=== PATIENT | female | born 1970 | race Two or more races ===

== ENCOUNTER 2021-07-30 14:38 | Outpatient (REF) | payer OTHER, SELFPAY ==
[2021-07-30 16:05] LABS: COVID-19 Test Negative (Negative); IDNOW Serial# 55D5AD1C
== END 2021-07-30 14:39 | disposition home or self-care (01) ==
LOC: HO.LAB 14:38
PROVIDERS: Visit Provider Internal Medicine
DX: Z20.822 Contact with and (suspected) exposure to COVID-19 (principal)
CPT/HCPCS: 36415; 87635; C9803

== ENCOUNTER 2023-03-20 17:56 | Emergency (ER) | payer OTHER, SELFPAY ==
--- NOTE | ~2023-03-20 | CT_ITS ---
EXAMINATION: CT ABDOMEN AND PELVIS WITHOUT CONTRAST CLINICAL INFORMATION: Right lower quadrant pain. COMPARISON: None available. TECHNIQUE: Multidetector volumetric imaging was performed from the superior aspect of the liver through the pubic symphysis. Sagittal and coronal reformatted images were obtained on the technologist's workstation. This CT examination was performed using dose optimization techniques as appropriate, variously including the following: *Automated exposure control. *Adjustment of mA and/or kV according to patient size (this includes techniques or standardized protocols for targeted exams where dose is matched to indication/reason for exam; i.e. extremities or head). *Use of iterative reconstruction technique. DLP: 532 mGy-cm FINDINGS: LUNG BASES: There is a calcific granuloma at the right lung base. The lung bases are otherwise clear. LIVER, GALLBLADDER, AND BILIARY TREE: The liver is normal in size, shape, and attenuation. No focal hepatic lesion or biliary ductal dilatation is present. The gallbladder is unremarkable with no evidence of radiopaque gallstones, gallbladder wall thickening, or obvious pericholecystic inflammatory changes. PANCREAS: Unremarkable. SPLEEN: Unremarkable. ADRENAL GLANDS: Unremarkable. KIDNEYS AND URETERS: The kidneys are normal in size, shape, and attenuation. No hydronephrosis, hydroureter, or calculi seen. No perinephric stranding. BLADDER : Unremarkable. GASTROINTESTINAL TRACT: There are a few diverticula of the descending colon without diverticulitisThe. Appendix is unremarkable. ABDOMINAL WALL: No significant hernia is appreciated. LYMPH NODES: Normal. VASCULAR: Unremarkable. PELVIC VISCERA: Unremarkable. OSSEOUS STRUCTURES: Unremarkable. CT/CT abdomen pelvis wo IV con IMPRESSION: No acute intra-abdominal process. There are a few diverticula of the descending colon without diverticulitis. Fleischner guidelines were followed.
--- NOTE | 2023-03-20 18:34 | ED_ITS ---
HPI - Abdominal Pain General Chief Complaint: Urogenital-Female Stated Complaint: Abdominal pain Time Seen by Provider: 03/20/23 22:05 Source: patient Mode of arrival: ambulatory Limitations: no limitations History of Present Illness HPI narrative: Patient with history chronic abdominal pain since 2020 after partial hysterectomy diagnosed with IBS on [place] complaining of this time pain last 2 weeks localized more on the right side going to the bilateral flank area no gross hematuria no history of kidney stone no urinary complaints no fever no chills no diarrhea Related Data Previous Rx's Medication Instructions Recorded cyclobenzaprine 10 mg tablet 10 mg PO Q8H #20 tabs 03/20/23 lorazepam 0.5 mg tablet (Ativan) 0.5 mg PO BEDTIME PRN sleep #10 03/20/23 tabs tramadol 50 mg tablet 50 mg PO Q6H PRN pain #20 tabs 03/20/23 Allergies Allergy/AdvReac Type Severity Reaction Status Date / Time No Known Allergies Allergy Mild N/A Verified 03/20/23 18:35 Review of Systems Review of Systems Yes all other systems are reviewed and are negative [facility] Social History Social History Alcohol intake: never Smoked in Last 30 Days: No Use of substances other than those prescribed or required for medical reasons: No Advance Directives: No Advance Directives Information Provided: No Patient : No Physical Exam ED Vital Signs: Vital Signs - 24 hr 03/20/23 18:35 03/20/23 22:32 03/20/23 23:40 Temperature 96.5 F L 97.8 F 97.9 F Pulse Rate 84 75 79 Respiratory Rate 18 18 18 Blood Pressure 117/74 99/53 L 108/61 Pulse Oximetry 98 99 98 Oxygen Delivery Method Room Air Room Air Room Air BMI result Body Mass Index 31.0 Appearance: Alert. Oriented X3. No acute distress. Eyes: No pallor or icterus ENT: Pharynx normal. Oral Mucosa moist Neck: Normal inspection. Neck supple. CVS: Normal heart rate and rhythm. Pulses normal. Respiratory: No respiratory distress. Equal air entry bilateral, no wheezing/rales/rhonchi Abdomen: Soft diffuse abdominal tenderness right upper abdomen. Bowel sounds are present, no mass palpable, no CVA tenderness Skin: Skin warm and dry. Normal skin color. Normal skin turgor. Extremities: No lower extremity edema. No calf tenderness Neuro: Oriented X 3. Course Course Course Narrative: RME: 52-year-old female w/PMHx renal stones, presenting to the ED complaining of R sided abdominal pain radiating to back x 2 weeks w/assoc hematuria. Admits went to [facility] ED last week but LWT'd. denies fever, N/V Labs, UA, CT ordered ordered Full HPI, ROS and PE to be performed by primary ED provider. Medical Decision Making Medical Decision Making MDM Narrative: Patient under increased stress unable to sleep in the night with diffuse back pain and abdominal pain with history of IBS likely has fibromyalgia also CT scan is negative labs are stable urine negative discharge patient home on tramadol, Ativan, Flexeril Lab Data [facility] Lab Attestation statement: I reviewed the patient's lab results. 03/20/23 21:24 03/20/23 21:24 Labs: Lab Results 03/20/23 03/20/23 03/20/23 Range/Units 19:25 21:24 21:24 WBC 9.1 (4.8-10.8) X10*3/uL RBC 4.64 (4.20-5.50) X10*6/uL Hgb 13.4 (12.0-16.0) g/dl Hct 40.9 (37.0-47.0) % MCV 88.1 (80.0-98.0) fL MCH 28.9 (27.0-33.0) pg MCHC 32.8 (31.0-35.0) g/dl RDW 13.9 (11.0-16.0) % Plt Count 226 (160-400) X10*3/uL MPV 10.8 (9.4-12.3) fL Immature Gran % (Auto) 0.3 (0.0-0.4) % Neut % (Auto) 54.2 (45-73) % Lymph % (Auto) 37.9 (20-40) % [place] % (Auto) 6.4 (2-11) % Eos % (Auto) 0.9 (0-4) % Baso % (Auto) 0.3 (0-2) % Lymph # (Auto) 3.4 (1.2-4.9) X10*3/uL [place] # (Auto) 0.6 (0.1-1.2) X10*3/uL Eos # (Auto) 0.1 (0.0-0.4) X10*3/uL Baso # (Auto) 0.0 (0.0-0.2) X10*3/uL Abs Immat Gran (auto) 0.03 (0.00-0.03) X10*3/uL Absolute Neuts (auto) 4.9 (2.0-8.3) x10*3/uL Absolute Nucleated RBC 0.000 (0.0-0.012) X10*3/uL Nucleated RBC % (auto) 0.0 (0.0-0.2) /100WBC Sodium 140 (135-145) mmol/L Potassium 4.3 (3.3-5.1) mmol/L Chloride 104 (96-108) mmol/L Carbon Dioxide 28 (22-29) mmol/L Anion Gap 12 (12-20) BUN 14 (9-16) mg/dL Creatinine 0.80 (0.5-1.4) mg/dL Estim Creat Clear Calc 83.9 Estimated GFR > 60 Random Glucose 89 (60-115) mg/dL Calcium 9.8 (8.4-10.2) mg/dL Magnesium 2.5 (1.6-2.6) mg/dL Total Bilirubin 0.4 (0.0-1.0) mg/dL Direct Bilirubin 0.1 (0.0-0.5) mg/dL AST 24 (5-31) U/L ALT 32 H (0-31) U/L Alkaline Phosphatase 63 (39-117) U/L Total Protein 7.7 (6.5-8.0) g/dL Albumin 4.2 (3.5-5.0) g/dL Lipase 24 (8-78) U/L Urine Color Yellow Urine Appearance Clear Urine pH 5.5 (5.0-9.0) Ur Specific [place] 1.010 (1.005-1.025) Urine Protein Negative (Neg-Trace) mg/dL Urine Glucose (UA) Negative (Negative) mg/dL Urine Ketones Negative (Negative) mg/dL Urine Blood Negative (Negative) Urine Nitrite Negative (Negative) Ur Leukocyte Esterase Negative (Negative) Medications Administered Discontinued Medications Generic Name Dose Route Start Last Admin Trade Name Freq PRN Reason Stop Dose Admin Cyclobenzaprine HCl 10 mg 03/20/23 23:11 03/20/23 23:26 Cyclobenzaprine Hcl 10 Mg Tablet PO 03/20/23 23:12 10 mg ONCE ONE Administration Lorazepam 0.5 mg 03/20/23 23:11 03/20/23 23:27 Lorazepam 0.5 Mg Tablet PO 03/20/23 23:12 0.5 mg ONCE ONE Administration Tramadol HCl 50 mg 03/20/23 23:11 03/20/23 23:26 Tramadol Hcl 50 Mg Tablet PO 03/20/23 23:12 50 mg ONCE ONE Administration Discharge Plan Discharge Clinical Impression: Irritable bowel syndrome, Fibromyalgia Patient Disposition: Home, Self-Care Instructions: Irritable Bowel Syndrome (ED), Fibromyalgia (ED) Additional Instructions: Likely you have fibromyalgia as a cause of the pain in the back Abdominal pain is likely from IBS Continue medications as prescribed by your gastroenterology Take medication for pain as prescribed Prescriptions: New tramadol 50 mg tablet 50 mg PO Q6H PRN (Reason: pain) Qty: 20 0RF lorazepam [Ativan] 0.5 mg tablet 0.5 mg PO BEDTIME PRN (Reason: sleep) Qty: 10 0RF cyclobenzaprine 10 mg tablet 10 mg PO Q8H Qty: 20 0RF Interventions: ED Discharge Assessment Last Done: 03/20/23 23:54 Discharge Date/Time: 03/20/23 23:54
[2023-03-20 18:35] VITALS: BP 117/74; PULSE 84; RESP 18; TEMP 35.8; O2SAT 98; BMI 31.0
[2023-03-20 19:37] LABS: Appearance Urine Clear; Color Urine Yellow; Glucose Urine UA Negative (Negative); Leukocyte Esterase Urine Negative (Negative); Nitrite Urine Negative (Negative); PH 5.5 (5.0-9.0); Urine Blood Negative (Negative); Urine Ketones Negative (Negative); Urine Protein Negative (Neg-Trace)
[2023-03-20 21:27] LABS: MANUAL DIFF FLAG NO
[2023-03-20 21:28] LABS: Basophils Percent Auto 0.3 % (0-2); Eosinophils Absolute Auto 0.1 X10*3/uL (0.0-0.4); Eosinophils Percent Auto 0.9 % (0-4); Hematocrit 40.9 % (37.0-47.0); Hemoglobin 13.4 g/dl (12.0-16.0); Imm Gran Abs Auto 0.03 X10*3/uL (0.00-0.03); Imm Gran Pct Auto 0.3 % (0.0-0.4); Lymphocytes Absolute Auto 3.4 X10*3/uL (1.2-4.9); Lymphocytes Percent Auto 37.9 % (20-40); Mean Corpuscular HGB Conc 32.8 g/dl (31.0-35.0); Mean Corpuscular Hemoglobin 28.9 pg (27.0-33.0); Mean Corpuscular Volume 88.1 fL (80.0-98.0); Mean Platelet Volume 10.8 fL (9.4-12.3); Monocytes Absolute Auto 0.6 X10*3/uL (0.1-1.2); Monocytes Percent Auto 6.4 % (2-11); Neutrophils Absolute Auto 4.9 x10*3/uL (2.0-8.3); Neutrophils Percent Auto 54.2 % (45-73); Platelet Count 226 X10*3/uL (160-400); Red Blood Count 4.64 X10*6/uL (4.20-5.50); Red Cell Distribution Width 13.9 % (11.0-16.0); White Blood Count 9.1 X10*3/uL (4.8-10.8)
[2023-03-20 21:46] LABS: Alanine Aminotransferase 32 U/L (0-31); Albumin Level 4.2 g/dL (3.5-5.0); Alkaline Phosphatase 63 U/L (39-117); Anion Gap 12 (12-20); Aspartate Amino Transferase 24 U/L (5-31); Bilirubin Direct 0.1 mg/dL (0.0-0.5); Bilirubin Total 0.4 mg/dL (0.0-1.0); Blood Urea Nitrogen 14 mg/dL (9-16); Calcium 9.8 mg/dL (8.4-10.2); Carbon Dioxide 28 mmol/L (22-29); Chloride 104 mmol/L (96-108); Creatinine Clr Calc Pharmacy 83.9; Estimated Glomerular Filt Rate > 60; Glucose Random 89 mg/dL (60-115); Lipase 24 U/L (8-78); Magnesium 2.5 mg/dL (1.6-2.6); Potassium 4.3 mmol/L (3.3-5.1); Sodium 140 mmol/L (135-145); Total Protein 7.7 g/dL (6.5-8.0)
[2023-03-20 22:32] VITALS: BP 99/53; PULSE 75; RESP 18; TEMP 36.6; O2SAT 99
[2023-03-20] MEDS: Cyclobenzaprine HCl 10 MG TABLET PO (23:26)
[2023-03-20] MEDS: traMADoL HCL 50 MG TABLET PO (23:26)
[2023-03-20] MEDS: LORazepam 0.5 MG TABLET PO (23:27)
[2023-03-20 23:40] VITALS: BP 108/61; PULSE 79; RESP 18; TEMP 36.6; O2SAT 98
== END 2023-03-20 23:54 | disposition home or self-care (01) ==
PROVIDERS: Physician Assistant; Emergency Provider Internal Medicine; PCP Internal Medicine
DX: K58.9 Irritable bowel syndrome, unspecified (principal); M79.7 Fibromyalgia
CPT/HCPCS: 36415; 74176; 80048; 80076; 81003; 83690; 83735; 85025; 99284

== ENCOUNTER 2023-09-26 08:32 | Emergency (ER) | payer OTHER, SELFPAY ==
--- NOTE | ~2023-09-26 | XR_ITS ---
EXAMINATION: XR HIP, RIGHT CLINICAL INFORMATION: Right hip pain COMPARISON: None available. TECHNIQUE: Two views of the right hip. FINDINGS: No fracture. Alignment is anatomic. Hip joint space is maintained. Soft tissues are unremarkable. XR/XR hip RT min 2V IMPRESSION: Normal right hip.
[2023-09-26 08:43] VITALS: BP 105/63; PULSE 75; RESP 14; TEMP 36.9; O2SAT 97; BMI 31.9
--- NOTE | 2023-09-26 09:08 | ED_ITS ---
HPI - General Adult General Chief complaint: Extremity Problem Stated complaint: R Side Hip Pain ? Sciatica Time Seen by Provider: 09/26/23 09:04 Source: patient Mode of arrival: ambulatory Limitations: no limitations History of Present Illness HPI narrative: Patient is a 53 year old assigned female at with a history of sciatica presenting to the emergency department today with right sided hip pain. Patient states that over the last few days she has had right sided hip pain that radiates to the outside portion of her right knee. Patient states that she has had issues with sciatica but this feels different. Patient denies any dizziness, lightheadedness, abdominal pain, nausea, vomiting, fever, chills, blurry vision, double vision, loss of vision, chest pain, difficulty breathing, shortness of breath, back pain, night sweats, pain with urination, increased urinary frequency, increased urinary urgency, blood in her urine or stool, syncope or a near syncopal episode, recent trauma or falls, bowel incontinence, bladder incontinence, bowel retention, bladder retention, or any other complaints at this time. Onset (ago): day(s) Location: right (hip) and lower extremity Radiation: non-radiation Severity: mild Severity scale (1-10): 3 Quality: aching and dull Pain Consistency: constant Relieving factors: none Exacerbating factors: movement Associated symptoms: denies other symptoms Treatments prior to arrival: none Related Data Previous Rx's Medication Instructions Recorded cyclobenzaprine 10 mg tablet 10 mg PO Q8H #20 tabs 03/20/23 lorazepam 0.5 mg tablet (Ativan) 0.5 mg PO BEDTIME PRN sleep #10 03/20/23 tabs tramadol 50 mg tablet 50 mg PO Q6H PRN pain #20 tabs 03/20/23 cyclobenzaprine 5 mg tablet 5 mg PO TID PRN muscle spasm 7 09/26/23 days #21 tabs naproxen 500 mg tablet 500 mg PO BID 7 days #14 tabs 09/26/23 prednisone 20 mg tablet 20 mg PO DAILY 7 days #7 tabs 09/26/23 Allergies Allergy/AdvReac Type Severity Reaction Status Date / Time No Known Allergies Allergy Mild N/A Verified 09/26/23 08:42 Review of Systems Constitutional: Constitutional: Reports no additional constitutional complaints, Denies chills, Denies fever(s) and Denies night sweats Eyes: Eyes: Reports no additional eye complaints, Denies blurry vision, Denies change in vision, Denies diplopia, Denies eye discharge, Denies loss of vision and Denies eye pain ENT: Denies dizziness Cardiovascular: Cardiovascular: Reports no additional cardiovascular complaints, Denies chest pain, Denies lightheadedness, Denies Loss of Consciousness and Denies dyspnea Respiratory: Respiratory: Reports no additional respiratory complaints and Denies dyspnea Gastrointestinal: Gastrointestinal: Reports no additional gastrointestinal complaints, Denies abdominal pain, Denies melena, Denies hematochezia, Denies change in bowel habits and Denies change in stool character Genitourinary: Genitourinary: Denies hematuria, Denies urinary frequency, Denies dysuria, Denies urinary incontinence, Denies urinary hesitancy and Denies urinary urgency Musculoskeletal: Musculoskeletal: Reports no additional musculoskeletal complaints, Denies numbness and Denies tingling Comments: right hip pain Neurologic: Denies dizziness, Denies loss of vision, Denies numbness and Denies tingling Psychiatric: Psychiatric: Reports no additional psychiatric complaints Endocrine: Endocrine: Reports no additional endocrine complaints Hematologic/Lymphatic: Hematologic/Lymphatic: Reports no additional hematologic/lymphatic complaints Allergic/Immunologic: Allergic/Immunologic: Reports no additional allergic/immunologic complaints [facility] Past Medical History Attestation statement: The following information was validated with the patient. Source: old records reviewed and nursing notes reviewed Social History Social History Alcohol intake: never Advance Directives: No Advance Directives Information Provided: No Physical Exam ED Vital Signs: Vital Signs - 24 hr 09/26/23 08:43 Temperature 98.4 F Pulse Rate 75 Respiratory Rate 14 Blood Pressure 105/63 Pulse Oximetry 97 Oxygen Delivery Method Room Air BMI result Body Mass Index 31.9 Const General: cooperative, no acute distress, alert and awake Nutritional Appearance: well nourished Orientation/consciousness: patient oriented x3 Limitations: no limitations HENMT Head: Yes normal to inspection and Yes atraumatic Ears: hearing grossly normal bilaterally and external ears normal General nose exam: Normal external nose present, no nasal discharge noted and no epistaxis Face and sinus: Yes normal facial exam, No abrasion and No laceration Mouth: Normal oral and palatal mucosa present, no drooling and no muffled voice Eyes General: appearance normal, both eyes and all related structures Periorbital: periorbital findings normal Eyelids: Yes eyelids normal Conjunctivae: conjunctivae normal Pupils: Equal, round and reactive pupils present EOM: EOMs intact bilaterally Neck Neck: Yes normal visual inspection, Yes full ROM and Yes no lymphadenopathy Chest Chest palpation & inspection: normal inspection of the chest Resp Effort & Inspection: normal respiratory effort and able to speak in complete sentences GI Inspection: Yes normal to inspection General: Yes no CVA tenderness Back/Spine/Pelvis Back: no CVA tenderness Cervical Spine: normal cervical lordosis and cervical ROM normal Thoracic/Lumbar Spine: thoracic and lumbar spine normal to inspection Pelvis: no pain with anterior-posterior compression Neuro General: patient oriented x3 and moves all extremities Cranial nerves: Yes Equal, round and reactive pupils present Cognition (Neuro): normal cognition Motor exam (neuro): 5/5 motor strength present throughout Sensory Exam: Normal double simultaneous stimulation for sensation Coordination: [id number] test normal Extrem General: Yes normal to inspection, Yes full ROM and Yes capillary refill normal Psych Appearance: grossly normal Mental Status: mental status grossly normal Affect: normal affect Attitude: cooperative Thought process: Normal thought process present Thought content: Normal thought content present Insight: Good insight present (Psych) Procedures Orthopedic Splinting/Casting Injury #1: Side: right Other Orthopedic Equipment: crutches Medical Decision Making Medical Decision Making MDM Narrative: Patient is a 53 year old assigned female at with a history of sciatica presenting to the emergency department today with right hip and leg pain. Patient's physical exam was unremarkable. Patient's right hip x-ray showed no acute process. I explained my physical exam findings as well as all test results to the patient. I answered all questions asked by the patient. Patient was given crutches with crutch instructions as she expressed pain with movement on the right side. I stressed the importance of the patient taking her medication as prescribed. I stressed the importance of the patient following up with her primary care provider and her orthopedic provider. I stressed the importance of the patient returning to the emergency department immediately if her symptoms were to worsen or if she were to develop any dizziness, shortness of breath, difficulty breathing, chest pain, blurry vision, loss of vision, nausea, vomiting, abdominal pain, fever, chills, back pain, or any other complaints. Patient verbalized agreement and understanding with this treatment plan and discharge. Differential Diagnosis Differential Diagnoses: The differential diagnosis associated with the presentation includes Right hip pain IT band syndrome Arthritis Sciatica Admission/Observation Consideration of admission/observation: Escalation of care including admission/observation considered Patient would have been admitted to the hospital had her work up had any findings where hospital admission was appropriate and her clinical presentation warranted hospital admission. Independent Interpretation I performed an independent interpretation of an: Plain X-Ray Interpretation: My interpretation is in agreement with the radiologist's impression of this imaging study. EXAMINATION: XR HIP, RIGHT CLINICAL INFORMATION: Right hip pain COMPARISON: None available. TECHNIQUE: Two views of the right hip. FINDINGS: No fracture. Alignment is anatomic. Hip joint space is maintained. Soft tissues are unremarkable. XR/XR hip RT min 2V IMPRESSION: Normal right hip. Dictated By: Tono Mcknight MD Signed By: Electronically signed by Tono Mcknight MD 09/26/23 0927 Radiology Impression Discussion of test interpretation with radiology: I have reviewed the radiologist's reading. Discharge Plan Discharge Clinical Impression: Iliotibial band syndrome Patient Disposition: Home, Self-Care Instructions: Iliotibial Band Syndrome (ED) Additional Instructions: Follow up with your primary care provider and an orthopedic provider. Return to the emergency department immediately if your symptoms worsen or if you develop any dizziness, shortness of breath, difficulty breathing, chest pain, blurry vision, loss of vision, nausea, vomiting, abdominal pain, fever, chills, back pain, or any other complaints. Prescriptions: New cyclobenzaprine 5 mg tablet 5 mg PO TID PRN (Reason: muscle spasm) 7 Days Qty: 21 0RF prednisone 20 mg tablet 20 mg PO DAILY 7 Days Qty: 7 0RF naproxen 500 mg tablet 500 mg PO BID 7 Days Qty: 14 0RF No Action tramadol 50 mg tablet 50 mg PO Q6H PRN (Reason: pain) Qty: 20 0RF lorazepam [Ativan] 0.5 mg tablet 0.5 mg PO BEDTIME PRN (Reason: sleep) Qty: 10 0RF cyclobenzaprine 10 mg tablet 10 mg PO Q8H Qty: 20 0RF Referrals: [facility] [Provider Group] (Call to establish and follow up with an orthopedic provider.) Christina Cha MD [Primary Care Provider] - Stand Alone Forms: Work/School Release Interventions: ED Discharge Assessment Last Done: 09/26/23 09:43 Discharge Date/Time: 09/26/23 09:44 Print Language: Icelandic
== END 2023-09-26 09:44 | disposition home or self-care (01) ==
PROVIDERS: Emergency Provider Emergency Medicine; PCP Internal Medicine
DX: M76.31 Iliotibial band syndrome, right leg (principal)
CPT/HCPCS: 73502; 99282; 99283

== ENCOUNTER 2023-10-08 14:38 | Outpatient (AMB) | payer OTHER, SELFPAY ==
--- NOTE | 2023-10-08 14:42 | A.OFFVIS_ITS ---
Intake Vital Signs 10/08/23 14:43 Height 5 ft 3 in Weight 180 lb BMI 31.9 Intake Visit Reasons: ED Follow up- RT hip pain Intake Note: Adri 53 yr old female presents today for a new patient visit s/p ED visit on 09/26/23. Patient states that over the last few days she has had right sided hip pain that radiates to the outside portion of her right knee. Patient states that she has had issues with sciatica but this feels different. She states she has pain and swelling in her groin. She tried cortisone injections with no relief ? Worse with the use of stairs? Allergies No Known Allergies Allergy (Mild, Verified 10/08/23 14:54) N/A HPI ED Follow up- RT hip pain HPI Details 53-year-old female who [facility] for an ED follow-up of right hip pain. She states she has pain in her right hip which radiates to the lateral aspect of her knee. Her pain is aggravated with the use of sandals and she does experiences occasional limping. She also c/o pain and swelling in her groin region. She has had 2 cortisone injections and 3 physical therapy sessions in the past. She has a history of sciatica for 9 years however she does not attribute her rig ht hip pain to the condition. 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 Review of Systems Const All systems reviewed & are unremarkable except as noted in HPI and below Physical Exam Vital Signs: BMI result Body Mass Index 31.9 Const General: cooperative, healthy appearing, comfortable, no acute distress, well developed and alert Orientation/consciousness: patient oriented x3 HEENT Head: Yes normal to inspection, Yes normocephalic and Yes atraumatic Eyes General: appearance normal, both eyes and all related structures Resp Effort & Inspection: normal respiratory effort and able to speak in complete sentences Cardio Rate: regular rate Peripheral pulses: Peripheral pulses 2+ throughout GI Palpation (GI): Soft to palpation Skin Lesions: no lesions Rashes: no rashes Neuro General: patient oriented x3 Extrem Other: Right hip: Normal to inspection. No pain with ROM of the hip. Pain along the greater trochanter. No pain with hip flexion or abduction. Negative tenderness along the SI joint, Negative SLR. NVI. Assessment & Plan Assessment & Plan (1) Iliotibial band syndrome affecting right lower leg: Code(s): M76.31 - Iliotibial band syndrome, right leg Plan We discussed options which include PT, NSAIDs and injections. The patient will defer on the injection today and proceed with PT and NSAIDs. If symptoms persist, the patient will contact me for an injection, otherwise, PRN. Orders: Orders PT Evaluation and Treatment 10/08/23 M76.31 - Iliotibial band syndrome, right leg Patient Instructions: Scribed for Rubens uKrtz PA-C, by Patrick Knight emergency medical dispatcher, on 10/08/2023 at 2:45 PM EST. Rubens Munoz PA-C, have personally reviewed and agree with the information entered by the scribe. Coding Level of Care Code New Pt Level 3 (59683) Diagnoses Iliotibial band syndrome affecting right lower leg M76.31
[2023-10-08 14:43] VITALS: BMI 31.9
== END 2023-10-08 15:10 | disposition home or self-care (01) ==
PROVIDERS: PCP Internal Medicine; Visit Provider Physician Assistant
DX: M76.31 Iliotibial band syndrome, right leg (principal)
CPT/HCPCS: 99203

== ENCOUNTER → 2023-10-08 14:38 | Outpatient (BNVA) | payer OTHER, SELFPAY | PROVIDERS: PCP Internal Medicine; Visit Provider Physician Assistant | DX: M76.31 Iliotibial band syndrome, right leg (principal) | CPT/HCPCS: 99202 ==

== ENCOUNTER 2023-11-22 15:00 | Outpatient (RCR) | payer OTHER, SELFPAY ==
--- NOTE | 2023-10-25 18:28 | MHC.PT.EP ---
[facility] [place] Office [place] Office [place] Office [address] [phone] F: [phone] F: [phone] F: [phone] F: [phone] Physical Therapy Plan of Care Date of Evaluation: 10/25/23 Date of Surgery: Diagnosis: RIGHT leg iliotibial band syndrome (MD Dx) (RS) RIGHT lumbar radiculopathy and RIGHT sided sciatica (PT Dx) Assessment: Patient is a pleasant 53 y.o. female who is referred to PT by Rubens Kurtz PA-C with Dx of RIGHT leg iliotibial band syndrome. PT diagnosis is RIGHT lumbar radiculopathy and RIGHT sided sciatica as her symptoms have a lumbar component with potential disc involvement but would need imaging to confirm/refute this. However, there is significant chronic compensations as initial injury to low back was 9 years prior and she reports recent incident is an acute on chronic flare up. Patient impairments include poor posture, limited ROM in lumbar spine and R hip, weakness of glutes and core, antalgic gait. Patient current functional limitations are ascending stairs, difficulty carrying items, put on shoes/socks, walking long distances, standing on one foot, bending. Patient will benefit from skilled PT to address aforementioned impairments and functional limitations to meet established goals. Frequency and Duration: The patient will be seen Short Term Goals: 2 weeks Patient demonstrates consistency and independence with HEP to self manage symptoms and understanding of centralization versus peripheralization. Halfway Goals: 4 weeks Patient presents with increased lumbar spine AROM flexion 80 degrees to restore mobility to perform lower body dressing. Patient presents with increased R hip glute med strength 4/5 to be able to perform squat without difficulty. Treatment Plan: Modalities to reduce pain, spasms and effusion. Manual therapy to restore motion and function. Therapeutic exercise to improve strength and flexibility. Neuromuscular re-education for posture and balance. Therapeutic activities to return to functional activities of daily living. Electronically signed by: Jill Willard, PT, DPT Please sign and return to therapist. Thank you for your referral.
--- NOTE | 2024-01-07 10:27 | MHC.PT.DC ---
[facility] [place] Office [place] Office [place] Office [address] Lukas Pinto [address] [phone] F: [phone] F: [phone] F: [phone] F: [phone] Physical Therapy Discharge Report Diagnosis: RIGHT leg iliotibial band syndrome (MD Dx) (RS) RIGHT lumbar radiculopathy and RIGHT sided sciatica (PT Dx) Date of Surgery: Date of Evaluation: 10/25/23 Date of Discharge: 11/22/23 Treatments to Date: 5 Cancellations to Date: 10 No Shows to Date: 0 Discharge Status: Independent with HEP Patient Elected to Stop Recommend MD Follow-up Discharge Summary: Sarah was seen 1x/week for 5 visit with PT. Her last treatment was on 11/22/23 and the assessment reads, Performed MET with able to tolerate supine R post inominate rotation correction. She was tender with TP at TFL. She c/o pain at greater trochanteric area with trial of s/l clamshells, unclear if this is due to soem gluteal tendonitis or tight psoas as she can perform clams supine and also hip abduction in supine without the same sxs. I can also passively move her into hip rotation/clamshell in s/l without eliciting same pain. Ended with e-stim following manual therapy with pain relief. Encourgaed to continue HEP for stretching and glute strengthening with pain free movements. Adri called to cancel all future appointment after this visit due to increased pain, will be returning to ortho for FUP regarding pain and wishes to discontinue PT at this time. Patient may have benefited from mechanical lumbar traction, however, our traction machine was being repaired during the time she attended PT. This may be of benefit in the future. Electronically signed by: Jill Willard, PT, DPT Please sign and return to therapist. Thank you for your referral.
== END 2024-01-07 10:28 | disposition home or self-care (01) ==
LOC: HO.PT 15:00
PROVIDERS: Visit Provider Physician Assistant
DX: M76.31 Iliotibial band syndrome, right leg (principal)
CPT/HCPCS: 97014; 97110; 97140; 97161; 97530

== ENCOUNTER 2023-12-17 14:57 | Outpatient (AMB) | payer OTHER, SELFPAY ==
--- NOTE | 2023-12-17 15:03 | A.OFFVIS_ITS ---
Vital Signs 12/17/23 15:06 Height 5 ft 3 in Weight 180 lb BMI 31.9 Intake Visit Reasons: OV-Right hip pain/follow up Intake Note: Adri 53 year old female who presents today for a follow up of right hip pain. Patient reports that she attended PT for about 4-5 weeks with no improvement, stating making her pain worse. States she is now having left hip pain as well. She is requesting to have an MRI. Allergies No Known Allergies Allergy (Mild, Verified 12/17/23 15:08) N/A HPI HPI OV-Right hip pain/follow up: Details: 53-year-old female who returns to the office today for a follow-up of right hip pain. She continues to have pain in her right hip which now radiates to her left hip as well. Her pain is aggravated at night with sleeping on her sides. She has attended 4-5 weeks of physical therapy with no relief. She has had a history of SI joint injection with minimal relief. 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 No pain with ROM of the hip. Pain along the greater trochanter. No pain with hip flexion or abduction. Positive tenderness along the SI joint, Positive SLR. NVI. Office Procedures Joint Injection/Drain Joint Injection/Drain Details: right trochanteric bursa Prep: site was prepped using aseptic technique, ethochloride spray was applied and injection warnings given Injected: 80 mg of, DepoMedrol, with 8 mL of and 1% plain lidocaine Procedure: The patient tolerated the procedure well and there was some relief with the local anesthesia Coding 36717 - Glenohumeral/Tronchanteric Bursa/Intraarticular Procedure code (CPT) selection complete Assessment & Plan Assessment & Plan (1) Trochanteric bursitis, right hip: Code(s): M70.61 - Trochanteric bursitis, right hip Category: Medical Plan We discussed options today which include steroid injection. They did consent to move forward with the right hip injection, which was tolerated well. I recommended rest, ice and elevation and OTC anti-inflammatories PRN for discomfort. If symptoms persist or worsens over the next 6-8 weeks, patient will contact the office, otherwise follow-up as needed. ? I have referred her to Dr. Jimenez for evaluation of her SI joint pain. Medications: New ibuprofen 800 mg PO Q8H PRN 90 tabs 3RF pain 30 days Patient Instructions: Scribed for Rubens Kurtz PA-C, by Patrick Knight medical office manager, on 12/17/2023 at 3:15 PM EST.? I, Rubens Kurtz PA-C, have personally reviewed and agree with the information entered by the scribe. Coding Level of Care Code Est Pt Level 3 (65206) Diagnoses Trochanteric bursitis, right hip M70.61 CPT Codes Coding - Joint 7: 79883 - Glenohumeral/Tronchanteric Bursa/Intraarticular ([id number])
[2023-12-17 15:06] VITALS: BMI 31.9
== END 2023-12-17 15:53 | disposition home or self-care (01) ==
PROVIDERS: Visit Provider Physician Assistant
DX: M70.61 Trochanteric bursitis, right hip (principal)
CPT/HCPCS: 20610; 99213

== ENCOUNTER → 2023-12-17 14:57 | Outpatient (BNVA) | payer OTHER, SELFPAY | PROVIDERS: Visit Provider Physician Assistant | DX: M70.61 Trochanteric bursitis, right hip (principal) | CPT/HCPCS: 20610; 99212; J1010 ==

== ENCOUNTER 2024-01-23 12:51 | Emergency (ER) | payer OTHER, SELFPAY ==
--- NOTE | ~2024-01-23 | CT_ITS ---
EXAMINATION: CT ABDOMEN AND PELVIS WITH CONTRAST CLINICAL INFORMATION: Left lower quadrant pain COMPARISON: Prior CT dated 03/20/2023 TECHNIQUE: Multidetector volumetric images were obtained from the superior aspect of the liver through the pubic symphysis following administration 85 mL of Omnipaque 350 intravenous contrast. Sagittal and coronal reformatted images were obtained on the technologist's workstation. Oral contrast: No This CT examination was performed using dose optimization techniques as appropriate, variously including the following: *Automated exposure control *Adjustment of mA and/or kV according to patient size (this includes techniques or standardized protocols for targeted exams where dose is matched to indication/reason for exam; i.e. extremities or head) *Use of iterative reconstruction technique DLP: 66 mGy-cm FINDINGS: LUNG BASES: 6 mm calcified granuloma right base. LIVER, GALLBLADDER, AND BILIARY TREE: Mild hepatic steatosis. No focal hepatic mass. There is no intrahepatic hepatic biliary dilatation. The gallbladder is unremarkable with no evidence of radiopaque gallstones, gallbladder wall thickening, or obvious pericholecystic inflammatory changes. PANCREAS: Unremarkable. SPLEEN: Unremarkable. ADRENAL GLANDS: Unremarkable. KIDNEYS AND URETERS: The kidneys are normal in size, shape, and attenuation. No hydronephrosis, hydroureter, or calculi seen. No perinephric stranding. BLADDER: Unremarkable. GASTROINTESTINAL TRACT: Abnormal. There is a definite inflammatory process in the sigmoid colon with induration in the perisigmoid fat and a pattern consistent with colitis or diverticulitis. There is no evidence for pneumoperitoneum or drainable fluid collection. No proximal obstruction. No evidence for right lower quadrant inflammation. Appendix normal. ABDOMINAL WALL: No significant hernia is appreciated. LYMPH NODES: Normal. VASCULAR: Unremarkable. PELVIC VISCERA: Unremarkable. OSSEOUS STRUCTURES: Unremarkable. CT/CT abdomen pelvis w IV con IMPRESSION: Sigmoid colitis or diverticulitis. Fleischner guidelines were followed.
[2024-01-23 13:01] VITALS: BP 116/76; PULSE 98; RESP 18; TEMP 36.9; O2SAT 98; BMI 32.5
--- NOTE | 2024-01-23 13:03 | ED.ABDPAIN ---
HPI - Abdominal Pain General Chief Complaint: Abdominal Pain Stated Complaint: Abd pain Time Seen by Provider: 01/23/24 13:33 History of Present Illness ED Provider: Lambert LADD narrative: The patient is a 53-year-old female who says that she has a history of irritable bowel syndrome for which she takes linaclotide (Linzess). She says that this morning she took a dose of this medication time I am after that had a bowel movement but also developed lower abdominal pain that is unusual for her. The pain worsened throughout the day, especially in the left lower quadrant. Ultimately she came to the emergency room. The patient says the pain is worse with movements. She has had no diarrhea. She has had no vomiting. No definite fever. No urinary discomfort or other urinary symptoms. The patient says that she was diagnosed with bacterial vaginosis 2 days ago and was started on oral metronidazole. Today is her 2nd day of the oral metronidazole. She has been on no other recent antibiotics. The patient says that she has had a partial hysterectomy but no other abdominal surgeries. Related Data Previous Rx's ?Medication ?Instructions ?Recorded cyclobenzaprine 10 mg tablet 10 mg PO Q8H #20 tabs 03/20/23 lorazepam 0.5 mg tablet (Ativan) 0.5 mg PO BEDTIME PRN sleep #10 03/20/23 tabs tramadol 50 mg tablet 50 mg PO Q6H PRN pain #20 tabs 03/20/23 cyclobenzaprine 5 mg tablet 5 mg PO TID PRN muscle spasm 7 09/26/23 days #21 tabs naproxen 500 mg tablet 500 mg PO BID 7 days #14 tabs 09/26/23 prednisone 20 mg tablet 20 mg PO DAILY 7 days #7 tabs 09/26/23 ibuprofen 800 mg tablet 800 mg PO Q8H PRN pain 30 days #90 12/17/23 tabs amoxicillin 875 mg-potassium 1 tab PO BID #20 tabs 01/23/24 clavulanate 125 mg tablet ibuprofen 600 mg tablet 600 mg PO Q6H PRN pain #14 tabs 01/23/24 Allergies Allergy/AdvReac Type Severity Reaction Status Date / Time No Known Allergies Allergy Mild N/A Verified 01/23/24 13:07 Review of Systems Review of Systems Yes all other systems are reviewed and are negative [facility] Social History Social History Alcohol intake: never Patient Tobacco Use Status: Never used Tobacco Smoked in Last 30 Days: No Use of substances other than those prescribed or required for medical reasons: No Advance Directives: No Advance Directives Information Provided: Yes Do you have a plan to hurt others: No Plan Patient : No 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 She does not appear in acute distress. HENMT Other: Face is symmetrical. Mucous membranes moist. Eyes Other: Pupils are round equal, conjunctivae are clear, extraocular movements intact Neck Other: Moving her neck easily, no neck swelling Resp Effort & Inspection: normal respiratory effort Auscultation: clear to auscultation bilaterally Cardio Rate: regular rate Rhythm: regular rhythm Heart sounds: S1 normal heart sound present and S2 normal heart sound present GI Other: The patient is tender in the lower abdomen. She is moderately tender in the right lower quadrant, she is very tender in the left lower quadrant. The upper abdomen is less tender than the lower quadrants. Back/Spine/Pelvis Other: No CVA percussion tenderness Skin Other: Skin is dry and unremarkable Neuro Other: The patient is awake and alert with a nontoxic demeanor. Cranial nerves are grossly intact. She moves her extremities normally. Extrem Other: No peripheral edema. No calf swelling or tenderness Course Course Course Narrative: This is a Rapid Medical Examination (RME) performed by Comfort Quiles PA-C in triage. Full HPI, ROS, assessment and treatment plan per primary provider in the Main ED. 53 yo female here for eval of left lower abdominal pain on waking this morning. while leaning against the sink while washing dishes and noticed her abdomen was tender. reports 3 BM this morning, clear/green in color. she takes Linzess and reports loose stools at baseline. patient diagnose with BV yesterday and was started on metronidazole, has taken 3 doses of this. no recent travel outside [place]. denies fever, chills, +ttp of entire lower abdomen with voluntary guarding, no rebound, normoactive bs x4. Plan: labs, UA Medical Decision Making Medical Decision Making [facility] Narrative: The patient is a pleasant 53-year-old female who presents with lower abdominal pain that began this morning. She was quite tender in the left lower quadrant. CT scan shows what they are describing as either sigmoid colitis or diverticulitis. The patient says that she has a history of diverticulosis. I suspect this is a case of uncomplicated diverticulitis. 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 Lab Data 01/23/24 13:18 01/23/24 13:18 Labs: Lab Results 01/23/24 Range/Units 13:18 WBC 11.2 H (4.8-10.8) X10*3/uL RBC 5.07 (4.20-5.50) X10*6/uL Hgb 14.9 (12.0-16.0) g/dl Hct 44.5 (37.0-47.0) % MCV 87.8 (80.0-98.0) fL MCH 29.4 (27.0-33.0) pg MCHC 33.5 (31.0-35.0) g/dl RDW 14.0 (11.0-16.0) % Plt Count 218 (160-400) X10*3/uL MPV 10.3 (9.4-12.3) fL Immature Gran % (Auto) 0.4 (0.0-0.4) % Neut % (Auto) 71.0 (45-73) % Lymph % (Auto) 21.7 (20-40) % [place] % (Auto) 5.7 (2-11) % Eos % (Auto) 0.8 (0-4) % Baso % (Auto) 0.4 (0-2) % Lymph # (Auto) 2.4 (1.2-4.9) X10*3/uL [place] # (Auto) 0.6 (0.1-1.2) X10*3/uL Eos # (Auto) 0.1 (0.0-0.4) X10*3/uL Baso # (Auto) 0.0 (0.0-0.2) X10*3/uL Abs Immat Gran (auto) 0.04 H (0.00-0.03) X10*3/uL Absolute Neuts (auto) 8.0 (2.0-8.3) x10*3/uL Absolute Nucleated RBC 0.000 (0.0-0.012) X10*3/uL Nucleated RBC % (auto) 0.0 (0.0-0.2) /100WBC Sodium 138 (135-145) mmol/L Potassium 3.9 (3.3-5.1) mmol/L Chloride 104 (96-108) mmol/L Carbon Dioxide 26 (22-29) mmol/L Anion Gap 12 (12-20) BUN 14 (9-16) mg/dL Creatinine 0.83 (0.5-1.4) mg/dL Estim Creat Clear Calc 81.9 Estimated GFR > 60 Random Glucose 96 (60-115) mg/dL Calcium 9.9 (8.4-10.2) mg/dL Magnesium 2.3 (1.6-2.6) mg/dL Total Bilirubin 0.6 (0.0-1.0) mg/dL AST 22 (5-31) U/L ALT 25 (0-31) U/L Alkaline Phosphatase 69 (39-117) U/L C-Reactive Protein 0.83 H (< or = 0.50) mg/dL Total Protein 8.1 H (6.5-8.0) g/dL Albumin 4.5 (3.5-5.0) g/dL Lipase 29 (8-78) U/L Urine Color Yellow Urine Appearance Clear Urine pH 5.5 (5.0-9.0) Ur Specific [place] 1.020 (1.005-1.025) Urine Protein Negative (Neg-Trace) mg/dL Urine Glucose (UA) Negative (Negative) mg/dL Urine Ketones Negative (Negative) mg/dL Urine Blood Small (1+) H (Negative) Urine Nitrite Negative (Negative) Ur Leukocyte Esterase Small (1+) H (Negative) Urine RBC 6-10 H (0-2) /HPF Urine WBC 0-5 (0-5) /HPF Ur Squamous Epith Cells 0-2 (0-2) /HPF Urine Bacteria None Seen (None Seen) Hyaline Casts 0-2 (0-2) /LPF Medications Administered Discontinued Medications Generic Name Dose Route Start Last Admin Trade Name Freq PRN Reason Stop Dose Admin Amoxicillin/Clavulanate Potassium 875 mg 01/23/24 15:43 01/23/24 15:48 Amoxicillin/Potassium Clav 875 Mg Tablet PO 01/23/24 15:44 875 mg ONCE ONE Administration Sodium Chloride 1,000 mls @ 999 mls/hr 01/23/24 14:15 01/23/24 15:43 Ns IV 01/23/24 15:15 Infused .Q1H1M INGE Infusion Iohexol 100 ml 01/23/24 14:32 01/23/24 14:33 Iohexol 350 Mg/Ml 100 Ml Infus..Btl IV 01/23/24 14:33 85 ml ONCE ONE Administration Ketorolac Tromethamine 15 mg 01/23/24 15:33 01/23/24 15:48 Ketorolac Tromethamine 15 Mg/Ml Vial IVPUSH 01/23/24 15:34 15 mg ONCE ONE Administration Discharge Plan Discharge Clinical Impression: Diverticulitis Patient Disposition: Home, Self-Care Instructions: Diverticulitis (ED) Additional Instructions: Your CT scan suggest that you likely have an episode of diverticulitis today. Fortunately your blood testing does not suggest that you are severely ill. I think it would be reasonable for you to take the oral antibiotic Augmentin (this is a combination of amoxicillin and clavulanate). Please take this medication 2 times a day, approximately every 12 hours. You may take ibuprofen and acetaminophen as needed for pain. Drink lot of fluids. 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 Return to the emergency room if significantly worse. Prescriptions: New amoxicillin-pot clavulanate 875-125 mg tablet 1 tab PO BID Qty: 20 0RF ibuprofen 600 mg tablet 600 mg PO Q6H PRN (Reason: pain) Qty: 14 0RF No Action tramadol 50 mg tablet 50 mg PO Q6H PRN (Reason: pain) Qty: 20 0RF lorazepam [Ativan] 0.5 mg tablet 0.5 mg PO BEDTIME PRN (Reason: sleep) Qty: 10 0RF cyclobenzaprine 10 mg tablet 10 mg PO Q8H Qty: 20 0RF cyclobenzaprine 5 mg tablet 5 mg PO TID PRN (Reason: muscle spasm) 7 Days Qty: 21 0RF prednisone 20 mg tablet 20 mg PO DAILY 7 Days Qty: 7 0RF naproxen 500 mg tablet 500 mg PO BID 7 Days Qty: 14 0RF ibuprofen 800 mg tablet 800 mg PO Q8H PRN (Reason: pain) 30 Days Qty: 90 3RF Referrals: Isabel Griffiths PA [Physician Cad Specialist] - (diverticulitis) Christina Cha MD [Primary Care Provider] - (diverticulitis) Print Language: Nigerien
[2024-01-23 13:22] LABS: MANUAL DIFF FLAG NO
[2024-01-23 13:24] LABS: Basophils Percent Auto 0.4 % (0-2); Eosinophils Absolute Auto 0.1 X10*3/uL (0.0-0.4); Eosinophils Percent Auto 0.8 % (0-4); Hematocrit 44.5 % (37.0-47.0); Hemoglobin 14.9 g/dl (12.0-16.0); Imm Gran Abs Auto 0.04 X10*3/uL (0.00-0.03); Imm Gran Pct Auto 0.4 % (0.0-0.4); Lymphocytes Absolute Auto 2.4 X10*3/uL (1.2-4.9); Lymphocytes Percent Auto 21.7 % (20-40); Mean Corpuscular HGB Conc 33.5 g/dl (31.0-35.0); Mean Corpuscular Hemoglobin 29.4 pg (27.0-33.0); Mean Corpuscular Volume 87.8 fL (80.0-98.0); Mean Platelet Volume 10.3 fL (9.4-12.3); Monocytes Absolute Auto 0.6 X10*3/uL (0.1-1.2); Monocytes Percent Auto 5.7 % (2-11); Platelet Count 218 X10*3/uL (160-400); Red Blood Count 5.07 X10*6/uL (4.20-5.50); White Blood Count 11.2 X10*3/uL (4.8-10.8)
[2024-01-23 13:27] LABS: Appearance Urine Clear; Color Urine Yellow; Glucose Urine UA Negative (Negative); Leukocyte Esterase Urine Small (1+) (Negative); Nitrite Urine Negative (Negative); PH 5.5 (5.0-9.0); UMIC TRIGGER UACC YES; Urine Blood Small (1+) (Negative); Urine Ketones Negative (Negative); Urine Protein Negative (Neg-Trace)
[2024-01-23 13:37] LABS: Alanine Aminotransferase 25 U/L (0-31); Albumin Level 4.5 g/dL (3.5-5.0); Alkaline Phosphatase 69 U/L (39-117); Anion Gap 12 (12-20); Aspartate Amino Transferase 22 U/L (5-31); Bilirubin Total 0.6 mg/dL (0.0-1.0); Blood Urea Nitrogen 14 mg/dL (9-16); Calcium 9.9 mg/dL (8.4-10.2); Carbon Dioxide 26 mmol/L (22-29); Chloride 104 mmol/L (96-108); Creatinine Clr Calc Pharmacy 81.9; Estimated Glomerular Filt Rate > 60; Glucose Random 96 mg/dL (60-115); Lipase 29 U/L (8-78); Magnesium 2.3 mg/dL (1.6-2.6); Potassium 3.9 mmol/L (3.3-5.1); Sodium 138 mmol/L (135-145); Total Protein 8.1 g/dL (6.5-8.0)
[2024-01-23 13:42] LABS: Bacteria Urine None Seen (None Seen); Hyaline Casts Urine 0-2 /LPF (0-2); Squamous Epithelial Cell Urine 0-2 /HPF (0-2); UACC Culture Trigger YES; WBC Urine 0-5 /HPF (0-5)
--- NOTE | 2024-01-23 13:58 | PC.NURSE ---
patient arrives ambulatory with steady gait through external triage, patient states she woke up this morning with a cramping sensation in her lower abdomen, was recently started on flagyl for BV on saturday 01/20, states she had diarrhea this morning but that is normal for her. bowel sounds are present in all four quadrants, patient endorsing tenderness to LLQ upon palpation and some discomfort along bilateral upper quadrants. patient denies any nausea or vomiting, states she has had normal voiding patters, denies any difficulty urinating or recent fevers.
[2024-01-23 14:08] LABS: C Reactive Protein 0.83 mg/dL (< or = 0.50)
[2024-01-23] MEDS: iohexoL 350 MG/ML 100 ML INFUS..BTL IV (14:33)
[2024-01-23] MEDS: 0.9 % Sodium Chloride 1,000 ML 999 ML IV (14:41)
--- NOTE | 2024-01-23 15:42 | PC.NURSE ---
rebecca refusing IV abx at this time, plan to give PO iv abx and DC per
[2024-01-23] MEDS: Amoxicillin/Potassium Clav 875 MG TABLET PO (15:48)
[2024-01-23] MEDS: Ketorolac Tromethamine 15 MG/ML VIAL IVPUSH (15:48)
[2024-01-23 16:10] VITALS: BP 105/62; PULSE 74; RESP 16; TEMP 37; O2SAT 98
[2024-01-23 16:20] VITALS: BP 105/62; PULSE 74; RESP 18; TEMP 37; O2SAT 98
--- OUTSIDE RECORDS SUMMARY | 2024-01-24 08:26 | XMS_ITS | Continuity of Care Document ---
Author Organization [facility] Address [address] [place] [id number]- Care Team Providers Care Jewelry Sales Representative Name Role Phone Becky Lozada MD Primary Care Physician Encounter [facility] Date(s): 11/17/19 - 01/06/[address] [address]- [facility] Discharge Disposition: A-D/C Home Attending Physician: Becky Lozada MD Admitting Physician: Becky Lozada MD Referring Physician: Sergio English DC Allergies, Adverse Reactions, Alerts Substance Reaction Severity Status NKA Active Medications Motrin Tablet 600, mg, By Mouth, Every 6 hours, 24, 0, 0, 05/18/07 15:38:46, with food or milk, 1 tab by mouth every 6 hours for pain., Print SIS Number, ADS OPPTHS, 54, Constant Indicator Start Date: 05/18/07 Status: Ordered Percocet-5/325 325 mg-5 mg oral tablet 1, tablet, By Mouth, Every 6 hours, 12, tablet, 0, 0, 05/18/07 15:38:59, Print SIS Number, ADS OPPTHS, 54, Constant Indicator Start Date: 05/18/07 Status: Ordered
--- OUTSIDE RECORDS SUMMARY | 2024-01-24 08:26 | XMS_ITS | Continuity of Care Document ---
Author Organization [facility] Address [address] [place] [id number]- Care Team Providers Care Keyliner Name Role Phone Neville YOUNGER, Becky Varela Primary Care Physician Encounter [facility] Date(s): 09/03/19 - 09/13/[address] [address]- [facility] Attending Physician: AdmtrVanessa Admitting Physician: Admtr, Ar8 Referring Physician: Admtr, Ar8 Allergies, Adverse Reactions, Alerts Substance Reaction Severity [...]
--- OUTSIDE RECORDS SUMMARY | 2024-01-24 08:26 | XMS_ITS | Continuity of Care Document ---
Author Organization [facility] Address [address] [place] [id number]- Care Team Providers Care Automotive Power Electronics Engineer Name Role Phone Neville YOUNGER, Becky Varela Primary Care Physician Encounter [facility] Date(s): 12/26/19 - 01/25/[address] [address]- [facility] Attending Physician: Admtr, Ar8 Admitting Physician: Admtr, Ar8 Referring Physician: Admtr, [...]
--- OUTSIDE RECORDS SUMMARY | 2024-01-24 08:26 | XMS_ITS | Continuity of Care Document ---
Author Organization [facility] Address [address] [place] [id number]- Care Team Providers Care General Activities Therapist Name Role Phone Becky Lozada MD Primary Care Physician Encounter [facility] Date(s): 08/20/19 - 09/19/[address] [address]- [facility] Discharge Disposition: A-D/C Home Attending Physician: [...]
== END 2024-01-23 16:21 | disposition home or self-care (01) ==
PROVIDERS: Physician Assistant Medical; Emergency Provider Emergency Medicine; PCP Internal Medicine
DX: K57.92 Diverticulitis of intestine, part unspecified, without perforation or abscess without bleeding (principal); R10.32 Left lower quadrant pain; Z79.899 Other long term (current) drug therapy; K58.9 Irritable bowel syndrome, unspecified
CPT/HCPCS: 36415; 74177; 80053; 81001; 83690; 83735; 85025; 86140; 87086; 96361; 96374; 99284; 99285; J1885; Q9967

== ENCOUNTER 2024-01-24 08:16 | Emergency (ER) | payer OTHER, SELFPAY ==
[2024-01-24 08:18] VITALS: BP 111/63; PULSE 89; RESP 17; TEMP 36.8; O2SAT 98; BMI 32.4
[2024-01-24 08:36] LABS: Basophils Percent Auto 0.3 % (0-2); Eosinophils Absolute Auto 0.1 X10*3/uL (0.0-0.4); Eosinophils Percent Auto 0.6 % (0-4); Hemoglobin 14.1 g/dl (12.0-16.0); Imm Gran Abs Auto 0.02 X10*3/uL (0.00-0.03); Imm Gran Pct Auto 0.3 % (0.0-0.4); Lymphocytes Absolute Auto 1.5 X10*3/uL (1.2-4.9); Lymphocytes Percent Auto 18.7 % (20-40); MANUAL DIFF FLAG NO; Mean Corpuscular HGB Conc 33.6 g/dl (31.0-35.0); Mean Corpuscular Hemoglobin 29.7 pg (27.0-33.0); Mean Corpuscular Volume 88.4 fL (80.0-98.0); Mean Platelet Volume 10.4 fL (9.4-12.3); Monocytes Absolute Auto 0.5 X10*3/uL (0.1-1.2); Monocytes Percent Auto 6.1 % (2-11); Neutrophils Absolute Auto 5.9 x10*3/uL (2.0-8.3); Platelet Count 184 X10*3/uL (160-400); Red Blood Count 4.75 X10*6/uL (4.20-5.50); White Blood Count 7.9 X10*3/uL (4.8-10.8)
[2024-01-24 08:50] LABS: Alanine Aminotransferase 20 U/L (0-31); Albumin Level 4.1 g/dL (3.5-5.0); Alkaline Phosphatase 62 U/L (39-117); Anion Gap 15 (12-20); Aspartate Amino Transferase 17 U/L (5-31); Bilirubin Direct 0.3 mg/dL (0.0-0.5); Bilirubin Total 0.7 mg/dL (0.0-1.0); Blood Urea Nitrogen 11 mg/dL (9-16); Calcium 9.6 mg/dL (8.4-10.2); Carbon Dioxide 23 mmol/L (22-29); Chloride 106 mmol/L (96-108); Creatinine Clr Calc Pharmacy 81.8; Estimated Glomerular Filt Rate > 60; Glucose Random 109 mg/dL (60-115); Lipase 25 U/L (8-78); Potassium 4.3 mmol/L (3.3-5.1); Sodium 140 mmol/L (135-145); Total Protein 7.5 g/dL (6.5-8.0)
--- NOTE | 2024-01-24 09:08 | PC.NURSE ---
a&ox4. vss and up to date. pt presents to the ED w/ 04/08 nonradiating lower abd pain and rectal bleeding. abd tender w/ palpation. pt verbalizes being here yesterday w/ abd pain, had CT completed displaying diverticulitis. pt picked up/started abx regimen. pt states she had an orthopedic appt this morning, went to go to the bathroom before leaving, thought she had gas/large amount of bright red painless blood in toilet bowl. pt denies feeling dizzy/lightheaded. pt denies urinary sx. labs obtained in triage. urine obtained/sent to lab. pt waiting to be seen by ED provider. no sob/wob noted. respirations even/unlabored. plan of care ongoing. call boudreaux placed within reach.
[2024-01-24 09:24] LABS: Appearance Urine Cloudy; Color Urine Yellow; Glucose Urine UA Negative (Negative); Leukocyte Esterase Urine Negative (Negative); Nitrite Urine Negative (Negative); UMIC TRIGGER UACC YES; Urine Blood Small (1+) (Negative); Urine Ketones Negative (Negative); Urine Protein Negative (Neg-Trace)
--- NOTE | 2024-01-24 09:24 | ED_ITS ---
HPI - General Adult General Chief complaint: General Medical Stated complaint: rectal bleeding Time Seen by Provider: 01/24/24 08:55 Source: patient and old records reviewed Mode of arrival: ambulatory Limitations: no limitations History of Present Illness ED Provider: AREN LADD narrative: 53 yo female with PMH of diverticulitis, chronic constipaton on Linzess, anxiety was seen yesterday for lower abdominal pain and was dx with diverticulitis on CT scan started on augmentin she is also currently on flagyl for BV. She presents today with pain all night then reports one bout of brb in toilet no clots not on thinners. She denies fevers, no further bouts, took her antibiotics. Declines pain medications. Has not bled before. MD complaint: rectal bleeding Onset (ago): hour(s) (1) Location: abdomen Radiation: non-radiation Severity: mild Pain Consistency: intermittent Relieving factors: none Exacerbating factors: none Associated symptoms: loss of appetite Treatments prior to arrival: NSAID and other (abx) Related Data Previous Rx's ?Medication ?Instructions ?Recorded cyclobenzaprine 10 mg tablet 10 mg PO Q8H #20 tabs 03/20/23 lorazepam 0.5 mg tablet (Ativan) 0.5 mg PO BEDTIME PRN sleep #10 03/20/23 tabs tramadol 50 mg tablet 50 mg PO Q6H PRN pain #20 tabs 03/20/23 cyclobenzaprine 5 mg tablet 5 mg PO TID PRN muscle spasm 7 09/26/23 days #21 tabs naproxen 500 mg tablet 500 mg PO BID 7 days #14 tabs 09/26/23 prednisone 20 mg tablet 20 mg PO DAILY 7 days #7 tabs 09/26/23 ibuprofen 800 mg tablet 800 mg PO Q8H PRN pain 30 days #90 12/17/23 tabs amoxicillin 875 mg-potassium 1 tab PO BID #20 tabs 01/23/24 clavulanate 125 mg tablet ibuprofen 600 mg tablet 600 mg PO Q6H PRN pain #14 tabs 01/23/24 Allergies Allergy/AdvReac Type Severity Reaction Status Date / Time No Known Allergies Allergy Mild N/A Verified 01/24/24 08:19 Review of Systems 2 Review of Systems: Constitutional : No Weight loss, No Fever, No Chills ENT/Mouth : No sore throat, No Rhinorrhea Eyes: No Swelling, No Redness Cardiovascular : No Chest Pain, No SOB, NoEdema Respiratory : No Cough, No Sputum, No Wheezing Gastrointestinal : no Nausea, no Vomiting, no Diarrhea, positive abdominal Pain, pos Hematochezia, No Melena Genitourinary : No Dysuria, No Urinary Frequency, No Hematuria, No Urgency Musculoskeletal : No joint pain, No Myalgias, No Joint Swelling Skin : No Skin Lesions, No rash Neuro : No Weakness, No Numbness, No Dizziness, No Headache Psych : No Anxiety/Panic, No Depression Heme/Lymph: No Bruising, No Lymphadenopathy Endocrine : No Polyuria, No Polydipsia All other systems reviewed and are negative. [facility] Past Medical History Attestation statement: The following information was validated with the patient. 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 Oriented X3. No acute distress. Eyes: Pupils equal, round and reactive to light. ENT: Pharynx normal. Neck: Normal inspection. Neck supple. CVS: Normal heart rate and rhythm. Pulses normal. Respiratory: No respiratory distress. Breath sounds normal. Abdomen: Soft and mild tttp in LLQ no rebound Skin: Skin warm and dry. Normal skin color. Normal skin turgor. Extremities: No lower extremity edema. No calf ttp Neuro: Oriented X 3. No motor deficit. No sensory deficit. Medical Decision Making Medical Decision Making MDM Narrative: 53 yo female with PMH of diverticulitis, chronic constipaton here with c/o noticing rectal bleeding at this time will need monitoring in ED for repeat bouts and will repeat H/H she has non acute abdomen declines pain mediactions I have low suspicion for ischemia. If no repeat bouts and no drop in H/H will DC home with precautions. She is not on blood thinners Differential Diagnosis Differential Diagnoses: The differential diagnosis associated with the presentation includes diverticulitis, colitis, rectal bleeding Admission/Observation Consideration of admission/observation: Escalation of care including admission/observation considered no bouts of bleeding here in 3 hours - no sig drop in hemoglobin Lab Data MDM Lab Attestation statement: I reviewed the patient's lab results. 01/24/24 10:25 01/24/24 08:31 Labs: Lab Results 01/24/24 01/24/24 01/24/24 Range/Units 08:31 09:05 10:25 WBC 7.9 8.2 (4.8-10.8) X10*3/uL RBC 4.75 4.50 (4.20-5.50) X10*6/uL Hgb 14.1 13.3 (12.0-16.0) g/dl Hct 42.0 39.2 (37.0-47.0) % MCV 88.4 87.1 (80.0-98.0) fL MCH 29.7 29.6 (27.0-33.0) pg MCHC 33.6 33.9 (31.0-35.0) g/dl RDW 14.0 14.1 (11.0-16.0) % Plt Count 184 180 (160-400) X10*3/uL MPV 10.4 10.3 (9.4-12.3) fL Immature Gran % (Auto) 0.3 (0.0-0.4) % Neut % (Auto) 74.0 H (45-73) % Lymph % (Auto) 18.7 L (20-40) % [place] % (Auto) 6.1 (2-11) % Eos % (Auto) 0.6 (0-4) % Baso % (Auto) 0.3 (0-2) % Lymph # (Auto) 1.5 (1.2-4.9) X10*3/uL [place] # (Auto) 0.5 (0.1-1.2) X10*3/uL Eos # (Auto) 0.1 (0.0-0.4) X10*3/uL Baso # (Auto) 0.0 (0.0-0.2) X10*3/uL Abs Immat Gran (auto) 0.02 (0.00-0.03) X10*3/uL Absolute Neuts (auto) 5.9 (2.0-8.3) x10*3/uL Absolute Nucleated RBC 0.000 0.000 (0.0-0.012) X10*3/uL Nucleated RBC % (auto) 0.0 0.0 (0.0-0.2) /100WBC Sodium 140 (135-145) mmol/L Potassium 4.3 (3.3-5.1) mmol/L Chloride 106 (96-108) mmol/L Carbon Dioxide 23 (22-29) mmol/L Anion Gap 15 (12-20) BUN 11 (9-16) mg/dL Creatinine 0.83 (0.5-1.4) mg/dL Estim Creat Clear Calc 81.8 Estimated GFR > 60 Random Glucose 109 (60-115) mg/dL Calcium 9.6 (8.4-10.2) mg/dL Total Bilirubin 0.7 (0.0-1.0) mg/dL Direct Bilirubin 0.3 (0.0-0.5) mg/dL AST 17 (5-31) U/L ALT 20 (0-31) U/L Alkaline Phosphatase 62 (39-117) U/L Total Protein 7.5 (6.5-8.0) g/dL Albumin 4.1 (3.5-5.0) g/dL Lipase 25 (8-78) U/L Urine Color Yellow Urine Appearance Cloudy Urine pH 6.0 (5.0-9.0) Ur Specific [place] 1.010 (1.005-1.025) Urine Protein Negative (Neg-Trace) mg/dL Urine Glucose (UA) Negative (Negative) mg/dL Urine Ketones Negative (Negative) mg/dL Urine Blood Small (1+) H (Negative) Urine Nitrite Negative (Negative) Ur Leukocyte Esterase Negative (Negative) Urine RBC 0-2 (0-2) /HPF Urine WBC 0-5 (0-5) /HPF Ur Squamous Epith Cells 3-5 (0-2) /HPF Urine Bacteria 1+ (None Seen) Hyaline Casts 0-2 (0-2) /LPF External Record Review External record reviewed: Inpatient record Discharge Plan Discharge Clinical Impression: Diverticulitis, Bright red rectal bleeding Patient Disposition: Home, Self-Care Instructions: Diverticulitis (ED), Rectal Bleeding (ED) Additional Instructions: monitor bleeding return for clots or increased bleeding you might seem some streaks on your stool for the next 24 hours, dizziness, fainting, shortness of breath is not normal follow up with your GI doctor next week avoid aspirin finish all antibiotics Prescriptions: No Action tramadol 50 mg tablet 50 mg PO Q6H PRN (Reason: pain) Qty: 20 0RF lorazepam [Ativan] 0.5 mg tablet 0.5 mg PO BEDTIME PRN (Reason: sleep) Qty: 10 0RF cyclobenzaprine 10 mg tablet 10 mg PO Q8H Qty: 20 0RF cyclobenzaprine 5 mg tablet 5 mg PO TID PRN (Reason: muscle spasm) 7 Days Qty: 21 0RF prednisone 20 mg tablet 20 mg PO DAILY 7 Days Qty: 7 0RF naproxen 500 mg tablet 500 mg PO BID 7 Days Qty: 14 0RF amoxicillin-pot clavulanate 875-125 mg tablet 1 tab PO BID Qty: 20 0RF ibuprofen 600 mg tablet 600 mg PO Q6H PRN (Reason: pain) Qty: 14 0RF ibuprofen 800 mg tablet 800 mg PO Q8H PRN (Reason: pain) 30 Days Qty: 90 3RF Print Language: Cymraes
[2024-01-24 09:34] LABS: Bacteria Urine 1+ (None Seen); Hyaline Casts Urine 0-2 /LPF (0-2); RBC Urine 0-2 /HPF (0-2); WBC Urine 0-5 /HPF (0-5)
[2024-01-24 10:29] LABS: Hematocrit 39.2 % (37.0-47.0); Hemoglobin 13.3 g/dl (12.0-16.0); Mean Corpuscular HGB Conc 33.9 g/dl (31.0-35.0); Mean Corpuscular Hemoglobin 29.6 pg (27.0-33.0); Mean Corpuscular Volume 87.1 fL (80.0-98.0); Mean Platelet Volume 10.3 fL (9.4-12.3); Platelet Count 180 X10*3/uL (160-400); Red Cell Distribution Width 14.1 % (11.0-16.0); White Blood Count 8.2 X10*3/uL (4.8-10.8)
[2024-01-24 10:33] VITALS: BP 97/55; PULSE 73; RESP 16; TEMP 36.7; O2SAT 99
[2024-01-24 11:32] VITALS: BP 97/55; PULSE 73; RESP 16; TEMP 36.7; O2SAT 99
== END 2024-01-24 11:33 | disposition home or self-care (01) ==
PROVIDERS: Emergency Provider Emergency Medicine; PCP Internal Medicine
DX: K57.92 Diverticulitis of intestine, part unspecified, without perforation or abscess without bleeding (principal); K62.5 Hemorrhage of anus and rectum; Z79.899 Other long term (current) drug therapy
CPT/HCPCS: 36415; 80048; 80076; 81001; 83690; 85025; 85027; 99283; 99284

== ENCOUNTER 2024-01-24 10:05 | Outpatient (REF) | payer OTHER, SELFPAY | END 2024-01-24 10:06 | disposition home or self-care (01) | LOC: HO.HOSX 10:05 | PROVIDERS: Visit Provider Physical Medicine & Rehabilitation | DX: Z13.89 Encounter for screening for other disorder (principal) ==

== ENCOUNTER 2024-02-06 15:02 | Outpatient (REF) | payer OTHER, SELFPAY ==
--- NOTE | ~2024-02-06 | XR_ITS ---
EXAMINATION: XR LUMBOSACRAL SPINE CLINICAL INFORMATION: Dorsalgia evaluate for L5-S1 disc space narrowing. COMPARISON: CT abdomen and pelvis December 2023 TECHNIQUE: Three views of the lumbosacral spine. FINDINGS: The vertebral bodies and posterior elements are normal. The disc spaces are preserved and the vertebral alignment is normal. The paraspinal soft tissues are normal. XR/XR lumbar spine 2-3V IMPRESSION: Normal exam. No disc space narrowing at the L5-S1 level
== END 2024-02-06 15:03 | disposition home or self-care (01) ==
LOC: HO.HOSX 15:02
PROVIDERS: Visit Provider Physical Medicine & Rehabilitation
DX: M53.3 Sacrococcygeal disorders, not elsewhere classified (principal); M51.16 Intervertebral disc disorders with radiculopathy, lumbar region; M54.9 Dorsalgia, unspecified
CPT/HCPCS: 72100; 99202

== ENCOUNTER 2024-02-06 15:02 | Outpatient (AMB) | payer OTHER, SELFPAY ==
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
== END 2024-02-06 16:34 | disposition home or self-care (01) ==
PROVIDERS: Visit Provider Physical Medicine & Rehabilitation
DX: M53.3 Sacrococcygeal disorders, not elsewhere classified (principal); M51.16 Intervertebral disc disorders with radiculopathy, lumbar region
CPT/HCPCS: 99203

== ENCOUNTER 2024-02-29 18:45 | Outpatient (REF) | payer OTHER, SELFPAY ==
--- NOTE | ~2024-02-29 | MR_ITS ---
EXAMINATION: MR LUMBAR SPINE WITHOUT CONTRAST CLINICAL INFORMATION: Sacrococcygeal disorders, rule out L5-S1 right disc herniation or nerve impingement COMPARISON: None available. TECHNIQUE: MRI of the lumbar spine was obtained using routine sequences without contrast. FINDINGS: There are 5 nonrib-bearing lumbar-type vertebrae. Rudimentary disc at S1-2. Preservation of the normal lumbar lordosis. No listhesis. No acute bone marrow abnormality. The vertebral body heights are preserved. Multilevel disc desiccation without significant disc height loss. The visualized spinal cord is normal in caliber. No abnormal cord signal. The conus medullaris terminates at L1-2. T12-L1: No significant spinal canal or foraminal narrowing. L1-2: No significant spinal canal or neural foraminal narrowing. L2-3: No significant spinal canal or neural foraminal narrowing. L3-4: No significant spinal canal or neural foraminal narrowing. L4-5: Bilateral facet arthrosis. No significant spinal canal nor foraminal narrowing. L5-S1: Shallow right foraminal disc protrusion and bilateral facet arthrosis. No significant spinal canal nor foraminal narrowing however the disc abuts the right exiting L5 nerve roots. The paravertebral soft tissues are unremarkable. MR/MR lumbar spine wo con IMPRESSION: Shallow right foraminal disc protrusion at L5-S1 with the disc abutting the right exiting L5 nerve roots. Bilateral facet arthrosis at L4-L5 and L5-S1 . No significant spinal canal or neural foraminal narrowing. Electronically signed by: Nay Sands MD 03/24/2024 05:31 PM EDT
== END 2024-02-29 18:46 | disposition home or self-care (01) ==
LOC: HO.MRI 18:45
PROVIDERS: PCP Internal Medicine; Visit Provider Physical Medicine & Rehabilitation
DX: M53.3 Sacrococcygeal disorders, not elsewhere classified (principal); M51.16 Intervertebral disc disorders with radiculopathy, lumbar region
CPT/HCPCS: 72148

== ENCOUNTER 2024-04-01 11:30 | Outpatient (AMB) | payer OTHER, SELFPAY ==
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
== END 2024-04-01 12:23 | disposition home or self-care (01) ==
LOC: HO.HOS 11:30
PROVIDERS: PCP Internal Medicine; Visit Provider Physical Medicine & Rehabilitation
DX: M51.16 Intervertebral disc disorders with radiculopathy, lumbar region (principal)
CPT/HCPCS: 99214

== ENCOUNTER → 2024-04-01 11:30 | Outpatient (BNVA) | payer OTHER, SELFPAY | PROVIDERS: PCP Internal Medicine; Visit Provider Physical Medicine & Rehabilitation ==

== ENCOUNTER 2024-04-24 08:16 | Outpatient (AMB) | payer OTHER, SELFPAY ==
--- NOTE | 2024-04-24 08:20 | MHC.OFFVIS ---
Vital Signs 04/24/24 08:32 Height 5 ft 3 in Weight 187 lb 4 oz BMI 33.2 BP 94/54 L Blood Pressure Location Lt brachial Position Sitting Respiration 16 Pulse 67 Pulse Source Pulse Oximeter Pulse Oximetry (%) 98 Oxygen Delivery Method Room Air Intake Visit Reasons: Intervertebral disc disorders with radiculopathy Intake Note: Patient comes in for initial visit was referred by [facility] orthopedics. Reports pain 8/10. Allergies No Known Allergies Allergy (Mild, Verified 04/24/24 08:30) N/A HPI Comments Details: Adri is very pleasant 53 years old female who presents in my office with complains on pain in the right lower back with radiation to the right lower extremity to the level of lateral hip and lateral macdonald on the right. She reported that this pain started on about 6 months ago she reported that pain is related to an accident in the gym. She reports that her pain today is 10/10. She reports that sitting aggravates her pain the most. Flexing forward aggravates her pain as well. 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 She reports that weather changes aggravate her pain heat and topical medications as well as oral medications Tylenol and ibuprofen help her pain. The pain is worse at night. In terms of tissue damage he reports her pain as dull, sore, hurting, aching, heavy sensation. She had an MRI and x-ray of the lumbar spine performed on the order Dr. Jimenez, the results are dictated as below. In my opinion they are unimpressive and do not explain the pain of this patient. She was attending physical therapy she had for times physical therapy 8 sessions each time and she performed home exercise program as well. Her past medical history significant for headaches dizziness and fainting heart palpitations and some digestive problems she relates all this problems started to her after COVID-19 vaccine administration. Her past surgical history significant for 2 shoulder surgeries hysterectomy and bilateral tubal ligation, she is working individual she denies smoking cigarettes drinking alcohol she drinks caffeinated beverages including soda and she denies recreational drugs. 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 Review of Systems Const Reports no additional complaints ENT Reports Normal hearing present Card Reports as per HPI Resp Reports no additional complaints Reports no additional complaints Musc Reports as per HPI Neuro Reports no additional complaints, Reports Normal hearing present, Denies Abnormal speech present, Denies confusion and Denies Sensory deficit (Neuro) Psych Reports no additional complaints and Denies confusion Endo Reports no additional complaints Woody/Lymph Reports no additional complaints Physical Exam Vital Signs: Last Vital Signs Pulse 67 04/24/24 08:32 Resp 16 04/24/24 08:32 BP 94/54 L 04/24/24 08:32 Pulse Ox 98 04/24/24 08:32 Oxygen Delivery Method Room Air 04/24/24 08:32 BMI result Body Mass Index 33.2 Const General: no acute distress; No confusion Orientation/consciousness: patient oriented x3 and No confusion Eyes General: appearance normal, both eyes and all related structures Pupils: Equal, round and reactive pupils present EOM: EOMs intact bilaterally Neck Neck: Yes full ROM Chest Chest palpation & inspection: normal inspection of the chest Resp Effort & Inspection: normal respiratory effort, able to speak in complete sentences, normal respiratory pattern, no audible wheezes and no cough Cardio Jugular venous distension: no JVD GI Inspection: Yes normal to inspection Back/Spine/Pelvis Other: The patient is able to stand on bilateral tiptoes in bilateral heels without any difficulty. She is able to lift the great toe in separation of the rest of the toes bilaterally. This demonstrates normal function bilaterally of L4-5 and S1 nerve roots. SLR is negative bilaterally. Heath test is positive on the right, Gaenslen test is positive on the right, pelvic distraction test is positive on the right. Flexing forward and flexing backwards aggravate her pain however flexing forward aggravate her pain much more than flexing backwards. There is no tenderness on palpation in paraspinal spinal region of the lumbar spine however there is severe tenderness on palpation in projection of the sacroiliac joint. Neuro General: patient oriented x3, gait normal and No confusion Cranial nerves: Yes CN's II-XII intact bilaterally, Yes Equal, round and reactive pupils present, Yes Normal hearing present and Yes Ability to bilaterally elevate shoulders present Speech: No Abnormal speech present Gait exam (Neuro): Normal gait present Motor exam (neuro): 5/5 motor strength present throughout Sensory Exam: No Sensory deficit (Neuro) Extrem General: No pedal edema Psych Speech and movement: Normal speech and movement present Affect: normal affect Attitude: cooperative Thought process: Normal thought process present Thought content: Normal thought content present Insight: Good insight present (Psych) Judgement: Good judgement present (Psych) Results Reviewed Results Reviewed: MRI lumbar spine is mostly prominent for: L 4-5: Bilateral facet arthrosis. No significant spinal canal nor foraminal narrowing. L5-S1: Shallow right foraminal disc protrusion and bilateral facet arthrosis. No significant spinal canal nor foraminal narrowing however the disc abuts the right exiting L5 nerve roots. Assessment & Plan Assessment & Plan (1) Sacroiliac joint dysfunction of right side: Code(s): M53.3 - Sacrococcygeal disorders, not elsewhere classified Category: Medical (2) Sacroiliitis: Code(s): M46.1 - Sacroiliitis, not elsewhere classified Category: Medical (3) Lumbar disc herniation with radiculopathy: Code(s): M51.16 - Intervertebral disc disorders with radiculopathy, lumbar region Category: Medical (4) Vertebrogenic low back pain: Code(s): M54.51 - Vertebrogenic low back pain Category: Medical Plan On the physical exam there is a prominent picture of sacroiliitis on the right. However pain aggravated by prolonged sitting make me think about vertebra genic pain syndrome. I personally examined her MRI and although it is not in the report there are subtle Modic type 1 changes at L5 and S1 vertebra. The rest of the vertebras are unremarkable. We will start with affixed in this patient with sacroiliac joint belt and I will schedule her for sacroiliac joint injection diagnostic on the right. If this will not be working I will consider intrasept procedure to help her pain. Patient Instructions: I here by testify that I spent 45 minutes in conversation with this patient as well as evaluating her MRI reading her MRI reports planning her care and organizing this note. Coding Level of Care Code New Pt Level 4 (72080) Diagnoses Sacroiliac joint dysfunction of right side M53.3 Sacroiliitis M46.1 Lumbar disc herniation with radiculopathy M51.16 Vertebrogenic low back pain M54.51
[2024-04-24 08:32] VITALS: BP 94/54; PULSE 67; RESP 16; O2SAT 98; BMI 33.2
== END 2024-04-24 09:03 | disposition home or self-care (01) ==
PROVIDERS: PCP Internal Medicine; Visit Provider Anesthesiology
DX: M53.3 Sacrococcygeal disorders, not elsewhere classified (principal); M46.1 Sacroiliitis, not elsewhere classified; M51.16 Intervertebral disc disorders with radiculopathy, lumbar region; M54.51 Vertebrogenic low back pain
CPT/HCPCS: 99204

== ENCOUNTER → 2024-04-24 08:16 | Outpatient (BNVA) | payer OTHER, SELFPAY | PROVIDERS: PCP Internal Medicine; Visit Provider Anesthesiology | DX: M53.3 Sacrococcygeal disorders, not elsewhere classified (principal); M46.1 Sacroiliitis, not elsewhere classified; M51.16 Intervertebral disc disorders with radiculopathy, lumbar region; M54.51 Vertebrogenic low back pain | CPT/HCPCS: 99202 ==

== ENCOUNTER 2024-06-16 07:53 | Emergency (ER) | payer OTHER, SELFPAY ==
--- NOTE | ~2024-06-16 | CT_ITS ---
EXAMINATION: CT HEAD WITHOUT CONTRAST CLINICAL INFORMATION: BUCHANAN, R sided w/intermittent right visual changes COMPARISON: None available. TECHNIQUE: Contiguous axial imaging was performed from the skull base to vertex without intravenous administration of contrast. This CT examination was performed using dose optimization techniques as appropriate, variously including the following: *Automated exposure control *Adjustment of mA and/or kV according to patient size (this includes techniques or standardized protocols for targeted exams where dose is matched to indication/reason for exam; i.e. extremities or head) *Use of iterative reconstruction technique DLP: 657 mGy-cm FINDINGS: No acute intracranial hemorrhage, mass effect, midline shift, hydrocephalus or herniation. Posadas-white matter differentiation is normal. Posterior cranial fossa contents demonstrated no acute intracranial hemorrhage or mass effect. Sellar/suprasellar region demonstrated no gross masses or hemorrhage. Bony calvarium is intact. Skull base is intact. Tympanic cavities and mastoid cells are aerated. Mucosal thickening, left maxillary sinus. No air-fluid levels. CT/CT head/brain wo IV con IMPRESSION: No acute intracranial hemorrhage. No acute fracture, bony calvarium. If patient's symptoms persist consider MRI brain.. Electronically signed by: Charlie Christian MD 06/16/2024 11:44 AM EST
[2024-06-16 08:02] VITALS: BP 124/74; PULSE 74; RESP 16; TEMP 36.6; O2SAT 99; BMI 32.6
[2024-06-16 08:17] LABS: MANUAL DIFF FLAG NO
[2024-06-16 08:19] LABS: Basophils Percent Auto 0.5 % (0-2); Eosinophils Absolute Auto 0.1 X10*3/uL (0.0-0.4); Eosinophils Percent Auto 2.2 % (0-4); Hematocrit 41.1 % (37.0-47.0); Hemoglobin 13.3 g/dl (12.0-16.0); Imm Gran Abs Auto 0.02 X10*3/uL (0.00-0.03); Imm Gran Pct Auto 0.3 % (0.0-0.4); Lymphocytes Absolute Auto 2.4 X10*3/uL (1.2-4.9); Lymphocytes Percent Auto 41.3 % (20-40); Mean Corpuscular HGB Conc 32.4 g/dl (31.0-35.0); Mean Corpuscular Hemoglobin 28.9 pg (27.0-33.0); Mean Corpuscular Volume 89.3 fL (80.0-98.0); Mean Platelet Volume 10.7 fL (9.4-12.3); Monocytes Absolute Auto 0.3 X10*3/uL (0.1-1.2); Monocytes Percent Auto 5.9 % (2-11); Neutrophils Absolute Auto 2.9 x10*3/uL (2.0-8.3); Neutrophils Percent Auto 49.8 % (45-73); Platelet Count 236 X10*3/uL (160-400); Red Cell Distribution Width 13.8 % (11.0-16.0); White Blood Count 5.8 X10*3/uL (4.8-10.8)
[2024-06-16 08:31] LABS: Anion Gap 11 (12-20); Blood Urea Nitrogen 19 mg/dL (9-16); Calcium 9.4 mg/dL (8.4-10.2); Carbon Dioxide 26 mmol/L (22-29); Chloride 107 mmol/L (96-108); Creatinine Clr Calc Pharmacy 89.6; Estimated Glomerular Filt Rate > 60; Glucose Random 90 mg/dL (60-115); Potassium 3.7 mmol/L (3.3-5.1); Sodium 140 mmol/L (135-145)
--- NOTE | 2024-06-16 09:32 | ED_ITS ---
HPI - Headache General Chief Complaint: Headache Stated Complaint: pain behind r eye nausea Time Seen by Provider: 06/16/24 09:15 Source: patient, RN notes reviewed and old records reviewed Mode of arrival: ambulatory History of Present Illness ED Provider: Terri Downey PA-C HPI Narrative: 53-year-old female with a past medical history of chronic constipation, diverticulitis, presenting to the ED complaining of intermittent right-sided headache, behind right eye x months, worsening since with associated nausea and intermittent right-sided blurry vision. Denies blurry vision at present. Has been taking Tylenol at home with minimal relief. Also reports left-sided upper chest pain radiating down LUE x this morning. Denies vomiting, numbness, tingling, weakness, abdominal pain, travel, sick contacts Related Data Home Medications ?Medication ?Instructions ?Recorded ?Confirmed cholecalciferol (vitamin D3) 1,250 1,250 mcg PO QWEEK 04/24/24 mcg (50,000 unit) capsule linaclotide 290 mcg capsule 290 mcg PO DAILY 04/24/24 (Linzess) magnesium oxide 400 mg (241.3 mg 400 mg PO DAILY 04/24/24 magnesium) tablet metoprolol tartrate 25 mg tablet 25 mg PO DAILY 04/24/24 Previous Rx's ?Medication ?Instructions ?Recorded cyclobenzaprine 10 mg tablet 10 mg PO Q8H #20 tabs 03/20/23 lorazepam 0.5 mg tablet (Ativan) 0.5 mg PO BEDTIME PRN sleep #10 03/20/23 tabs cyclobenzaprine 5 mg tablet 5 mg PO TID PRN muscle spasm 7 09/26/23 days #21 tabs naproxen 500 mg tablet 500 mg PO BID 7 days #14 tabs 09/26/23 ibuprofen 800 mg tablet 800 mg PO Q8H PRN pain 30 days #90 12/17/23 tabs ibuprofen 600 mg tablet 600 mg PO Q6H PRN pain #14 tabs 01/23/24 Allergies Allergy/AdvReac Type Severity Reaction Status Date / Time No Known Allergies Allergy Mild N/A Verified 06/16/24 08:05 Review of Systems 2 Review of Systems: Yes all other systems are reviewed and are negative Constitutional: Constitutional: Reports as per HPI Neurologic: Denies Abnormal speech present [facility] Past Medical History Attestation statement: The following information was validated with the patient. 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 Physical Exam 2 Vital Signs: Vital Signs: Last Vital Signs Temp 97.6 F 06/16/24 12:02 Pulse 58 06/16/24 12:02 Resp 16 06/16/24 12:02 BP 104/57 L 06/16/24 12:02 Pulse Ox 98 06/16/24 12:02 O2 Del Method Room Air 06/16/24 12:02 BMI result Body Mass Index 32.6 Const: General: cooperative, healthy appearing and no acute distress O rientation/consciousness: patient oriented x3 Limitations: no limitations HEENT: Head: Yes normal to inspection and Yes atraumatic Ears: hearing grossly normal bilaterally, external ears normal, TM's normal bilaterally and mastoids normal General nose exam: Normal external nose present Face and sinus: Yes normal facial exam Mouth: Normal oral and palatal mucosa present and no drooling Throat: Yes posterior oropharynx normal, Yes tonsils normal, Yes uvula midline, No peritonsillar mass, No uvula laterally displaced and No uvular edema Eyes: General: appearance normal, both eyes and all related structures EOM: EOMs intact bilaterally Neck: Neck: Yes normal visual inspection and Yes no meningeal signs Resp: Effort & Inspection: normal respiratory effort and no respiratory distress Auscultation: clear to auscultation bilaterally, no crackles and no wheezes Cardio: Rate: regular rate Heart sounds: S1 normal heart sound present and S2 normal heart sound present GI: Inspection: Yes normal to inspection Palpation (GI): Soft to palpation, nontender, no guarding and not rigid : General: Yes no CVA tenderness Back/Spine/Pelvis: Back: no CVA tenderness Skin: Rashes: no rashes Wounds: no wounds Neuro: General: patient oriented x3, gait normal, tone normal, moves all extremities, no meningeal signs, no focal motor deficits and CN's II-XI intact bilaterally Cranial nerves: Yes CN's II-XII intact bilaterally and Yes Bilaterally intact EOM present Cognition (Neuro): normal cognition Speech: No Abnormal speech present Gait exam (Neuro): Normal gait present Motor exam (neuro): 5/5 motor strength present throughout Extrem: General: Yes normal to inspection Course Course Course Narrative: -1150--labs reassuring. Viral studies negative. US venous duplex LE BI IMPRESSION: No acute deep venous thrombosis involving the bilateral lower extremities.. Edema pattern, left calf region. > on re-evaluation patient reports symptomatic improvement. Artemio comfortable for discharge home at this time with close PCP/neurology follow-up - Results discussed with patient including worrisome signs and symptoms and strict return precautions, and when to return to the emergency department. They verbalized understanding and feel safe for discharge at this time. Medications Administered Discontinued Medications Generic Name Dose Route Start Last Admin Trade Name Antolinq PRN Reason Stop Dose Admin Ketorolac Tromethamine 15 mg 06/16/24 09:22 06/16/24 09:37 Ketorolac Tromethamine 15 Mg/Ml Vial IVPUSH 06/16/24 09:23 15 mg ONCE ONE Administration Metoclopramide HCl 10 mg 06/16/24 09:22 06/16/24 09:37 Metoclopramide Hcl 10 Mg/2 Ml Vial IVPUSH 06/16/24 09:23 10 mg ONCE ONE Administration Medical Decision Making Medical Decision Making [facility] Narrative: 53-year-old female with a past medical history of chronic constipation, diverticulitis, presenting to the ED complaining of intermittent right-sided headache, behind right eye x months, worsening since with associated nausea and intermittent right-sided blurry vision. On exam vital signs stable, NAD, nontoxic appearing, no focal neuro deficits. No facial tenderness or TMJ tenderness. Concern for migraine headache vs mass. Low suspicion for meningitis/encephalitis, ICH, temporal arteritis, TMJ Plan: Labs, viral studies, head CT, pain control, re-evaluate Please refer to course for remaining clinical decision making, interpretation of labs/imaging results, and discussions with consultants and/or family members. Differential Diagnosis Differential Diagnoses: The differential diagnosis associated with the presentation includes As above Admission/Observation Consideration of admission/observation: Escalation of care including admission/observation considered Lab Data [facility] Lab Attestation statement: I reviewed the patient's lab results. 06/16/24 08:14 06/16/24 08:14 Labs: Lab Results 06/16/24 06/16/24 Range/Units 08:14 09:50 WBC 5.8 (4.8-10.8) X10*3/uL RBC 4.60 (4.20-5.50) X10*6/uL Hgb 13.3 (12.0-16.0) g/dl Hct 41.1 (37.0-47.0) % MCV 89.3 (80.0-98.0) fL MCH 28.9 (27.0-33.0) pg MCHC 32.4 (31.0-35.0) g/dl RDW 13.8 (11.0-16.0) % Plt Count 236 D (160-400) X10*3/uL MPV 10.7 (9.4-12.3) fL Immature Gran % (Auto) 0.3 (0.0-0.4) % Neut % (Auto) 49.8 (45-73) % Lymph % (Auto) 41.3 H (20-40) % Schley % (Auto) 5.9 (2-11) % Eos % (Auto) 2.2 (0-4) % Baso % (Auto) 0.5 (0-2) % Lymph # (Auto) 2.4 (1.2-4.9) X10*3/uL Schley # (Auto) 0.3 (0.1-1.2) X10*3/uL Eos # (Auto) 0.1 (0.0-0.4) X10*3/uL Baso # (Auto) 0.0 (0.0-0.2) X10*3/uL Abs Immat Gran (auto) 0.02 (0.00-0.03) X10*3/uL Absolute Neuts (auto) 2.9 (2.0-8.3) x10*3/uL Absolute Nucleated RBC 0.000 (0.0-0.012) X10*3/uL Nucleated RBC % (auto) 0.0 (0.0-0.2) /100WBC ESR 8 (0-20) MM/HR Sodium 140 (135-145) mmol/L Potassium 3.7 (3.3-5.1) mmol/L Chloride 107 (96-108) mmol/L Carbon Dioxide 26 (22-29) mmol/L Anion Gap 11 L (12-20) BUN 19 H (9-16) mg/dL Creatinine 0.76 (0.5-1.4) mg/dL Estim Creat Clear Calc 89.6 Estimated GFR > 60 Random Glucose 90 (60-115) mg/dL Calcium 9.4 (8.4-10.2) mg/dL Troponin I High Sens < 2.7 (<3.5-17.0) ng/L C-Reactive Protein 0.47 (< or = 0.50) mg/dL Influenza Type A (PCR) NEGATIVE (Negative) Influenza Type B (PCR) NEGATIVE (Negative) RSV RNA Qual (PCR) NEGATIVE (Negative) SARS-CoV-2 RNA (RT-PCR) NEGATIVE (Negative) Independent Interpretation I performed an independent interpretation of an: CT Scan Radiology Impression Discussion of test interpretation with radiology: I have reviewed the radiologist's reading. External Record Review External record reviewed: Inpatient record, Office record, Outpatient record, Prior outpatient labs, Prior outpatient radiology, Primary care record and Outside ED record Tests considered The following testing was considered but not selected: As above Prescription Management I considered prescription management with: Pain Medication Social Determinants Patient?s care significantly limited by Social Determinants of Health including: Other Social Determinant of Health Discharge Plan Discharge Clinical Impression: Headache Patient Disposition: Home, Self-Care Instructions: Acute Headache (DC) Additional Instructions: Your blood work and CT scan were reassuring. Please have close follow-up with her primary care doctor as well as Neurology Take Tylenol and Motrin as needed for headache If her symptoms persist or worsen her headache becomes constant/unbearable, you persistent nausea/vomiting or weakness return to the emergency department Prescriptions: No Action lorazepam [Ativan] 0.5 mg tablet 0.5 mg PO BEDTIME PRN (Reason: sleep) Qty: 10 0RF cyclobenzaprine 10 mg tablet 10 mg PO Q8H Qty: 20 0RF cyclobenzaprine 5 mg tablet 5 mg PO TID PRN (Reason: muscle spasm) 7 Days Qty: 21 0RF naproxen 500 mg tablet 500 mg PO BID 7 Days Qty: 14 0RF ibuprofen 600 mg tablet 600 mg PO Q6H PRN (Reason: pain) Qty: 14 0RF ibuprofen 800 mg tablet 800 mg PO Q8H PRN (Reason: pain) 30 Days Qty: 90 3RF Linzess 290 mcg capsule 290 mcg PO DAILY magnesium oxide 400 mg (241.3 mg magnesium) tablet 400 mg PO DAILY metoprolol tartrate 25 mg tablet 25 mg PO DAILY cholecalciferol (vitamin D3) 1,250 mcg (50,000 unit) capsule 1,250 mcg PO QWEEK Referrals: [facility] [place]Provider Group] Christina Cha MD [Primary Care Provider] - 3 days Stand Alone Forms: Work/School Release Interventions: ED Discharge Assessment Last Done: 06/16/24 12:02 Discharge Date/Time: 06/16/24 12:03 Print Language: Kazakh
[2024-06-16] MEDS: Ketorolac Tromethamine 15 MG/ML VIAL IVPUSH (09:37)
[2024-06-16] MEDS: Metoclopramide HCl 10 MG/2 ML VIAL IVPUSH (09:37)
[2024-06-16 09:43] LABS: C Reactive Protein 0.47 mg/dL (< or = 0.50)
[2024-06-16 09:56] LABS: Troponin-I High Sensitivity < 2.7 ng/L (<3.5-17.0)
[2024-06-16 10:08] LABS: Erythrocyte Sedimentation Rate 8 MM/HR (0-20)
[2024-06-16 10:28] VITALS: BP 82/40; PULSE 62; RESP 15; TEMP 36.6; O2SAT 98
[2024-06-16 10:31] VITALS: BP 87/47
[2024-06-16 10:35] LABS: Influenza A PCR NEGATIVE (Negative); Influenza B PCR NEGATIVE (Negative); Resp Syncy Virus RNA Qual PCR NEGATIVE (Negative); SARS COV2 PCR INHOUSE NEGATIVE (Negative)
[2024-06-16 11:26] VITALS: BP 95/43; PULSE 61; RESP 16
[2024-06-16 12:02] VITALS: BP 104/57; PULSE 58; RESP 16; TEMP 36.4; O2SAT 98
== END 2024-06-16 12:03 | disposition home or self-care (01) ==
PROVIDERS: Physician Assistant; Emergency Provider Emergency Medicine Emergency Medical Services; PCP Internal Medicine
DX: R51.9 Headache, unspecified (principal); Z03.818 Encounter for observation for suspected exposure to other biological agents ruled out; H53.8 Other visual disturbances
CPT/HCPCS: 0241U; 36415; 70450; 80048; 84484; 85025; 85652; 86140; 96374; 96375; 99284; J1885; J2765

== ENCOUNTER → 2024-06-16 09:22 | Outpatient (BNV) | payer OTHER, SELFPAY | PROVIDERS: Emergency Provider Emergency Medicine Emergency Medical Services; PCP Internal Medicine; Visit Provider Radiology Diagnostic Radiology | DX: R51.9 Headache, unspecified (principal); H57.11 Ocular pain, right eye | CPT/HCPCS: 70450 ==

== ENCOUNTER 2024-06-17 06:27 | Outpatient (REF) | payer OTHER, SELFPAY | END 2024-06-17 06:28 | disposition home or self-care (01) | LOC: CF 06:27 | PROVIDERS: Visit Provider Anesthesiology | DX: M53.3 Sacrococcygeal disorders, not elsewhere classified (principal); M46.1 Sacroiliitis, not elsewhere classified; M51.16 Intervertebral disc disorders with radiculopathy, lumbar region; M54.51 Vertebrogenic low back pain | CPT/HCPCS: 27096; J2003; J2795; Q9967 ==

== ENCOUNTER 2024-06-17 14:19 | Outpatient (AMB) | payer OTHER, SELFPAY ==
--- NOTE | 2024-06-17 14:58 | MHC.OFFVIS ---
Vital Signs 06/17/24 14:59 06/17/24 14:59 Height 5 ft 3 in Weight 184 lb BMI 32.6 BP 105/58 L 103/70 Blood Pressure Location Lt brachial Lt brachial Position Sitting Sitting Respiration 16 16 Pulse 73 67 Pulse Source Pulse Oximeter Pulse Oximeter Pulse Oximetry (%) 99 100 Oxygen Delivery Method Room Air Room Air Comment pre-op post-op Intake Visit Reasons: RIGHT DIAGNOSTIC SIJ INJECTION Allergies No Known Allergies Allergy (Mild, Verified 06/17/24 15:00) N/A [facility] Medical History Chronic constipation Diverticulitis Social History Alcohol intake: never Patient Tobacco Use Status: Never used Tobacco 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 , 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 All questions about benefits and risks for the procedure were answered. Patient came to the operating room and was positioned prone on the operating table with the pillow under the pelvis.? The lower back and buttocks of the patient were prepped with ChloraPrep prepped and draped with sterile utility towels.? Sterilely draped C-arm was brought over the operating field and sq picture of patient's pelvis was demonstrated on the screen.? For the right joint tilting C-arm contralateral to the site of the joint the most posterior portion of the joints was superimposed with anterior silhouette of the joint.? Skin was injected in the projection of the joint slightly medial to the location of the joint with 25 gauge 1/2 inch needle using local lidocaine 2% . After that 22 gauge 3 and 1/2 inch needle was driven to the right joint in tunnel vision fashion.? When needle entered the joint capsule injection of the contrast was performed demonstrating intra-articular and minimally periarticular spread of the contrast.? After that 4 cc. of ropivacaine 0.5% was injected into each joint.? Upon completion of the injections the needles were removed and pressure were applied.? Sterile dressing was applied.? Upon completion of the injection patient was taken outside of the operating room to the recovery room where recovered uneventfully. (3) Lumbar disc herniation with radiculopathy: Code(s): M51.16 - Intervertebral disc disorders with radiculopathy, lumbar region Category: Medical (4) Vertebrogenic low back pain: Code(s): M54.51 - Vertebrogenic low back pain Category: Medical Plan On the physical exam there is a prominent picture of sacroiliitis on the right. However pain aggravated by prolonged sitting make me think about vertebra genic pain syndrome. I personally examined her MRI and although it is not in the report there are subtle Modic type 1 changes at L5 and S1 vertebra. The rest of the vertebras are unremarkable. We will start with affixed in this patient with sacroiliac joint belt and I will schedule her for sacroiliac joint injection diagnostic on the right. If this will not be working I will consider intrasept procedure to help her pain. Orders: Orders FL guidance in treatment room 06/17/24 M53.3 - Sacrococcygeal disorders, not elsewhere classified Coding Level of Care Code Procedure Only Diagnoses Sacroiliac joint dysfunction of right side M53.3 Sacroiliitis M46.1 Lumbar disc herniation with radiculopathy M51.16 Vertebrogenic low back pain M54.51
[2024-06-17 14:59] VITALS: BP 103/70; BP 105/58; PULSE 67; PULSE 73; RESP 16; O2SAT 100; O2SAT 99; BMI 32.6
== END 2024-06-17 14:54 | disposition home or self-care (01) ==
LOC: HO.PMCPRC 14:19
PROVIDERS: PCP Internal Medicine; Visit Provider Anesthesiology
DX: M53.3 Sacrococcygeal disorders, not elsewhere classified (principal); M46.1 Sacroiliitis, not elsewhere classified
CPT/HCPCS: 27096

== ENCOUNTER 2024-06-23 15:12 | Outpatient (AMB) | payer OTHER, SELFPAY ==
--- NOTE | 2024-06-23 15:14 | A.OFFVIS_ITS ---
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 She reported that before the procedure her pain was 8/10. Immediately after the procedure the pain decreased and became 1/10. 1 hour after the procedure she had pain 6/10 but probably secondary to irritation of the skin. After that 3 and 4 hours of the procedure she had pain 2/10 5 hours of the procedures she had pain 1/10 and 6 hours of the procedure she had pain 0/10. She reported excellent mobility during the time after the procedure. She reported good social interactions. She performed all the activities of daily living which usually aggravate her pain. I offered her to perform therapeutic sacroiliac joint injection. Patient agreed to go for the procedure. We will see how sacroiliac joint injection will affect her pain. Prior: complains on pain in the right lower back with radiation to the right lower extremity to the level of lateral hip and lateral macdonald on the right. Pain started on about 8 months ago she reported that pain is related to an accident in the gym. sitting aggravates her pain the most. Flexing forward aggravates her pain as well. 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 She had an MRI and x-ray of the lumbar spine performed on the order Dr. Jimenez, the results are dictated as below. In my opinion they are unimpressive and do not explain the pain of this patient. She was attending physical therapy she had for times physical therapy 8 sessions each time and she performed home exercise program as well. 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 Review of Systems Const All systems reviewed & are unremarkable except as noted in HPI and below ENT Reports Normal hearing present Neuro Reports Normal hearing present, Denies Abnormal speech present, Denies confusion and Denies Sensory deficit (Neuro) Psych Denies confusion Physical Exam Vital Signs: Last Vital Signs Pulse 64 06/23/24 15:21 BP 103/57 L 06/23/24 15:21 Pulse Ox 98 06/23/24 15:21 Oxygen Delivery Method Room Air 06/23/24 15:21 BMI result Body Mass Index 32.4 Const General: no acute distress; No confusion Orientation/consciousness: patient oriented x3 and No confusion Eyes General: appearance normal, both eyes and all related structures Pupils: Equal, round and reactive pupils present EOM: EOMs intact bilaterally Neck Neck: Yes full ROM Chest Chest palpation & inspection: normal inspection of the chest Resp Effort & Inspection: normal respiratory effort, able to speak in complete sentences, normal respiratory pattern, no audible wheezes and no cough Cardio Jugular venous distension: no JVD GI Inspection: Yes normal to inspection Back/Spine/Pelvis Other: The patient is able to stand on bilateral tiptoes in bilateral heels without any difficulty. She is able to lift the great toe in separation of the rest of the toes bilaterally. This demonstrates normal function bilaterally of L4-5 and S1 nerve roots. SLR is negative bilaterally. Heath test is positive on the right, Gaenslen test is positive on the right, pelvic distraction test is positive on the right. Flexing forward and flexing backwards aggravate her pain however flexing forward aggravate her pain much more than flexing backwards. There is no tenderness on palpation in paraspinal spinal region of the lumbar spine however there is severe tenderness on palpation in projection of the sacroiliac joint. Neuro General: patient oriented x3, gait normal and No confusion Cranial nerves: Yes CN's II-XII intact bilaterally, Yes Equal, round and reacti ve pupils present, Yes Normal hearing present and Yes Ability to bilaterally elevate shoulders present Speech: No Abnormal speech present Gait exam (Neuro): Normal gait present Motor exam (neuro): 5/5 motor strength present throughout Sensory Exam: No Sensory deficit (Neuro) Extrem General: No pedal edema Psych Speech and movement: Normal speech and movement present Affect: normal affect Attitude: cooperative Thought process: Normal thought process present Thought content: Normal thought content present Insight: Good insight present (Psych) Judgement: Good judgement present (Psych) Results Reviewed Results Reviewed: MRI lumbar spine is mostly prominent for: L 4-5: Bilateral facet arthrosis. No significant spinal canal nor foraminal narrowing. L5-S1: Shallow right foraminal disc protrusion and bilateral facet arthrosis. No significant spinal canal nor foraminal narrowing however the disc abuts the right exiting L5 nerve roots. Assessment & Plan Assessment & Plan (1) Sacroiliac joint dysfunction of right side: Code(s): M53.3 - Sacrococcygeal disorders, not elsewhere classified Category: Medical (2) Sacroiliitis: Code(s): M46.1 - Sacroiliitis, not elsewhere classified Category: Medical Plan: (3) Lumbar disc herniation with radiculopathy: Code(s): M51.16 - Intervertebral disc disorders with radiculopathy, lumbar region Category: Medical (4) Vertebrogenic low back pain: Code(s): M54.51 - Vertebrogenic low back pain Category: Medical Plan On the physical exam there is a prominent picture of sacroiliitis on the right. However pain aggravated by prolonged sitting make me think about vertebra genic pain syndrome. I personally examined her MRI and although it is not in the report there are subtle Modic type 1 changes at L5 and S1 vertebra. The rest of the vertebras are unremarkable. Diagnostic sacroiliac joint injection resulted in very profound pain improvement during the 1st 6 hours after the procedure. Therefore I believe that the patient's pain is coming from sacroiliitis. I offered her to perform therapeutic sacroiliac joint injection which will be scheduled for the patient as soon as possible. Her pain came back by now, she reports her pain today 03/08. Coding Level of Care Code Est Pt Level 3 (29273) Diagnoses Sacroiliac joint dysfunction of right side M53.3 Sacroiliitis M46.1 Lumbar disc herniation with radiculopathy M51.16 Vertebrogenic low back pain M54.51
[2024-06-23 15:21] VITALS: BP 103/57; PULSE 64; O2SAT 98; BMI 32.4
== END 2024-06-23 15:47 | disposition home or self-care (01) ==
PROVIDERS: PCP Internal Medicine; Visit Provider Anesthesiology
DX: M53.3 Sacrococcygeal disorders, not elsewhere classified (principal); M46.1 Sacroiliitis, not elsewhere classified; M51.16 Intervertebral disc disorders with radiculopathy, lumbar region; M54.51 Vertebrogenic low back pain
CPT/HCPCS: 99213

== ENCOUNTER → 2024-06-23 15:12 | Outpatient (BNVA) | payer OTHER, SELFPAY | PROVIDERS: PCP Internal Medicine; Visit Provider Anesthesiology | DX: M46.1 Sacroiliitis, not elsewhere classified (principal); M53.3 Sacrococcygeal disorders, not elsewhere classified; M51.16 Intervertebral disc disorders with radiculopathy, lumbar region; M54.51 Vertebrogenic low back pain | CPT/HCPCS: 99212 ==

== ENCOUNTER 2024-07-20 08:52 | Emergency (ER) | payer OTHER, SELFPAY ==
--- NOTE | ~2024-07-20 | XR_ITS ---
EXAMINATION: XR KNEE, BILATERAL CLINICAL INFORMATION: Pain COMPARISON: None available. TECHNIQUE: 4 views of each knee FINDINGS: No acute visible fracture or dislocation. Joint space and alignment are maintained. Small bilateral knee joint effusions, right greater than left. Soft tissues are unremarkable. XR/XR knee LT 4V IMPRESSION: 1. No acute visible fracture or dislocation. 2. Small bilateral knee joint effusions, right greater than left. Electronically signed by: Neida Nieto MD 07/20/2024 11:27 AM [facility]
--- NOTE | ~2024-07-20 | XR_ITS ---
EXAMINATION: XR KNEE, BILATERAL CLINICAL INFORMATION: Pain COMPARISON: None available. TECHNIQUE: 4 views of each knee FINDINGS: No acute visible fracture or dislocation. Joint space and alignment are maintained. Small bilateral knee joint effusions, right greater than left. Soft tissues are unremarkable. XR/XR knee RT 4V IMPRESSION: 1. No acute visible fracture or dislocation. 2. Small bilateral knee joint effusions, right greater than left. Electronically signed by: Neida Nieto MD 07/20/2024 11:27 AM [facility]
[2024-07-20 08:59] VITALS: BP 126/61; PULSE 88; RESP 18; TEMP 36.6; O2SAT 98; BMI 32.1
--- NOTE | 2024-07-20 09:09 | ED_ITS ---
HPI - General Adult General Chief complaint: Fall Stated complaint: fall yesterday Time Seen by Provider: 07/20/24 09:07 Source: patient Mode of arrival: ambulatory Limitations: no limitations History of Present Illness ED Provider: Jaye Smith PA-C HPI narrative: Patient is a 54 year old assigned female at with a history of sciatica and sacroiliitis presenting to the emergency department today with bilateral knee pain and right sided back pain after a fall. Patient states that yesterday she got out of the shower without drying her feet thoroughly and slipped with her knees knocking against the ground. Patient states that ever since she has had pain in both knees and her sciatica is flaring. Patient denies any head strike with the incident, loss of consciousness with the incident, dizziness, lightheadedness, abdominal pain, nausea, vomiting, fever, chills, blurry vision, double vision, loss of vision, chest pain, difficulty breathing, shortness of breath, back pain, night sweats, pain with urination, increased urinary frequency, increased urinary urgency, blood in her urine or stool, syncope or a near syncopal episode, bowel incontinence, bladder incontinence, or any other complaints at this time. Onset (ago): day(s) (1) Location: left, right and lower extremity Relieving factors: none Exacerbating factors: none Associated symptoms: denies other symptoms Treatments prior to arrival: none Related Data Home Medications ?Medication ?Instructions ?Recorded ?Confirmed cholecalciferol (vitamin D3) 1,250 1,250 mcg PO QWEEK 04/24/24 mcg (50,000 unit) capsule linaclotide 290 mcg capsule 290 mcg PO DAILY 04/24/24 (Linzess) magnesium oxide 400 mg (241.3 mg 400 mg PO DAILY 04/24/24 magnesium) tablet metoprolol tartrate 25 mg tablet 25 mg PO DAILY 04/24/24 omeprazole 20 mg capsule,delayed 20 mg PO DAILY 06/23/24 release ondansetron 4 mg disintegrating 4 mg PO Q8H PRN nausea 06/23/24 tablet simethicone 180 mg capsule 360 mg PO BID 06/23/24 Previous Rx's ?Medication ?Instructions ?Recorded cyclobenzaprine 10 mg tablet 10 mg PO Q8H #20 tabs 03/20/23 lorazepam 0.5 mg tablet (Ativan) 0.5 mg PO BEDTIME PRN sleep #10 03/20/23 tabs cyclobenzaprine 5 mg tablet 5 mg PO TID PRN muscle spasm 7 09/26/23 days #21 tabs naproxen 500 mg tablet 500 mg PO BID 7 days #14 tabs 09/26/23 ibuprofen 800 mg tablet 800 mg PO Q8H PRN pain 30 days #90 12/17/23 tabs ibuprofen 600 mg tablet 600 mg PO Q6H PRN pain #14 tabs 01/23/24 cyclobenzaprine 5 mg tablet 5 mg PO TID PRN pain 7 days #21 07/20/24 tabs prednisone 20 mg tablet 20 mg PO DAILY 7 days #7 tabs 07/20/24 Allergies Allergy/AdvReac Type Severity Reaction Status Date / Time No Known Allergies Allergy Mild N/A Verified 07/20/24 09:00 Review of Systems Constitutional: Constitutional: Reports no additional constitutional complaints, Denies chills, Denies fever(s) and Denies night sweats Eyes: Eyes: Reports no additional eye complaints, Denies blurry vision, Denies change in vision, Denies diplopia, Denies eye discharge, Denies loss of vision and Denies eye pain ENT: Denies dizziness Cardiovascular: Cardiovascular: Reports no additional cardiovascular complaints, Denies chest pain, Denies lightheadedness, Denies Loss of Consciousness and Denies dyspnea Respiratory: Respiratory: Reports no additional respiratory complaints and Denies dyspnea Gastrointestinal: Gastrointestinal: Reports no additional gastrointestinal complaints, Denies abdominal pain, Denies melena, Denies hematochezia, Denies change in bowel habits and Denies change in stool character Genitourinary: Genitourinary: Denies hematuria, Denies urinary frequency, Denies dysuria, Denies urinary incontinence, Denies urinary hesitancy and Denies urinary urgency Musculoskeletal: Musculoskeletal: Reports no additional musculoskeletal complaints, Denies numbness and Denies tingling Comments: bilateral knee pain right sided back pain Neurologic: Denies dizziness, Denies loss of vision, Denies numbness and Denies tingling Psychiatric: Psychiatric: Reports no additional psychiatric complaints Endocrine: Endocrine: Reports no additional endocrine complaints Hematologic/Lymphatic: Hematologic/Lymphatic: Reports no additional hematologic/lymphatic complaints Allergic/Immunologic: Allergic/Immunologic: Reports no additional allergic/immunologic complaints PMFSH Past Medical History Attestation statement: The following information was validated with the patient. 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 Physical Exam ED Vital Signs: Vital Signs - 24 hr 07/20/24 08:59 07/20/24 10:00 07/20/24 12:00 Temperature 98 F 98.7 F 97.6 F Pulse Rate 88 64 66 Respiratory Rate 18 16 18 Blood Pressure 126/61 98/53 L 119/74 Pulse Oximetry 98 99 98 Oxygen Delivery Method Room Air Room Air Room Air 07/20/24 12:10 Temperature 97.6 F Pulse Rate 66 Respiratory Rate 18 Blood Pressure 119/74 Pulse Oximetry 98 Oxygen Delivery Method Room Air BMI result Body Mass Index 32.1 Const General: cooperative, no acute distress, alert and awake Nutritional Appearance: well nourished Orientation/consciousness: patient oriented x3 Limitations: no limitations HENMT Head: Yes normal to inspection and Yes atraumatic Ears: hearing grossly normal bilaterally and external ears normal General nose exam: Normal external nose present, no nasal discharge noted and no epistaxis Face and sinus: Yes normal facial exam, No abrasion and No laceration Mouth: Normal oral and palatal mucosa present, no drooling and no muffled voice Eyes General: appearance normal, both eyes and all related structures Periorbital: periorbital findings normal Eyelids: Yes eyelids normal Conjunctivae: conjunctivae normal Pupils: Equal, round and reactive pupils present EOM: EOMs intact bilaterally Neck Neck: Yes normal visual inspection, Yes full ROM and Yes no lymphadenopathy Chest Chest palpation & inspection: normal inspection of the chest Resp Effort & Inspection: normal respiratory effort and able to speak in complete sentences GI Inspection: Yes normal to inspection Neuro General: patient oriented x3 and moves all extremities Cranial nerves: Yes Equal, round and reactive pupils present Cognition (Neuro): normal cognition Extrem General: Yes normal to inspection, Yes full ROM and Yes capillary refill normal Psych Appearance: grossly normal Mental Status: mental status grossly normal Affect: normal affect Attitude: cooperative Thought process: Normal thought process present Thought content: Normal thought content present Insight: Good insight present (Psych) Medications Administered Discontinued Medications Generic Name Dose Route Start Last Admin Trade Name Rita PRN Reason Stop Dose Admin Cyclobenzaprine HCl 5 mg 07/20/24 09:24 07/20/24 10:00 Cyclobenzaprine Hcl 5 Mg Tablet PO 07/20/24 09:25 5 mg ONCE ONE Administration Ketorolac Tromethamine 15 mg 07/20/24 09:24 07/20/24 09:59 Ketorolac Tromethamine 15 Mg/Ml Vial IM 07/20/24 09:25 15 mg ONCE ONE Administration Methylprednisolone Sodium Succinate 60 mg 07/20/24 09:24 07/20/24 09:59 Methylprednisolone Sod Succ 125 Mg/2 Ml Vial IM 07/20/24 09:25 60 mg ONCE ONE Administration Omeprazole 20 mg 07/20/24 09:25 07/20/24 10:00 Omeprazole 20 Mg Capsule. PO 07/20/24 09:26 20 mg ONCE ONE Administration Medical Decision Making Medical Decision Making MDM Narrative: Patient is a 54 year old assigned female at with a history of sciatica and sacroiliitis presenting to the emergency department today with bilateral knee pain and right sided back pain after a fall. Patient's physical exam was unremarkable. Patient's right and left knee x-rays showed joint effusions but ot herwise unremarkable. I explained my physical exam findings as well as all test results to the patient. I answered all questions asked by the patient. I stressed the importance of the patient taking her medication as directed (either prescribed or as the over the counter packaging recommends). I stressed the importance of the patient following up with her primary care provider. I stressed the importance of the patient returning to the emergency department immediately if her symptoms were to worsen or if she were to develop any dizziness, shortness of breath, difficulty breathing, chest pain, blurry vision, loss of vision, nausea, vomiting, abdominal pain, fever, chills, back pain, or any other complaints. Patient verbalized agreement and understanding with this treatment plan and discharge. Differential Diagnosis Differential Diagnoses: The differential diagnosis associated with the presentation includes Knee pain Joint effusion Patella fracutre Admission/Observation Consideration of admission/observation: Escalation of care including admission/observation considered Patient would have been admitted to the hospital had her work up had any findings where hospital admission was appropriate and her clinical presentation warranted hospital admission. Independent Interpretation I performed an independent interpretation of an: Plain X-Ray Interpretation: My interpretation is in agreement with the radiologist's impression of these imaging studies. EXAMINATION: XR KNEE, BILATERAL CLINICAL INFORMATION: Pain COMPARISON: None available. TECHNIQUE: 4 views of each knee FINDINGS: No acute visible fracture or dislocation. Joint space and alignment are maintained. Small bilateral knee joint effusions, right greater than left. Soft tissues are unremarkable. XR/XR knee RT 4V IMPRESSION: 1. No acute visible fracture or dislocation. 2. Small bilateral knee joint effusions, right greater than left. Electronically signed by: Neida Nieto MD 07/20/2024 11:27 AM [facility] [place] Dictated By: Neida Nieto MD Signed By: Electronically signed by Neida Nieto MD 07/20/24 1127 Radiology Impression Discussion of test interpretation with radiology: I have reviewed the radiologist's reading. Discharge Plan Discharge Clinical Impression: Acute knee pain, Back pain Patient Disposition: Home, Self-Care Instructions: Knee Pain (ED), Back Pain (ED) Additional Instructions: Follow up with your primary care provider. Return to the emergency department immediately if your symptoms worsen or if you develop any dizziness, shortness o f breath, difficulty breathing, chest pain, blurry vision, loss of vision, nausea, vomiting, abdominal pain, fever, chills, back pain, or any other complaints. Prescriptions: New prednisone 20 mg tablet 20 mg PO DAILY 7 Days Qty: 7 0RF cyclobenzaprine 5 mg tablet 5 mg PO TID PRN (Reason: pain) 7 Days Qty: 21 0RF No Action lorazepam [Ativan] 0.5 mg tablet 0.5 mg PO BEDTIME PRN (Reason: sleep) Qty: 10 0RF cyclobenzaprine 10 mg tablet 10 mg PO Q8H Qty: 20 0RF cyclobenzaprine 5 mg tablet 5 mg PO TID PRN (Reason: muscle spasm) 7 Days Qty: 21 0RF naproxen 500 mg tablet 500 mg PO BID 7 Days Qty: 14 0RF ibuprofen 600 mg tablet 600 mg PO Q6H PRN (Reason: pain) Qty: 14 0RF ibuprofen 800 mg tablet 800 mg PO Q8H PRN (Reason: pain) 30 Days Qty: 90 3RF Linzess 290 mcg capsule 290 mcg PO DAILY magnesium oxide 400 mg (241.3 mg magnesium) tablet 400 mg PO DAILY metoprolol tartrate 25 mg tablet 25 mg PO DAILY cholecalciferol (vitamin D3) 1,250 mcg (50,000 unit) capsule 1,250 mcg PO QWEEK simethicone 180 mg capsule 360 mg PO BID ondansetron 4 mg tablet,disintegrating 4 mg PO Q8H PRN (Reason: nausea) omeprazole 20 mg capsule,delayed release(DR/EC) 20 mg PO DAILY Referrals: Christina Cha MD [Primary Care Provider] - Stand Alone Forms: Work/School Release Interventions: ED Discharge Assessment Last Done: 07/20/24 12:10 Discharge Date/Time: 07/20/24 12:11 Print Language: Telugu
[2024-07-20] MEDS: Ketorolac Tromethamine 15 MG/ML VIAL IM (09:59)
[2024-07-20] MEDS: methylPREDNISolone Sod Succ 125 MG/2 ML VIAL 60 MG IM (09:59)
[2024-07-20 10:00] VITALS: BP 98/53; PULSE 64; RESP 16; TEMP 37.1; O2SAT 99
[2024-07-20] MEDS: Omeprazole 20 MG CAPSULE.DR PO (10:00)
[2024-07-20] MEDS: Cyclobenzaprine HCl 5 MG TABLET PO (10:00)
[2024-07-20 12:00] VITALS: BP 119/74; PULSE 66; RESP 18; TEMP 36.4; O2SAT 98
[2024-07-20 12:10] VITALS: BP 119/74; PULSE 66; RESP 18; TEMP 36.4; O2SAT 98
== END 2024-07-20 12:11 | disposition home or self-care (01) ==
PROVIDERS: Emergency Provider Emergency Medicine Emergency Medical Services; PCP Internal Medicine
DX: M25.561 Pain in right knee (principal); M25.562 Pain in left knee; M54.50 Low back pain, unspecified; Z79.899 Other long term (current) drug therapy
CPT/HCPCS: 73564; 96372; 99283; 99284; J1885; J2919

== ENCOUNTER 2024-07-28 19:57 | Emergency (ER) | payer OTHER, SELFPAY ==
[2024-07-28 20:28] VITALS: BP 147/77; PULSE 80; RESP 18; TEMP 36.8; O2SAT 97; BMI 33.5
--- NOTE | 2024-07-28 20:31 | ED.GENADULT ---
HPI - General Adult General Stated complaint: arm incision ? infection Related Data Home Medications ?Medication ?Instructions ?Recorded ?Confirmed cholecalciferol (vitamin D3) 1,250 1,250 mcg PO QWEEK 04/24/24 mcg (50,000 unit) capsule linaclotide 290 mcg capsule 290 mcg PO DAILY 04/24/24 (Linzess) magnesium oxide 400 mg (241.3 mg 400 mg PO DAILY 04/24/24 magnesium) tablet metoprolol tartrate 25 mg tablet 25 mg PO DAILY 04/24/24 omeprazole 20 mg capsule,delayed 20 mg PO DAILY 06/23/24 release ondansetron 4 mg disintegrating 4 mg PO Q8H PRN nausea 06/23/24 tablet simethicone 180 mg capsule 360 mg PO BID 06/23/24 Previous Rx's ?Medication ?Instructions ?Recorded cyclobenzaprine 10 mg tablet 10 mg PO Q8H #20 tabs 03/20/23 lorazepam 0.5 mg tablet (Ativan) 0.5 mg PO BEDTIME PRN sleep #10 03/20/23 tabs cyclobenzaprine 5 mg tablet 5 mg PO TID PRN muscle spasm 7 09/26/23 days #21 tabs naproxen 500 mg tablet 500 mg PO BID 7 days #14 tabs 09/26/23 ibuprofen 800 mg tablet 800 mg PO Q8H PRN pain 30 days #90 12/17/23 tabs ibuprofen 600 mg tablet 600 mg PO Q6H PRN pain #14 tabs 01/23/24 cyclobenzaprine 5 mg tablet 5 mg PO TID PRN pain 7 days #21 07/20/24 tabs prednisone 20 mg tablet 20 mg PO DAILY 7 days #7 tabs 07/20/24 Allergies Allergy/AdvReac Type Severity Reaction Status Date / Time No Known Allergies Allergy Mild N/A Verified 07/28/24 20:29 [facility] Past Medical History Medical History Chronic constipation Diverticulitis Social History Social History Alcohol intake: never Patient Tobacco Use Status: Never used Tobacco 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 She had a piece of glass removed 4 days ago. She states that there was a suture in place that popped open earlier today. Bleeding is controlled Discharge Plan Discharge Prescriptions: No Action lorazepam [Ativan] 0.5 mg tablet 0.5 mg PO BEDTIME PRN (Reason: sleep) Qty: 10 0RF cyclobenzaprine 10 mg tablet 10 mg PO Q8H Qty: 20 0RF cyclobenzaprine 5 mg tablet 5 mg PO TID PRN (Reason: muscle spasm) 7 Days Qty: 21 0RF naproxen 500 mg tablet 500 mg PO BID 7 Days Qty: 14 0RF ibuprofen 600 mg tablet 600 mg PO Q6H PRN (Reason: pain) Qty: 14 0RF prednisone 20 mg tablet 20 mg PO DAILY 7 Days Qty: 7 0RF cyclobenzaprine 5 mg tablet 5 mg PO TID PRN (Reason: pain) 7 Days Qty: 21 0RF ibuprofen 800 mg tablet 800 mg PO Q8H PRN (Reason: pain) 30 Days Qty: 90 3RF Linzess 290 mcg capsule 290 mcg PO DAILY magnesium oxide 400 mg (241.3 mg magnesium) tablet 400 mg PO DAILY metoprolol tartrate 25 mg tablet 25 mg PO DAILY cholecalciferol (vitamin D3) 1,250 mcg (50,000 unit) capsule 1,250 mcg PO QWEEK simethicone 180 mg capsule 360 mg PO BID ondansetron 4 mg tablet,disintegrating 4 mg PO Q8H PRN (Reason: nausea) omeprazole 20 mg capsule,delayed release(DR/EC) 20 mg PO DAILY Print Language: Pashto
== END 2024-07-29 01:30 | disposition left against medical advice (07) ==
LOC: HO.ED 07-29 01:08
PROVIDERS: Emergency Provider Emergency Medicine Emergency Medical Services; PCP Internal Medicine
DX: M79.602 Pain in left arm (principal)
CPT/HCPCS: 99281

== ENCOUNTER 2024-08-07 13:11 | Outpatient (REF) | payer OTHER, SELFPAY ==
[2024-08-07 14:29] LABS: Vitamin B12 639 pg/mL (200-900)
[2024-08-08 22:49] LABS: Lyme Blot 1.14 index
[2024-08-10 14:28] LABS: Lyme Abs Screen POSITIVE
[2024-08-11 17:39] LABS: 18 KD (IgG) Band NON-REACTIVE; 23 KD (IgG) Band NON-REACTIVE; 23 KD (IgM) Band NON-REACTIVE; 28 KD (IgG) Band NON-REACTIVE; 30 KD (IgG) Band NON-REACTIVE; 39 KD (IgM) Band NON-REACTIVE; 39KD (IgG) Band NON-REACTIVE; 41 KD (IgM) Band NON-REACTIVE; 41KD (IgG) Band REACTIVE; 45 KD (IgG) Band NON-REACTIVE; 58 KD (IgG) Band NON-REACTIVE; 66 KD (IgG) Band NON-REACTIVE; 93 KD (IgG) Band NON-REACTIVE; Lyme IgG Blot Interp NEGATIVE (NEGATIVE); Lyme IgM Blot Interp NEGATIVE (NEGATIVE)
== END 2024-08-07 13:12 | disposition home or self-care (01) ==
LOC: HO.LAB 13:11
PROVIDERS: PCP Internal Medicine; Visit Provider Psychiatry & Neurology Neurology
DX: G93.40 Encephalopathy, unspecified (principal)
CPT/HCPCS: 36415; 82607; 86617; 86618

== ENCOUNTER 2024-08-14 19:49 | Outpatient (REF) | payer OTHER, SELFPAY ==
--- NOTE | ~2024-08-14 | MR_ITS ---
CLINICAL HISTORY: ENCAPHALOPATY MR Brain without gadolinium Comparison: CT/MI/SR - CT HEAD/BRAIN WO IV CON - 06/16/24 10:51 EST Findings: No restricted diffusion. No intracranial mass or hemorrhage. No midline shift. No hydrocephalus. Vascular flow voids are intact. The orbits are normal. The sinuses and mastoid air cells are clear. No focal bone lesion. IMPRESSION: Unremarkable brain MRI. This document has been electronically signed by: Jayesh Davila MD on 08/14/2024 21:12:59
== END 2024-08-14 19:50 | disposition home or self-care (01) ==
LOC: HO.MRI 19:49
PROVIDERS: PCP Internal Medicine; Visit Provider Psychiatry & Neurology Neurology
DX: G93.40 Encephalopathy, unspecified (principal)
CPT/HCPCS: 70551

== ENCOUNTER → 2024-08-14 20:06 | Outpatient (BNV) | payer OTHER, SELFPAY | PROVIDERS: PCP Internal Medicine; Visit Provider Radiology Diagnostic Radiology | DX: G93.40 Encephalopathy, unspecified (principal) | CPT/HCPCS: 70551 ==

== ENCOUNTER 2024-09-02 06:20 | Outpatient (REF) | payer OTHER, SELFPAY ==
--- NOTE | ~2024-09-02 | FL_ITS ---
EXAMINATION: FL GUIDANCE ONLY HISTORY: M53.3 - Sacrococcygeal disorders, not elsewhere classified COMPARISON: None available. TECHNIQUE: Fluoroscopy time: 0.1 minutes. Cumulative Dose: 1.85 mGy. DAP: 0.0248 mGym2 Images: 1. FINDINGS: A single fluoroscopic spot film demonstrates a needle and contrast material in the region of the right sacroiliac joint. FL/FL guidance in treatment room IMPRESSION: Fluoroscopy during procedure. Please see procedure report for additional information. Electronically signed by: Nathaniel Torres MD 09/04/2024 08:50 AM TIFFANIE
--- OUTSIDE RECORDS SUMMARY | 2024-09-02 06:24 | XMS_ITS | Clinical Summary ---
Author Organization [facility] Address [address] [place] [address] Phone Care Team Providers Care Car Washer Name Role Phone Christina Mora MD Primary Care Prov ider Allergies No known active allergies Medications Medication Sig Dispensed Refills Start Date End Date Status cholecalciferol (VITAMIN D-3) 1,250 mcg (50,000 unit) capsule Take 1 capsule (50,000 Units total) by mouth. 04/01/2024 Active OMEGA-3 FATTY ACIDS ORAL Take by mouth 1 (one) time each day. Active magnesium oxide (MAG-OX) 400 mg (241.3 elemental magnesium) tablet Take 1 tablet (400 mg total) by mouth daily. 01/23/2024 Active linaCLOtide (Linzess) 290 mcg capsule Take 1 capsule (290 mcg total) by mouth 1 (one) time each day. 08/27/2023 Active ondansetron ODT (ZOFRAN-ODT) 4 mg disintegrating tablet Dissolve 1 tablet (4 mg total) on top of the tongue every 8 (eight) hours if needed for nausea. for up to 30 days Active fluticasone propionate (FLONASE) 50 mcg/actuation nasal spray Administer 1 spray into each nostril 1 (one) time each day. 01/09/2023 Active nystatin-triamcinol one (MYCOLOG II) ointment Apply a thin tint layer to daily as needed for itching 30 g 06/30/2024 Active metoprolol tartrate (LOPRESSOR) 25 mg tablet Take 1 tablet (25 mg total) by mouth 2 (two) times a day. 180 tablet 2 08/01/2024 Active ibuprofen (ADVIL,MOTRIN) 800 mg tablet TAKE 1 TABLET ORALLY EVERY 8 HOURS NEEDED FOR PAIN FOR 30 DAYS 12/17/2023 5 Discontinue d(Therapy completed) naproxen (NAPROSYN) 500 mg tablet Take 1 tablet (500 mg total) by mouth 2 (two) times a day. for 7 days 09/26/2023 5 Discontinue d(Therapy completed) cephalexin (KEFLEX) 500 mg capsule Take 1 capsule (500 mg total) by mouth 2 (two) times a day for 7 days. 14 each 08/04/2024 Active Problems Problem Noted Date Diagnosed Date Irritable bowel syndrome with constipation 06/03 Abdominal pain 03/25/2024 Palpitations 10/16/2023 Overview (04/29/2024): Last Assessment & Plan: Patient with complaints of palpitations. Ventricular bigeminy identified on Holter and event monitor. Still symptomatic. Stress test and echocardiography without pathology. Blood pressure is too low to start beta-solomon therapy. Patient will will be given magnesium and fish oil to see if that will quiet down the arrhythmia. Will also refer to EP to get their impression as to what we might failure due to stop these. Not sure whether she is really a candidate yet for an ablation but she is very symptomatic with the arrhythmia Vaginal pain 10/24/2022 Overview (04/29/2024): Last Assessment & Plan: Based on CT findings, I recommended Adri see Urology to evaluate for bladder pathology, either as a complication from her previous surgery or new onset. She agrees. Referral placed urgently. She was informed that she should hear back in 1 week with an appointment date. If not, she should call back to our office and inquire on getting this arranged. She voiced understanding and agreed. Vaginal yeast infection 06/19/2022 Overview (04/29/2024): Last Assessment & Plan: Rx for Diflucan 150mg PO x2 ePrescribed to pharmacy. Lower extremity pain 05/02/2022 Chest pain 05/02/2022 Overview (04/29/2024): Last Assessment & Plan: Patient's chest discomfort is relatively atypical but she is very low probability for coronary disease. We will send her for stress echo and check sed rate and C- reactive protein to see if there is any evidence of for persistent pericarditis. H. pylori infection 09/14/2021 Hypercholesteremia 06/23/2020 Internal hemorrhoids 07/02/2019 Diverticulitis 07/02/2019 Calcific tendinitis of right shoulder 06/18/2017 Overview (04/29/2024): Follows with orthopedic Obstructive sleep apnea 04/17/2017 Overview (04/29/2024): [facility] Home Polysomnogram: Date 04/10/2017; AHI 5, Unclassified apneas 0; Obstructive apneas 5; Central apneas 3; Mixed apneas 0; hypopneas 28; average oxygen saturation 94% (lowest 87% without saturations <88% for 5% or more of study) - Obstructive Sleep Apnea - mild; mostly hypopneas; no sleep related hypoventilation by 2017 home polysomnogram. Patient declined CPAP machine Iron deficiency anemia 03/22/2017 Overview (04/29/2024): Secondary to menorrhagia Migraine headache 03/22/2017 Obesity (BMI 30.0-34.9) 02/23/2017 Lumbar back pain 11/23/2016 Overview (04/29/2024): Normal MRI 11/23/2016. Referred to physical therapy Jama (degenerative) of retina 03/10/2015 Encounters Date Type Department Care Team Description 08/25/2024 2:45 PM EST Office Visit General Surgery [address] [phone] Frantz Starr, 08/14/2024 8:30 AM EST Office Visit Adult Medicine [facility] [address] [place] [address] Rosanne Vu PA Acute pain of both knees (Primary Dx); Bilateral knee effusions; Lumbar back pain; Lumbar radiculopathy 08/13/2024 7:57 AM EST - 08/13/2024 11:59 PM EST Hospital Encounter [facility] Xray [address] [place] [phone] Nausea Discharge Disposition: Home or Self Care 08/05/2024 Telephone [facility] [address] [facility] [address] [place] [phone] Wander Jung MD Chest Pain; irregular heart rate 08/01/2024 Telephone [facility] Cardiology [address] [place] [phone] Wander Jung MD Med Refill (Metoprolol) 07/29/2024 Telephone [facility] 175 [facility] [address] [place] [address] Frantz Starr, DO 07/29/2024 Telephone [facility] [address] [phone] Frantz Starr, DO Advice Only 07/24/2024 3:00 PM EST Procedure visit [address] [phone] Frantz Starr, DO Foreign body in left upper extremity, initial encounter (Primary Dx) 07/18/2024 Telephone [facility] [address] [phone] Frantz Starr, DO Prior Authorization (07/24/24 Dr. Frantz Starr) 07/15/2024 10:30 AM EST Office Visit Adult Medicine [facility] [address] [place] [address] Angela Alexander PA COVID-19 virus infection (Primary Dx); Acute cystitis without hematuria 07/15/2024 Nurse Triage Adult [address] [phone] Christina Moar MD URI 07/02/2024 2:45 PM EST Lab Draw Station [address] FH: malignant neoplasm of breast (Primary Dx); Sensation of pressure in bladder area 06/30/2024 10:15 AM EST Office Visit Obstetrics and Gynecology [address] [phone] Hailey Castañeda MD Encounter for gynecological examination with abnormal finding (Primary Dx); Family history of breast cancer in sister; Retained suture, initial encounter 06/03/2024 8:30 AM EST Office Visit [address] [phone] Rosanne Vu PA Sensation of pressure in bladder area (Primary Dx); Suprapubic discomfort; Irritable bowel syndrome with constipation; Palpitations from Last 3 Months Immunizations Name Administration Dates Next Due Hepatitis B ([id number]-Eynvp , Recombivax HB-Adult) 19yo and older 01/25/2007 Hepatitis B (Recombivax HB-Dialysis) 18yo and ol steven 08/30/2006,07/31/2006 Influenza trivalent, 0.5mL, preservative free (Fluarix; FluLaval; Fluzone) ages 6mo and older (Afluria) 3 years and older 06/11/2008 PPD Test 07/31/2006 [employer] SARS-CoV-2 COVID-19, mRNA, LNP-S, preservative free 07/06/2021 Td Tetanus diptheria (Tdvax) 7yo and older 07/31 Tdap Tetanus diptheria acell ular pertussis (Boostrix; Adacel) 7yo and older 2017 Surgical History Surgery Date Site/Laterality Comments TUBAL LIGATION PROCEDURE: HISTORICAL TUBAL LIGATION COLONOSCOPY PROCEDURE: HISTORICAL COLONOSCOPY HYSTERECTOMY 07/30/2020 - 07/29/2021 Robotic hyst, BS- Garry, menorrhagia Medical History Medical History Date Comments Drusen (degenerative) of retina 03/10/2015 DX:Drusen (degenerative) of retina Lumbar back pain 11/23/2016 DX:Lumbar back pain; COMMENT: Normal MRI 11/23/2016. Referred to physical therapy Migraine headache 03/22/2017 DX:Migraine he adache Obesity (BMI 30.0-34.9) 02/23/2017 DX:Obesi ty (BMI 30.0-34.9) Iron deficiency anemia 03/22/2017 DX:Iron d eficiency anemia; COMMENT: Secondary to menorrhagia History of menorrhagia 03/22/2017 DX:Histor y of menorrhagia Calcific tendinitis of right shoulder 06/18/2017 DX:Calcific tendinitis of ri ght shoulder; COMMENT: Follows with orthopedic Obstructive sleep apnea 04/17/2017 DX:Obstr uctive sleep apnea; COMMENT: SMS Home Polysomnogram: Date 04/10/2017; AHI 5, Unclassified apneas 0; Obstructive apneas 5; Central apneas 3; Mixed apneas 0; hypopneas 28; average oxygen saturation 94% (lowest 87% without saturations <88% for 5% or more of study) - Obstructive Sleep Apnea - mild; mostly hypopneas; no sleep related hypoventilation by 2017 home polysomnogram. Patient declined * DUB (dysfunctional uterine bleeding) 05/01/2019 DX:DUB (dysfunctional uterin e bleeding) Enlarged uterus 01/29/2019 DX:Enlarged uter us Pain in urethral meatus 05/27/2018 DX:Pain in urethral meatus Family History Medical History Relation Name Comments Strabismus Brother No Known Problems Daughter Diabetes Father hypertension No Known Problems Maternal Grandfather No Known Problems Maternal Grandmother Cataracts Mother diabetes No Known Problems Paternal Grandfather No Known Problems Paternal Grandmother Breast cancer Sister 1 Uterine cancer Sister 2 No Known Problems Son 1 No Known Problems Son 2 Blindness Neg Hx Colon cancer Neg Hx Glaucoma Neg Hx Macular degeneration Neg Hx Ovarian cancer Neg Hx Relation Name Status Comments Brother Alive Daughter Alive Father Maternal Grandfather Maternal Grandmother Mother Paternal Grandfather Paternal Grandmother Sister 1 Alive Sister 2 Alive Son 1 Alive Son 2 Alive Social History Tobacco Use Types Packs/Day Years Used Date Smoking Tobacco: Never Smokeless Tobacco: Never Tobacco Cessation:Counseling Given: Not Answered Alcohol Use Standard Drinks/Week Comments No 0 (1 standard drink = 0.6 oz pur e alcohol) Housing Instability Answer Date Recorde d Are you worried that in the next 2 months you may not have stable housing? Patient declined 06/02/2024 Food Access & Nutrition Answer Date Rec orded Do you have access to a vari ety of food including fruits and vegetables? Yes 06/02/2024 Health Literacy Answer Date Recorded How often do you need to hav e someone help you when you read instructions, pamphlets, or other written material from your doctor or pharmacy? Never 06/02/2024 Caregiver: How often do you need to have someone help you when you read instructions, pamphlets, or other written material from your doctor or pharmacy? Not on file 06/02/2024 Financial Risk Answer Date Recorded How hard is it for you to pa y for the very basics like food, housing, medical care, and air conditioning / heating? Somewhat hard 06/02/2024 Transportation Answer Date Recorded Has the lack of transportati on kept you from meetings, work, or from getting things needed for daily living? No Has the lack of transportati on kept you from medical appointments or from getting medications? No 06/02/2024 Social Isolation Answer Date Recorded How often do you feel lonely or isolated from th ose around you? Rarely 06/02/2024 Food Risk Answer Date Recorded Within the past 12 months we worried whether our food would run out before we got money to buy more. Never true 06/02/2024 Within the past 12 months th e food we bought just didn't last and we didn't have money to get more. Never true 06/02/2024 Dependent Care Answer Date Recorded Do you need help finding or paying for care for your loved ones. For example, child neurologist or elderly care for an older adult? No 06/02/2024 Education Answer Date Recorded Do you think completing more education or training, like finishing a GED, going to college, or learning a trade, would be helpful for you? No 06/02/2024 Employment and Income Answer Date Recor ded During the last four weeks, have you been actively looking for work? No 06/02/2024 Living Situation Answer Date Recorded What is your living situation? 1 08/02/2023 Sex and Gender Information Value Date Recorded Sex Assigned at Female 08/12/2024 10:48 AM EST Gender Identity Female 08/12/2024 10:48 AM EST Sexual Orientation Straight 08/12/2024 10 :48 AM EST Job Start Date Occupation Industry Not on file Not on file Not on file Obstetrics History Para Term AB IAB SAB Ectopic Multiple Livin g Live Births 3 3 3 3 3 Date Outcome GA Total Labor Labor/2nd/3rd Weight Sex Type Anes PTL Janna A1 A5 Name Clin Term Vag-S pont Living Term Vag-S pont Living Term Vag-S pont Living Last Filed Vital Signs Vital Sign Reading Time Taken Comments Blood Pressure 105/67 08/25/2024 2:51 PM EST Pulse 75 08/25/2024 2:51 PM EST Temperature 36.2 ??C (97.1 ??F) 08/25/2024 2:51 PM ES T Respiratory Rate 12 08/14/2024 8:19 AM EST Oxygen Saturation - - Inhaled Oxygen Concentration - - Weight 87.8 kg (193 lb 8 oz) 08/25/2024 2:51 PM EST Height 160 cm (5' 3 ) 08/25/2024 2:51 PM EST Body Mass Index 34.28 08/25/2024 2:51 PM EST Plan of Treatment Upcoming Encounters Date Type Department Care Team (Late st Contact Info) Description 09/15/2024 8:15 AM EST Appointment [facility] Nuclear Medicine [address] [place] [phone] 09/29/2024 1:40 PM EST Office Visit [facility] [address] [facility] [address] [place] [phone] Jennifer Vogel PA 300 [facility] [address] [place] [address] 10/16/2024 3:00 PM EDT Office Visit Gastroenterology - [place] 175 [facility] 175 [facility] [address] [place] [phone] Isabel Griffiths PA 175 [facility] [address] [place] [address] 04/22/2025 3:00 PM EDT Appointment Radiology Department - [place] [id number] [place] [address] Health Maintenance Due Date Last Done Comments Zoster Vaccines (1 of 2) 2022 COVID-19 Vaccine (3 - season) 2024 07/06/2021, 06/15/2021 Influenza Vaccine (#1) 2024 06/11/2008 Depression Screening 06/02/2025 06/02/2024, 03/25/2024, 03/25/2024 Social Influencers of Health Screening 06/02/2025 06/02/2024, 08/16/2023 Cervical Cancer Screening: HPV 09/07/2025 09/07/2020 Breast Cancer Screening 04/09/2026 04/09/20 24, 04/09/2024, 04/04/2023, Additional history exists DTaP,Tdap,and Td Vaccines (3 - Td or Tdap) 2027 2017, 07/31/2006 Cholesterol Screening (Lipid Panel) 04/01/2029 04/01/2024, 04/01/2024 Colorectal Cancer Screening: Colonoscopy 06/13/2033 06/13/2023, 06/13/2023 Hepatitis B Vaccines Completed 01/25/2007, 08/30/2006, 07/31/2006 HIV Screening Completed 07/25/2013 Hepatitis C Screening Completed 07/25/2013, 013 HIB Vaccines Aged Out No longer eligi ble based on patient's age to complete this topic HPV Vaccines Aged Out No longer eligi ble based on patient's age to complete this topic Hepatitis A Vaccines Aged Out No long er eligible based on patient's age to complete this topic IPV Vaccines Aged Out No longer eligi ble based on patient's age to complete this topic MMR Vaccines Aged Out No longer eligi ble based on patient's age to complete this topic Meningococcal ACWY Vaccine Aged Out N o longer eligible based on patient's age to complete this topic Pneumococcal Vaccine: Pediatrics (0 to 5 Years) and At-Risk Patients (6 to 64 Years) Aged Out No longer eligible based on patient's age to complete this topic RSV Immunization Patients Under 20 months Aged Out No longer eligible based on patient's age to complete this topic Varicella Vaccines Aged Out No longer eligible based on patient's age to complete this topic Procedures Procedure Name Priority Date/Time Associated Diagnosis Comments MR BRAIN WO CONTRAST Routine 08/14/2024 2:55 PM EST XR UGI W AIR CONTRAST Routine 08/13/2024 8:45 AM EST Nausea TISSUE EXAM Routine 07/24/2024 3:05 PM EST Foreign body in left upper extremity, initial encounter POC INFLUENZA A/B Routine 07/15/2024 11: 09 AM EST COVID-19 virus infection POC RAPID [id number], MOLECULAR Routine 07/15/2024 11:09 AM EST COVID-19 virus infection POC RAPID STREP A Routine 07/15/2024 10: 41 AM EST COVID-19 virus infection URINALYSIS MICROSCOPIC ONLY Routine 07/02/2024 2:55 PM EST Sensation of pressure in bladder area URINALYSIS MICROSCOPIC ONLY Routine 07/02/2024 2:55 PM EST Sensation of pressure in bladder area VENIPUNCTURE CHARGE Routine 07/02/2024 2 :55 PM EST FH: malignant neoplasm of breast CULTURE URINE Routine 07/02/2024 2:55 PM EST Sensation of pressure in bladder area EXTERNAL CLINICAL LAB 07/02/2024 CBC WITH AUTO DIFFERENTIAL Routine 06/03/2024 9:23 AM EST Sensation of pressure in bladder area COMPREHENSIVE METABOLIC PANEL Routine 06/03/2024 9:23 AM EST Sensation of pressure in bladder area CBC AND DIFFERENTIAL Routine 06/03/2024 9:23 AM EST Sensation of pressure in bladder area POC URINE AUTO W/O MICRO Routine 06/03/2024 8:46 AM EST Sensation of pressure in bladder area SCREENING MAMMOGRAPHY BI 2-VIEW BREAST INC CAD Routine 04/09/2024 9:37 AM EDT Encounter for screening mammogram for malignant neoplasm of breast LIPID PANEL Routine 04/01/2024 DEPRESSION SCREENING Routine 03/25/2024 COLONOSCOPY Routine 06/13/2023 HPV Routine 09/07/2020 HEPATITIS C SCREENING Routine 07/25/2013 HIV SCREENING Routine 07/25/2013 from Last 3 Months or Most Recently Relevant to Health Maintenance Results * MR Brain wo Contrast (08/14/2024 2:55 PM EST) Anatomical Region Laterality Modality Head and Neck Magnetic Resonan ce Historical Provider MD IMG MRI PROCEDURE S * XR UGI w Air Contrast (08/13/2024 8:45 AM EST) Anatomical Region Laterality Modality Body Radiographic Sushma ging 08/13/2024 11:0 4 AM EST Impressions 08/13/2024 4:23 PM EST Normal double contrast upper GI examination. Specifically, no evidence of delayed gastric emptying. -------- FINAL REPORT -------- Dictated By: Sherlyn Roberts Dictated Date: 08/13/2024 11:04 ET Assigned Physician: Marques Juarez Reviewed and Electronically Signed By: Marques Juarez Signed Date: 08/13/2024 16:23 ET Workstation ID: [id number] Transcribed By: Self Edit Transcribed Date: 08/13/2024 11:14 ET Resident/PA/CLAMPER: Sherlyn Roberts Narrative 08/13/2024 4:23 PM EST FINDINGS: Double contrast UGI performed. COMPARISON: No prior upper GI imaging. HISTORY: Patient is a 54-year-old female with history of nausea. Recent negative upper endoscopy. UNDER SHERIFF radiographs: Risk Lead AP radiograph of the abdomen obtained. Bowel gas pattern is nonobstructive. Right-sided lung base demonstrates a 7.5 mm round, radiopaque calcification, likely representing a calcified granuloma in the right lower lobe. This is stable since at least 07/31/2017 and does not require any specific imaging follow-up. ??Osseous structures are overall unremarkable FINDINGS: Effervescent crystals were administered orally. Thick and thin barium was then administered orally under fluoroscopic control. Esophagus: Normal distensibility, motility and mucosal pattern. There is no evidence of obstruction or hiatal hernia. Stomach: Normal distensibility and motility. Prompt passage of contrast from the stomach into the duodenal bulb and sweep. ??No gastric mass or ulceration is seen. Visualization of proximal small bowel is within normal limits. ?? Gastroesophageal reflux: Unable to elicit DAP: 887.2 uGym^2 Procedure Note Marques Juarez MD - 08/13/2024 FINDINGS: Double contrast UGI performed. COMPARISON: No prior upper GI imaging. HISTORY: Patient is a 54-year-old female with history of nausea. Recentnegative upper endoscopy. UNDER SHERIFF radiographs: Risk Lead AP radiograph of the abdomen obtained. Bowel gaspattern is nonobstructive. Right-sided lung base demonstrates a 7.5 mmround, radiopaque calcification, likely representing a calcified granulomain the right lower lobe. This is stable since at least 07/31/2017 and doesnot require any specific imaging follow-up. Osseous structures areoverall unremarkable FINDINGS: Effervescent crystals were administered orally. Thick and thinbarium was then administered orally under fluoroscopic control. Esophagus: Normal distensibility, motility and mucosal pattern. There isno evidence of obstruction or hiatal hernia. Stomach: Normal distensibility and motility. Prompt passage of contrastfrom the stomach into the duodenal bulb and sweep. No gastric mass orulceration is seen. Visualization of proximal small bowel is within normallimits. Gastroesophageal reflux: Unable to elicit DAP: 887.2 uGym^2 IMPRESSION: Normal double contrast upper GI examination. Specifically, no evidence of delayed gastric emptying. -------- FINAL REPORT -------- Dictated By: Sherlyn Roberts Dictated Date: 08/13/2024 11:04 ET Assigned Physician: Marques Juarez Reviewed and Electronically Signed By: Marques Juarez Signed Date: 08/13/2024 16:23 ET Workstation ID: [id number] Transcribed By: Self Edit Transcribed Date: 08/13/2024 11:14 ET Resident/PA/CLAMPER: Sherlyn Roberts Isabel POWELL IMG FLUOROSCOPY PROC EDURES * Tissue Exam (07/24/2024 3:05 PM EST) Final Diagnosis Skin, left arm, excision: Dermal scar No foreign body or foreign body giant cell reaction identified 07/28/2024 11:03 AM [facility] Gross Description A. Arm, Left, foreign body: Labeled arm L . Received in formalin is a 1.6 x 1 x 0.2 cm disrupted yellow lobular portion of adipose tissue and a 0.9 x 0.5 cm mackey-white irregular skin. The skin is longitudinally bisected. The deep aspect is focally red-brown. No foreign body is identified within the specimen or container. The specimen is entirely submitted in one cassette, three pieces. FABIO 07/28/2024 11:03 AM [facility] Disclaimer Unless otherwise specified, all tissue is 10% NB formalin fixed and paraffin embedded. 07/28/2024 11:03 AM [facility] Tissue Structure of left upper limb / Unknown Non-blood Collection / Unknown 07/24/2024 3:05 PM EST 07/24/2024 3:07 PM EST Frantz Starr DO LAB PATHOLOGY [facility]A [facility] [address] [place] [address], * (ABNORMAL) Poc Rapid [id number], MOLECULAR (07/15/2024 11:09 AM EST) COVID-19/SARS- COV-2 Rapid POC Positive(A ) Negative Internal Control Pass Yes Yes Mucous Nasopharyngeal structure / Unknown 07/15/2024 11:09 AM EST Angela Benjamin PA POINT OF CARE TEST E NTER/EDIT ORDERABLES * POC Influenza A/B manually resulted (07/15/2024 11:09 AM EST) [facility] Rapid Influenza A AGN POC Negative Negative Rapid Influenza B AGN POC Negative Negative Internal Control Pass Yes Yes Swab 07/15/2024 11:0 9 AM EST Angela Alexander PA POINT OF CARE TEST E NTER/EDIT ORDERABLES * POC rapid strep A manually resulted (07/15/2024 10:41 AM EST) [facility] Rapid Strep A Screen POC Negative Negative Internal Control Pass Yes Yes Swab Structure of anterior portion of neck / Unknown 07/15/2024 10:41 AM EST Angela Benjamin PA POINT OF CARE TEST E NTER/EDIT ORDERABLES * (ABNORMAL) Urinalysis microscopic only (07/02/2024 2:55 PM EST) [facility] RBC, Urine 5.0(H) 0 - 4 /HPF LAB URINALYSIS - AUTOMATED METHOD 07/02/2024 4:22 PM [facility] WBC, Urine 0.6 0 - 4 /HPF LAB URINALYSIS - AUTOMATED METHOD 07/02/2024 4:22 PM [facility] Squamous Epithelial, Urine 86(H) 0 - 60 /LPF LAB URINALYSIS - AUTOMATED METHOD 07/02/2024 4:22 PM [facility] Bacteria, Urine Negative Negative /HPF LAB URINALYSIS - AUTOMATED METHOD 07/02/2024 4:22 PM [facility] Hyaline Casts, Urine 1.2 0 - 3 /LPF LAB URINALYSIS - AUTOMATED METHOD 07/02/2024 4:22 PM EST [facility] Urine Urine specimen obtained by clean catch procedure / Unknown Non-blood Collection / Unknown 07/02/2024 2:55 PM EST 07/02/2024 2:55 PM EST Rosanne POWELL LAB URINE ORDERABLES [facility] [address] [place] [address], * Venipuncture charge (07/02/2024 2:55 PM EST) Extra Tube Hold for add-ons. 07/02/2024 4:01 PM EST [facility] Comment:Auto resulted. Blood Venous blood specimen / Unknown Venipuncture / Unknown 07/02/2024 2:55 PM EST 07/02/2024 2:55 PM EST Hailey Castañeda MD LAB BLOOD ORDERABLE S [facility] ([facility] * (ABNORMAL) Culture urine (07/02/2024 2:55 PM EST) Culture, Urine 10,000-49,000 CFU/mL Escherichia coli(A) AMANDA 07/04/2024 9:56 AM EST [facility] Urine Urine specimen obtained by clean catch procedure / Unknown Non-blood Collection / Unknown 07/02/2024 2:55 PM EST 07/02/2024 2:55 PM EST Narrative Organism Antibiotic Method Susceptibility Escherichia coli Amoxicillin/Clavulanate AMANDA 8 ug/ml: Susceptible Escherichia coli Ampicillin/Sulbactam AMANDA >=32 ug/ml: Resistant Escherichia coli Piperacillin/Tazobactam AMANDA <=4 ug/ml: Susceptible Escherichia coli Cefazolin (Urine) AMANDA 2 ug/ml: Susceptible Escherichia coli Cefoxitin AMANDA <=4 ug/ml: Susceptible Escherichia coli Ceftazidime AMANDA <=0.5 ug/ml: Susceptible Escherichia coli Ceftriaxone AMANDA <=0.25 ug/ml: Susceptible Escherichia coli Cefepime AMANDA <=0.12 ug/ml: Susceptible Escherichia coli Meropenem AMANDA <=0.25 ug/ml: Susceptible Escherichia coli Amikacin AMANDA 2 ug/ml: Susceptible Escherichia coli Gentamicin AMANDA <=1 ug/ml: Susceptible Escherichia coli Ciprofloxacin AMANDA <=0.06 ug/ml: Susceptible Escherichia coli Levofloxacin AMANDA <=0.12 ug/ml: Susceptible Escherichia coli Nitrofurantoin AMANDA <=16 ug/ml: Susceptible Escherichia coli Trimethoprim/Sulfamethoxazole AMANDA <=20 ug/ml: Susceptible Rosanne POWELL LAB MICROBIOLOGY - G ENERAL ORDERABLES [facility] [address] [place] [address], * External clinical lab (07/02/2024) Provider Onbase LAB BLOOD ORDERABLES * (ABNORMAL) CBC auto differential (06/03/2024 9:23 AM EST) WBC 6.7 4.8 - 10.8 K/mcL LAB HEMETOLOGY METHOD 06/03/2024 12:51 PM [facility] RBC 4.90(H) 3.80 - 4.80 M/mcL LAB HEMETOLOGY METHOD 06/03/2024 12:51 PM [facility] Hemoglobin 14.2 11.5 - 16.0 g/dL LAB HEMETOLOGY METHOD 06/03/2024 12:51 PM [facility] Hematocrit 44.5 35.0 - 47.0 % LAB HEMETOLOGY METHOD 06/03/2024 12:51 PM [facility] MCV 90.3 79.0 - 98.0 FL LAB HEMETOLOGY METHOD 06/03/2024 12:51 PM [facility] MCH 28.8 27.0 - 32.0 pcg LAB HEMETOLOGY METHOD 06/03/2024 12:51 PM [facility] MCHC 31.9(L) 32.0 - 37.0 g/dL LAB HEMETOLOGY METHOD 06/03/2024 12:51 PM [facility] RDW 13.6 11.0 - 15.0 % LAB HEMETOLOGY METHOD 06/03/2024 12:51 PM [facility] Platelets 224 130 - 400 K/mcL LAB HEMETOLOGY METHOD 06/03/2024 12:51 PM [facility] MPV 11.6(H) 7.0 - 11.0 FL LAB HEMETOLOGY METHOD 06/03/2024 12:51 PM [facility] NRBC 0.0 <1.0 % LAB HEMETOLOGY METHOD 06/03/2024 12:51 PM [facility] NRBC Absolute 0.00 <0.10 K/mcL LAB HEMETOLOGY METHOD 06/03/2024 12:51 PM [facility] Neutrophils Relative 50.4 % LAB HEMETOLOGY METHOD 06/03/2024 12:51 PM [facility] Lymphocytes Relative 40.8 % LAB HEMETOLOGY METHOD 06/03/2024 12:51 PM [facility] Monocytes Relative 7.1 % LAB HEMETOLOGY METHOD 06/03/2024 12:51 PM [facility] Eosinophils Relative 0.9 % LAB HEMETOLOGY METHOD 06/03/2024 12:51 PM [facility] Basophils Relative 0.5 % LAB HEMETOLOGY METHOD 06/03/2024 12:51 PM [facility] Immature Granulocytes Relative 0.3 % LAB HEMETOLOGY METHOD 06/03/2024 12:51 PM [facility] Neutrophils Absolute 3.36 1.50 - 7.00 K/mcL LAB HEMETOLOGY METHOD 06/03/2024 12:51 PM EST [facility] Lymphocytes Absolute 2.71 1.00 - 5.00 K/mcL LAB HEMETOLOGY METHOD 06/03/2024 12:51 PM EST [facility] Monocytes Absolute 0.47 0.20 - 1.00 K/mcL LAB HEMETOLOGY METHOD 06/03/2024 12:51 PM [facility] Eosinophils Absolute 0.06 0.00 - 0.50 K/[facility] LAB HEMETOLOGY METHOD 06/03/2024 12:51 PM [facility] Basophils Absolute 0.03 0.00 - 0.20 K/mcL LAB HEMETOLOGY METHOD 06/03/2024 12:51 PM [facility] Immature Granulocytes Absolute 0.02 0.00 - 0.03 K/mcL LAB HEMETOLOGY METHOD 06/03/2024 12:51 PM [facility] Blood Venous blood specimen / Unknown Venipuncture / Unknown 06/03/2024 9:23 AM EST 06/03/2024 9:23 AM EST Rosanne POWELL LAB BLOOD ORDERABLES [facility] [address] [place] [address], * Comprehensive metabolic panel (06/03/2024 9:23 AM EST) Sodium 137 133 - 145 mmol/L LAB CHEMISTRY METHOD 06/03/2024 2:35 PM EST [facility] Potassium 4.1 3.5 - 5.5 mmol/L LAB CHEMISTRY METHOD 06/03/2024 2:35 PM [facility] Chloride 105 96 - 110 mmol/L LAB CHEMISTRY METHOD 06/03/2024 2:35 PM [facility] CO2 28 21 - 32 mmol/L LAB CHEMISTRY METHOD 06/03/2024 2:35 PM [facility] Anion Gap 4 3 - 11 LAB CHEMISTRY METHOD 06/03/2024 2:35 PM [facility] Glucose 91 70 - 100 mg/dL LAB CHEMISTRY METHOD 06/03/2024 2:35 PM [facility] BUN 12 5 - 25 mg/dL LAB CHEMISTRY METHOD 06/03/2024 2:35 PM [facility] Creatinine 0.78 0.50 - 1.10 mg/dL LAB CHEMISTRY METHOD 06/03/2024 2:35 PM [facility] eGFR 92 >=60 mL/min/1. 73m2 LAB CHEMISTRY METHOD 06/03/2024 2:35 PM [facility] Comment:Calculation based on the??Chronic Kidney Disease Epidemiology Collaboration (CKD-EPI) equation refit??without adjustment for race. BUN/Creatinine Ratio 15.4 LAB CHEMISTRY METHOD 06/03/2024 2:35 PM [facility] Calcium 9.6 8.5 - 10.5 mg/dL LAB CHEMISTRY METHOD 06/03/2024 2:35 PM [facility] AST (SGOT) 19 10 - 42 unit/L LAB CHEMISTRY METHOD 06/03/2024 2:35 PM [facility] ALT (SGPT) 28 10 - 60 unit/L LAB CHEMISTRY METHOD 06/03/2024 2:35 PM [facility] Alkaline Phosphatase 61 42 - 121 unit/L LAB CHEMISTRY METHOD 06/03/2024 2:35 PM [facility] Total Protein 7.6 6.0 - 8.0 g/dL LAB CHEMISTRY METHOD 06/03/2024 2:35 PM [facility] Albumin 4.1 3.2 - 5.0 g/dL LAB CHEMISTRY METHOD 06/03/2024 2:35 PM [facility] Total Bilirubin 0.5 0.0 - 1.4 mg/dL LAB CHEMISTRY METHOD 06/03/2024 2:35 PM EST [facility] Blood Venous blood specimen / Unknown Venipuncture / Unknown 06/03/2024 9:23 AM EST 06/03/2024 9:23 AM EST Rosanne POWELL LAB BLOOD ORDERABLES [facility] [address] [place] [address], * (ABNORMAL) POC Urine Auto W/O Micro (06/03/2024 8:46 AM EST) Leukocytes UA POC Negative Negative Nitrite UA POC Negative Negative Urobilinogen UA POC Negative Negative Protein UA POC Negative Negative PH UA POC 7.5 5.0 - 9.0 Blood UA POC Negative Negative, Trace Specific [place] UA POC 1.005 1.001 - 1.035 Ketones UA POC 4+(A) Negative Bilirubin UA POC Negative Negative Glucose UA POC Normal Normal, Trace Urine Urine specimen obtained by clean catch procedure / Unknown 06/03/2024 8:46 AM EST Rosanne POWELL POINT OF CARE TEST E NTER/EDIT ORDERABLES * SCREENING MAMMOGRAPHY BI 2-VIEW BREAST INC CAD (04/09/2024 9:37 AM EDT) Anatomical Region Laterality Modality Radiographic Sushma ging 04/04/2023 4:17 PM EDT Narrative 04/09/2024 7:04 PM EDT This is a summary report. The complete report is available in the patient's medical record. If you cannot access the medical record, please contact the sending organization for a detailed fax or copy. Exam: Screening mammogram Findings: Digital bilateral full-field screening mammography is performed with tomosynthesis and interpreted with the aid of computer-aided detection. ??Comparison is made with 04/04/2023 and as far back as 03/26/2020. Breast parenchyma is heterogeneously dense, which may obscure small masses. ??No new suspicious mass, architectural distortion, or suspicious calcifications. Impression: No mammographic evidence of malignancy. BI-RADS 1 - negative [facility] [address] [place] [address] Procedure Note Brianna Null MD - 05/14/2024 This is a summary report. The complete report is available in thepatient's medical record. If you cannot access the medical record, pleasecontact the sending organization for a detailed fax or copy. Exam: Screening mammogram Findings: Digital bilateral full-field screening mammography is performedwith tomosynthesis and interpreted with the aid of computer-aideddetection. Comparison is made with 04/04/2023 and as far back as03/26/2020. Breast parenchyma is heterogeneously dense, which may obscure smallmasses. No new suspicious mass, architectural distortion, or suspiciouscalcifications. Impression: No mammographic evidence of malignancy. BI-RADS 1 - negative [address] [address] Christina Mora MD IMG XR PRO CEDURES * (ABNORMAL) Lipid panel (04/01/2024) [facility] LDL/HDL Ratio 3 0 - 4 Triglycerides 64 0 - 150 mg/dL Cholesterol 218(A) 0 - 200 mg/dL HDL 69 40 mg/dL LDL Cholesterol 137(A) 0 - 100 mg/dL Blood Venous blood specimen / Unknown Historical Provider LAB BLOOD ORDERAB LES * Depression Screening (03/25/2024) [facility] Depression Screening Abstracted Historical Provider MD [facility] * Colonoscopy (06/13/2023) [facility] Colonoscopy No interpretation , abstracted Anatomical Region Laterality Modality Other Historical [facility] * Cervical Cancer Screening: HPV (09/07/2020) [facility] Cervical Cancer Screening: HPV Negative, abstracted Historical Provider MD DORIAN VALENZUELA E * HIV Screening (07/25/2013) HIV Screening Abstracted Historical Provider MD DORIAN VALENZUELA E * Hepatitis C Screening (07/25/2013) Hepatitis C Screening Abstracted Historical Provider MD DORIAN Nunn from Last 3 Months or Most Recently Relevant to Health Maintenance Care Teams Car Washer Relationship Specialty Start Date End Date Christina Mora MD [address] [place] [id number] PCP - General Internal Medicine 06/03/24
--- OUTSIDE RECORDS SUMMARY | 2024-09-02 06:24 | XMS_ITS | Encounter Summary ---
Author Organization [employer] [facility] Address [address] [place] [address] Care Team Providers Care Vmware Engineer Name Role Phone Unavailable Primary Care Provider Unavailabl e Encounter Details Date Type Department Care Team (Latest Contact Info) Description 06/27/2021 Abstract [facility] CONVERSIONS Dental, Provider, DDS Social History Tobacco Use Types Packs/Day Years Used Date Smoking Tobacco: Never Assessed Comments Unknown Sex and Gender Information Value Date Recorded Sex Assigned at Female 05/29/2022 10:24 AM EDT Legal Sex Female 10:24 AM EDT Gender Identity Female 05/29/2022 10:24 AM EDT Sexual Orientation Straight 05/29/2022 10 :24 AM EDT documented as of this encounter Plan of Treatment Not on file documented as of this encounter Visit Diagnoses Not on filedocumented in this encounter
--- OUTSIDE RECORDS SUMMARY | 2024-09-02 06:24 | XMS_ITS | Encounter Summary ---
Author Organization [employer] Address [address] [place] [address] Care Team Providers Care Rubber Goods Cutter Finisher Name Role Phone Christina Mora MD Primary Care Prov ider Reason for Visit * Reason Onset Date Comments Advice Only 07/29/2024 Encounter Details Date Type Department Care Team (Late st Contact Info) Description 07/29/2024 Telephone General Surgery - [place] [address] [facility] [address] [place] [address] Frantz Starr, DO [address] [facility] [address] [place] [address] Advice Only Social History Tobacco Use Types Packs/Day Years Used Date Smoking Tobacco: Never Smokeless Tobacco: Never Alcohol Use Standard Drinks/Week Comments No 0 [...] for your loved ones. For example, child & adolescent psychiatrist or elderly care for an older adult? [...] file Not on file Not on file documented as of this encounter Progress Notes * Cassie Chung - 07/29/2024 9:52 AM EST I spoke to the patient and she will try and upload a picture through my chart. If she can't she will email me a picture of the area. * Frantz Starr DO - 07/29/2024 8:45 AM EST Is she able to upload a picture? Likely it will be ok and heal from the inside out but if she couldupload a picture will help. * Dalia Trejo - 07/29/2024 8:35 AM EST Patient called and stated that, the procedure that she had done, the sutures came off already, and it seems that she has a hole now. She would like know if that's okay, cause she doesn't want it, to get infected. documented in this encounter Plan of Treatment Upcoming Encounters Date Type Department Care Team (Late st Contact Info) Description 09/15/2024 8:[address] [facility] Nuclear Medicine [address] [place] [address] 09/29/2024 1:40 PM EST Office Visit [facility] - [facility] [address] [facility] [address] [place] [phone] Jennifer Vogel PA [address] [facility] [address] [place] [address] 10/16/2024 3:00 PM EDT Office Visit Gastroenterology - [place] [address] [facility] [address] [facility] [address] [place] [phone] Isabel Griffiths PA 175 [facility] [address] [place] [address] 04/22/2025 3:00 PM EDT Appointment Radiology Department - [address] [phone] documented as of this encounter Visit Diagnoses Not on filedocumented in this encounter Additional Health Concerns Infection Onset Date Last Indicated Resolved Time COVID-19 07/15/2024 07/15/2024 08/14/2024 7:07 PM EST Assessment Noted Time PHQ-9 Depression Total Score: 0 06/02/20 9:32 PM EST documented as of this encounter Care Teams Rubber Goods Cutter Finisher Relationship Specialty Start Date End Date Christina Mora MD [address] [place] [id number] PCP - General Internal Medicine 06/03/24 documented as of this encounter
--- OUTSIDE RECORDS SUMMARY | 2024-09-02 06:24 | XMS_ITS | Encounter Summary ---
Author Organization [employer] Address [address] [place] [address] Care Team Providers Care Harness Tier Name Role Phone Christina Mora MD Primary Care Prov ider Reason for Visit * Reason Comments Follow-up 1 month follow up NABILA Nunn foreign body excision Encounter Details Date Type Department Care Team (Late st Contact Info) Description 08/25/2024 2:45 PM EST Office Visit General Surgery - [place] [address] [facility] [address] [place] [phone] Frantz Starr, DO [address] [facility] [address] [place] [address] Social History Tobacco Use Types Packs/Day Years [...] care for your loved ones. For example, children's librarian or elderly care for an older adult? [...] on file documented as of this encounter Last Filed Vital Signs Vital Sign Reading Time Taken Comments Blood Pressure 105/67 08/25/2024 2:51 PM EST Pulse 75 08/25/2024 2:51 PM EST Temperature 36.2 ??C (97.1 ??F) 08/25/2024 2:51 PM ES T Respiratory Rate - - Oxygen Saturation - - Inhaled Oxygen Concentration - - Weight 87.8 kg (193 lb 8 oz) 08/25/2024 2:51 PM EST Height 160 cm (5' 3 ) 08/25/2024 2:51 PM EST Body Mass Index 34.28 08/25/2024 2:51 PM EST documented in this encounter Plan of Treatment Upcoming Encounters Date Type Department Care Team (Late st Contact Info) Description 09/15/2024 8:[address] [facility] Nuclear Medicine [address] [place] [address] 09/29/2024 1:40 PM EST Office Visit [facility] - [facility] [address] [facility] [address] [place] [address] Jennifer Vogel PA [address] [facility] [address] [place] [address] 10/16/2024 3:00 PM EDT Office Visit Gastroenterology - [place] [address] [facility] [address] [place] [address] Isabel Griffiths PA [address] [facility] [address] [place] [address] 04/22/2025 3:00 PM EDT Appointment Radiology Department - [address] [phone] documented as of this encounter Visit Diagnoses Not on filedocumented in this encounter Additional Health Concerns Assessment Noted Time PHQ-9 Depression Total Score: 0 06/02/20 9:32 PM EST documented as of this encounter Care Teams Harness Tier Relationship Specialty Start Date End Date Christina Mora MD [address] [place] [id number] PCP - General Internal Medicine 06/03/24 documented as of this encounter
--- OUTSIDE RECORDS SUMMARY | 2024-09-02 06:24 | XMS_ITS | Encounter Summary ---
Author Organization [facility] Address [address] [facility] 7[address] [place] [address] Care Team Providers Care Chief Internal Auditor Name Role Phone Unavailable Primary Care Provider Unavailabl e Encounter Details Date Type Department Care Team (Latest Contact Info) Description 10/09/2018 Abstract C CONVERSIONS Dental, Provider, DDS Social History Tobacco [...]
--- OUTSIDE RECORDS SUMMARY | 2024-09-02 06:24 | XMS_ITS | Data Portability ---
Author Organization SHERRY Sinclair s, [address] Address [address] [place] [address] Care Team Providers Care Industry Operations Investigator Name Role Phone [facility] Prim ciara Care Provider Assessment No assessment recorded. Plan of Treatment Reminders Order Date Submit Date Provider Last Modified By Organization Details Last Modified Time Details Appointments None recorded. Lab rapid strep group A, throat 2022 023 [place] [address] [facility], [address] [place] [address], [phone], 3 13:59:40 rapid SARS CoV 2 Ag, QL [place], respiratory specimen 2022 023 [place] [address] [facility], [address] [place] [address], [address], 3 13:59:40 Referral None recorded. Procedures None recorded. Surgeries None recorded. Imaging None recorded. Medication Orders amoxicillin 875 mg tablet 2022 023 [facility]armacy #[id number], [address] [place], [address], 3 13:59:43 Allergy Relief (fluticason e) 50 mcg/actuati on nasal spray,suspe nsion 2022 023 [facility] #[id number], [address] [place], [address], 3 13:59:43 fexofenadin e-pseudoeph edrine ER 180 mg-240 mg tablet,ext. release 24 hr 2022 023 [facility] #[id number], [address] [facility] [place], [place], [address], 13:59:42 Patient TargetsNo targets recorded. Patient Instructions Encounter Date Encounter Id Patient Instructions Last Modified By Organization Details Last Modified Time 01/09/2023 [id number] Acute Sinusitis: Care Instructions [email or web address] Not available 01/09/2023 13:59:40 Reason for Referral None Reported. Results Created Date Observation Date Name Description Value Unit Range Abnormal Flag Note LastModifiedBy Organization Detail LastModifiedTime 01/10/2001/09/2023 rapid SARS CoV 2 Ag, QL [place], respi rator y speci men Unknown Analyte Normal =Negat cari Not Available [address], [address], 01/09/2023 13:58:30 01/10/2001/09/2023 rapid SARS CoV 2 Ag, QL [place], respi rator y speci men Unknown Analyte negati ve Not Available [address], [address], 01/09/2023 13:58:30 01/10/20 23 01/09/2023 rapid strep group A, throa t Unknown Analyte Normal = Negati ve Not Available [address] [place] [address], [address], 01/09/2023 13:58:29 01/10/20 23 01/09/2023 rapid strep group A, throa t Unknown Analyte negati ve Not Available [address] [place] [address], [phone], 01/09/2023 13:58:29 Result Notes None recorded. Problems Name Problem SNOMED Code Status Onset Date Resolution Date Notes Provider Name and Address Organization Details Recorded Time Irritable bowel syndrome 71889112 Active 023 Kitty Sintia mendes PA - [facility] 13:11:17 Problem Notes None recorded. Medical Equipment None Reported. Allergies No known drug allergies Medications Name Sig Start Date Stop Date Status Note LastModified by Organization Details LastModified Time amoxicillin 875 mg tablet Take 1 tablet every 12 hours by oral route for 10 days. 2022 active Not Available Not Available Not Avai lable fexofenadine -pseudoephed rine ER 180 mg-240 mg tablet,ext.r elease 24 hr Take 1 tablet every day by oral route for 5 days. 2022 active Not Available Not Available Not Avai lable Linzess active Not Available Not Avail able Not Available Allergy Relief (fluticasone ) 50 mcg/actuatio n nasal spray,suspen sera [place] 1 spray every day by intranasal route for 2 days. 2022 active Not Available Not Available Not Avai lable Vitals Date Recorded Body height Body mass index (BMI) Body weight Pain severity - 0-10 verbal numeric rating [Score] - Reported Respiratory rate Oxygen saturation Oxygen saturation in Arterial blood by Pulse oximetry Heart rate Body temperature Systolic blood pressure Diastolic blood pressure Provider Name and Address Organization Details Last Updated DateTime 3 160.02 cm 31.5 kg/m2 30278.4 4 g 8 18 /min 98 % 98 % 76 /min 97.6 [degF] 90 mm[Hg] 51 mm[Hg] Kitty Packsofie PA [facility] 3 13:13:17 Social History Question Answer Notes LastModified by Organizat ion Details LastModified Time Tobacco Smoking Status Never Smoker Kitty SHERRY Andrade [facility] 01/09/2023 13:11:47 What Is Your Level Of Alcohol Consumption? None Information not available 01/09/2023 Do You Use Any Illicit Or Recreational Drugs? No Information not available 01/09/2023 Have You Recently Traveled Abroad? No Information not available 01/09/2023 Do You Or Have You Ever Used Any Other Forms Of Tobacco Or Nicotine? No Information not available 01/09/2023 Sex: Unknown Functional Status None recorded. Mental Status None recorded. Family History Relationship Description Onset Age of this Age Resolved Age Notes LastModified by Organization Details LastModified Time Father Diabetes mellitus [email or web address] Not available 2022 13:11:41 Mother Diabetes mellitus emonfette Not available 2022 13:11:41 Brother Diabetes mellitus emonfette Not available 2022 13:11:41 Sister Diabetes mellitus emonfette Not available 2022 13:11:41 Medical History No medical history recorded. Gynecological HistoryNo gynecological history recorded. Obstetrics History GPAL:G 0 P 0 0 0 0 Past Encounters Encounter ID Performer Location Encounter Start Date Encounter Closed Date Diagnosis/Indication Diagnosis SNOMED-CT Code Diagnosis ICD10 Code Diagnosis Note [id number] Jose Antonio_[facility] [address] [place] [address] 11/11/2020 13:15:47 11/11/2020 14:32:05 [id number] [facility] [address] [place] [address] 05/12/2022 08:04:24 05/12/2022 08:54:03 [id number] [facility] [address] [place] [address] 11/01/2020 11:00:14 11/01/2020 12:54:15 [id number] [facility] Jeisonme riar [address] [place] [address] 12/20/2020 16:18:42 12/20/2020 17:40:32 [id number] Catherine Bailey MD [facility] [address] [place] [address] 01/09/2023 13:03:56 01/09/2023 14:01:19 Acute sinusitis 06726553 J01.90 - Use the medication s prescribed .- Decongesta nts if tolerated. - Recommend recheck if fever develops or no improvemen t in 5-7 days.- Use saline nasal spray or neti-pot flushes once to twice a day to loosen mucus in sinuses.-. Use a cool mist humidifier in the room that you sleep to add moisture to the air, which should soothe the airways and help loosen any mucus that may be present.-C all 911 or proceed to nearest Emergency Department if you develop shortness of breath, chest pain, severe headache or other symptoms that concern you. Health Concerns Section Related Observation LastModified by Organization Detai ls LastModified Time None Recorded Concern Status LastModified by Organization Details LastModified Time None Recorded Advance Directives Directive None Recorded Payers Encounter Date Sequence Insurance Name Policy Number Policy Sanchez Covered Member ID Sanchez Member ID Guarantor Name 11/01/2020 1 [facility] (MEDICAID REPLACEMENT - HMO) [place] Adri Rhoades [id number] Adri Rhoades 11/11/2020 1 [facility] (MEDICAID REPLACEMENT - HMO) [place] Adri Rhoades [id number] Adri Rhoades 12/20/2020 1 [facility] (MEDICAID REPLACEMENT - HMO) [place] Adri Rhoades [id number] Adri Rhoades 05/12/2022 1 [facility] (MEDICAID REPLACEMENT - HMO) [place] Adri Rhoades [id number] Adri Rhoades 01/09/2023 1 [facility] (MEDICAID REPLACEMENT - HMO) [place] Adri Rhoades [id number] Adri Rhoades Notes Date Note Type Note Provider Name and Address Organization Details Recorded Time 01/09/2023 text/html Sore throatRepor gail bypatient.Location:t hroat Severity:moderate Quality:hurts to swallow Associated Symptoms:sore throat;coughing;sinu s pain/ congestion Context:no sick contacts; no foreign travel; non-smoker Catherine Bailey MD [address] [place], [address], [place] - [facility] 01/09/2023 14:22:09 OBGyn Episode No OBEpisode recorded.
--- OUTSIDE RECORDS SUMMARY | 2024-09-02 06:24 | XMS_ITS | Encounter Summary ---
Author Organization [employer] Address [address] [place] [address] Care Team Providers Care Solar Energy System Installer Helper Name Role Phone Christina Mora MD Primary Care [facility] ider Reason for Referral * Imaging (Routine) - Closed Specialty Diagnoses / Procedures Referred By Contac t Referred To Contact Radiology Diagnoses Nausea Procedures XR UGI w Air Contrast Isabel Griffiths PA [address] [address] [facility] Referral ID Status Reason Start Date Expiration Date Visits Re quested Visits Authorized [id number] Closed 05/18/2024 05/18/2025 1 1 Reason for Visit * Imaging (Routine) - Closed Specialty Diagnoses / Procedures Referred By Contac t Referred To Contact Radiology Diagnoses Nausea Procedures XR UGI w Air Contrast Isabel Griffiths PA [address] [address] [facility] Referral ID Status Reason Start Date Expiration Date Visits Re quested Visits Authorized [id number] Closed 05/18/2024 05/18/2025 1 1 Encounter Details Date Type Department Care Team (Latest Contact Info) Description 08/13/2024 7:57 AM EST - 08/13/2024 11:59 PM EST Hospital Encounter [facility] [place] [address] Nausea Discharge Disposition: Home or Self Care Social History Tobacco Use Types Packs/Day Years [...] for your loved ones. For example, child care team lead or elderly care for an older adult? [...] on file documented as of this encounter Medications at Time of Discharge Medication Sig Dispensed Refills Start Date End Date cholecalciferol (VITAMIN D-3) 1,250 mcg (50,000 unit) capsule Take 1 capsule (50,000 Units total) by mouth. 04/01/2024 fluticasone propionate (FLONASE) 50 mcg/actuation nasal spray Administer 1 spray into each nostril 1 (one) time each day. 01/09/2023 linaCLOtide (Linzess) 290 mcg capsule Take 1 capsule (290 mcg total) by mouth 1 (one) time each day. 08/27/2023 magnesium oxide (MAG-OX) 400 mg (241.3 elemental magnesium) tablet Take 1 tablet (400 mg total) by mouth daily. 01/23/2024 metoprolol tartrate (LOPRESSOR) 25 mg tablet Take 1 tablet (25 mg total) by mouth 2 (two) times a day. 180 tablet 2 08/01/2024 nystatin-triamcinolone (MYCOLOG II) ointment Apply a thin pool player to daily as needed for itching 30 g 06/30/2024 OMEGA-3 FATTY ACIDS ORAL Take by mouth 1 (one) time each day. ondansetron ODT (ZOFRAN-ODT) 4 mg disintegrating tablet Dissolve 1 tablet (4 mg total) on top of the tongue every 8 (eight) hours if needed for nausea. for up to 30 days ibuprofen (ADVIL,MOTRIN) 800 mg tablet TAKE 1 TABLET ORALLY EVERY 8 HOURS NEEDED FOR PAIN FOR 30 DAYS 12/17/2023 08/14/2024 naproxen (NAPROSYN) 500 mg tablet Take 1 tablet (500 mg total) by mouth 2 (two) times a day. for 7 days 09/26/2023 08/14/2024 documented as of this encounter Discharge Disposition Disposition Code Departure Means Destination Home or Self Care documented in this encounter Progress Notes * SHERRY Waddell - 08/13/2024 8:15 AM EST I will send msg. documented in this encounter Plan of Treatment Upcoming Encounters Date Type Department Care Team (Late st Contact Info) Description 09/15/2024 8:15 AM EST Appointment [facility] Nuclear Medicine [address] [place] [address] 09/29/2024 1:40 PM EST Office Visit [facility] - [facility] [address] [facility] [address] [place] [address] Jennifer Vogel PA [address] [place] [address] 10/16/2024 3:00 PM EDT Office Visit Gastroenterology - [place] 175 [facility] 175 [facility] [address] [place] [phone] Isabel Griffiths PA 175 [facility] [address] [place] [address] 04/22/2025 3:00 PM EDT Appointment Radiology Department - [address] [address] documented as of this encounter Procedures Procedure Name Priority Date/Time Associated Diagnosis Comments XR UGI W AIR CONTRAST Routine 08/13/2024 8:45 AM EST Nausea documented in this encounter Results * XR UGI w Air Contrast (08/13/2024 [...] Signed Date: 08/13/2024 16:23 ET Workstation ID: [id number] Transcribed By: Self Edit Transcribed Date: 08/13/2024 11:14 ET Resident/PA/LIFE INSURANCE SPECIALIST: Sherlyn Roberts Narrative 08/13/2024 4:23 PM EST FINDINGS: Double contrast UGI performed. COMPARISON: No prior upper GI imaging. HISTORY: Patient is a 54-year-old female with history of nausea. Recent negative upper endoscopy. HAZARDOUS MATERIALS TANKER DRIVER radiographs: Veterinarian Assistant AP radiograph of the abdomen obtained. Bowel [...] with history of nausea. Recentnegative upper endoscopy. HAZARDOUS MATERIALS TANKER DRIVER radiographs: Veterinarian Assistant AP radiograph of the abdomen obtained. Bowel [...] Signed Date: 08/13/2024 16:23 ET Workstation ID: [id number] Transcribed By: Self Edit Transcribed Date: 08/13/2024 11:14 ET Resident/PA/LIFE INSURANCE SPECIALIST: Sherlyn Roberts Isabel POWELL IMG FLUOROSCOPY PROC EDURES documented in this encounter Visit Diagnoses Diagnosis Nausea Nausea alone Encounter for screening mammogram for breast cancer documented in this encounter Administered Medications Inactive Administered Medications - up to 3 most recent administrations Medication Order MAR Action Action Date Dose Rate Site barium sulfate (E-Z-HD) 98 % suspension 100 mL 100 mL, oral, Once in imaging, Starting on Sun08/13/24 at 0845, For 1 dose Given 08/13/2024 8:46 AM EST 100 mL barium sulfate (E-Z-PAQUE) 96 % (w/w) suspension 100 mL 100 mL, oral, Once in imaging, Starting on Sun08/13/24 at 0845, For 1 dose Given 08/13/2024 8:46 AM EST 100 mL documented in this encounter Additional Health Concerns Infection Onset Date Last Indicated Resolved Time COVID-19 07/15/2024 07/15/2024 08/14/2024 7:07 PM EST Assessment Noted Time PHQ-9 Depression Total Score: 0 06/02/20 24 9:32 PM EST documented as of this encounter Care Teams Solar Energy System Installer Helper Relationship Specialty Start Date End Date Christina Mora MD [address] [place] [address] PCP - General Internal Medicine 06/03/24 documented as of this encounter
--- OUTSIDE RECORDS SUMMARY | 2024-09-02 06:24 | XMS_ITS | Encounter Summary ---
Author Organization [employer] Address [address] [place] [address] Care Team Providers Care Therapy Manager Name Role Phone Christina Mora MD Primary Care Prov ider Reason for Visit * Reason Onset Date Comments Med Refill 08/01/2024 Metoprolol Encounter Details Date Type Department Care Team (Late st Contact Info) Description 08/01/2024 Telephone [facility] Cardiology [facility] [address] [place] [address] Wander Jung MD [address] [place] [address] Med Refill (Metoprolol) Social History Tobacco Use Types Packs/Day Years [...] for your loved ones. For example, child health associate or elderly care for an older adult? [...] on file documented as of this encounter Ordered Prescriptions Prescription Sig Dispensed Refills Start Date End Da te metoprolol tartrate (LOPRESSOR) 25 mg tablet Take 1 tablet (25 mg total) by mouth 2 (two) times a day. 180 tablet 2 08/01/2024 documented in this encounter Progress Notes * Cristina Hilton RN - 08/01/2024 8:16 AM EST TONY 04/01/24- Dr. Jung recommended pt start taking Metoprolol 12.5 mg BID Metoprolol increased to 25 mg BID on 04/14/24 Metoprolol refills sent * Cristal Sexton - 08/01/2024 8:06 AM EST The patient called requesting a refill for metoprolol 25 mg, 1 tablet twice a day, 90 day supply, pharmacy confirmed. documented in this encounter Plan of Treatment Upcoming Encounters Date Type Department Care Team (Late st Contact Info) Description 09/15/2024 8:15 AM EST Appointment [facility] Nuclear Medicine [address] [place] [phone] 09/29/2024 1:40 PM EST Office Visit [facility] - [facility] [address] [facility] 154 [place] [address] Jennifer Vogel PA [address] [facility] 154 [place] [address] 10/16/2024 3:00 PM EDT Office Visit Gastroenterology - [place] 175 [facility] 175 [facility] 200 [place] [phone] Isabel Griffiths PA 175 [facility] 200 [place] [address] 04/22/2025 3:00 PM EDT Appointment Radiology Department - [address] [address] documented as of this encounter Visit Diagnoses Not on filedocumented in this encounter Discontinued Medications Medication Sig Discontinue Reason Start Date End Da te metoprolol tartrate (LOPRESSOR) 25 mg tablet Take 1 tablet (25 mg total) by mouth 2 (two) times a day. Reorder 04/14/2024 08/01/2024 documented as of this encounter Additional Health Concerns Infection Onset Date Last Indicated Resolved Time COVID-19 07/15/2024 07/15/2024 08/14/2024 7:07 PM EST Assessment Noted Time PHQ-9 Depression Total Score: 0 06/02/20 9:32 PM EST documented as of this encounter Care Teams Therapy Manager Relationship Specialty Start Date End Date Christina Mora MD [address] [place] [address] PCP - General Internal Medicine 06/03/24 documented as of this encounter
--- OUTSIDE RECORDS SUMMARY | 2024-09-02 06:24 | XMS_ITS | Encounter Summary ---
Author Organization [facility] Address [address] [facility] [address] [place] [address] Care Team Providers Care Director Of Graduate Admissions Name Role Phone Unavailable Primary Care Provider Unavailabl e Encounter Details Date Type Department Care Team (Latest Contact Info) Description 11/03/2020 Abstract C CONVERSIONS Dental, Provider, DDS Social [...]
--- OUTSIDE RECORDS SUMMARY | 2024-09-02 06:24 | XMS_ITS | Encounter Summary ---
Author Organization [employer] Address [address] [place] [address] Care Team Providers Care Booking Police Officer Name Role Phone Christina Mora MD Primary Care Prov ider Reason for Visit * Reason Onset Date Comments Chest Pain 08/05/2024 irregular heart rate 08/05/2024 Encounter Details Date Type Department Care Team (Late st Contact Info) Description 08/05/2024 Telephone [facility] - [facility] [address] [facility] 154 [place] [address] Wander Jung MD 300 [facility] [address] [place], [place] [phone] Chest Pain; irregular heart rate Social History Tobacco Use Types Packs/Day Years [...] for your loved ones. For example, child welfare social worker or elderly care for an older adult? [...] as of this encounter Progress Notes * Robyn Grande, DOMIINQUE - 08/05/2024 4:56 PM EST Spoke with pt, informed her of LM recommendation Pt does not have [employer] or [employer] ROSA but she will monitor the HR and keep a log and update PVCA when it occurs. * SHERRY Wisdom - 08/05/2024 4:36 PM EST Please have her monitor her heart rate she does have a smart watch are these episodes of palpitations seconds or minutes. Not surprising in the setting of recent COVID that she is having the symptomscan take 6 to 8 weeks for this to resolve. I would not change any of her medications at this time. I would use the watch and wait approach make sure she is well-hydrated. * Robyn Grande RN - 08/05/2024 4:16 PM EST Spoke with pt, this am she felt palps while getting ready for work stated they lasted about 10 minutes. Last time this occurred was weeks ago when she was + COVID (07/16/24) Usually occur in am. No new meds no missed meds Pt had an episode of stabbing chest pain on Sunday am when she was sleeping late. Radiated to shoulder and jaw and lasted 10 minutes. No nausea, no sweating. Prior to Sunday this happened weeks to a month ago. SOB with exertion occurs with irregular HR. Does not have CP during episode. Denies edema Drinks 1/2 cup of water daily Encouraged pt to increase water intake. Drinks 1 cup of coffee and 1 glass of lemonade daily. Pt is aware to call 911 for chest pain/discomfort that lasts longer than 15 minutes. 04/01/24 TONY SR 01/17/24 TONY NICKY * Cristal Sexton - 08/05/2024 3:07 PM EST The patient called, she does not get irregular heart beats as much as she did before though they still happen. The last instance was yesterday morning before that it was 2 weeks ago. Three weeks ago she had Covid and while she was sleeping she had a sharp stabbing pain in her chest. Even now that she is better she is still getting these pains. She thinks they happen when she sleeps for too long. Please call her back at [phone]. documented in this encounter Plan of Treatment Upcoming Encounters Date Type Department Care Team (Late st Contact Info) Description 09/15/2024 8:15 AM EST Appointment [facility] Nuclear Medicine [address] [place] [address] 09/29/2024 1:40 PM EST Office Visit [facility] - [facility] 154 300 [facility] 154 [place] [phone] Jennifer Vogel PA 300 [facility] 154 [place] [address] 10/16/2024 3:00 PM EDT Office Visit Gastroenterology - [place] 175 [facility] 175 [facility] 200 [place] [address] Isabel Griffiths PA 175 [facility] 200 [place] [address] 04/22/2025 3:00 PM EDT Appointment Radiology Department - [address] [address] documented as of this encounter Visit Diagnoses Not on filedocumented in this encounter Additional Health Concerns Infection Onset Date Last Indicated Resolved Time COVID-19 07/15/2024 07/15/2024 08/14/2024 7:07 PM EST Assessment Noted Time PHQ-9 Depression Total Score: 0 06/02/20 9:32 PM EST documented as of this encounter Care Teams Booking Police Officer Relationship Specialty Start Date End Date Christina Mora MD [address] [place] [address] PCP - General Internal Medicine 06/03/24 documented as of this encounter
--- OUTSIDE RECORDS SUMMARY | 2024-09-02 06:25 | XMS_ITS | Clinical Summary ---
Author Organization [facility] Address [address] [facility] 7t [place] [address] Care Team Providers Care Coat Fitter Name Role Phone Unavailable Primary Care Provider Unavailabl e Allergies No known active allergies Medications Linzess 290 MCG capsule Take 290 mcg by mouth in the morning. 11/05/2022 Active magnesium oxide (Mag-Ox) 400 MG tablet Take 1 tablet by mouth Once per day. 01/23/2024 Active metoprolol tartrate (Lopressor) 25 MG tablet Take 25 mg by mouth 2 times daily. 04/14/2024 Active Encounters Date Type Department Care Team Description 06/25/2024 10:00 AM EST Office Visit [facility] ADULT DENTAL [address] [place] [address] Mary Forte, DDS 06/19/2024 3:00 PM EST Office Visit [facility] ADULT DENTAL [address] [place] [address] Mary Forte, DDS 06/18/2024 3:30 PM EST Office Visit [facility] ADULT DENTAL [address] [place] [address] Magi Avila 06/09/2024 10:30 AM EST Office Visit [facility] ADULT DENTAL [address] [place] [address] Kandru, Rylan, DMD Dental caries (Primary Dx) from Last 3 Months Social History Tobacco Use Types Packs/Day Years Used Date Smoking Tobacco: Never Passive Smoke Exposure: Never Smokeless Tobacco: Never Tobacco Cessation:Counseling Given: Not Answered Alcohol Use Standard Drinks/Week Comments Never 0 (1 standard drink = 0.6 oz pur e alcohol) Comments Unknown Sex and Gender Information Value Date Recorded Sex Assigned at Female 05/29/2022 10:24 AM EDT Legal Sex Female 10:24 AM EDT Gender Identity Female 05/29/2022 10:24 AM EDT Sexual Orientation Straight 05/29/2022 10 :24 AM EDT Last Filed Vital Signs Vital Sign Reading Time Taken Comments Blood Pressure 130/80 06/25/2024 9:56 AM EST Pulse 65 02/18/2024 1:56 PM EDT Temperature - - Respiratory Rate - - Oxygen Saturation - - Inhaled Oxygen Concentration - - Weight - - Height - - Body Mass Index - - Plan of Treatment Health Maintenance Due Date Last Done Comments CT Colonography 1972 Colonoscopy 1972 Colorectal Cancer Screening 1972 Dental X-Ray: Full Mouth 1972 Depression Screening 1972 FIT DNA/Cologuard 1972 FIT 1972 FOBT 1972 HIV Screening 1972 SDOH Screening 1972 Sigmoidoscopy 1972 Alcohol/Substance Use Screening 1984 Family Planning (PISQ) 1987 Hepatitis C Screening 1990 Pap Smear 1993 Cervical Cancer Screening 2002 HPV/Cotest 2002 Mammogram 2012 Pneumococcal Vaccine: 50+ Years (1 of 1 - PCV) 2022 Zoster Vaccines (1 of 2) 2022 Dental Oral Exam 01/27/2024 07/27/2023, 10/23/2022 COVID-19 Vaccine ( season) 2024 07/06/2021, 06/15/2021 Influenza Vaccine (#1) 2024 06/11/2008, 2007 Dental Prophylaxis 08/21/2024 02/18/2024, 1 09/13/2022, 10/23/2022 Dental X-Ray: Bitewings 06/19/2025 06/18/20 24, 03/21/2024, 03/21/2024, Additional history exists Tobacco Screening 06/25/2025 06/25/2024 DTaP/Tdap/Td Vaccines (2 - Td or Tdap) 2027 2017, 07/31/2006 RSV Patients and Patients Aged 60 years or older (1 - 1-dose 75+ series) 2047 Hepatitis B Vaccines Completed 01/25/2007, 08/30/2006, 08/30/2006, Additional history exists HIB Vaccines Aged Out No longer eligi [...] patient's age to complete this topic Meningococcal Vaccine Aged Out No jocelyn krysta eligible based on patient's age to complete this topic RSV under 20 months Aged Out No longe r eligible based on patient's age to complete this topic Rotavirus Vaccines Aged Out No longer eligible based on patient's age to complete this topic Procedures Procedure Name Priority Date/Time Associated Diagnosis Comments 18 EXTRACTION, ERUPTED TOOTH OR EXPOSED ROOT (ELEVATION AND/OR FORCEPS REMOVAL) Routine 06/25/2024 10:00 AM EST NO CHARGE PROCEDURE Routine 06/19/2024 3 :00 PM EST INTRAORAL - PERIAPICAL FIRST RADIOGRAPHIC IMAGE Routine 06/18/2024 3:30 PM EST BITEWING - SINGLE RADIOGRAPHIC IMAGE Routine 06/18/2024 3:30 PM EST LIMITED ORAL EVALUATION - PROBLEM FOCUSED Routine 06/18/2024 3:30 PM EST ADJUNCTIVE GENERAL SERVICES - PROFESSIONAL VISITS - CASE PRESENTATION, SUBSEQUENT TO DETAILED AND EXTENSIVE TREATMENT PLANNING Routine 06/09/2024 10:30 AM EST 18 ENDODONTICS - ENDODONTIC THERAPY (INCLUDING TREATMENT PLAN, CLINICAL PROCEDURES AND FOLLOW-UP CARE) - ENDODONTIC THERAPY, MOLAR TOOTH (EXCLUDING FINAL MU-ISM) Routine 06/09/2024 10:30 AM EST Full PROPHYLAXIS - ADULT Routine 024 2:00 PM EDT PERIODIC ORAL EVALUATION - ESTABLISHED PATIENT Routine 07/27/2023 1:00 PM EST from Last 3 Months or Most Recently Relevant to Health Maintenance Insurance [facility] DENTAL - HSN PARTIAL (MEDICAID)
--- OUTSIDE RECORDS SUMMARY | 2024-09-02 06:25 | XMS_ITS | Encounter Summary ---
Author Organization [facility] Address [address] [place] [address] Care Team Providers Care Wire Bound Box Machine Helper Name Role Phone Christina Mora MD Primary Care Prov ider Reason for Visit * Reason Comments Follow-up Er follow up Encounter Details Date Type Department Care Team (Late st Contact Info) Description 08/14/2024 8:30 AM EST Office Visit Adult Medicine [facility] [address] [place] [address] Rosanne Vu PA [address] [place] [address] Acute pain of both knees (Primary Dx); Bilateral knee effusions; Lumbar back pain; Lumbar radiculopathy Social History Tobacco Use Types Packs/Day Years [...] care for your loved ones. For example, exceptional children's teacher or elderly care for an older adult? [...] Sign Reading Time Taken Comments Blood Pressure 92/60 08/14/2024 8:19 AM EST Pulse 75 08/14/2024 8:19 AM EST Temperature 36 ??C (96.8 ??F) 08/14/2024 8:19 AM EST Respiratory Rate 12 08/14/2024 8:19 AM EST Oxygen Saturation - - Inhaled Oxygen Concentration - - Weight 86.4 kg (190 lb 6.4 oz) 08/14/2024 8:19 A M EST Height 160 cm (5' 3 ) 08/14/2024 8:19 AM EST Body Mass Index 33.73 08/14/2024 8:19 AM EST documented in this encounter Patient Instructions * Attachments The following attachments cannot be sent through Care Everywhere. * Effusion: Joint: General Info (Macedonian) * Knee: Exercises (Macedonian) * Sciatica (Macedonian) documented in this encounter Progress Notes * SHERRY Luz - 08/14/2024 8:30 AM EST CHIEF COMPLAINT: Follow-up (Er follow up) IDENTIFIER: Adri Rhoades is a 54 y.o. old female. HPI: Patient presents to the office today for evaluation of bilateral low back pain radiating down her right leg in addition to bilateral knee pain. She was seen at [facility] on 07/20/2024 following slip and fall. Today prior to ER evaluation was getting out of the shower and slipped with her knees hitting the ground. Was reporting worsening sciatica pain and bilateral knee pain. No head s trike. No LOC. No dizziness, lightheadedness, abdominal pain, N/V, fever, chills, blurry vision, double vision, loss of vision, chest pain, difficulty breathing, shortness of breath, night sweats, incontinence, syncope, near syncope. Physical exam was unremarkable. Bilateral knee films revealed small joint effusions. No fracture or dislocation. Patient was prescribed prednisone course and cyclobenzaprine. Patient has completed course of prednisone and cyclobenzaprine. She has been avoiding NSAIDs due toside effect of stomach upset. She does have Tylenol at home although has not been using. Sciatica continues to be more bothersome than her baseline. She is having difficulty finding comfortable position to sleep. Patient follows with [facility] for sciatica, sacroiliitis on most recent office visitnote dated reviewed. It is documented that she had right SI joint injection on 07/03/2024. She noteshaving follow-up in September to reevaluate. ROS: GENERAL: No fever or chills. No unintentional weight loss or night sweats RESPIRATORY: No cough, wheezing or shortness of breath CARDIOVASCULAR: No chest pain, leg swelling or palpitations GI: No incontinence or retention : No incontinence or retention MUSCULOSKELETAL: See HPI SKIN: No lesions, rash or itching NEURO: See HPI and No persistent headache, syncope, seizures PAST MEDICAL HISTORY: Patient Active Problem List Diagnosis Date Noted Irritable bowel syndrome with constipation 06/03/2024 Abdominal pain 03/25/2024 Palpitations 10/16/2023 Vaginal pain 10/24/2022 Vaginal yeast infection 06/19/2022 Lower extremity pain 05/02/2022 Chest pain 05/02/2022 H. pylori infection 09/14/2021 Hypercholesteremia 06/23/2020 Internal hemorrhoids 07/02/2019 Diverticulitis 07/02/2019 Calcific tendinitis of right shoulder 06/18/2017 Obstructive sleep apnea 04/17/2017 Iron deficiency anemia 03/22/2017 Migraine headache 03/22/2017 Obesity (BMI 30.0-34.9) 02/23/2017 Lumbar back pain 11/23/2016 Drusen (degenerative) of retina 03/10/2015 SOCIAL HISTORY: Social History Tobacco Use Smoking status: Never Smokeless tobacco: Never Substance Use Topics Alcohol use: No FAMILY HISTORY: Family Status Relation Name Status Mother Father Sister Alive Sister Alive Brother Alive MGM MGF PGM PGF Daughter Alive Son Alive Son Alive Neg Hx (Not Specified) No partnership data on file Family History Problem Relation Name Age of Onset Cataracts Mother diabetes Diabetes Father hypertension Breast cancer Sister 34.00 Uterine cancer Sister 38.00 Strabismus Brother No Known Problems Maternal Grandmother No Known Problems Maternal Grandfather No Known Problems Paternal Grandmother No Known Problems Paternal Grandfather No Known Problems Daughter No Known Problems Son No Known Problems Son Blindness Neg Hx Glaucoma Neg Hx Macular degeneration Neg Hx Colon cancer Neg Hx Ovarian cancer Neg Hx ACTIVE MEDICATIONS: Outpatient Medications Marked as Taking for the 08/14/24 encounter (Office Visit) with SHERRY Luz Medication Sig Dispense Refill cholecalciferol (VITAMIN D-3) 1,250 mcg (50,000 unit) capsule Take 1 capsule (50,000 Units total) by mouth. fluticasone propionate (FLONASE) 50 mcg/actuation nasal spray Administer 1 spray into each nostril 1 (one) time each day. linaCLOtide (Linzess) 290 mcg capsule Take 1 capsule (290 mcg total) by mouth 1 (one) time each day. magnesium oxide (MAG-OX) 400 mg (241.3 elemental magnesium) tablet Take 1 tablet (400 mg total) by mouth daily. metoprolol tartrate (LOPRESSOR) 25 mg tablet Take 1 tablet (25 mg total) by mouth 2 (two) times a day. 180 tablet 2 nystatin-triamcinolone (MYCOLOG II) ointment Apply a thin fresh work wrapper layer to daily as needed for itching 30 g 0 OMEGA-3 FATTY ACIDS ORAL Take by mouth 1 (one) time each day. ondansetron ODT (ZOFRAN-ODT) 4 mg disintegrating tablet Dissolve 1 tablet (4 mg total) on top of the tongue every 8 (eight) hours if needed for nausea. for up to 30 days [DISCONTINUED] ibuprofen (ADVIL,MOTRIN) 800 mg tablet TAKE 1 TABLET ORALLY EVERY 8 HOURS NEEDED FOR PAIN FOR 30 DAYS [DISCONTINUED] naproxen (NAPROSYN) 500 mg tablet Take 1 tablet (500 mg total) by mouth 2 (two) times a day. for 7 days ALLERGIES: Patient has no known allergies. PHYSICAL EXAM: Blood pressure 92/60, pulse 75, temperature 36 ??C (96.8 ??F), temperature source Temporal, resp. rate 12, height 1.6 m (63 ), weight 86.4 kg (190 lb 6.4 oz). Body mass index is 33.73 kg/m??. Plan isdeferred until next visit APPEARANCE: Alert and in no acute distress EYES: Conjunctiva and sclera normal NECK: Neck supple HEART: RRR with normal S1 and S2, no murmurs LUNG: clear to auscultation BACK: No visible deformity. No step-offs appreciated. No midline spinal tenderness. No paraspinal muscle tenderness. Positive straight leg raise on right. Negative straight leg raise on left. EXTREMITIES: Extremities warm and well perfused without clubbing, cyanosis, or edema. Hips nontender to palpation with good range of motion. Patella nontender to palpation with good range of motion. No pain with valgus or varus stress. No evidence of joint laxity appreciated. NEURO: Awake, alert and oriented x 3. Strength symmetrical, 5/5. Ambulating independently with mildly antalgic gait. No foot drop. No focal deficit. SKIN: Skin color, texture, turgor normal. No erythema, warmth, rashes, ecchymosis or abrasions. Labs/imaging: See HPI IMPRESSION: 1. Acute pain of both knees 2. Bilateral knee effusions 3. Lumbar back pain 4. Lumbar radiculopathy PLAN: Patient with acute on chronic flare of right sided sciatica following fall last month. No visible deformity. No bony tenderness. No step-offs appreciated. Patient counseled on rest, ice, moist heat and gentle stretching exercises as tolerated. Apply ice to affected area with a thin cloth on skin first for 15 minutes at a hour 3-5 times daily. After 3 days of icing will switch to moist heat for 30minutes 3 times daily. Pt is given educational material detailing gentle stretching exercises. Pt will continue to avoid all NSAIDs given stomach upset. She will initiate Tylenol Extra Strength 1-2 tabs every 6 hours as needed for pain. Will take scheduled rather than as needed for the first few days then decrease as tolerated. She is provided a work note for the next 2 days so that she can rest and tend to her symptoms. She will contact [facility] to see if she can be reevaluated sooner. For bilateral knee effusions patient is counseled on rest, ice, elevation, compression, moist heat and gentle stretching exercises as tolerated. Pt will continue to avoid all NSAIDs given stomach upset. She will initiate Tylenol Extra Strength 1-2 tabs every 6 hours as needed for pain. Will take scheduled rather than as needed for the first few days then decrease as tolerated. She is provided a work note for the next 2 days so that she can rest and tend to her symptoms. If symptoms fail to improve will consider consultation with orthopedics. Patient understands and agrees to plan. Patient will return to the office for routine care with PCP. Will contact the office sooner with any further problems or concerns. No orders of the defined types were placed in this encounter. ADDITIONAL ORDERS: None SHERRY Luz on 08/14/2024 at 9:29 AM EST documented in this encounter Plan of Treatment Upcoming Encounters Date Type Department Care Team (Late st Contact Info) Description 09/15/2024 8:15 AM EST Appointment [facility] Nuclear Medicine [address] [place] [address] 09/29/2024 1:40 PM EST Office Visit [facility] - [address] [facility] [address] [place] [address] Jennifer Vogel PA [address] [place] [address] 10/16/2024 3:00 PM EDT Office Visit Gastroenterology - [place] [address] [facility] [address] [facility] [address] [place] [address] Isabel Griffiths PA 175 [facility] [address] [place] [address] 04/22/2025 3:00 PM EDT Appointment Radiology Department - [address] [phone] documented as of this encounter Visit Diagnoses Diagnosis Acute pain of both knees- Primary Bilateral knee effusions Lumbar back pain Lumbago Lumbar radiculopathy Thoracic or lumbosacral neuritis or radiculitis, unspecified Encounter for screening mammogram for breast cancer documented in this encounter Discontinued Medications Medication Sig Discontinue Reason Start Date End Da te naproxen (NAPROSYN) 500 mg tablet Take 1 tablet (500 mg total) by mouth 2 (two) times a day. for 7 days Therapy completed 09/26/2023 08/14/2024 ibuprofen (ADVIL,MOTRIN) 800 mg tablet TAKE 1 TABLET ORALLY EVERY 8 HOURS NEEDED FOR PAIN FOR 30 DAYS Therapy completed 12/17/2023 08/14/2024 documented as of this encounter Additional Health Concerns Infection Onset Date Last Indicated Resolved Time COVID-19 07/15/2024 07/15/2024 08/14/2024 7:07 PM EST Assessment Noted Time PHQ-9 Depression Total Score: 0 06/02/20 9:32 PM EST documented as of this encounter Care Teams Wire Bound Box Machine Helper Relationship Specialty Start Date End Date Christina Mora MD [address] [place] [id number] PCP - General Internal Medicine 06/03/24 documented as of this encounter
== END 2024-09-02 06:21 | disposition home or self-care (01) ==
LOC: CF 06:20
PROVIDERS: Visit Provider Anesthesiology
DX: M53.3 Sacrococcygeal disorders, not elsewhere classified (principal)
CPT/HCPCS: 27096; J2003; J2795; J3301; Q9967

== ENCOUNTER 2024-09-02 13:54 | Outpatient (AMB) | payer OTHER, SELFPAY ==
--- NOTE | 2024-09-02 13:58 | A.OFFVIS_ITS ---
Vital Signs 09/02/24 13:59 09/02/24 14:29 BP 108/68 102/60 Blood Pressure Location Lt brachial Lt brachial Position Sitting Sitting Respiration 16 16 Pulse 91 91 Pulse Source Pulse Oximeter Pulse Oximeter Pulse Oximetry (%) 99 99 Oxygen Delivery Method Room Air Room Air Intake Visit Reasons: RIGHT THERAPEUTIC SIJ INJECTION Invasive Cardiovascular Technologist Required: No Allergies No Known Allergies Allergy (Mild, Verified 09/02/24 13:59) N/A Medication List - Last Reconciled 09/02/24 by Jaye Garcia LPN cholecalciferol (vitamin D3) 1,250 mcg PO QWEEK cyclobenzaprine 5 mg PO TID PRN 7 days ibuprofen 600 mg PO Q6H PRN linaclotide (Linzess) 290 mcg PO DAILY lorazepam (Ativan) 0.5 mg PO BEDTIME PRN magnesium oxide 400 mg PO DAILY metoprolol tartrate 25 mg PO DAILY naproxen 500 mg PO BID 7 days omeprazole 20 mg PO DAILY ondansetron 4 mg PO Q8H PRN simethicone 360 mg PO BID PFSH Medical History Chronic constipation Diverticulitis Social History Alcohol intake: never Patient Tobacco Use Status: Never used Tobacco 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 Informed consent was thoroughly explained to the patient before the procedure.? The patient came to the operating room.? He was positioned prone on operating table with a pillow under her abdomen.? Time-out was performed delineating correct site and side of the procedure, nature of the injection, name and date of of the patient. The lower back and upper buttocks of the patient was prepped with ChloraPrep and draped with sterile utility towels.? C-arm was brought over the operating field and picture of right sacroiliac joint was demonstrated on the screen. Tilting machine contralateral left 15 degrees from the midline the anterior portion of the silhouette of the joint was superimposed on posterior portion of the silhouette of the joint. The skin was anesthetized with mixture of ropivacaine 0.5% and lidocaine 2% one-to-one slightly medial to the silhouette of the sacroiliac joint. 22 gauge 3-1/2 inch spinal needle was inserted through the skin wheal and advanced to the sacroiliac joint. When tip of the needle entered the sacroiliac joint injection of the contrast performed delineating arthrogram. After that 4 cc of ropivacaine mixed with Kenalog 40 mg was injected into the joint. Upon completion of the injection needle was removed . sterile bandades were applied Patient tolerated the procedure well. Orders: Orders FL guidance in treatment room Today M53.3 - Sacrococcygeal disorders, not elsewhere classified Coding Level of Care Code Procedure Only Diagnoses Sacroiliitis M46.1 Sacroiliac joint dysfunction of right side M53.3
[2024-09-02 13:59] VITALS: BP 108/68; PULSE 91; RESP 16; O2SAT 99
--- OUTSIDE RECORDS SUMMARY | 2024-09-02 14:03 | XMS_ITS | Encounter Summary ---
Author Organization [facility] Address [address] [facility] 7[address] [place] [address] Care Team Providers Care Liner Machine Operator Helper Name Role Phone Unavailable Primary Care Provider Unavailabl e Encounter Details Date Type Department Care Team (Latest Contact Info) Description 06/27/2021 Abstract [facility] CONVERSIONS Dental, Provider, DDS Social History Tobacco [...]
--- OUTSIDE RECORDS SUMMARY | 2024-09-02 14:03 | XMS_ITS | Encounter Summary ---
Author Organization [facility] Address [address] [place] [address] Care Team Providers Care Senior Test Analyst Name Role Phone Christina Mora MD Primary Care Prov ider Reason for Visit * Reason Onset Date Comments Med Refill 08/01/2024 Metoprolol Encounter Details Date Type Department Care Team (Late st Contact Info) Description 08/01/2024 Telephone [facility] Cardiology [facility] [address] [place] [address] Wander Jung MD [address] [place] [address] Med Refill (Metoprolol) Social History Tobacco Use [...] for your loved ones. For example, children's lunchroom supervisor or elderly care for an older adult? [...] Appointment [facility] Nuclear Medicine [address] [place] [phone] 09/29/2024 1:40 PM EST Office Visit [facility] - [facility] [address] [facility] [address] [place] [address] Jennifer Vogel PA 300 [facility] [address] [place] [address] 10/16/2024 3:00 PM EDT Office Visit Gastroenterology - [place] 175 [facility] 175 [facility] 200 [place] [phone] Isabel Griffiths PA 175 [facility] 200 [place] [address] 04/22/2025 3:00 PM EDT Appointment Radiology Department - [address] [address] documented as of this encounter Visit Diagnoses [...] documented as of this encounter Care Teams Senior Test Analyst Relationship Specialty Start Date End Date Christina Mora MD [address] [place] [id number] PCP - General Internal Medicine 06/03/24 documented as of this encounter
--- OUTSIDE RECORDS SUMMARY | 2024-09-02 14:03 | XMS_ITS | Encounter Summary ---
Author Organization [facility] [employer] [facility] Address [address] [facility] [address] [place] [address] Care Team Providers Care Hazardous Substances Engineer Name Role Phone Unavailable Primary Care [...]
--- OUTSIDE RECORDS SUMMARY | 2024-09-02 14:03 | XMS_ITS | Clinical Summary ---
Author Organization [facility] Address [address] [facility] [address] [place] [address] Care Team Providers Care Vehicle Leasing And Rental Manager Name Role Phone Unavailable Primary Care Provider [...] Description 06/25/2024 10:00 AM EST Office Visit [facility] ADULT DENTAL [address] [place] [address] Mary Forte, DDS 06/19/2024 3:00 PM EST Office Visit [facility] ADULT DENTAL [address] [place] [address] Mary Forte, DDS 06/18/2024 3:30 PM EST Office Visit [facility] ADULT DENTAL [address] [place] [address] Magi Avila 06/09/2024 10:30 AM EST Office Visit [facility] ADULT DENTAL [address] [place] [address] Kandru, Rylan, DMD Dental caries (Primary Dx) [...] - ENDODONTIC THERAPY, MOLAR TOOTH (EXCLUDING FINAL BUDDHIST) Routine 06/09/2024 10:30 AM EST Full PROPHYLAXIS - ADULT Routine 024 2:00 PM EDT PERIODIC ORAL EVALUATION - ESTABLISHED PATIENT Routine 07/27/2023 1:00 PM EST from Last 3 Months or Most Recently Relevant to Health Maintenance Insurance [facility] DENTAL - HSN PARTIAL (MEDICAID)
--- OUTSIDE RECORDS SUMMARY | 2024-09-02 14:03 | XMS_ITS | Encounter Summary ---
Author Organization [employer] Address [address] [place] [address] Care Team Providers Care Bid Clerk Name Role Phone Christina Mora MD Primary Care Prov ider Reason for Visit * Reason Onset Date Comments Chest Pain 08/05/2024 irregular heart rate 08/05/2024 Encounter Details Date Type Department Care Team (Late st Contact Info) Description 08/05/2024 Telephone [facility] - [facility] [address] 300 [facility] 154 [place] [address] Wander Jung MD 300 [facility] [address] [place], [place] [id number] Chest Pain; irregular heart rate Social History [...] your loved ones. For example, child welfare consultant or elderly care for an older adult? [...] this encounter Progress Notes * Robyn Grande, DOMINIQUE - 08/05/2024 4:56 PM EST Spoke with pt, informed her of LM recommendation Pt does not have [employer] or [employer] ROSA but she will monitor the HR [...] too long. Please call her back at [phone]. documented in this encounter Plan of Treatment Upcoming Encounters Date Type Department Care Team (Late st Contact Info) Description 09/15/2024 8:15 AM EST Appointment [facility] Nuclear Medicine [address] [place] [address] 09/29/2024 1:40 PM EST Office Visit [facility] - [facility] 154 300 [facility] 154 [place] [phone] Jennifer Vogel PA 300 [facility] 154 [place] [address] 10/16/2024 3:00 PM EDT Office Visit Gastroenterology - [place] 175 [facility] 175 [facility] 200 [place] [address] Isabel Griffiths PA 175 [facility] 200 [place] [address] 04/22/2025 3:00 PM EDT Appointment Radiology Department - [address] [address] documented as of this encounter Visit Diagnoses Not on filedocumented in this encounter Additional Health Concerns Infection Onset Date Last Indicated Resolved Time COVID-19 07/15/2024 07/15/2024 08/14/2024 7:07 PM EST Assessment Noted Time PHQ-9 Depression Total Score: 0 06/02/20 9:32 PM EST documented as of this encounter Care Teams Bid Clerk Relationship Specialty Start Date End Date Christina Mora MD [address] [place] [address] PCP - General Internal Medicine 06/03/24 documented as of this encounter
--- OUTSIDE RECORDS SUMMARY | 2024-09-02 14:03 | XMS_ITS | Encounter Summary ---
Author Organization [employer] Address [address] [place] [address] Care Team Providers Care Billposting Supervisor Name Role Phone Christina Mora MD Primary Care [facility] ider Reason for Referral * Imaging (Routine) - Closed Specialty Diagnoses / Procedures Referred By Contac t Referred To Contact Radiology Diagnoses Nausea Procedures XR UGI w Air Contrast Isabel Griffiths PA [address] [address] [facility] Referral ID Status Reason Start Date Expiration Date Visits Re quested Visits Authorized [id number] Closed 05/18/2024 05/18/2025 1 1 Reason for Visit * Imaging (Routine) - Closed Specialty Diagnoses / Procedures Referred By Contac t Referred To Contact Radiology Diagnoses Nausea Procedures XR UGI w Air Contrast Isabel Griffiths PA [address] [address] [facility] Referral ID Status Reason Start Date Expiration Date Visits Re quested Visits Authorized [id number] Closed 05/18/2024 05/18/2025 1 1 Encounter Details Date Type Department Care Team (Latest Contact Info) Description 08/13/2024 7:57 AM EST - 08/13/2024 11:59 PM EST Hospital Encounter [facility] [place] [address] Nausea Discharge Disposition: Home or [...] your loved ones. For example, child care development specialist or elderly care for an older adult? [...] nystatin-triamcinolone (MYCOLOG II) ointment Apply a thin players assistant to daily as needed for itching 30 [...] Info) Description 09/15/2024 8:15 AM EST Appointment [facility] Nuclear Medicine [address] [place] [address] 09/29/2024 1:40 PM EST Office Visit [facility] - [facility] [address] 300 [facility] [address] [place] [address] Jennifer Vogel PA [address] [place] [address] [place] [address] 10/16/2024 3:00 PM EDT Office Visit Gastroenterology - [place] 175 [facility] 175 [facility] [address] [place] [phone] Isabel Griffiths PA 175 [facility] [place] 200 [place] [address] 04/22/2025 3:00 PM EDT Appointment Radiology Department - [address] [address] documented as of this encounter Procedures Procedure [...] Signed Date: 08/13/2024 16:23 ET Workstation ID: [id number] Transcribed By: Self Edit Transcribed Date: 08/13/2024 11:14 ET Resident/PA/ELECTRIC GOLF CART REPAIRERS: Sherlyn Roberts Narrative 08/13/2024 4:23 PM EST FINDINGS: Double contrast UGI performed. COMPARISON: No prior upper GI imaging. HISTORY: Patient is a 54-year-old female with history of nausea. Recent negative upper endoscopy. STERILIZER OPERATOR radiographs: Information Delivery Analyst AP radiograph of the abdomen obtained. Bowel [...] with history of nausea. Recentnegative upper endoscopy. STERILIZER OPERATOR radiographs: Information Delivery Analyst AP radiograph of the abdomen obtained. Bowel [...] Signed Date: 08/13/2024 16:23 ET Workstation ID: [id number] Transcribed By: Self Edit Transcribed Date: 08/13/2024 11:14 ET Resident/PA/ELECTRIC GOLF CART REPAIRERS: Sherlyn Roberts Isabel POWELL IMG FLUOROSCOPY PROC [...] documented as of this encounter Care Teams Billposting Supervisor Relationship Specialty Start Date End Date Christina Mora MD [address] [place] [address] PCP - General Internal Medicine 06/03/24 documented as of this encounter
--- OUTSIDE RECORDS SUMMARY | 2024-09-02 14:03 | XMS_ITS | Clinical Summary ---
Author Organization [facility] Address 271 [place] [address] Phone Care Team Providers Care Die Maker Stamping Name Role Phone Christina Mora MD Primary [...] one (MYCOLOG II) ointment Apply a thin proposition player to daily as needed for itching [...] orthopedic Obstructive sleep apnea 04/17/2017 Overview (04/29/2024): [facility] Home Polysomnogram: Date 04/10/2017; AHI 5, Unclassified [...] 2:45 PM EST Office Visit General Surgery [address] [phone] Frantz Starr, 08/14/2024 8:30 AM EST Office Visit Adult Medicine [facility] 444 [place] [address] Rosanne Vu PA Acute pain of both knees (Primary Dx); Bilateral knee effusions; Lumbar back pain; Lumbar radiculopathy 08/13/2024 7:57 AM EST - 08/13/2024 11:59 PM EST Hospital Encounter [facility] Xray [address] [place] [phone] Nausea Discharge Disposition: Home or Self Care 08/05/2024 Telephone [facility] - [facility] [address] 300 [facility] 154 [place] [phone] Wander Jung MD Chest Pain; irregular heart rate 08/01/2024 Telephone [facility] Cardiology [address] [place] [phone] Wander Jung MD Med Refill (Metoprolol) 07/29/2024 Telephone [facility] 175 [facility] 110 [place] [address] Frantz Starr, DO 07/29/2024 Telephone [facility] [address] [address] Frantz Starr, DO Advice Only 07/24/2024 3:00 PM EST Procedure visit [address] [address] Frantz Starr, DO Foreign body in left upper extremity, initial encounter (Primary Dx) 07/18/2024 Telephone [facility] [address] [address] Frantz Starr, DO Prior Authorization (07/24/24 Dr. Frantz Starr) 07/15/2024 10:30 AM EST Office Visit Adult Medicine [facility] 444 [place] [address] Angela Alexander PA COVID-19 virus infection (Primary Dx); Acute cystitis without hematuria 07/15/2024 Nurse Triage Adult [address] [phone] Christina Mora MD URI 07/02/2024 2:45 PM EST Lab Draw Station [address] FH: malignant neoplasm of breast (Primary Dx); Sensation of pressure in bladder area 06/30/2024 10:15 AM EST Office Visit Obstetrics and Gynecology [address] [phone] Hailey Castañeda MD Encounter for gynecological examination with abnormal finding (Primary Dx); Family history of breast cancer in sister; Retained suture, initial encounter 06/03/2024 8:30 AM EST Office Visit [address] [phone] Rosanne Vu PA Sensation of pressure in bladder area (Primary Dx); Suprapubic discomfort; Irritable bowel syndrome with constipation; Palpitations from Last 3 Months Immunizations Name Administration Dates Next Due Hepatitis B (Trfvepr-H-Cmosn , Recombivax HB-Adult) 19yo and older 01/25/2007 Hepatitis B (Recombivax HB-Dialysis) 18yo and ol steven 08/30/2006,07/31/2006 Influenza trivalent, 0.5mL, preservative free (Fluarix; FluLaval; Fluzone) ages 6mo and older (Afluria) 3 years and older 06/11/2008 PPD Test 07/31/2006 Liquipel SARS-CoV-2 COVID-19, mRNA, LNP-S, preservative free 07/06/2021 [...] care for your loved ones. For example, assistant child care teacher or elderly care for an older [...] Info) Description 09/15/2024 8:15 AM EST Appointment [facility] Nuclear Medicine [address] [place] [phone] 09/29/2024 1:40 PM EST Office Visit [facility] - [facility] 154 300 [facility] 154 [place] [phone] Jennifer Vogel PA 300 [facility] 154 [place] [address] 10/16/2024 3:00 PM EDT Office Visit Gastroenterology - [place] 175 [facility] 175 [facility] 200 [place] [phone] Isabel Griffiths PA 175 [facility] 200 [place] [address] 04/22/2025 3:00 PM EDT Appointment Radiology Department - [place] [address] [place] [address] Health Maintenance Due Date Last Done Comments [...] AM EST COVID-19 virus infection POC RAPID [id number], MOLECULAR Routine 07/15/2024 11:09 AM EST COVID-19 [...] Signed Date: 08/13/2024 16:23 ET Workstation ID: [id number] Transcribed By: Self Edit Transcribed Date: 08/13/2024 11:14 ET Resident/PA/SPONGE MAKER: Sherlyn Roberts Narrative 08/13/2024 4:23 PM EST FINDINGS: Double contrast UGI performed. COMPARISON: No prior upper GI imaging. HISTORY: Patient is a 54-year-old female with history of nausea. Recent negative upper endoscopy. TIRE MAN radiographs: Shake Backboard Notcher AP radiograph of the abdomen obtained. Bowel [...] with history of nausea. Recentnegative upper endoscopy. TIRE MAN radiographs: Shake Backboard Notcher AP radiograph of the abdomen obtained. Bowel [...] Signed Date: 08/13/2024 16:23 ET Workstation ID: [id number] Transcribed By: Self Edit Transcribed Date: 08/13/2024 11:14 ET Resident/PA/SPONGE MAKER: Sherlyn Roberts Isabel POWELL IMG FLUOROSCOPY PROC EDURES * Tissue Exam (07/24/2024 3:05 PM EST) Final Diagnosis Skin, left arm, excision: Dermal scar No foreign body or foreign body giant cell reaction identified 07/28/2024 11:[address] [facility] Gross Description A. Arm, Left, foreign [...] cassette, three pieces. FABIO 07/28/2024 11:[address] [facility] Disclaimer Unless otherwise specified, all tissue is 10% NB formalin fixed and paraffin embedded. 07/28/2024 11:[address] [facility] Tissue Structure of left upper limb / Unknown Non-blood Collection / Unknown 07/24/2024 3:05 PM EST 07/24/2024 3:07 PM EST Frantz Starr DO LAB PATHOLOGY ORDERA BLES [facility]) [facility] [address] [place] [address], * (ABNORMAL) Poc Rapid [id number], MOLECULAR (07/15/2024 11:09 AM EST) COVID-19/SARS- COV-2 Rapid POC Positive(A ) Negative Internal Control Pass Yes Yes Mucous Nasopharyngeal structure / Unknown 07/15/2024 11:09 AM EST Angela Benjamin PA POINT OF CARE TEST E NTER/EDIT ORDERABLES * POC Influenza A/B manually resulted (07/15/2024 11:09 AM EST) [facility] Rapid Influenza A AGN POC Negative Negative Rapid Influenza B AGN POC Negative Negative Internal Control Pass Yes Yes Swab 07/15/2024 11:0 9 AM EST Angela Alexander PA POINT OF CARE TEST E NTER/EDIT ORDERABLES * POC rapid strep A manually resulted (07/15/2024 10:41 AM EST) [facility] Rapid Strep A Screen POC Negative Negative Internal Control Pass Yes Yes Swab Structure of anterior portion of neck / Unknown 07/15/2024 10:41 AM EST Angela Benjamin PA POINT OF CARE TEST E NTER/EDIT ORDERABLES * (ABNORMAL) Urinalysis microscopic only (07/02/2024 2:55 PM EST) [facility] RBC, Urine 5.0(H) 0 - 4 /HPF LAB URINALYSIS - AUTOMATED METHOD 07/02/2024 4:[address] [facility] WBC, Urine 0.6 0 - 4 /HPF LAB URINALYSIS - AUTOMATED METHOD 07/02/2024 4:[address] [facility] Squamous Epithelial, Urine 86(H) 0 - 60 /LPF LAB URINALYSIS - AUTOMATED METHOD 07/02/2024 4:[address] [facility] Bacteria, Urine Negative Negative /HPF LAB URINALYSIS - AUTOMATED METHOD 07/02/2024 4:[address] [facility] Hyaline Casts, Urine 1.2 0 - 3 /LPF LAB URINALYSIS - AUTOMATED METHOD 07/02/2024 4:22 PM EST [facility] Urine Urine specimen obtained by clean catch procedure / Unknown Non-blood Collection / Unknown 07/02/2024 2:55 PM EST 07/02/2024 2:55 PM EST Rosanne POWELL LAB URINE ORDERABLES [facility] [address] [place] [address], * Venipuncture charge (07/02/2024 2:55 PM EST) Extra Tube Hold for add-ons. 07/02/2024 4:01 PM EST [facility] Comment:Auto resulted. Blood Venous blood specimen / Unknown Venipuncture / Unknown 07/02/2024 2:55 PM EST 07/02/2024 2:55 PM EST Hailey Castañeda MD LAB BLOOD ORDERABLE S [facility] * (ABNORMAL) Culture urine (07/02/2024 2:55 PM EST) Culture, Urine 10,000-49,000 CFU/mL Escherichia coli(A) AMANDA 07/04/2024 9:56 AM EST [facility] Urine Urine specimen obtained [...] POWELL LAB MICROBIOLOGY - G ENERAL ORDERABLES [facility] [address] [place] [address], * External clinical lab (07/02/2024) Provider Onbase LAB BLOOD ORDERABLES * (ABNORMAL) CBC auto differential (06/03/2024 9:23 AM EST) WBC 6.7 4.8 - 10.8 K/mcL LAB HEMETOLOGY METHOD 06/03/2024 12:[address] [facility] RBC 4.90(H) 3.80 - 4.80 M/mcL LAB HEMETOLOGY METHOD 06/03/2024 12:[address] [facility] Hemoglobin 14.2 11.5 - 16.0 g/dL LAB HEMETOLOGY METHOD 06/03/2024 12:[address] [facility] Hematocrit 44.5 35.0 - 47.0 % LAB HEMETOLOGY METHOD 06/03/2024 12:[address] [facility] MCV 90.3 79.0 - 98.0 FL LAB HEMETOLOGY METHOD 06/03/2024 12:[address] [facility] MCH 28.8 27.0 - 32.0 pcg LAB HEMETOLOGY METHOD 06/03/2024 12:[address] [facility] MCHC 31.9(L) 32.0 - 37.0 g/dL LAB HEMETOLOGY METHOD 06/03/2024 12:[address] [facility] RDW 13.6 11.0 - 15.0 % LAB HEMETOLOGY METHOD 06/03/2024 12:[address] [facility] Platelets 224 130 - 400 K/mcL LAB HEMETOLOGY METHOD 06/03/2024 12:[address] [facility] MPV 11.6(H) 7.0 - 11.0 FL LAB HEMETOLOGY METHOD 06/03/2024 12:[address] [facility] NRBC 0.0 <1.0 % LAB HEMETOLOGY METHOD 06/03/2024 12:[address] [facility] NRBC Absolute 0.00 <0.10 K/mcL LAB HEMETOLOGY METHOD 06/03/2024 12:[address] [facility] Neutrophils Relative 50.4 % LAB HEMETOLOGY METHOD 06/03/2024 12:[address] [facility] Lymphocytes Relative 40.8 % LAB HEMETOLOGY METHOD 06/03/2024 12:[address] [facility] Monocytes Relative 7.1 % LAB HEMETOLOGY METHOD 06/03/2024 12:[address] [facility] Eosinophils Relative 0.9 % LAB HEMETOLOGY METHOD 06/03/2024 12:[address] [facility] Basophils Relative 0.5 % LAB HEMETOLOGY METHOD 06/03/2024 12:[address] [facility] Immature Granulocytes Relative 0.3 % LAB HEMETOLOGY METHOD 06/03/2024 12:[address] [facility] Neutrophils Absolute 3.36 1.50 - 7.00 K/mcL LAB HEMETOLOGY METHOD 06/03/2024 12:51 PM EST [facility] Lymphocytes Absolute 2.71 1.00 - 5.00 K/mcL LAB HEMETOLOGY METHOD 06/03/2024 12:51 PM EST [facility] Monocytes Absolute 0.47 0.20 - 1.00 K/mcL LAB HEMETOLOGY METHOD 06/03/2024 12:[address] [facility] Eosinophils Absolute 0.06 0.00 - 0.50 K/[facility] LAB HEMETOLOGY METHOD 06/03/2024 12:[address] [facility] Basophils Absolute 0.03 0.00 - 0.20 K/mcL LAB HEMETOLOGY METHOD 06/03/2024 12:[address] [facility] Immature Granulocytes Absolute 0.02 0.00 - 0.03 K/mcL LAB HEMETOLOGY METHOD 06/03/2024 12:[address] [facility] Blood Venous blood specimen / Unknown Venipuncture / Unknown 06/03/2024 9:23 AM EST 06/03/2024 9:23 AM EST Rosanne POWELL LAB BLOOD ORDERABLES [facility] [address] [place] [address], * Comprehensive metabolic panel (06/03/2024 9:23 AM EST) Sodium 137 133 - 145 mmol/L LAB CHEMISTRY METHOD 06/03/2024 2:35 PM EST [facility] Potassium 4.1 3.5 - 5.5 mmol/L LAB CHEMISTRY METHOD 06/03/2024 2:[address] [facility] Chloride 105 96 - 110 mmol/L LAB CHEMISTRY METHOD 06/03/2024 2:[address] [facility] CO2 28 21 - 32 mmol/L LAB CHEMISTRY METHOD 06/03/2024 2:[address] [facility] Anion Gap 4 3 - 11 LAB CHEMISTRY METHOD 06/03/2024 2:[address] [facility] Glucose 91 70 - 100 mg/dL LAB CHEMISTRY METHOD 06/03/2024 2:[address] [facility] BUN 12 5 - 25 mg/dL LAB CHEMISTRY METHOD 06/03/2024 2:[address] [facility] Creatinine 0.78 0.50 - 1.10 mg/dL LAB CHEMISTRY METHOD 06/03/2024 2:[address] [facility] eGFR 92 >=60 mL/min/1. 73m2 LAB CHEMISTRY METHOD 06/03/2024 2:[address] [facility] Comment:Calculation based on the??Chronic Kidney Disease Epidemiology Collaboration (CKD-EPI) equation refit??without adjustment for race. BUN/Creatinine Ratio 15.4 LAB CHEMISTRY METHOD 06/03/2024 2:[address] [facility] Calcium 9.6 8.5 - 10.5 mg/dL LAB CHEMISTRY METHOD 06/03/2024 2:[address] [facility] AST (SGOT) 19 10 - 42 unit/L LAB CHEMISTRY METHOD 06/03/2024 2:[address] [facility] ALT (SGPT) 28 10 - 60 unit/L LAB CHEMISTRY METHOD 06/03/2024 2:[address] [facility] Alkaline Phosphatase 61 42 - 121 unit/L LAB CHEMISTRY METHOD 06/03/2024 2:[address] [facility] Total Protein 7.6 6.0 - 8.0 g/dL LAB CHEMISTRY METHOD 06/03/2024 2:[address] [facility] Albumin 4.1 3.2 - 5.0 g/dL LAB CHEMISTRY METHOD 06/03/2024 2:[address] [facility] Total Bilirubin 0.5 0.0 - 1.4 mg/dL LAB CHEMISTRY METHOD 06/03/2024 2:35 PM EST [facility] Blood Venous blood specimen / Unknown Venipuncture / Unknown 06/03/2024 9:23 AM EST 06/03/2024 9:23 AM EST Rosanne POWELL LAB BLOOD ORDERABLES [facility] [address] [place] [address], * (ABNORMAL) POC Urine Auto W/O Micro (06/03/2024 8:46 AM EST) Leukocytes UA POC Negative Negative Nitrite UA POC Negative Negative Urobilinogen UA POC Negative Negative Protein UA POC Negative Negative PH UA POC 7.5 5.0 - 9.0 Blood UA POC Negative Negative, Trace Specific [place] UA POC 1.005 1.001 - 1.035 Ketones [...] BI-RADS 1 - negative [facility] [address] [place] [address] Procedure Note Brianna Null MD - 05/14/2024 [...] evidence of malignancy. BI-RADS 1 - negative [address] [address] Christina Mora MD IMG XR PRO CEDURES * (ABNORMAL) Lipid panel (04/01/2024) [facility] LDL/HDL Ratio 3 0 - 4 Triglycerides 64 0 - 150 mg/dL Cholesterol 218(A) 0 - 200 mg/dL HDL 69 40 mg/dL LDL Cholesterol 137(A) 0 - 100 mg/dL Blood Venous blood specimen / Unknown Historical Provider LAB BLOOD ORDERAB LES * Depression Screening (03/25/2024) [facility] Depression Screening Abstracted Historical Provider MD ALARCON [facility] BRANSON * Colonoscopy (06/13/2023) [facility] Colonoscopy No interpretation , abstracted Anatomical Region Laterality Modality Other Historical Provider [facility] * Cervical Cancer Screening: HPV (09/07/2020) [facility] Cervical Cancer Screening: HPV Negative, abstracted Historical Provider MD DORIAN VALENZUELA E * HIV Screening (07/25/2013) HIV Screening Abstracted Historical Provider MD DORIAN VALENZUELA E * Hepatitis C Screening (07/25/2013) Hepatitis C Screening Abstracted Historical Provider MD DORIAN Nunn from Last 3 Months or Most Recently Relevant to Health Maintenance Care Teams Die Maker Stamping Relationship Specialty Start Date End Date Christina Mora MD [address] [place] [id number] PCP - General Internal Medicine 06/03/24
--- OUTSIDE RECORDS SUMMARY | 2024-09-02 14:03 | XMS_ITS | Encounter Summary ---
Author Organization [facility] Address [address] [facility] 7t [place] [address] Care Team Providers Care Fall Internship Name Role Phone Unavailable Primary Care Provider [...]
--- OUTSIDE RECORDS SUMMARY | 2024-09-02 14:03 | XMS_ITS | Encounter Summary ---
Author Organization [employer] Address [address] [place] [address] Care Team Providers Care Greenhouse Laborer Name Role Phone Christina Mora MD Primary Care Prov ider Reason for Visit * Reason Comments Follow-up 1 month follow up NABILA Nunn foreign body excision Encounter Details Date Type Department Care Team (Late st Contact Info) Description 08/25/2024 2:45 PM EST Office Visit General Surgery - [place] 175 [facility] [address] [place] [phone] Frantz Starr, DO 175 [facility] 110 [place] [address] Social History Tobacco Use Types Packs/Day Years [...] care for your loved ones. For example, housekeeper child care or elderly care for an older adult? [...] Info) Description 09/15/2024 8:15 AM EST Appointment [facility] Nuclear Medicine [address] [place] [address] 09/29/2024 1:40 PM EST Office Visit [facility] - [facility] [address] [facility] [address] [place] [address] Jennifer Vogel PA 300 [facility] [address] [place] [address] 10/16/2024 3:00 PM EDT Office Visit Gastroenterology - [place] 175 [facility] [address] [facility] [address] [place] [address] Isabel Griffiths PA 175 [facility] 200 [place] [address] 04/22/2025 3:00 PM EDT Appointment Radiology Department - [address] [phone] documented as of this encounter Visit Diagnoses Not on filedocumented in this encounter Additional Health Concerns Assessment Noted Time PHQ-9 Depression Total Score: 0 06/02/20 9:32 PM EST documented as of this encounter Care Teams Greenhouse Laborer Relationship Specialty Start Date End Date Christina Mora MD [address] [place] [phone] PCP - General Internal Medicine 06/03/24 documented as of this encounter
--- OUTSIDE RECORDS SUMMARY | 2024-09-02 14:03 | XMS_ITS | Encounter Summary ---
Author Organization [employer] Address [address] [place] [address] Care Team Providers Care Plasterer Foreman Name Role Phone Christina Mora MD Primary Care Prov ider Reason for Visit * Reason Onset Date Comments Advice Only 07/29/2024 Encounter Details Date Type Department Care Team (Late st Contact Info) Description 07/29/2024 Telephone General Surgery - [place] [address] [facility] [address] [place] [address] Frantz Starr, DO [address] [facility] [address] [place] [address] Advice Only Social History Tobacco Use Types [...] for your loved ones. For example, child protective services specialist or elderly care for an older [...] Info) Description 09/15/2024 8:15 AM EST Appointment [facility] Nuclear Medicine [address] [place] [address] 09/29/2024 1:40 PM EST Office Visit [facility] - [facility] 154 [address] [facility] 154 [place] [phone] Jennifer oVgel PA 300 [facility] 154 [place] [address] 10/16/2024 3:00 PM EDT Office Visit Gastroenterology - [place] 175 [facility] 175 [facility] 200 [place] [phone] Isabel Griffiths PA 175 [facility] 200 [place] [address] 04/22/2025 3:00 PM EDT Appointment Radiology Department - [address] [address] documented as of this encounter Visit Diagnoses Not on filedocumented in this encounter Additional Health Concerns Infection Onset Date Last Indicated Resolved Time COVID-19 07/15/2024 07/15/2024 08/14/2024 7:07 PM EST Assessment Noted Time PHQ-9 Depression Total Score: 0 06/02/20 9:32 PM EST documented as of this encounter Care Teams Plasterer Foreman Relationship Specialty Start Date End Date Christina Mora MD [address] [place] [address] PCP - General Internal Medicine 06/03/24 documented as of this encounter
--- OUTSIDE RECORDS SUMMARY | 2024-09-02 14:03 | XMS_ITS | Encounter Summary ---
Author Organization [employer] Address [address] [place] [address] Care Team Providers Care Manager Of Program Name Role Phone Christina Mora MD Primary Care Prov ider Reason for Visit * Reason Comments Follow-up Er follow up Encounter Details Date Type Department Care Team (Late st Contact Info) Description 08/14/2024 8:30 AM EST Office Visit Adult Medicine [facility] [address] [place] [address] Rosanne Vu PA [address] [place] [address] Acute pain of both knees (Primary Dx); [...] for your loved ones. For example, child center assistant or elderly care for an older adult? [...] Care Everywhere. * Effusion: Joint: General Info (Bengali) * Knee: Exercises (Bengali) * Sciatica (Bengali) documented in this encounter Progress Notes * SHERRY Luz - 08/14/2024 8:30 AM EST CHIEF COMPLAINT: Follow-up (Er follow up) IDENTIFIER: Adri Rhoades is a 54 y.o. old female. HPI: Patient presents to the office today for evaluation of bilateral low back pain radiating down her right leg in addition to bilateral knee pain. She was seen at [facility] on 07/20/2024 following slip and fall. [...] comfortable position to sleep. Patient follows with [facility] pain management for sciatica, sacroiliitis on most [...] nystatin-triamcinolone (MYCOLOG II) ointment Apply a thin paver layer to daily as needed for itching [...] tend to her symptoms. She will contact [facility] pain management to see if she can [...] EST Appointment [facility] Nuclear Medicine [address] [place] [address] 09/29/2024 1:40 PM EST Office Visit [facility] - [address] [facility] [address] [place] [address] Jennifer Vogel PA [address] [place] [address] 10/16/2024 3:00 PM EDT Office Visit Gastroenterology - [place] 175 [facility] 175 [facility] 200 [place] [address] Isabel Griffiths PA 175 [facility] 200 [place] [address] 04/22/2025 3:00 PM EDT Appointment Radiology Department - [address] [address] documented as of this encounter Visit Diagnoses [...] documented as of this encounter Care Teams Manager Of Program Relationship Specialty Start Date End Date Christina Mora MD [address] [place] [address] PCP - General Internal Medicine 06/03/24 documented as of this encounter
[2024-09-02 14:29] VITALS: BP 102/60; PULSE 91; RESP 16; O2SAT 99
== END 2024-09-02 14:29 | disposition home or self-care (01) ==
LOC: HO.PMCPRC 13:54
PROVIDERS: PCP Internal Medicine; Visit Provider Anesthesiology
DX: M46.1 Sacroiliitis, not elsewhere classified (principal); M53.3 Sacrococcygeal disorders, not elsewhere classified
CPT/HCPCS: 27096

== ENCOUNTER 2024-09-22 13:55 | Outpatient (AMB) | payer OTHER, SELFPAY ==
--- NOTE | 2024-09-22 13:57 | A.OFFVIS_ITS ---
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 She reports that her pain relief was not significant. She blames the pain increase on the trauma she received in June. During this traumatic event she also injured her knees. She complains on severe pain in the knees. She was referred to Dr. Jimenez for evaluation. I recommended her meanwhile to try diclofenac topical and lidocaine topical on the painful areas of her knees. I also will send her for bony pelvis CT to evaluate her hip joints and sacroiliac joints and rule out red flags in her pelvis with her condition. diagnostic sacroiliac joint injection on 06/17/24. She reported that before the procedure her pain was 8/10. Immediately after the procedure the pain decreased and became 1/10. 1 hour after the procedure she had pain 6/10 but probably secondary to irritation of the skin. After that 3 and 4 hours of the procedure she had pain 2/10 5 hours of the procedures she had pain 1/10 and 6 hours of the procedure she had pain 0/10. She reported excellent mobility during the time after the procedure. She reported good social interactions. She performed all the activities of daily living which usually aggravate her pain. Prior: complains on pain in the right lower back with radiation to the right lower extremity to the level of lateral hip and lateral macdonald on the right. Pain started on about 8 months ago she reported that pain is related to an accident in the gym. sitting aggravates her pain the most. Flexing forward aggravates her pain as well. 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 She had an MRI and x-ray of the lumbar spine performed on the order Dr. Jimenez, the results are dictated as below. In my opinion they are unimpressive and do not explain the pain of this patient. She was attending physical therapy she had for times physical therapy 8 sessions each time and she performed home exercise program as well. 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 Review of Systems Const All systems reviewed & are unremarkable except as noted in HPI and below ENT Reports Normal hearing present Neuro Reports Normal hearing present, Denies Abnormal speech present, Denies confusion and Denies Sensory deficit (Neuro) Psych Denies confusion Physical Exam Vital Signs: Last Vital Signs Pulse 74 09/22/24 14:01 BP 128/58 L 09/22/24 14:01 BMI result Body Mass Index 33.1 Const General: no acute distress; No confusion Orientation/consciousness: patient oriented x3 and No confusion Eyes General: appearance normal, both eyes and all related structures Pupils: Equal, round and reactive pupils present EOM: EOMs intact bilaterally Neck Neck: Yes full ROM Chest Chest palpation & inspection: normal inspection of the chest Resp Effort & Inspection: normal respiratory effort, able to speak in complete sentences, normal respiratory pattern, no audible wheezes and no cough Cardio Jugular venous distension: no JVD GI Inspection: Yes normal to inspection Back/Spine/Pelvis Other: The patient is able to stand on bilateral tiptoes in bilateral heels without any difficulty. She is able to lift the great toe in separation of the rest of the toes bilaterally. This demonstrates normal function bilaterally of L4-5 and S1 nerve roots. SLR is negative bilaterally. Heath test is positive on the right, Gaenslen test is positive on the right, pelvic distraction test is positive on the right. Flexing forward and flexing backwards aggravate her pain however flexing forward aggravate her pain much more than flexing backwards. There is no tenderness on palpation in paraspinal spinal region of the lumbar spine however there is severe tenderness on palpation in projection of the sacroiliac joint. Neuro General: patient oriented x3, gait normal and No confusion Cranial nerves: Yes CN's II-XII intact bilaterally, Yes Equal, round and reactive pupils present, Yes Normal hearing present and Yes Ability to bilaterally elevate shoulders present Speech: No Abnormal speech present Gait exam (Neuro): Normal gait present Motor exam (neuro): 5/5 motor strength present throughout Sensory Exam: No Sensory deficit (Neuro) Extrem General: No pedal edema Psych Speech and movement: Normal speech and movement present Affect: normal affect Attitude: cooperative Thought process: Normal thought process present Thought content: Normal thought content present Insight: Good insight present (Psych) Judgement: Good judgement present (Psych) Results Reviewed Results Reviewed: MRI lumbar spine is mostly prominent for: L 4-5: Bilateral facet arthrosis. No significant spinal canal nor foraminal narrowing. L5-S1: Shallow right foraminal disc protrusion and bilateral facet arthrosis. No significant spinal canal nor foraminal narrowing however the disc abuts the right exiting L5 nerve roots. Assessment & Plan Assessment & Plan (1) Sacroiliac joint dysfunction of right side: Code(s): M53.3 - Sacrococcygeal disorders, not elsewhere classified Category: Medical (2) Sacroiliitis: Code(s): M46.1 - Sacroiliitis, not elsewhere classified Category: Medical Plan: (3) Lumbar disc herniation with radiculopathy: Code(s): M51.16 - Intervertebral disc disorders with radiculopathy, lumbar region Category: Medical (4) Vertebrogenic low back pain: Code(s): M54.51 - Vertebrogenic low back pain Category: Medical Plan On physical exam right sacroiliitis is suspected. On the MRI there were subtle Modic type 1 changes at L5 and S1 vertebra. The rest of the vertebras are unremarkable. Diagnostic sacroiliac joint injection resulted in very profound pain improvement during the 1st 6 hours after the procedure. Unfortunately before her sacroiliac joint therapeutic injection patient has suffered a fall in her bathroom and injured her knees and as well as felt severe pain in the projection of sacroiliac joint. She is currently recovering from the trauma. I recommended her to continue home exercise programs. I also recommended her to apply to her painful knees diclofenac topical intermittently with local anesthesia lidocaine patches. I will send this patient for CT of bony pelvis to rule out red flags and assess her sacroiliac joints and her hips. I will see this patient in 2-3 weeks. Orders: Orders CT bony pelvis Today M46.1 - Sacroiliitis, not elsewhere classified, M53.3 - Sacrococcygeal disorders, not elsewhere classified Patient Instructions: I here by testify that I spent 32 minutes in conversation with this patient as well as planning her care and organizing this note. Coding Level of Care Code Est Pt Level 4 (60078) Diagnoses Sacroiliac joint dysfunction of right side M53.3 Sacroiliitis M46.1 Lumbar disc herniation with radiculopathy M51.16 Vertebrogenic low back pain M54.51
[2024-09-22 14:01] VITALS: BP 128/58; PULSE 74; BMI 33.1
--- OUTSIDE RECORDS SUMMARY | 2024-09-22 16:00 | XMS_ITS | Encounter Summary ---
Author Organization [employer] Address [address] [place] [address] Care Team Providers Care Spa Technician Name Role Phone Christina Mora MD Primary Care Prov ider Reason for Visit * Reason Onset Date Comments Med Refill 08/01/2024 Metoprolol Encounter Details Date Type Department Care Team (Late st Contact Info) Description 08/01/2024 Telephone [facility] [address] [place] [address] Wander Jung MD [address] [place] [address] Med Refill (Metoprolol) Social History Tobacco Use [...] for your loved ones. For example, children's service worker or elderly care for an older [...] What is your living situation? 1 08/02/2023 Comments No Sex and Gender Information Value Date Recorded Sex Assigned at Female 08/12/2024 10:48 AM EST Legal Sex Female 9:24 AM EST Gender Identity Female 08/12/2024 10:48 AM EST Sexual Orientation Straight 08/12/2024 10 :48 AM EST documented as of this encounter Ordered Prescriptions Prescription Sig Dispense Quantity Refills Last Filled Start Date End Date metoprolol tartrate (LOPRESSOR) 25 mg tablet Take [...] Care Team (Late st Contact Info) Description 09/29/2024 1:40 PM EST Office Visit [facility] - [facility] [address] [facility] 154 [place] [address] Jennifer Vogel PA 300 [facility] 154 [place] [address] 10/16/2024 3:00 PM EDT Office Visit Gastroenterology - [place] 175 [facility] 175 [facility] 200 [place] [phone] Isabel Griffiths PA 175 [facility] 200 [place] [address] 11/14/2024 8:00 AM EDT Appointment [facility] Nuclear Medicine [address] [place] [phone] 04/22/2025 3:00 PM EDT Appointment Radiology Department - [address] [address] documented as of this encounter Visit Diagnoses [...] documented as of this encounter Care Teams Spa Technician Relationship Specialty Start Date End Date Christina Mora MD [address] [place] [address] PCP - General Internal Medicine 06/03/24 documented as of this encounter
--- OUTSIDE RECORDS SUMMARY | 2024-09-22 16:00 | XMS_ITS | Encounter Summary ---
Author Organization [employer] Address [address] [place] [address] Care Team Providers Care Chief Telephone Operator Name Role Phone Christina Mora MD Primary Care Prov ider Reason for Visit * Reason Comments Follow-up 1 month follow up NABILA Nunn foreign body excision Encounter Details Date Type Department Care Team (Late st Contact Info) Description 08/25/2024 2:45 PM EST Office Visit General Surgery - [place] 175 [facility] [address] [place] [address] Frantz Starr, DO 175 [facility] [address] [place] [address] Foreign body in left upper extremity, initial encounter (Primary Dx); Visit for wound check Social History Tobacco Use Types Packs/Day Years [...] for your loved ones. For example, children's ministries director or elderly care for an older adult? [...] AM EST documented as of this encounter Last Filed [...] 2:51 PM EST documented in this encounter Progress Notes * Frantz Starr DO - 08/25/2024 2:45 PM EST Reason for visit: Follow-up -status post left upper extremity excision HPI: This is a pleasant 54 y.o. patient who was previously evaluated in my office for question of foreign body in left upper extremity, class and underwent excision of foreign body on 07/24/2024. There was no foreign body found in the specimen on pathology reviewed. Patient subsequently had dehiscence of her incision. She has been healing better by secondary intention. There have been no interval changes in past medical/surgical history, medications, social history, or family medical history. Please refer to EMR or my prior note for additional details. ROS GENERAL: No significant weight loss or fever RESPIRATORY: No cough or shortness of breath CARDIOVASCULAR: No chest pain GI: No abdominal discomfort, see HPI SKIN: No rash, jaundice ACTIVE MEDICATIONS: Medication list was reviewed/updated with the patient. Outpatient Medications Marked as Taking for the 08/25/24 encounter (Office Visit) with Frantz Starr DO Medication Sig Dispense Refill cholecalciferol (VITAMIN D-3) [...] nystatin-triamcinolone (MYCOLOG II) ointment Apply a thin mastic floor layer to daily as needed for itching 30 g 0 OMEGA-3 FATTY ACIDS ORAL Take by mouth 1 (one) time each day. ondansetron ODT (ZOFRAN-ODT) 4 mg disintegrating tablet Dissolve 1 tablet (4 mg total) on top of the tongue every 8 (eight) hours if needed for nausea. for up to 30 days ALLERGIES: @ALL@ PHYSICAL EXAM: Visit Vitals BP 105/67 (BP Location: Right arm, Patient Position: Sitting, BP Cuff Size: Large adult) Pulse 75 Temp 36.2 ??C (97.1 ??F) (Temporal) Ht 1.6 m (63 ) Wt 87.8 kg (193 lb 8 oz) BMI 34.28 kg/m?? OB Status Hysterectomy Smoking Status Never BSA 1.91 m?? APPEARANCE: Alert and in no acute distress EYES: conjunctiva and sclera normal. HEART: RRR LUNG: non-labored respirations, patient is comfortable on room air without adventitious sounds ABDOMEN: benign EXTREMITIES: Roughly 2 cm cicatrix from excision and left upper extremity healing well. NEURO: Awake, alert and oriented, moves all extremities SKIN: Skin color, texture normal. LABS: Lab Results Component Value Date WBC 6.7 06/03/2024 HGB 14.2 06/03/2024 HCT 44.5 06/03/2024 MCV 90.3 06/03/2024 Lab Results Component Value Date NA 137 06/03/2024 K 4.1 06/03/2024 CO2 28 06/03/2024 CL 105 06/03/2024 BUN 12 06/03/2024 ALKPHOS 61 06/03/2024 IMAGING: None ................................................................................ ............................................................. ASSESSMENT 1. Foreign body in left upper extremity, initial encounter 2. Visit for wound check PLAN: 1. Patient's wound healing well from secondary tension. She will follow-up on as-needed basis. It was a pleasure seeing @TITLE@ Adri Rhoades at the [facility] today. The patient has been instructed to call with any additional questions or concerns. @ESIG@ cc: documented in this encounter Plan of Treatment Upcoming Encounters Date Type Department Care Team (Late st Contact Info) Description 09/29/2024 1:40 PM EST Office Visit [facility] - [facility] 154 300 [facility] 154 [place] [phone] Jennifer Vogel PA [address] [facility] 154 [place] [address] 10/16/2024 3:00 PM EDT Office Visit Gastroenterology - [place] 175 [facility] 175 [facility] 200 [place] [phone] Isabel Griffiths PA 175 [facility] 200 [place] [address] 11/14/2024 8:00 AM EDT Appointment Nuclear Medicine [address] [place] [phone] 04/22/2025 3:00 PM EDT Appointment Radiology Department - [address] [address] documented as of this encounter Visit Diagnoses Diagnosis Foreign body in left upper extremity, initial encounter- Primary Visit for wound check Encounter for screening mammogram for breast cancer documented in this encounter Additional Health Concerns Assessment Noted Time PHQ-9 Depression Total Score: 0 06/02/20 24 9:32 PM EST documented as of this encounter Care Teams Chief Telephone Operator Relationship Specialty Start Date End Date Christina Mora MD [address] [place] [address] PCP - General Internal Medicine 06/03/24 documented as of this encounter
--- OUTSIDE RECORDS SUMMARY | 2024-09-22 16:00 | XMS_ITS | Data Portability ---
Author Organization SHERRY Sinclair s, [address] Address [address] [place] [address] Care Team Providers Care Senior Fire Protection Engineer Name Role Phone [facility] Prim ciara Care Provider Assessment No assessment recorded. Plan of Treatment Reminders Order Date Submit Date Provider Last Modified By Organization Details Last Modified Time Details Appointments None recorded. Lab rapid strep group A, throat 2022 023 [place] [address] [facility], [address] [place] [address], [address], 3 13:59:40 rapid SARS CoV 2 Ag, QL IA, respiratory specimen 2022 023 [place] [address] [facility], [address] [place] [address], [phone], 3 13:59:40 Referral None recorded. Procedures None recorded. Surgeries None recorded. Imaging None recorded. Medication Orders amoxicillin 875 mg tablet 2022 023 [facility][id number], [address] [place], [address], 3 13:59:43 Allergy Relief (fluticason e) 50 mcg/actuati on nasal spray,suspe nsion 2022 023 [facility] #[id number], [address] [place], [address], 3 13:59:43 fexofenadin e-pseudoeph edrine ER 180 mg-240 mg tablet,ext. release 24 hr 2022 023 [facility] #2339, [address] [facility], [place], [address], 13:59:42 Patient TargetsNo targets recorded. Patient Instructions Encounter Date Encounter Id Patient Instructions Last Modified By Organization Details Last Modified Time 01/09/2023 [id number] Acute Sinusitis: Care Instructions [email or web address] Not available 01/09/2023 13:59:40 Reason for Referral None Reported. Results Created Date Observation Date Name Description Value Unit Range Abnormal Flag Note LastModifiedBy Organization Detail LastModifiedTime 01/10/2001/09/2023 rapid SARS CoV 2 Ag, QL IA, respi rator y speci men Unknown Analyte Normal =Negat cari Not Available [address], [address], 01/09/2023 13:58:30 01/10/2001/09/2023 rapid SARS CoV 2 Ag, QL IA, respi rator y speci men Unknown Analyte negati ve Not Available [address], [address], 01/09/2023 13:58:30 01/10/20 23 01/09/2023 rapid strep group A, throa t Unknown Analyte Normal = Negati ve Not Available [address] [place] [address], [phone], 01/09/2023 13:58:29 01/10/20 23 01/09/2023 rapid strep group A, throa t Unknown Analyte negati ve Not Available [address] [place] [address], [phone], 01/09/2023 13:58:29 Result Notes None recorded. Problems Name Problem SNOMED Code Status Onset Date Resolution Date Notes Provider Name and Address Organization Details Recorded Time Irritable bowel syndrome 88866738 Active 023 Kitty Sintia mendes PA - [facility] 13:11:17 Problem Notes None recorded. Medical [...] ) 50 mcg/actuatio n nasal spray,suspen sera Sloan 1 spray every day by intranasal route [...] Updated DateTime 3 160.02 cm 31.5 kg/m2 71335.4 4 g 8 18 /min 98 % 98 % 76 /min 97.6 [degF] 90 mm[Hg] 51 mm[Hg] Kitty Packsofie PA [facility] 3 13:13:17 Social History Question Answer [...] SNOMED-CT Code Diagnosis ICD10 Code Diagnosis Note [id number] Jose Antonio_Prem eucedar [address] [place] [address] 11/11/2020 13:15:47 11/11/2020 14:32:05 [id number] [facility] [address] [place] [address] 05/12/2022 08:04:24 05/12/2022 08:54:03 [id number] [facility] [address] [place] [address] 11/01/2020 11:00:14 11/01/2020 12:54:15 [id number] [facility] Jeisonor riar [address] [place] [address] 12/20/2020 16:18:42 12/20/2020 17:40:32 [id number] Catherine Bailey MD [facility] [address] [place] [phone] 01/09/2023 13:03:56 01/09/2023 14:01:19 Acute sinusitis [id number] J01.90 - Use the medication s prescribed [...] Sanchez Member ID Guarantor Name 11/01/2020 1 [facility] (MEDICAID REPLACEMENT - HMO) [facility] Adri Rhodaes [id number] Adri Rhoades 11/11/2020 1 [facility] (MEDICAID REPLACEMENT - HMO) [facility] Adri Rhoades [id number] Adir Rhoades 12/20/2020 1 [facility] (MEDICAID REPLACEMENT - HMO) [facility] Adri Rhoades [id number] Adri Rhoades 05/12/2022 1 [facility] (MEDICAID REPLACEMENT - HMO) [facility] Adri Rhoades [id number] Adri Rhoades 01/09/2023 1 [facility] (MEDICAID REPLACEMENT - HMO) [facility] Adri Rhoades [id number] Adri Rhoades Notes Date Note Type Note Provider Name and Address Organization Details Recorded Time 01/09/2023 text/html Sore throatRepor gail bypatient.Location:t hroat Severity:moderate Quality:hurts to swallow Associated Symptoms:sore throat;coughing;sinu s pain/ congestion Context:no sick contacts; no foreign travel; non-smoker Catherine Bailey MD [address] [place], [address], [place] - [facility] 01/09/2023 14:22:09 OBGyn Episode No OBEpisode recorded.
--- OUTSIDE RECORDS SUMMARY | 2024-09-22 16:00 | XMS_ITS | Clinical Summary ---
Author Organization [facility] Address [address] [place] [address] Phone Care Team Providers Care Commodity Manager Name Role Phone Christina Mora MD Primary Care Prov ider Allergies No known active allergies Medications cholecalciferol (VITAMIN D-3) 1,250 mcg (50,000 unit) capsule Take 1 capsule (50,000 Units total) by mouth. 4 Active OMEGA-3 FATTY ACIDS ORAL Take by mouth 1 (one) time each day. Active magnesium oxide (MAG-OX) 400 mg (241.3 elemental magnesium) tablet Take 1 tablet (400 mg total) by mouth daily. 4 Active linaCLOtide (Linzess) 290 mcg capsule Take 1 capsule (290 mcg total) by mouth 1 (one) time each day. 4 Active ondansetron ODT (ZOFRAN-ODT) 4 mg disintegrating tablet Dissolve 1 tablet (4 mg total) on top of the tongue every 8 (eight) hours if needed for nausea. for up to 30 days Active fluticasone propionate (FLONASE) 50 mcg/actuation nasal spray Administer 1 spray into each nostril 1 (one) time each day. 3 Active nystatin-triamcino lone (MYCOLOG II) ointment Apply a thin linoleum layer apprentice to daily as needed for itching 30 g 4 Active metoprolol tartrate (LOPRESSOR) 25 mg tablet Take 1 tablet (25 mg total) by mouth 2 (two) times a day. 180 tablet 2 5 Active Active Problems Problem Noted Date Diagnosed Date Foreign body in left upper extremity 09/08/2024 Irritable bowel syndrome with constipation 06/03 Abdominal [...] orthopedic Obstructive sleep apnea 04/17/2017 Overview (04/29/2024): [facility] Home Polysomnogram: Date 04/10/2017; AHI 5, Unclassified apneas 0; Obstructive apneas 5; Central apneas 3; Mixed apneas 0; hypopneas 28; average oxygen saturation 94% (lowest 87% without saturations <88% for 5% or more of study) - Obstructive Sleep Apnea - mild; mostly hypopneas; no sleep related hypoventilation by 2016 home polysomnogram. Patient declined CPAP machine Iron deficiency anemia 03/22/2017 Overview (04/29/2024): Secondary to menorrhagia Migraine headache 03/22/2017 Obesity (BMI 30.0-34.9) 02/23/2017 Lumbar back pain 11/23/2016 Overview (04/29/2024): Normal MRI 11/23/2016. Referred to physical therapy Jama (degenerative) of retina 03/10/2015 Encounters Date Type Department Care Team Description 08/25/2024 2:45 PM EST Office Visit General Surgery [facility] [address] [facility] [address] [place] [address] Frantz Starr, DO Foreign body in left upper extremity, initial encounter (Primary Dx); Visit for wound check 08/14/2024 8:30 AM EST Office Visit Adult Medicine [facility] [address] [place] [address] Rosanne Vu PA Acute pain of both knees (Primary Dx); Bilateral knee effusions; Lumbar back pain; Lumbar radiculopathy 08/13/2024 7:57 AM EST - 08/13/2024 11:59 PM EST Hospital Encounter [facility] Xray [address] [place] [address] Nausea Discharge Disposition: Home or Self Care 08/05/2024 Telephone [facility] Cardiology [facility] [address] [place] [phone] Wander Jung MD Chest Pain; irregular heart rate 08/01/2024 Telephone [facility] Cardiology [facility] - [address] [place] [phone] Wander Jung MD Med Refill (Metoprolol) 07/29/2024 Telephone [facility] [address] [phone] Frantz Starr, DO 07/29/2024 Telephone [facility] [address] [address] Frantz Starr, DO Advice Only 07/24/2024 3:00 PM EST Procedure visit [address] [address] Frnatz Starr, DO Foreign body in left upper extremity, initial encounter (Primary Dx) 07/18/[address] [address] Frantz Starr, DO Prior Authorization (07/24/24 Dr. Frantz Starr) 07/15/2024 10:30 AM EST Office Visit Adult Medicine [address] [phone] Angela Alexander PA COVID-19 virus infection (Primary Dx); Acute cystitis without hematuria 07/15/2024 Nurse Triage Adult Medicine [address] [phone] Christina Mora MD URI 07/02/2024 2:45 PM EST Lab Draw Station [address] FH: malignant neoplasm of breast (Primary Dx); Sensation of pressure in bladder area 06/30/2024 10:15 AM EST Office Visit Obstetrics and Gynecology [address] [phone] Hailey Castañeda MD Encounter for gynecological examination with abnormal finding (Primary Dx); Family history of breast cancer in sister; Retained suture, initial encounter from Last 3 Months Immunizations Name Administration Dates Next Due Hepatitis B (Sudqbrl-X-Lfoma , Recombivax HB-Adult) 19yo and older 01/25/2007 Hepatitis B (Recombivax HB-Dialysis) 18yo and ol steven 08/30/2006,07/31/2006 Influenza trivalent, 0.5mL, preservative free (Fluarix; FluLaval; Fluzone) ages 6mo and older (Afluria) 3 years and older 06/11/2008 PPD Test 07/31/2006 Euroffice SARS-CoV-2 COVID-19, mRNA, LNP-S, preservative free 07/06/2021 Td Tetanus diptheria (Tdvax) 7yo and older 07/31 Tdap Tetanus diptheria acell ular pertussis (Boostrix; Adacel) 7yo and older 2017 Surgical History Surgery Date Site/Laterality Comments TUBAL LIGATION PROCEDURE: HISTORICAL TUBAL LIGATION COLONOSCOPY PROCEDURE: HISTORICAL COLONOSCOPY HYSTERECTOMY 07/30/2020 - 07/29/2021 NEGIN [place], menorrhagia Medical History Medical History Date Comments [...] apnea 04/17/2017 DX:Obstr uctive sleep apnea; COMMENT: [facility] Home Polysomnogram: Date 04/10/2017; AHI 5, [...] your loved ones. For example, child care coordinator or elderly care for an older adult? [...] Orientation Straight 08/12/2024 10 :48 AM EST Obstetrics History Para Term AB IAB SAB [...] Description 09/29/2024 1:40 PM EST Office Visit [facility] - [facility] [address] [facility] [address] [place] [address] Jennifer Vogel PA [address] [facility] [address] [place] [address] 10/16/2024 3:00 PM EDT Office Visit Gastroenterology - [place] 175 [facility] 175 [facility] [address] [place] [phone] Isabel Griffiths PA 175 [facility] 200 [place] [address] 11/14/2024 8:[address] [facility] Nuclear Medicine [address] [place] [phone] 04/22/2025 3:00 PM EDT Appointment Radiology Department - [address] [phone] Health Maintenance Due Date Last Done Comments Pneumococcal Vaccine: 50+ Years (1 of 1 - PCV) 2022 Zoster Vaccines (1 of 2) 2022 COVID-19 Vaccine ( - season) 2024 07/06/2021, 06/15/2021 Influenza Vaccine [...] patient's age to complete this topic Meningococcal B Vacine Aged Out No lo nger eligible based on patient's age to complete [...] AM EST COVID-19 virus infection POC RAPID [id number], MOLECULAR Routine 07/15/2024 11:09 AM EST COVID-19 [...] in bladder area EXTERNAL CLINICAL LAB 07/02/2024 SCREENING MAMMOGRAPHY BI 2-VIEW BREAST INC CAD [...] Modality Head and Neck Magnetic Resonan ce us Historical Provider MD GONZALEZ MRI PROCEDURES Final Result * XR UGI w Air Contrast (08/13/2024 [...] Signed Date: 08/13/2024 16:23 ET Workstation ID: [id number] Transcribed By: Self Edit Transcribed Date: 08/13/2024 11:14 ET Resident/PA/RAT CULTURIST: Sherlyn Roberts Narrative 08/13/2024 4:23 PM EST FINDINGS: Double contrast UGI performed. COMPARISON: No prior upper GI imaging. HISTORY: Patient is a 54-year-old female with history of nausea. Recent negative upper endoscopy. SIGNAL OPERATOR LINGUIST radiographs: Sound Engineering Technician AP radiograph of the abdomen obtained. Bowel [...] with history of nausea. Recentnegative upper endoscopy. SIGNAL OPERATOR LINGUIST radiographs: Sound Engineering Technician AP radiograph of the abdomen obtained. Bowel [...] Signed Date: 08/13/2024 16:23 ET Workstation ID: [id number] Transcribed By: Self Edit Transcribed Date: 08/13/2024 11:14 ET Resident/PA/RAT CULTURIST: Sherlyn Roberts Isabel POWELL IMG FLUOROSCOPY PROCEDURES Fi nal Result * Tissue Exam (07/24/2024 3:05 PM EST) Final Diagnosis Skin, left arm, excision: Dermal scar No foreign body or foreign body giant cell reaction identified 07/28/2024 11:03 AM EST [facility] Gross Description A. Arm, Left, foreign [...] cassette, three pieces. FABIO 07/28/2024 11:03 AM EST [facility] Disclaimer Unless otherwise specified, all tissue is 10% NB formalin fixed and paraffin embedded. 07/28/2024 11:03 AM EST [facility] Tissue Structure of left upper limb / Unknown Non-blood Collection / Unknown 07/24/2024 3:05 PM EST 07/24/2024 3:07 PM EST Frantz Starr DO LAB PATHOLOGY ORDERABLES Final Result [facility] [address] [place] [address], [place] [phone] * (ABNORMAL) Poc Rapid [id number], MOLECULAR (07/15/2024 11:09 AM EST) Pathologist [facility] COVID-19/SARS- COV-2 Rapid POC Positive(A ) Negative Internal Control Pass Yes Yes Mucous Nasopharyngeal structure / Unknown 07/15/2024 11:09 AM EST us Angela Alexander PA POINT OF CARE TEST ENTER/EDIT OR DERABLES Final Result * POC Influenza A/B manually resulted (07/15/2024 11:09 AM EST) Pathologist [facility] Rapid Influenza A AGN POC Negative Negative Rapid Influenza B AGN POC Negative Negative Internal Control Pass Yes Yes Swab 07/15/2024 11:0 9 AM EST us Angela Alexander PA POINT OF CARE TEST ENTER/EDIT OR DERABLES Final Result * POC rapid strep A manually resulted (07/15/2024 10:41 AM EST) Pathologist [facility] Rapid Strep A Screen POC Negative Negative Internal Control Pass Yes Yes Swab Structure of anterior portion of neck / Unknown 07/15/2024 10:41 AM EST Angela POWELL POINT OF CARE TEST ENTER/EDIT OR DERABLES Final Result * (ABNORMAL) Urinalysis microscopic only (07/02/2024 2:55 PM EST) RBC, Urine 5.0(H) 0 - 4 /HPF LAB URINALYSIS - AUTOMATED METHOD 07/02/2024 4:22 PM [facility] WBC, Urine 0.6 0 - 4 /HPF LAB URINALYSIS - AUTOMATED METHOD 07/02/2024 4:22 PM [facility] Squamous Epithelial, Urine 86(H) 0 - 60 /LPF LAB URINALYSIS - AUTOMATED METHOD 07/02/2024 4:22 PM [facility] Bacteria, Urine Negative Negative /HPF LAB URINALYSIS - AUTOMATED METHOD 07/02/2024 4:22 PM [facility] Hyaline Casts, Urine 1.2 0 - 3 /LPF LAB URINALYSIS - AUTOMATED METHOD 07/02/2024 4:22 PM [facility] Urine Urine specimen obtained by clean catch procedure / Unknown Non-blood Collection / Unknown 07/02/2024 2:55 PM EST 07/02/2024 2:55 PM EST Rosanne POWELL LAB URINE ORDERABLES Final Resul t [facility] [address] [place] [address], [place] [phone] * Venipuncture charge (07/02/2024 2:55 PM EST) Pathologist [facility] Extra Tube Hold for add-ons. 07/02/2024 4:01 PM [facility] ([facility]) Comment:Auto resulted. Blood Venous blood specimen / Unknown Venipuncture / Unknown 07/02/2024 2:55 PM EST 07/02/2024 2:55 PM EST us Hailey Castañeda MD LAB BLOOD ORDERABLES Final Result [facility] * (ABNORMAL) Culture urine (07/02/2024 2:55 PM EST) [facility] Culture, Urine 10,000-49,000 CFU/mL Escherichia coli(A) AMANDA 07/04/2024 9:56 AM EST [facility] Urine Urine specimen obtained by clean [...] ug/ml: Susceptible Rosanne POWELL LAB MICROBIOLOGY - GENERAL ORDER KENYA Final Result [facility] [address] [place] [address], * External clinical lab (07/02/2024) us Provider Onbase LAB BLOOD ORDERABLES Final Re sult * SCREENING MAMMOGRAPHY BI 2-VIEW BREAST INC [...] evidence of malignancy. BI-RADS 1 - negative [address] [address] Procedure Note Brianna Null MD - 05/14/2024 [...] evidence of malignancy. BI-RADS 1 - negative [address] [address] Christina Mora MD IMG XR PROCEDURES Final Result * (ABNORMAL) Lipid panel (04/01/2024) LDL/HDL Ratio 3 0 - 4 Triglycerides 64 0 - 150 mg/dL Cholesterol 218(A) 0 - 200 mg/dL HDL 69 >=40 mg/dL LDL Cholesterol 137(A) 0 - 100 mg/dL Blood Venous blood specimen / Unknown [facility] Provider LAB BLOOD ORDERABLES Cande l Result * Depression Screening (03/25/2024) [facility] Depression Screening Abstracted [facility] Provider HEALTH MAINTENANCE Final Result * Colonoscopy (06/13/2023) [facility] Colonoscopy No interpretation , abstracted Anatomical Region Laterality Modality Other Result [facility] Provider HEALTH MAINTENANCE Final Result * Cervical Cancer Screening: HPV (09/07/2020) [facility] Cervical Cancer Screening: HPV Negative, abstracted Result [facility] Provider HEALTH MAINTENANCE Final Result * HIV Screening (07/25/2013) [facility] HIV Screening Abstracted [facility] Provider HEALTH MAINTENANCE Final Result * Hepatitis C Screening (07/25/2013) [facility] Hepatitis C Screening Abstracted [facility] Provider HEALTH MAINTENANCE Final Result from Last 3 Months or Most Recently Relevant to Health Maintenance Insurance [facility] Care Teams Commodity Manager Relationship Specialty Start Date End Date Christina Mora MD [address] [place] [id number] PCP - General Internal Medicine 06/03/24
--- OUTSIDE RECORDS SUMMARY | 2024-09-22 16:00 | XMS_ITS | Clinical Summary ---
Author Organization [employer] Address [address] [facility] [address]t [place] [address] Care Team Providers Care Mangle Catcher Name Role Phone Unavailable Primary Care Provider [...] Description 06/25/2024 10:00 AM EST Office Visit [facility] [address] [place] [address] Mary Forte DDS from Last 3 Months Social History Tobacco [...] Exam 01/27/2024 07/27/2023, 10/23/2022 COVID-19 Vaccine ( - season) 2024 07/06/2021, [...] 18 EXTRACTION, ERUPTED TOOTH OR EXPOSED ROOT (ELEVATION/FORCEPS REMOVAL) Routine 06/25/2024 10:00 AM EST BITEWING - SINGLE RADIOGRAPHIC IMAGE Routine 06/18/2024 3:30 PM EST Full PROPHYLAXIS - ADULT Routine 024 2:00 PM EDT PERIODIC ORAL EVALUATION - ESTABLISHED PATIENT Routine 07/27/2023 1:00 PM EST from Last 3 Months or Most Recently Relevant to Health Maintenance Insurance [facility] (MEDICAID)
--- OUTSIDE RECORDS SUMMARY | 2024-09-22 16:00 | XMS_ITS | Encounter Summary ---
Author Organization [employer] [facility] Address [address] [facility] [address]t [place] [address] Care Team Providers Care Medical Resident Name Role Phone Unavailable Primary Care Provider Unavailabl e Encounter Details Date Type Department Care Team (Latest Contact Info) Description 06/27/2021 Abstract [facility] Dental, Provider, DDS Social History [...]
--- OUTSIDE RECORDS SUMMARY | 2024-09-22 16:00 | XMS_ITS | Encounter Summary ---
Author Organization [employer] [facility] Address [address] [facility] [address] [place] [address] Care Team Providers Care Shaper Operator Name Role Phone Unavailable Primary Care Provider [...]
--- OUTSIDE RECORDS SUMMARY | 2024-09-22 16:00 | XMS_ITS | Encounter Summary ---
Author Organization [facility] [employer] [facility] Address [address] [facility] 7t [place] [address] Care Team Providers Care Souvenir Assembler Name Role Phone Unavailable Primary Care Provider [...]
--- OUTSIDE RECORDS SUMMARY | 2024-09-22 16:00 | XMS_ITS | Encounter Summary ---
Author Organization [employer] Address [address] [place] [address] Care Team Providers Care Web Site Administrator Name Role Phone Christina Mora MD Primary Care Prov ider Reason for Visit * Reason Onset Date Comments Advice Only 07/29/2024 Encounter Details Date Type Department Care Team (Late st Contact Info) Description 07/29/2024 Telephone General Surgery - [place] 175 [facility] [address] [place] [address] Frantz Starr, DO 175 [facility] [address] [place] [address] Advice Only Social History Tobacco Use Types [...] for your loved ones. For example, children's zoo caretaker or elderly care for an older adult? [...] AM EST documented as of this encounter Progress Notes * Cassie Sheldon - 07/29/2024 9:52 AM EST I spoke [...] Description 09/29/2024 1:40 PM EST Office Visit [facility] - [facility] 154 [address] [facility] [address] [place] [address] Jennifer Vogel PA 300 [facility] [address] [place] [address] 10/16/2024 3:00 PM EDT Office Visit Gastroenterology - [place] 175 [facility] 175 [facility] [address] [place] [phone] Isabel Griffiths PA 175 [facility] [address] [place] [address] 11/14/2024 8:00 AM EDT Appointment [facility] Nuclear Medicine [address] [place] [phone] 04/22/2025 3:00 PM EDT Appointment Radiology Department - [address] [phone] documented as of this encounter Visit Diagnoses Not on filedocumented in this encounter Additional Health Concerns Infection Onset Date Last Indicated Resolved Time COVID-19 07/15/2024 07/15/2024 08/14/2024 7:07 PM EST Assessment Noted Time PHQ-9 Depression Total Score: 0 06/02/20 9:32 PM EST documented as of this encounter Care Teams Web Site Administrator Relationship Specialty Start Date End Date Christina Mora MD [address] [place] [address] PCP - General Internal Medicine 06/03/24 documented as of this encounter
== END 2024-09-22 14:24 | disposition home or self-care (01) ==
PROVIDERS: PCP Internal Medicine; Visit Provider Anesthesiology
DX: M53.3 Sacrococcygeal disorders, not elsewhere classified (principal); M46.1 Sacroiliitis, not elsewhere classified; M51.16 Intervertebral disc disorders with radiculopathy, lumbar region; M54.51 Vertebrogenic low back pain
CPT/HCPCS: 99214

== ENCOUNTER → 2024-09-22 13:55 | Outpatient (BNVA) | payer OTHER, SELFPAY | PROVIDERS: PCP Internal Medicine; Visit Provider Anesthesiology | DX: M53.3 Sacrococcygeal disorders, not elsewhere classified (principal); M46.1 Sacroiliitis, not elsewhere classified; M51.16 Intervertebral disc disorders with radiculopathy, lumbar region; M54.51 Vertebrogenic low back pain | CPT/HCPCS: 99212 ==

== ENCOUNTER 2024-10-10 08:45 | Outpatient (AMB) | payer OTHER, SELFPAY ==
--- NOTE | 2024-10-10 08:48 | A.OFFVIS_ITS ---
Intake Visit Reasons: New prob-B/L hip s/p fall/07/18/24s/p SIJ inj2/4 Intake Note: Adri 54 yr old female presents today for a new problem visit for bilateral hip pain s/p fall/07/18/24. States she fell while getting out of the shower, states she did the splits. Currently she is complaining outer aspects of her hip, her lower back and her thighs and knees hurt. She denies numbness and tingling. Patient has tried physical therapy four times without relief. Hx of SIJ inj 09/02. MRI ordered by pain management. Press Puller Required: No Allergies No Known Allergies Allergy (Mild, Verified 10/10/24 08:50) N/A Medication List - Last Reconciled 10/10/24 by Maureen Sheppard RN cholecalciferol (vitamin D3) 1,250 mcg PO QWEEK ibuprofen 600 mg PO Q6H PRN magnesium oxide 400 mg PO DAILY metoprolol tartrate 25 mg PO DAILY omega 4-okg-gln-fish oil 1,000 (120-180) mg (Fish Oil) 1 cap PO BID HPI Comments Details: 07/18/24 - fall at home, xray for knee no fracture, good joint line. Today still having right knee pain, medial area. Right knee hurts more than left. Points to right SI joint, to buttocks, posterior thigh and knee. No pain below the knee. No numbness/tingling. I previously saw her 04/01/24. Since then she's been going to Pain Management, Dr. Recinos, for mostly SI joint pain. Had right SI joint therapeutic injection 09/02/24, no relief yet per patient. Waiting for CT scan pelvis to be done, ordered by Dr. Recinos. 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 MSK: No specific abnormalities found on inspection of the spine and all extremities. Lumbar ROM was full. Bilateral hip, knee and ankle ROM WNL. Most tender on right GT. Slightly tender on right SI joint. No tenderness over knee. No ligamentous laxity or crepitant. No increased effusion. No joint line tenderness. No tenderness over patella. Patellar grind test is negative. Anterior drawer test is negative. Zohreh test is negative. Posterior drawer test is negative. Valgus and varus stress tests are negative. Bear test is negative. Strength is 5/5 in all muscle groups tested. No increased tone noted. Neurological: Neurologic examination of the upper and lower extremities was nonfocal with intact sensation, muscle stretch reflexes and without focal motor deficits. Babinski was down going bilaterally. Clonus was negative. Gait is non-antalgic without loss of balance. Office Procedures AMB Joint Injection/Aspiration Joint Injection/Aspiration Details: Consent obtained. Patient lies on left unaffected side with lower leg flexed and upper leg extended. Tender area over the right greater trochanter is identified and marked. Area is cleansed with betadine solution. Using a 27 gauge needle, [3 ml] of 2% lidocaine is injected, with the needle perpendicular to center of tender area. Then, using a spinal needle, [40 mg] Kenalog is injected perpendicularly at center of tender area and slightly touching bone of greater trochanter. Patient tolerated procedure well without complications. Post-injection instructions given. Injected: 40 mg of, Kenalog and with 3 mL of (2% lidocaine) Procedure: The patient tolerated the procedure well Coding 07998 - Large joint Procedure code (CPT) selection complete Results Reviewed Results Reviewed: Ordering Physician: Jaye Smith Date of Service: 07/20/24 Procedure(s): XR knee RT 4V Accession Number(s): [id number] cc: Jaye Smith; Christina Cha MD~ EXAMINATION: XR KNEE, BILATERAL CLINICAL INFORMATION: Pain COMPARISON: None available. TECHNIQUE: 4 views of each knee FINDINGS: No acute visible fracture or dislocation. Joint space and alignment are maintained. Small bilateral knee joint effusions, right greater than left. Soft tissues are unremarkable. XR/XR knee RT 4V IMPRESSION: 1. No acute visible fracture or dislocation. 2. Small bilateral knee joint effusions, right greater than left. Electronically signed by: Neida Nieto MD 07/20/2024 11:27 AM EST Assessment & Plan Assessment & Plan (1) Trochanteric bursitis, right hip: Code(s): M70.61 - Trochanteric bursitis, right hip Category: Medical (2) Sacroiliac joint dysfunction of right side: Code(s): M53.3 - Sacrococcygeal disorders, not elsewhere classified Category: Medical Plan Patient has signs of right greater trochanteric bursitis after the fall last June. Some tenderness over SI joint, recent injection by pain management. No pathology seen on right knee. Suggested injection to right greater trochanter patient was eager to proceed. Patient tolerated procedure well. Assessment and plan discussed with patient, and patient was agreeable. All questions were answered thoroughly. Follow up 2 months. Shaye Garcia MD, PEDRO PABLO Board Certified, [place] [employer] and Rehabilitation (ABPMR) Board Certified, [place] Board [employer] Electrodiagnostic Medicine (ABEM) Orders: Orders AMB Joint Injection/Aspiration Today M70.61 - Trochanteric bursitis, right hip Coding Level of Care Code Est Pt Level 4 (75909) Diagnoses Trochanteric bursitis, right hip M70.61 Sacroiliac joint dysfunction of right side M53.3 CPT Codes Coding - 65194 Large joint: 70106 - Large joint ([id number])
--- OUTSIDE RECORDS SUMMARY | 2024-10-10 09:02 | XMS_ITS | Encounter Summary ---
Author Organization [employer] Address [address] [place] [address] Care Team Providers Care Instructor Industrial Design Name Role Phone Christina Mora MD Primary Care Prov ider Reason for Visit * Reason Comments 48 Hour Holter Monitor * Cardiac Stress Testing (Routine) - Authorized Specialty Diagnoses / Procedures Referred By Contac t Referred To Contact Cardiology Diagnoses Palpitations PVC (premature ventricular contraction) Procedures Cardiac holter monitor (<= 48 hours) SC ECG EXTERNAL UP TO 48 HOURS RECORDING SC ECG EXTERNAL < 48 HOURS CONTINUOUS RECORDING/STORAGE R&I BY A PHYS/QHP SC EXTERNAL ECG UP TO 48 HRS INCL RECORDING SCANNING ANLYS W REPORT Jennifer Vogel PA [address] [place] [address] Phone: tel: fax: [facility] Referral ID Status Reason Start Date Expiration Date V isits Requested Visits Authorized [id number] Authorized 09/29/2024 09/29/2025 1 1 Encounter Details Date Type Department Care Team (Latest Contact Info) Description 10/07/2024 10:00 AM EDT Ancillary Procedure [facility] - [address] [place] [address] Palpitations; PVC (premature ventricular contraction) Social History Tobacco Use Types Packs/Day Years [...] care for your loved ones. For example, early childhood lead teacher or elderly care for an older [...] AM EST documented as of this encounter Plan of Treatment Upcoming Encounters Date Type Department Care Team (Late st Contact Info) Description 10/16/2024 3:00 PM EDT Office Visit Gastroenterology - [place] [facility] [address] [place] [address] Isabel Griffiths PA [address] [place] [address] 11/14/2024 8:00 AM EDT Appointment [facility] Nuclear Medicine [address] [place] [phone] 04/22/2025 3:00 PM EDT Appointment Radiology Department - [address] [phone] 04/28/2025 2:55 PM EDT Office Visit [facility] - [facility] [address] [facility] [address] [place] [phone] Wander Jung MD [address] [facility] [address] [place] [address] Pending Results Name Type Priority Associated Diagnoses Date /Time Cardiac holter monitor (<= 48 hours) Cardiac Services Routine Palpitations PVC (premature ventricular contraction) 10/07/2024 10:07 AM EDT documented as of this encounter Visit Diagnoses Diagnosis Palpitations PVC (premature ventricular contraction) Other premature beats Encounter for screening mammogram for breast cancer documented in this encounter Additional Health Concerns Assessment Noted Time PHQ-9 Depression Total Score: 0 06/02/20 9:32 PM EST documented as of this encounter Care Teams Instructor Industrial Design Relationship Specialty Start Date End Date Christina Mora MD [address] [place] [phone] PCP - General Internal Medicine 06/03/24 documented as of this encounter
--- OUTSIDE RECORDS SUMMARY | 2024-10-10 09:02 | XMS_ITS | Data Portability ---
Author Organization [facility], [address] Address [address] [place] [address] Care Team Providers Care Slab Depiler Operator Name Role Phone [facility] Prim ciara Care Provider Assessment No assessment recorded. Plan of Treatment Reminders Order Date Submit Date Provider Last Modified By Organization Details Last Modified Time Details Appointments None recorded. Lab rapid strep group A, throat 2022 023 [place] [address] [facility], [address] [place] [address], [phone], 3 13:59:40 rapid SARS CoV 2 Ag, QL IA, respiratory specimen 2022 023 [place] [address] [facility], [address] [place] [address], [phone], 3 13:59:40 Referral None recorded. Procedures None recorded. Surgeries None recorded. Imaging None recorded. Medication Orders amoxicillin 875 mg tablet 2022 023 [id number], [address] [place], [address], 3 13:59:43 Allergy Relief (fluticason e) 50 mcg/actuati on nasal spray,suspe nsion 2022 023 [facility]23[facility], [address] [place], [address], 3 13:59:43 fexofenadin e-pseudoeph edrine ER 180 mg-240 mg tablet,ext. release 24 hr 2022 023 [facility]23[facility], [address] [facility], [place], [address], 13:59:42 Patient TargetsNo targets recorded. Patient Instructions Encounter Date Encounter Id Patient Instructions Last Modified By Organization Details Last Modified Time 01/09/2023 [id number] Acute Sinusitis: Care Instructions [email or web address] Not available 01/09/2023 13:59:40 Reason for Referral None Reported. Results Created Date Observation Date Name Description Value Unit Range Abnormal Flag Note LastModifiedBy Organization Detail LastModifiedTime 01/10/2001/09/2023 rapid SARS CoV 2 Ag, QL IA, respi rator y speci men Unknown Analyte Normal =Negat cari Not Available [address], [address], 01/09/2023 13:58:30 01/10/2001/09/2023 rapid SARS CoV 2 Ag, QL IA, respi rator y speci men Unknown Analyte negati ve Not Available [address], [address], 01/09/2023 13:58:30 01/10/20 23 01/09/2023 rapid strep group A, throa t Unknown Analyte Normal = Negati ve Not Available [address] [place] [address], [phone], 01/09/2023 13:58:29 01/10/20 23 01/09/2023 rapid strep group A, throa t Unknown Analyte negati ve Not Available [address] [place] [address], [phone], 01/09/2023 13:58:29 Result Notes None recorded. Problems Name Problem SNOMED Code Status Onset Date Resolution Date Notes Provider Name and Address Organization Details Recorded Time Irritable bowel syndrome 93771318 Active 023 Kitty Sintia mendes PA - [facility] 13:11:17 Problem Notes None recorded. Medical [...] ) 50 mcg/actuatio n nasal spray,suspen sera [place] 1 spray every day by intranasal route [...] Updated DateTime 3 160.02 cm 31.5 kg/m2 84312.4 4 g 8 18 /min 98 % 98 % 76 /min 97.6 [degF] 90 mm[Hg] 51 mm[Hg] Kitty Packsofie PA [facility] 3 13:13:17 Social History Question Answer [...] SNOMED-CT Code Diagnosis ICD10 Code Diagnosis Note [id number] Jose Antonio_Prem euceadr [address] [place] [phone] 11/11/2020 13:15:47 11/11/2020 14:32:05 [id number] [facility] [address] [place] [phone] 05/12/2022 08:04:24 05/12/2022 08:54:03 [id number] [facility] [address] [place] [phone] 11/01/2020 11:00:14 11/01/2020 12:54:15 [id number] [facility] Jeisonin riar [address] [place] [phone] 12/20/2020 16:18:42 12/20/2020 17:40:32 [id number] Catherine Bailey MD [facility] [address] [place] [phone] 01/09/2023 13:03:56 01/09/2023 14:01:19 Acute sinusitis [id number] J01.90 - Use the medication s prescribed [...] Sanchez Member ID Guarantor Name 11/01/2020 1 [facility] (MEDICAID REPLACEMENT - HMO) [place] Adri Rhoades [id number] Adri Rhoades 11/11/2020 1 [facility] (MEDICAID REPLACEMENT - HMO) [place] Adri Rhoades [id number] Adri Rhoades 12/20/2020 1 [facility] (MEDICAID REPLACEMENT - HMO) [place] Adri Rhoades [id number] Adri Rhoades 05/12/2022 1 [facility] (MEDICAID REPLACEMENT - HMO) [place] Adri Rhoades [id number] Adri Rhoades 01/09/2023 1 [facility] (MEDICAID REPLACEMENT - HMO) [place] Adri Rhoades [id number] Adri Rhoades Notes Date Note Type Note Provider Name and Address Organization Details Recorded Time 01/09/2023 text/html Sore throatRepor gail bypatient.Location:t hroat Severity:moderate Quality:hurts to swallow Associated Symptoms:sore throat;coughing;sinu s pain/ congestion Context:no sick contacts; no foreign travel; non-smoker Catherine Bailey MD [address] [place], [address], [place] - [facility] 01/09/2023 14:22:09 OBGyn Episode No OBEpisode recorded.
--- OUTSIDE RECORDS SUMMARY | 2024-10-10 09:02 | XMS_ITS | Encounter Summary ---
Author Organization [facility] Address [address] [place] [address] Care Team Providers Care Horizontal Boring Mill Set Up Operator Name Role Phone Christina Mora MD Primary Care Prov ider Reason for Referral * Cardiac Stress Testing (Routine) - Authorized Specialty Diagnoses / Procedures Referred By Contac t Referred To Contact Cardiology Diagnoses Palpitations PVC (premature ventricular contraction) Procedures Cardiac holter monitor (<= 48 hours) MI ECG EXTERNAL UP TO 48 HOURS RECORDING MI ECG EXTERNAL < 48 HOURS CONTINUOUS RECORDING/STORAGE R&I BY A PHYS/QHP MI EXTERNAL ECG UP TO 48 HRS INCL RECORDING SCANNING ANLYS W REPORT Jennifer Vogel PA [address] [place] [address] Phone: tel: fax: [facility] Referral ID Status Reason Start Date Expiration Date V isits Requested Visits Authorized [id number] Authorized 09/29/2024 09/29/2025 1 1 Reason for Visit * Reason Comments Follow-up Encounter Details Date Type Department Care Team (Late st Contact Info) Description 09/29/2024 1:40 PM EST Office Visit [facility] - [address] [place] [id number] Jennifer Vogel PA [address] [place] [address] Palpitations (Primary Dx); PVC (premature ventricular contraction); Chest pain, unspecified type; AJ (obstructive sleep apnea) Social History Tobacco Use Types Packs/Day Years [...] care for your loved ones. For example, children teacher or elderly care for an older [...] Sign Reading Time Taken Comments Blood Pressure 120/60 09/29/2024 1:44 PM EST Pulse 69 09/29/2024 1:44 PM EST Temperature - - Respiratory Rate - - Oxygen Saturation - - Inhaled Oxygen Concentration - - Weight 88 kg (194 lb) 09/29/2024 1:44 PM EST Height 160 cm (5' 3 ) 09/29/2024 1:44 PM EST Body Mass Index 34.37 09/29/2024 1:44 PM EST documented in this encounter Ordered Prescriptions Prescription Sig Dispense Quantity Refills Last Filled Start Date End Date metoprolol tartrate (LOPRESSOR) 25 mg tabletIndications:P alpitations,PVC (premature ventricular contraction) Take 1 tablet (25 mg total) by mouth 2 (two) times a day. 180 tablet 2 09/29/2024 documented in this encounter Progress Notes * SHERRY Wisdom - 09/29/2024 1:40 PM EST Please call with any questions or concerns Jennifer Vogel PA-C [phone] [facility] [address] [place] [phone] Have holter Stay hydrated Try some some of exercises * SHERRY Wisdom - 09/29/2024 1:40 PM EST Images from the original note were not included. PRIMARY INTERNAL AFFAIRS INVESTIGATOR: Miguel Angel Ni MD PCP: Christina Cho MD Adri Rhoades is a 54 y.o. old female Past medical history includes- Highly symptomatic low burden PVCs with inappropriate sinus tachycardia evaluated by EP March 2024 started on metoprolol tartrate 25 mg twice daily AJ non complaint with CPAP Cardiac testing- -30 Day Loop, October 2023 PVCs bigeminal pattern 47 triggered events with ventricular ectopy -48-hour Holter sinus rhythm with brief periods of sinus tachycardia occasional PVCs trigeminy-PVC burden less than 1% -Normal stress echo May 2022-exercised to a 10.10 MET T workload and 96% of the max predicted heart rate -Several CTAs of the chest none of them revealing coronary calcification She presents today for evaluation of her palpitations. She explained she can go days with nothing and then have several episodes mostly when she is sitting quietly. She has this stabbing electrical feeling lasting seconds that wakes her up from sleep but she is able to fall back without any difficulties this only occurs at night has never occurred with physical activity. She had a mechanical fallcomplains of knee injury will be following with Ortho-has no formal exercise. She is quite concerned that something is wrong with her heart notes that when she goes to climb the stairs her Fitbit tells her heart rates 110 beats per minutes if she slows down or stops for fear of having heart attack.She denies syncope, chest pain with exertion, dyspnea at rest, orthopnea, PND, lower leg edema positive for unintentional weight gain. She does not note any clear triggers for elevated heart rates other than activity. Review of Fitbit-no EGM capabilities-overall heart rate 60 to 120 bpm. ACTIVE MEDICATIONS: Outpatient Medications Marked as Taking for the 09/29/24 encounter (Office Visit) with SHERRY Wisdom Medication Sig Dispense Refill linaCLOtide (Linzess) 290 mcg capsule Take 1 capsule (290 mcg total) by mouth 1 (one) time each dayif needed (taken as needed per pt). magnesium oxide (MAG-OX) 400 mg (241.3 elemental magnesium) tablet Take 1 tablet (400 mg total) by mouth daily. metoprolol tartrate (LOPRESSOR) 25 mg tablet Take 1 tablet (25 mg total) by mouth 2 (two) times a day. 180 tablet 2 OMEGA-3 FATTY ACIDS ORAL Take by mouth 1 (one) time each day. [DISCONTINUED] metoprolol tartrate (LOPRESSOR) 25 mg tablet Take 1 tablet (25 mg total) by mouth 2 (two) times a day. 180 tablet 2 ALLERGIES: No Known Allergies FAMILY HISTORY: Family History Problem Relation Name Age of [...] cancer Neg Hx Ovarian cancer Neg Hx SOCIAL HISTORY: Social History Tobacco Use Smoking status: Never Smokeless tobacco: Never Substance Use Topics Alcohol use: No PHYSICAL EXAM: Blood pressure 120/60, pulse 69, height 1.6 m (63 ), weight 88 kg (194 lb). Body mass index is 34.37 kg/m??. Physical Exam Constitutional: General: She is not in acute distress. Appearance: She is obese. She is not diaphoretic. Comments: anxious Eyes: Pupils: Pupils are equal, round, and reactive to light. Neck: Vascular: No carotid bruit. Cardiovascular: Rate and Rhythm: Normal rate and regular rhythm. Heart sounds: Normal heart sounds. Pulmonary: Breath sounds: Normal breath sounds. Abdominal: Palpations: Abdomen is soft. Musculoskeletal: General: No swelling. Cervical back: No rigidity. Skin: General: Skin is warm and dry. Coloration: Skin is not jaundiced. Neurological: General: No focal deficit present. Mental Status: She is alert and oriented to person, place, and time. Psychiatric: Mood and Affect: Mood normal. EKG: NSR rate 69 bpm TESTING: PAST MEDICAL HISTORY: Patient Active Problem List Diagnosis Date Noted Foreign body in left upper extremity 09/08/2024 Irritable bowel syndrome with constipation 06/03/2024 Abdominal pain 03/25/2024 Palpitations 10/16/2023 Vaginal pain 10/24/2022 Vaginal yeast infection 06/19/2022 Lower extremity pain 05/02/2022 Chest pain 05/02/2022 H. pylori infection 09/14/2021 Hypercholesteremia 06/23/2020 Internal hemorrhoids 07/02/2019 Diverticulitis 07/02/2019 Calcific tendinitis of right shoulder 06/18/2017 AJ (obstructive sleep apnea) 04/17/2017 Iron deficiency anemia 03/22/2017 Migraine headache 03/22/2017 Obesity (BMI 30.0-34.9) 02/23/2017 Lumbar back pain 11/23/2016 Drusen (degenerative) of retina 03/10/2015 As per AHA guidelines and previously established plan of care by Dr. Drew Nunn MD we discussed the following today: ASSESSMENT/PLAN: Problem List Items Addressed This Visit Chest pain AJ (obstructive sleep apnea) Palpitations - Primary Relevant Medications metoprolol tartrate (LOPRESSOR) 25 mg tablet Other Relevant Orders ECG 12 lead (Completed) Cardiac holter monitor (<= 48 hours) Other Visit Diagnoses PVC (premature ventricular contraction) Relevant Medications metoprolol tartrate (LOPRESSOR) 25 mg tablet Other Relevant Orders Cardiac holter monitor (<= 48 hours) Palpitations correlating to PVCs low burden and sinus tachycardia tolerating metoprolol 25 mg twicedaily. Her elevated heart rates occur with any exertional activity suspect a large component of deconditioning along with possible inappropriate sinus tachycardia. She is very concerned that her PVC burden has worsened and is making her anxious. Surveillance 48-hour Holter to assess burden and needfor any further testing. Atypical sharp electric-like chest pain that wakes her from sleep lasting seconds sounds more neuropathic reassurance stress echo as well as chest CTs with no coronary calcifications. Extensive reassurance given. AJ strongly encouraged to follow-up with sleep medicine to resume CPAP which she returned due to insurance not paying for it. Obesity reviewed the importance of lifestyle modifications including some form of daily exercise increasing in intensity and duration, weight reduction and portion control-she is adamant she cannot exercise because of knee discomfort until treatment plan has been established by orthopedics Thank you for allowing us to participate in the care of this patient. Today's documentation was made using voice recognition software.This note may contain grammatical errors secondary to this software. Cosigned by Drew Nunn MD at 09/30/2024 7:57 AM EST documented in this encounter Plan of Treatment Upcoming Encounters Date Type Department Care Team (Late st Contact Info) Description 10/16/2024 3:00 PM EDT Office Visit G[facility]ology - [place] [address] [place] [phone] Isabel Griffiths PA [address] [place] [address] 11/14/2024 8:00 AM EDT Appointment [facility] Nuclear Medicine [address] [place] [phone] 04/22/2025 3:00 PM EDT Appointment Radiology Department - [address] [phone] 04/28/2025 2:55 PM EDT Office Visit [facility] - [address] [place] [phone] Wander Jung MD [address] [place] [address] Pending Results Name Type Priority Associated Diagnoses Date /Time Cardiac holter monitor (<= 48 hours) Cardiac Services Routine Palpitations PVC (premature ventricular contraction) 10/07/2024 10:07 AM EDT Scheduled Orders Name Type Priority Associated Diagnoses Orde r Schedule Cardiac holter monitor (<= 48 hours) Cardiac Services Routine Palpitations PVC (premature ventricular contraction) 1 Occurrences starting 09/29/2024 until 09/29/2025 documented as of this encounter Procedures Procedure Name Priority Date/Time Associated Diagnosis Comments ECG 12-LEAD Routine 09/29/2024 2:07 PM EST Palpitations documented in this encounter Results * ECG 12 lead (09/29/2024 2:07 PM EST) Ventricular Rate ECG 69 BPM GEMUSE Atrial Rate 69 BPM GEMUSE P-R Interval 134 ms GEMUSE QRS Duration 86 ms GEMUSE Q-T Interval 390 ms GEMUSE QTc 417 ms GEMUSE P Wave [place] 55 degrees GEMUSE R [place] 74 degrees GEMUSE T [place] 46 degrees GEMUSE ECG Interpretation Normal sinus rhythm Normal ECG When compared with ECG of 09-AUG-2023 10:58, No significant change was found Confirmed by Yuni LIRIANO JOHN ([id number]) on 09/29/2024 7:37:51 PM GEMUSE 09/29/2024 1:54 PM EST 09/29/2024 7:37 PM EST us Jennifer POWELL ECG ORDERABLES Edited Result - Final CARMELLA documented in this encounter Visit Diagnoses Diagnosis Palpitations- Primary PVC (premature ventricular contraction) Other premature beats Chest pain, unspecified type AJ (obstructive sleep apnea) Obstructive sleep apnea (adult) (pediatric) Encounter for screening mammogram for breast cancer documented in this encounter Discontinued Medications Medication Sig Discontinue Reason Start Date End Da te cholecalciferol (VITAMIN D-3) 1,250 mcg (50,000 unit) capsule Take 1 capsule (50,000 Units total) by mouth. Therapy completed 04/01/2024 09/29/2024 fluticasone propionate (FLONASE) 50 mcg/actuation nasal spray Administer 1 spray into each nostril 1 (one) time each day. Therapy completed 01/09/2023 09/29/2024 nystatin-triamcinolone (MYCOLOG II) ointment Apply a thin sheet rock layer to daily as needed for itching Therapy completed 06/30/2024 09/29/2024 metoprolol tartrate (LOPRESSOR) 25 mg tablet Take 1 tablet (25 mg total) by mouth 2 (two) times a day. Reorder 08/01/2024 09/29/2024 documented as of this encounter Additional Health Concerns Assessment Noted Time PHQ-9 Depression Total Score: 0 06/02/20 9:32 PM EST documented as of this encounter Care Teams Horizontal Boring Mill Set Up Operator Relationship Specialty Start Date End Date Christina Mora MD [address] [place] [id number] PCP - General Internal Medicine 06/03/24 documented as of this encounter
--- OUTSIDE RECORDS SUMMARY | 2024-10-10 09:02 | XMS_ITS | Encounter Summary ---
Author Organization [facility] Address [address] [facility] [address] [place] [address] Care Team Providers Care Probation Manager Name Role Phone Unavailable Primary Care Provider Unavailabl e Encounter Details Date Type Department Care Team (Latest Contact Info) Description 10/09/2018 Abstract [facility] Dental, Provider, DDS Social History Tobacco [...] Care Team (Late st Contact Info) Description 10/22/2024 3:00 PM EDT Office Visit [facility] [address] [place] [address] Aliya Dorantes documented as of this encounter Visit Diagnoses Not on filedocumented in this encounter
--- OUTSIDE RECORDS SUMMARY | 2024-10-10 09:02 | XMS_ITS | Clinical Summary ---
Author Organization [facility] Address [address] [place] [address] Phone Care Team Providers Care Cash Analyst Name Role Phone Christina Mora MD Primary Care Prov ider Allergies No known active allergies Medications OMEGA-3 FATTY ACIDS ORAL Take by mouth 1 (one) time each day. Active magnesium oxide (MAG-OX) 400 mg (241.3 elemental magnesium) tablet Take 1 tablet (400 mg total) by mouth daily. 01/23/20 24 Active linaCLOtide (Linzess) 290 mcg capsule Take 1 capsule (290 mcg total) by mouth 1 (one) time each day if needed (taken as needed per pt). 08/27/19 24 Active ondansetron ODT (ZOFRAN-ODT) 4 mg disintegrating tablet Dissolve 1 tablet (4 mg total) on top of the tongue every 8 (eight) hours if needed for nausea. for up to 30 days Active metoprolol tartrate (LOPRESSOR) 25 mg tabletIndications: Palpitations,PVC (premature ventricular contraction) Take 1 tablet (25 mg total) by mouth 2 (two) times a day. 180 tablet 2 09/30/19 25 Active cholecalciferol (VITAMIN D-3) 1,250 mcg (50,000 unit) capsule Take 1 capsule (50,000 Units total) by mouth. 04/01/20 24 025 Discontin ued(Thera py completed ) fluticasone propionate (FLONASE) 50 mcg/actuation nasal spray Administer 1 spray into each nostril 1 (one) time each day. 01/10/20 23 025 Discontin ued(Thera py completed ) nystatin-triamcino lone (MYCOLOG II) ointment Apply a thin freelance displayer to daily as needed for itching 30 g 06/30/20 24 025 Discontin ued(Thera py completed ) metoprolol tartrate (LOPRESSOR) 25 mg tablet Take 1 tablet (25 mg total) by mouth 2 (two) times a day. 180 tablet 2 08/01/19 025 Discontin ued(Reord er) Active Problems Problem Noted Date Diagnosed Date [...] shoulder 06/18/2017 Overview (04/29/2024): Follows with orthopedic AJ (obstructive sleep apnea) 04/17/2017 Overview (04/29/2024): [facility] Home Polysomnogram: Date 04/10/2017; AHI 5, [...] Encounters Date Type Department Care Team Description 10/07/2024 10:00 AM EDT Ancillary Procedure [facility] - [address] [place] [address] Palpitations; PVC (premature ventricular contraction) 09/29/2024 1:40 PM EST Office Visit [facility] Cardiology [facility] [address] [facility] 154 [place] [phone] Jennifer Vogel PA Palpitations (Primary Dx); PVC (premature ventricular contraction); Chest pain, unspecified type; AJ (obstructive sleep apnea) 08/25/2024 2:45 PM EST Office Visit [facility] 175 [facility] [address] [place] [phone] Frantz Starr, DO Foreign body in left upper extremity, initial encounter (Primary Dx); Visit for wound check 08/14/2024 8:30 AM EST Office Visit [address] [phone] Rosanne Vu PA Acute pain of both knees (Primary Dx); Bilateral knee effusions; Lumbar back pain; Lumbar radiculopathy 08/13/2024 7:57 AM EST - 08/13/2024 11:59 PM EST Hospital Encounter [facility] Xray [address] [place] [phone] Nausea Discharge Disposition: Home or Self Care 08/05/2024 Telephone [facility] Cardiology [facility] [address] [facility] 154 [place] [phone] Wander Jung MD Chest Pain; irregular heart rate 08/01/2024 Telephone [facility] Cardiology [address] [place] [address] Wander Jung MD Med Refill (Metoprolol) 07/29/2024 Telephone [facility] [address] [phone] Frantz Starr, DO 07/29/2024 Telephone [facility] [address] [phone] Frantz Starr, DO Advice Only 07/24/2024 3:00 PM EST Procedure visit [facility] [address] [phone] Frantz Starr DO Foreign body in left upper extremity, initial encounter (Primary Dx) 07/18/2024 Telephone General Surgery - [address] [place] [address] Frantz Starr DO Prior Authorization (07/24/24 Dr. Frantz Starr) 07/15/2024 10:30 AM EST Office Visit Adult Medicine [address] [phone] Angela Alexander PA COVID-19 virus infection (Primary Dx); Acute cystitis without hematuria 07/15/2024 Nurse Triage Adult Medicine [address] [phone] Christina Mora MD URI from Last 3 Months Immunizations Name Administration Dates Next Due Hepatitis B (Ynkymjy-P-Fphhq , Recombivax HB-Adult) 19yo and older 01/25/2007 Hepatitis B (Recombivax HB-Dialysis) 18yo and ol steven 08/30/2006,07/31/2006 Influenza trivalent, 0.5mL, preservative free (Fluarix; FluLaval; Fluzone) ages 6mo and older (Afluria) 3 years and older 06/11/2008 PPD Test 07/31/2006 Domee SARS-CoV-2 COVID-19, mRNA, LNP-S, preservative free 07/06/2021 Td Tetanus diptheria (Tdvax) 7yo and older 07/31 Tdap Tetanus diptheria acell ular pertussis (Boostrix; Adacel) 7yo and older 2017 Surgical History Surgery Date Site/Laterality Comments TUBAL LIGATION PROCEDURE: HISTORICAL TUBAL LIGATION COLONOSCOPY PROCEDURE: HISTORICAL COLONOSCOPY HYSTERECTOMY 07/30/2020 - 07/29/2021 Robotic REDD monge- Eppsteiner, menorrhagia Medical History Medical History Date Comments [...] apnea 04/17/2017 DX:Obstr uctive sleep apnea; COMMENT: [facility] Home Polysomnogram: Date 04/10/2017; AHI 5, Unclassified apneas 0; Obstructive apneas 5; Central apneas 3; Mixed apneas 0; hypopneas 28; average oxygen saturation 94% (lowest 87% without saturations <88% for 5% or more of study) - Obstructive Sleep Apnea - mild; mostly hypopneas; no sleep related hypoventilation by 2016 home polysomnogram. Patient declined * DUB (dysfunctional [...] your loved ones. For example, child care center assistant director or elderly care for an older [...] Pulse 69 09/29/2024 1:44 PM EST Temperature 36.2 ??C (97.1 ??F) 08/25/2024 2:51 PM ES T Respiratory Rate 12 08/14/2024 8:19 AM EST Oxygen Saturation - - Inhaled Oxygen Concentration - - Weight 88 kg (194 lb) 09/29/2024 1:44 PM EST Height 160 cm (5' 3 ) 09/29/2024 1:44 PM EST Body Mass Index 34.37 09/29/2024 1:44 PM EST Plan of Treatment Upcoming Encounters Date Type Department Care Team (Late st Contact Info) Description 10/16/2024 3:00 PM EDT Office Visit G[facility]enterology - [place] 175 [facility] [address] [phone] Isabel Griffiths PA 175 [facility] 200 [place] [address] 11/14/2024 8:00 AM EDT Appointment [facility] Nuclear Medicine [address] [place] [phone] 04/22/2025 3:00 PM EDT Appointment Radiology Department - [address] [phone] 04/28/2025 2:55 PM EDT Office Visit [facility] - [facility] 154 300 [facility] 154 [place] [phone] Wander Jung MD 300 [facility] 154 [place] [address] Health Maintenance Due Date Last Done Comments [...] 12-LEAD Routine 09/29/2024 2:07 PM EST Palpitations MR BRAIN WO CONTRAST Routine 08/14/2024 2:55 PM EST XR UGI W AIR CONTRAST Routine 08/13/2024 8:45 AM EST Nausea EXTERNAL CLINICAL LAB Routine 08/07/2024 9:25 AM EST TISSUE EXAM Routine 07/24/2024 3:05 PM EST Foreign body in left upper extremity, initial encounter POC INFLUENZA A/B Routine 07/15/2024 11: 09 AM EST COVID-19 virus infection POC RAPID [id number], MOLECULAR Routine 07/15/2024 11:09 AM EST COVID-19 virus infection POC RAPID STREP A Routine 07/15/2024 10: 41 AM EST COVID-19 virus infection SCREENING MAMMOGRAPHY BI 2-VIEW BREAST INC CAD Routine 04/09/2024 9:37 AM EDT Encounter for screening mammogram for malignant neoplasm of breast LIPID PANEL Routine 04/01/2024 HM DEPRESSION SCREENING Routine 03/25/2024 COLONOSCOPY Routine 06/13/2023 HM HPV Routine 09/07/2020 HEPATITIS C SCREENING Routine 07/25/2013 HIV SCREENING Routine 07/25/2013 from Last 3 Months or Most Recently Relevant to Health Maintenance Results * ECG 12 lead (09/29/2024 2:07 PM EST) Ventricular Rate ECG 69 BPM GEMUSE Atrial Rate 69 BPM GEMUSE P-R Interval 134 ms GEMUSE QRS Duration 86 ms GEMUSE Q-T Interval 390 ms GEMUSE QTc 417 ms GEMUSE P Wave Willard 55 degrees GEMUSE R Willard 74 degrees GEMUSE T Willard 46 degrees GEMUSE ECG Interpretation Normal sinus rhythm Normal ECG When compared with ECG of 09-AUG-2023 10:58, No significant change was found Confirmed by Yuni LIRIANO JOHN ([id number]) on 09/29/2024 7:37:51 PM GEMUSE 09/29/2024 1:54 PM EST 09/29/2024 7:37 PM EST Jennifer POWELL ECG ORDERABLES Edited Result - Final GEMUSE * MR Brain wo Contrast (08/14/2024 2:55 PM EST) Anatomical Region Laterality Modality Head and Neck Magnetic Resonan ce Historical Provider IMG MRI PROCEDURES Final Result * XR UGI [...] Signed Date: 08/13/2024 16:23 ET Workstation ID: [id number] Transcribed By: Self Edit Transcribed Date: 08/13/2024 11:14 ET Resident/PA/CABINETMAKER APPRENTICE: Sherlyn Roberts Narrative 08/13/2024 4:23 PM EST FINDINGS: Double contrast UGI performed. COMPARISON: No prior upper GI imaging. HISTORY: Patient is a 54-year-old female with history of nausea. Recent negative upper endoscopy. SUPERVISOR OF OPERATIONS radiographs: Personnel Training Officer AP radiograph of the abdomen obtained. Bowel [...] with history of nausea. Recentnegative upper endoscopy. SUPERVISOR OF OPERATIONS radiographs: Personnel Training Officer AP radiograph of the abdomen obtained. Bowel [...] Signed Date: 08/13/2024 16:23 ET Workstation ID: [id number] Transcribed By: Self Edit Transcribed Date: 08/13/2024 11:14 ET Resident/PA/CABINETMAKER APPRENTICE: Sherlyn Roberts Isabel POWELL IMG FLUOROSCOPY PROCEDURES Fi nal Result * External clinical lab (08/07/2024 9:25 AM EST) Historical Provider MD LAB BLOOD ORDERABLES Cande l Result * Tissue Exam (07/24/2024 3:05 PM EST) Final Diagnosis Skin, left arm, excision: Dermal scar No foreign body or foreign body giant cell reaction identified 07/28/2024 11:[address] [facility] Gross Description A. Arm, Left, [...] cassette, three pieces. FABIO 07/28/2024 11:[address] [facility] Disclaimer Unless otherwise specified, all tissue is 10% NB formalin fixed and paraffin embedded. 07/28/2024 11:[address] [facility] Tissue Structure of left upper limb / Unknown Non-blood Collection / Unknown 07/24/2024 3:05 PM EST 07/24/2024 3:07 PM EST Frantz Starr DO LAB PATHOLOGY ORDERABLES Final Result [facility] [address] [place] [address], * (ABNORMAL) Poc Rapid [id number], MOLECULAR (07/15/2024 11:09 AM EST) COVID-19/SARS- COV-2 Rapid POC Positive(A ) Negative Internal Control Pass Yes Yes Mucous Nasopharyngeal structure / Unknown 07/15/2024 11:09 AM EST us Angela Alexander PA POINT OF CARE TEST ENTER/EDIT OR DERABLES Final Result * POC Influenza A/B manually resulted (07/15/2024 11:09 AM EST) Rapid Influenza A AGN POC Negative Negative Rapid Influenza B AGN POC Negative Negative Internal Control Pass Yes Yes Swab 07/15/2024 11:0 9 AM EST us Angela Alexander PA POINT OF CARE TEST ENTER/EDIT OR DERABLES Final Result * POC rapid strep A manually resulted (07/15/2024 10:41 AM EST) Rapid Strep A Screen POC Negative Negative Internal Control Pass Yes Yes Swab Structure of anterior portion of neck / Unknown 07/15/2024 10:41 AM EST us Angela Alexander PA POINT OF CARE TEST ENTER/EDIT OR DERABLES Final Result * SCREENING MAMMOGRAPHY BI 2-VIEW BREAST INC [...] evidence of malignancy. BI-RADS 1 - negative [address] [address] Procedure Note Brianna Null MD - 05/14/2024 [...] evidence of malignancy. BI-RADS 1 - negative [address] [address] Christina Mora MD IMG XR PROCEDURES Final Result * (ABNORMAL) Lipid panel (04/01/2024) [facility] LDL/HDL Ratio 3 0 - 4 Triglycerides 64 0 - 150 mg/dL Cholesterol 218(A) 0 - 200 mg/dL HDL 69 >=40 mg/dL LDL Cholesterol 137(A) 0 - 100 mg/dL Blood Venous blood specimen / Unknown [facility] Provider LAB BLOOD ORDERABLES Cande l Result * Depression Screening (03/25/2024) Pathologist [facility] Depression Screening Abstracted Result [facility] Provider HEALTH MAINTENANCE Final Result * Colonoscopy (06/13/2023) Pathologist [facility] Colonoscopy No interpretation , abstracted Anatomical Region Laterality Modality Other [facility] Provider HEALTH MAINTENANCE Final Result * Cervical Cancer Screening: HPV (09/07/2020) Pathologist [facility] Cervical Cancer Screening: HPV Negative, abstracted Historical Provider HEALTH MAINTENANCE Final Result * HIV Screening (07/25/2013) Pathologist [facility] HIV Screening Abstracted [facility] Provider HEALTH MAINTENANCE Final Result * Hepatitis C Screening (07/25/2013) Pathologist [facility] Hepatitis C Screening Abstracted Historical Provider HEALTH MAINTENANCE Final Result from Last 3 Months or Most Recently Relevant to Health Maintenance Insurance [facility] Care Teams Cash Analyst Relationship Specialty Start Date End Date Christina Mora MD [address] [place] [phone] PCP - General Internal Medicine 06/03/24
--- OUTSIDE RECORDS SUMMARY | 2024-10-10 09:02 | XMS_ITS | Clinical Summary ---
Author Organization [facility] Address [address] [facility] 7 [place] [address] Care Team Providers Care Trucking Manager Name Role Phone Unavailable Primary Care Provider Unavailabl e Allergies No known active allergies Medications Linzess 290 MCG capsule Take 290 mcg by mouth in the morning. 11/05/2022 Active magnesium oxide (Mag-Ox) 400 MG tablet Take 1 tablet by mouth Once per day. 01/23/2024 Active metoprolol tartrate (Lopressor) 25 MG tablet Take 25 mg by mouth 2 times daily. 04/14/2024 Active Social History Tobacco Use Types Packs/Day Years [...] Mass Index - - Plan of Treatment Upcoming Encounters Date Type Department Care Team (Late st Contact Info) Description 10/22/2024 3:00 PM EDT Office Visit [facility] ADULT DENTAL [address] [place] [address] Aliya Dorantes Health Maintenance Due Date Last Done Comments [...] Oral Exam 01/27/2024 07/27/2023, 10/23/2022 COVID-19 Vaccine (3 - season) 2024 07/06/2021, [...] topic Meningococcal Vaccine Aged Out No jocelyn krytsa eligible based on patient's age to complete this topic RSV under 20 months Aged Out No longe r eligible based on patient's age to complete this topic Rotavirus Vaccines Aged Out No longer eligible based on patient's age to complete this topic Procedures Procedure Name Priority Date/Time Associated Diagnosis Comments BITEWING - SINGLE RADIOGRAPHIC IMAGE Routine 06/18/2024 3:30 PM EST Full PROPHYLAXIS - ADULT Routine 024 2:00 PM EDT PERIODIC ORAL EVALUATION - ESTABLISHED PATIENT Routine 07/27/2023 1:00 PM EST from Last 3 Months or Most Recently Relevant to Health Maintenance Insurance [facility] DENT[facility] - [facility] PARTIAL (MEDICAID)
--- OUTSIDE RECORDS SUMMARY | 2024-10-10 09:02 | XMS_ITS | Encounter Summary ---
Author Organization [facility] Address [address] [facility] 7t [place] [address] Care Team Providers Care Hog Ribber Name Role Phone Unavailable Primary Care Provider Unavailabl e Encounter Details Date Type Department Care Team (Latest Contact Info) Description 11/03/2020 Abstract [facility] CONVERSIONS Dental, Provider, DDS Social History Tobacco [...] Description 10/22/2024 3:00 PM EDT Office Visit [facility] ADULT DENTAL [address] [place] [address] Aliya Dorantes documented as of this encounter Visit Diagnoses Not on filedocumented in this encounter
--- OUTSIDE RECORDS SUMMARY | 2024-10-10 09:02 | XMS_ITS | Encounter Summary ---
Author Organization [facility] Address [address] [facility] 7t [place] [address] Care Team Providers Care Risk Management Internship Name Role Phone Unavailable Primary Care Provider Unavailabl e Encounter Details Date Type Department Care Team (Latest Contact Info) Description 06/27/2021 Abstract [facility] CONVERSIONS Dental, Provider, DDS Social [...] Description 10/22/2024 3:00 PM EDT Office Visit [facility] ADULT DENTAL [address] [place] [address] Aliya Dorantes documented as of this encounter Visit Diagnoses Not on filedocumented in this encounter
== END 2024-10-10 12:38 | disposition home or self-care (01) ==
LOC: HO.HOS 08:46
PROVIDERS: PCP Internal Medicine; Visit Provider Physical Medicine & Rehabilitation
DX: M70.61 Trochanteric bursitis, right hip (principal); M53.3 Sacrococcygeal disorders, not elsewhere classified
CPT/HCPCS: 20610; 99214

== ENCOUNTER → 2024-10-10 08:45 | Outpatient (BNVA) | payer OTHER, SELFPAY | PROVIDERS: PCP Internal Medicine; Visit Provider Physical Medicine & Rehabilitation | DX: M70.61 Trochanteric bursitis, right hip (principal); M53.3 Sacrococcygeal disorders, not elsewhere classified; Z91.81 History of falling | CPT/HCPCS: 20610; 99212; J2003; J3301 ==

== ENCOUNTER 2024-11-12 14:56 | Outpatient (REF) | payer OTHER, SELFPAY ==
--- NOTE | ~2024-11-12 | CT_ITS ---
CLINICAL HISTORY: M46.1 - Sacroiliitis, not elsewhere classified CT pelvis without contrast Comparison: None Findings: Pelvic contents unremarkable. Normal appendix. No acute fracture. Sacroiliac joints are symmetric and normal in appearance. IMPRESSION: No acute findings. This document has been electronically signed by: Jarad Tee MD on 11/14/2024 07:59:40
--- OUTSIDE RECORDS SUMMARY | 2024-11-12 17:41 | XMS_ITS | Data Portability ---
Author Organization [facility] Address [address] [place] [address] Care Team Providers Care Wood Craftsman Name Role Phone [facility] Prim ciara Care Provider Assessment No assessment recorded. Plan of Treatment Reminders Order Date Submit Date Provider Last Modified By Organization Details Last Modified Time Details Appointments None recorded. Lab rapid strep group A, throat 2022 023 [place] [address] [facility], [address] [place] [address], [phone], 3 13:59:40 rapid SARS CoV 2 Ag, QL IA, respiratory specimen 2022 023 [place] [address] [facility], [address] [place] [address], [phone], 3 13:59:40 Referral None recorded. Procedures None recorded. Surgeries None recorded. Imaging None recorded. Medication Orders amoxicillin 875 mg tablet 2022 023 [facility][id number], [address] [place], [address], 3 13:59:43 Allergy Relief (fluticason e) 50 mcg/actuati on nasal spray,suspe nsion 2022 023 [facility]23[facility], [address] [place], [address], 3 13:59:43 fexofenadin e-pseudoeph edrine ER 180 mg-240 mg tablet,ext. release 24 hr 2022 023 [facility][id number], [address] [facility], [place], [address], 13:59:42 Patient TargetsNo targets recorded. Patient Instructions Encounter Date Encounter Id Patient Instructions Last Modified By Organization Details Last Modified Time 01/09/2023 [id number] Acute Sinusitis: Care Instructions [email or web address] Not available 01/09/2023 13:59:40 Reason for Referral None Reported. Results Created Date Observation Date Name Description Value Unit Range Abnormal Flag Note LastModifiedBy Organization Detail LastModifiedTime 01/10/2001/09/2023 rapid SARS CoV 2 Ag, QL IA, respi rator y speci men Unknown Analyte Normal =Negat cari Not Available [address], [phone], 01/09/2023 13:58:30 01/10/2001/09/2023 rapid SARS CoV 2 Ag, QL IA, respi rator y speci men Unknown Analyte negati ve Not Available [address], [phone], 01/09/2023 13:58:30 01/10/20 23 01/09/2023 rapid strep group A, throa t Unknown Analyte Normal = Negati ve Not Available [address] [place] [address], [phone], 01/09/2023 13:58:29 01/10/20 23 01/09/2023 rapid strep group A, throa t Unknown Analyte negati ve Not Available [address] [place] [address], [phone], 01/09/2023 13:58:29 Result Notes None recorded. Problems Name Problem SNOMED Code Status Onset Date Resolution Date Notes Provider Name and Address Organization Details Recorded Time Irritable bowel syndrome 32550366 Active 023 Kitty Sintia mendes PA - [facility] 13:11:17 Problem Notes None recorded. Medical [...] ) 50 mcg/actuatio n nasal spray,suspen sera [place] 1 spray every day by intranasal route [...] Updated DateTime 3 160.02 cm 31.5 kg/m2 69997.4 4 g 8 18 /min 98 % 98 % 76 /min 97.6 [degF] 90 mm[Hg] 51 mm[Hg] Kitty Packsofie PA [facility] 3 13:13:17 Social History Question Answer [...] SNOMED-CT Code Diagnosis ICD10 Code Diagnosis Note [id number] Jose Antonio_Prem eucedar [address] [place] [phone] 11/11/2020 13:15:47 11/11/2020 14:32:05 [id number] [facility] [address] [place] [phone] 05/12/2022 08:04:24 05/12/2022 08:54:03 [id number] [facility] [address] [place] [phone] 11/01/2020 11:00:14 11/01/2020 12:54:15 [id number] [facility] Jeisonca riar [address] [place] [phone] 12/20/2020 16:18:42 12/20/2020 17:40:32 [id number] Catherine Bailey MD [facility] [address] [place] [phone] 01/09/2023 13:03:56 01/09/2023 14:01:19 Acute sinusitis 12722240 J01.90 - Use the medication s prescribed [...] Sanchez Member ID Guarantor Name 11/01/2020 1 [facility] (MEDICAID REPLACEMENT - HMO) [facility] Adri Rhoades [id number] Adri Rhoades 11/11/2020 1 [facility] (MEDICAID REPLACEMENT - HMO) [facility] Adri Rhoades [id number] Adri Rhoades 12/20/2020 1 [facility] (MEDICAID REPLACEMENT - HMO) [facility] Adri Rhoades [id number] Adri Rhoades 05/12/2022 1 [facility] (MEDICAID REPLACEMENT - HMO) [facility] Adri Rhoades [id number] Adri Rhoades 01/09/2023 1 [facility] (MEDICAID REPLACEMENT - HMO) [facility] Adri Rhoades [id number] Adri Rhoades Notes Date Note Type Note Provider Name and Address Organization Details Recorded Time 01/09/2023 text/html Sore throatRepor gail bypatient.Location:t hroat Severity:moderate Quality:hurts to swallow Associated Symptoms:sore throat;coughing;sinu s pain/ congestion Context:no sick contacts; no foreign travel; non-smoker Catherine Bailey MD [address] [place], [phone], PA - [facility] 01/09/2023 14:22:09 OBGyn Episode No OBEpisode recorded.
--- OUTSIDE RECORDS SUMMARY | 2024-11-12 17:41 | XMS_ITS | Encounter Summary ---
Author Organization [facility] Address [address] [facility] 7t [place] [address] Care Team Providers Care Senior Payroll Manager Name Role Phone Unavailable Primary Care Provider Unavailabl e Encounter Details Date Type Department Care Team (Latest Contact Info) Description 10/09/2018 Abstract [facility] CONVERSIONS Dental, Provider, DDS Social [...] Care Team (Late st Contact Info) Description 11/13/2024 3:00 PM EDT Office Visit [facility] ADULT DENTAL [address] [place] [address] Mary Forte, [place] [address] [place] [address] 04/23/2025 3:00 PM EDT Office Visit [facility] ADULT DENTAL [address] [place] [address] Aliya Dorantes documented as of this encounter Visit Diagnoses Not on filedocumented in this encounter
--- OUTSIDE RECORDS SUMMARY | 2024-11-12 17:41 | XMS_ITS | Encounter Summary ---
Author Organization [facility] Address [address] [facility] 7t [place] [address] Care Team Providers Care Bed Spring Maker Name Role Phone Unavailable Primary Care Provider Unavailabl e Encounter Details Date Type Department Care Team (Latest Contact Info) Description 06/27/2021 Abstract [facility] CONVERSIONS Dental, Provider, DDS Social [...] Description 11/13/2024 3:00 PM EDT Office Visit [facility] ADULT DENTAL [address] [place] [address] Mary Forte, WESTLEYS [address] [place] [address] 04/23/2025 3:00 PM EDT Office Visit [facility] ADULT DENTAL [address] [place] [address] Aliya Dorantes documented as of this encounter Visit Diagnoses Not on filedocumented in this encounter
--- OUTSIDE RECORDS SUMMARY | 2024-11-12 17:41 | XMS_ITS | Clinical Summary ---
Author Organization [facility] Address [address] [place] [address] Phone Care Team Providers Care Jalousie Installer Name Role Phone Christina Mora MD Primary Care Prov ider Allergies No known active allergies Medications OMEGA-3 FATTY ACIDS ORAL Take by mouth 1 (one) time each day. Active magnesium oxide (MAG-OX) 400 mg (241.3 elemental magnesium) tablet Take 1 tablet (400 mg total) by mouth daily. 024 Active linaCLOtide (Linzess) 290 mcg capsule Take 1 capsule (290 mcg total) by mouth 1 (one) time each day if needed (taken as needed per pt). 024 Active ondansetron ODT (ZOFRAN-ODT) 4 mg disintegrating tablet Dissolve 1 tablet (4 mg total) on top of the tongue every 8 (eight) hours if needed for nausea. for up to 30 days Active metoprolol tartrate (LOPRESSOR) 25 mg tabletIndications :Palpitations,PVC (premature ventricular contraction) Take 1 tablet (25 mg total) by mouth 2 (two) times a day. 180 tablet 2 025 Active hydrocortisone-pr amoxine (ANALPRAM-HC) 2.5-1% rectal cream Insert 1 Application into the rectum 3 (three) times a day for 10 days. 30 g 025 2024 Discontinued hydrocortisone-pr amoxine (ANALPRAM-HC) 2.5-1% rectal cream INSERT 1 APPLICATION INTO THE RECTUM 3 (THREE) TIMES A DAY FOR 10 DAYS. 30 g 025 2024 Active Problems Problem Noted Date Diagnosed Date [...] AJ (obstructive sleep apnea) 04/17/2017 Overview (04/29/2024): SMS Home Polysomnogram: Date 04/10/2017; AHI 5, [...] Encounters Date Type Department Care Team Description 10/23/2024 8:17 AM EDT - 10/23/2024 11:59 PM EDT Hospital Encounter [facility] CT Scan [address] [place] [phone] Right lower quadrant pain Discharge Disposition: Home or Self Care 10/16/2024 3:00 PM EDT Office Visit Gastroenterology - [place] [facility] [address] [place] [phone] Isabel Griffiths PA Right lower quadrant pain (Primary Dx); Diverticulosis; Internal hemorrhoids 10/07/2024 10:00 AM EDT Ancillary Procedure [facility] - [address] [place] [phone] Palpitations; PVC (premature ventricular contraction) 09/29/2024 1:40 PM EST Office Visit [facility] [address] [facility] [address] [place] [address] Jennifer Vogel PA Palpitations (Primary Dx); PVC (premature ventricular contraction); Chest pain, unspecified type; AJ (obstructive sleep apnea) 08/25/2024 2:45 PM EST Office Visit General Surgery [facility] [address] [facility] [address] [place] [phone] Frantz Starr, DO Foreign body in left upper extremity, initial encounter (Primary Dx); Visit for wound check 08/14/2024 8:30 AM EST Office Visit Adult Medicine [address] [phone] Rosanne Vu PA Acute pain of both knees (Primary Dx); Bilateral knee effusions; Lumbar back pain; Lumbar radiculopathy from Last 3 Months Immunizations Name Administration Dates Next Due Hepatitis B (Vghekei-M-Hpzwf , Recombivax HB-Adult) 19yo and older 01/25/2007 Hepatitis B (Recombivax HB-Dialysis) 18yo and ol steven 08/30/2006,07/31/2006 Influenza trivalent, 0.5mL, preservative free (Fluarix; FluLaval; Fluzone) ages 6mo and older (Afluria) 3 years and older 06/11/2008 PPD Test 07/31/2006 fake company 2.0 SARS-CoV-2 COVID-19, mRNA, LNP-S, preservative free 07/06/2021 Td Tetanus diptheria (Tdvax) 7yo and older 07/31 Tdap Tetanus diptheria acell ular pertussis (Boostrix; Adacel) 7yo and older 2017 Surgical History Surgery Date Site/Laterality Comments TUBAL LIGATION PROCEDURE: HISTORICAL TUBAL LIGATION COLONOSCOPY PROCEDURE: HISTORICAL COLONOSCOPY HYSTERECTOMY 07/30/2020 - 07/29/2021 Robotic hyst, BS- Eppsteiner, menorrhagia Medical History Medical History Date [...] apnea 04/17/2017 DX:Obstr uctive sleep apnea; COMMENT: [facility] Home Polysomnogram: Date 04/10/2017; AHI 5, [...] your loved ones. For example, child welfare counselor or elderly care for an older adult? [...] Sign Reading Time Taken Comments Blood Pressure 112/70 10/16/2024 3:01 PM EDT Pulse 86 10/16/2024 3:01 PM EDT Temperature 36.2 ??C (97.1 ??F) 08/25/2024 2:51 PM ES T Respiratory Rate 12 08/14/2024 8:19 AM EST Oxygen Saturation 98% 10/16/2024 3:01 PM EDT Inhaled Oxygen Concentration - - Weight 86.2 kg (190 lb) 10/16/2024 3:01 PM EDT Height 160 cm (5' 3 ) 10/16/2024 3:01 PM EDT Body Mass Index 33.66 10/16/2024 3:01 PM EDT Plan of Treatment Upcoming Encounters Date Type Department Care Team (Late st Contact Info) Description 11/14/2024 8:00 AM EDT Appointment [facility] Nuclear Medicine [address] [place] [phone] 02/03/2025 2:40 PM EDT Office Visit Gastroenterology - [place] [facility] [address] [facility] [address] [place] [phone] Isabel Griffiths PA 175 [facility] [address] [place] [address] 04/22/2025 3:00 PM EDT Appointment Radiology Department - [address] [phone] 04/28/2025 2:55 PM EDT Office Visit [facility] - [facility] [address] [facility] [address] [place] [phone] Wander Jung MD [address] [place] [address] [address] [place] [address] Health Maintenance Due Date Last Done Comments Pneumococcal Vaccine: 50+ Years (1 of 1 - PCV) 2022 Zoster Vaccines (1 of 2) 2022 COVID-19 Vaccine (3 - season) 2024 07/06/2021, 06/15/2021 Influenza Vaccine (Season Ended) 2025 06/11/2008 Depression Screening 06/02/2025 06/02/2024, 03/25/2024, 03/25/2024 [...] age to complete this topic Meningococcal B Vaccine Aged Out No l onger eligible based on patient's age to complete [...] Procedure Name Priority Date/Time Associated Diagnosis Comments CT ABDOMEN PELVIS W CONTRAST Routine 10/23/2024 8:35 AM EDT Right lower quadrant pain CARDIAC HOLTER MONITOR (REPORT GENERATED IN HOUSE) Routine 10/07/2024 10:07 AM EDT Palpitations PVC (premature ventricular contraction) ECG 12-LEAD Routine 09/29/2024 2:07 PM EST Palpitations MR BRAIN WO CONTRAST Routine 08/14/2024 2:55 PM EST SCREENING MAMMOGRAPHY BI 2-VIEW BREAST INC CAD Routine 04/09/2024 9:37 AM EDT Encounter for screening mammogram for malignant neoplasm of breast LIPID PANEL Routine 04/01/2024 DEPRESSION SCREENING Routine 03/25/2024 COLONOSCOPY Routine 06/13/2023 HPV Routine 09/07/2020 HEPATITIS C SCREENING Routine 07/25/2013 HIV SCREENING Routine 07/25/2013 from Last 3 Months or Most Recently Relevant to Health Maintenance Results * CT Abdomen Pelvis w Contrast (10/23/2024 8:35 AM EDT) Anatomical Region Laterality Modality Body Computed Tomogra phy 10/28/2024 11:2 1 AM EDT Impressions 10/28/2024 11:36 AM EDT No etiology for right lower quadrant pain demonstrated. Specifically no bowel wall thickening, localized fat stranding. The appendix is normal. There is no opaque right urinary calculus. Nonspecific sclerosis right sided pubic symphysis could be stress related. ?? -------- FINAL REPORT -------- Dictated By: Marques Juarez Dictated Date: 10/28/2024 11:21 ET Assigned Physician: Marques Juarez Reviewed and Electronically Signed By: Marques Juarez Signed Date: 10/28/2024 11:36 ET Workstation ID: [id number] Transcribed By: Self Edit Transcribed Date: 10/28/2024 11:21 ET Narrative 10/28/2024 11:36 AM EDT EXAMINATION: CT ABDOMEN/PELVIS WITH IV CONTRAST CLINICAL INFORMATION: Abdomen pain. ??Worsening right lower quadrant pain COMPARISON: Portions of previous 11/16/22 ?? TECHNIQUE: Multidetector CT. Helical examination of the abdomen and pelvis. Imaging performed after the IV administration of contrast. Reformatting in the coronal and sagittal planes. DLP: 1040 mGy-cm Dose optimization was performed including the use of low-dose iterative reconstruction technique with automatic exposure control based on patient size. Type of contrast: ISOVUE 370 Volume of IV contrast: 90 mL Volume of contrast discarded: 0 mL FINDINGS: LIVER: The right lobe of the liver measures 18.2 cm. This is approximately 1 standard deviation above the mean expected. The liver contour is smooth. There is no suspicious focal liver lesion. There are geographic areas of fatty change. ?? BILIARY TRACT: ??There is no opaque gallstone. No gallbladder wall thickening. No pericholecystic stranding. The common duct measures 0.9 cm which is greater than expected. No significant change since 11/16/22. The common duct tapers to normal at the ampulla. SPLEEN: The spleen is not enlarged. No focal abnormality. ?? PANCREAS: No suspicious mass. No pancreatic ductal dilation. No peripancreatic stranding. There is an unchanged 0.3 cm low attenuating area in the lower pancreatic head (). This is unlikely to have any clinical significance. ?? ADRENAL GLANDS: Within normal limits. ?? KIDNEYS: No dilation of the intrarenal collecting system. The nephrograms are symmetric. No suspicious renal mass. No opaque renal calculus. ?? URINARY BLADDER: ??No suspicious abnormality. PELVIC VISCERA: ??The uterus is surgically absent. No suspicious adnexal mass or collection. GASTROINTESTINAL TRACT: ?There is no bowel wall thickening. No localized pericolonic fat stranding. The appendix appears within normal limits. No small bowel dilation. No suspicious abnormality of the stomach. There is no omental or mesenteric mass demonstrated. There is no fat stranding in the right lower quadrant. ABDOMINAL WALL: No significant hernia is appreciated. ?? LYMPHOVASCULAR STRUCTURES AND FLUID: No abdominal aortic aneurysm. No enlarged lymph nodes. There is no free intraperitoneal fluid. There are no enlarged lymph nodes. There is some narrowing of the left renal vein as it traverses between the SMA and aorta. ?? VISUALIZED LOWER CHEST: Calcification with typically benign features in the posterior lateral right lower lobe does not require any specific imaging follow-up. ?? MUSCULOSKELETAL: There is asymmetric sclerosis involving the right side of the pubic symphysis (3/164). This is either new or increased. This may have been present on frontal view of the pelvis summary 03/18/24. This is nonspecific but could be stress related. Procedure Note Marques Juarez MD - 10/28/2024 EXAMINATION: CT ABDOMEN/PELVIS WITH IV CONTRAST CLINICAL INFORMATION: Abdomen pain. Worsening right lower quadrant pain COMPARISON: Portions of previous 11/16/22 TECHNIQUE: Multidetector CT. Helical examination of the abdomen and pelvis. Imaging performed after the IV administration of contrast. Reformatting in the coronal and sagittal planes. DLP: 1040 mGy-cm Dose optimization was performed including the use of low-dose iterativereconstruction technique with automatic exposure control based on patientsize. Type of contrast: ISOVUE 370 Volume of IV contrast: 90 mL Volume of contrast discarded: 0 mL FINDINGS: LIVER: The right lobe of the liver measures 18.2 cm. This is approximately1 standard deviation above the mean expected. The liver contour is smooth.There is no suspicious focal liver lesion. There are geographic areas offatty change. BILIARY TRACT: There is no opaque gallstone. No gallbladder wallthickening. No pericholecystic stranding. The common duct measures 0.9 cmwhich is greater than expected. No significant change since 11/16/22. Thecommon duct tapers to normal at the ampulla. SPLEEN: The spleen is not enlarged. No focal abnormality. PANCREAS: No suspicious mass. No pancreatic ductal dilation. Noperipancreatic stranding. There is an unchanged 0.3 cm low attenuatingarea in the lower pancreatic head (3/68). This is unlikely to have anyclinical significance. ADRENAL GLANDS: Within normal limits. KIDNEYS: No dilation of the intrarenal collecting system. The nephrogramsare symmetric. No suspicious renal mass. No opaque renal calculus. URINARY BLADDER: No suspicious abnormality. PELVIC VISCERA: The uterus is surgically absent. No suspicious adnexalmass or collection. GASTROINTESTINAL TRACT: There is no bowel wall thickening. No localizedpericolonic fat stranding. The appendix appears within normal limits. No small bowel dilation. No suspicious abnormality of the stomach. There is no omental or mesenteric mass demonstrated. There is no fatstranding in the right lower quadrant. ABDOMINAL WALL: No significant hernia is appreciated. LYMPHOVASCULAR STRUCTURES AND FLUID: No abdominal aortic aneurysm. Noenlarged lymph nodes. There is no free intraperitoneal fluid. There are no enlarged lymph nodes. There is some narrowing of the left renal vein as it traverses between theSMA and aorta. VISUALIZED LOWER CHEST: Calcification with typically benign features inthe posterior lateral right lower lobe does not require any specificimaging follow-up. MUSCULOSKELETAL: There is asymmetric sclerosis involving the right side ofthe pubic symphysis (3/164). This is either new or increased. This mayhave been present on frontal view of the pelvis summary 20 03/18/24. This is nonspecific but could be stress related. IMPRESSION: No etiology for right lower quadrant pain demonstrated. Specifically nobowel wall thickening, localized fat stranding. The appendix is normal.There is no opaque right urinary calculus. Nonspecific sclerosis right sided pubic symphysis could be stress related. -------- FINAL REPORT -------- Dictated By: Marques Juarez Dictated Date: 10/28/2024 11:21 ET Assigned Physician: Marques Juarez Reviewed and Electronically Signed By: Marques Juarez Signed Date: 10/28/2024 11:36 ET Workstation ID: [id number] Transcribed By: Self Edit Transcribed Date: 10/28/2024 11:21 ET us Isabel POWELL IMG CT PROCEDURES Final Resul t * CARDIAC HOLTER MONITOR (REPORT GENERATED IN HOUSE) (10/07/2024 10:07 AM EDT) Anatomical Region Laterality Modality Cardiac Diagnost ic Narrative 10/13/2024 7:[address] [facility] DEPARTMENT [address] [facility], [place], [place] [address] TEL: FAX: Type of Test: 48 Hour Holter Monitor Date of Test: 10/07/2024 Ordering Provider: SHERRY Wisdom Reason for Test: Palpitations and PVC (premature ventricular contraction) Findings: ?? 1: Predominant rhythm was Normal Sinus Rhythm. 2: Rare PACs and PVCs. 3: No significant pause noted, longest R-R was 1.4 seconds at 9:46 PM. 4: Diary returned with symptoms of palpitations, shortness of breat, chest pains, and arm pain noted. EKG at those times showed Normal Sinus Rhythm and episodes of Sinus Tachycardia with rare isolated PVCs. Heart rates were in the range of 78-138 BPM. Jennifer POWELL CV CARDIAC SERVICES PROCEDURES F inal Result * ECG 12 lead (09/29/2024 2:07 PM EST) Ventricular Rate ECG 69 BPM GEMUSE Atrial Rate 69 BPM GEMUSE P-R Interval 134 ms GEMUSE QRS Duration 86 ms GEMUSE Q-T Interval 390 ms GEMUSE QTc 417 ms GEMUSE P Wave [place] 55 degrees GEMUSE R [place] 74 degrees GEMUSE T [place] 46 degrees GEMUSE ECG Interpretation Normal sinus [...] Neck Magnetic Resonan ce Historical Provider MD GONZALEZ MRI PROCEDURES Final Result * SCREENING MAMMOGRAPHY BI 2-VIEW [...] evidence of malignancy. BI-RADS 1 - negative [address] [address] Procedure Note Brianna Null MD - 05/14/2024 [...] evidence of malignancy. BI-RADS 1 - negative [address] [address] Christina Mora MD IMG XR PROCEDURES Final Result * (ABNORMAL) Lipid panel (04/01/2024) [facility] LDL/HDL Ratio 3 0 - 4 Triglycerides 64 0 - 150 mg/dL Cholesterol 218(A) 0 - 200 mg/dL HDL 69 >=40 mg/dL LDL Cholesterol 137(A) 0 - 100 mg/dL Blood Venous blood specimen / Unknown Result [facility] Provider LAB BLOOD ORDERABLES Cande l Result * Depression Screening (03/25/2024) [facility] Depression Screening Abstracted Result [facility] Provider HEALTH MAINTENANCE Final Result * Colonoscopy (06/13/2023) [facility] Colonoscopy No interpretation , abstracted Anatomical Region Laterality Modality Other Result [facility] Provider HEALTH MAINTENANCE Final Result * Cervical Cancer Screening: HPV (09/07/2020) [facility] Cervical Cancer Screening: HPV Negative, abstracted Result [facility] Provider HEALTH MAINTENANCE Final Result * HIV Screening (07/25/2013) [facility] HIV Screening Abstracted Result [facility] Provider HEALTH MAINTENANCE Final Result * Hepatitis C Screening (07/25/2013) [facility] Hepatitis C Screening Abstracted Result [facility] Provider HEALTH MAINTENANCE Final Result from Last 3 Months or Most Recently Relevant to Health Maintenance Insurance [facility] [employer] Care Teams Jalousie Installer Relationship Specialty Start Date End Date Christina Mora MD [address] [place] [id number] PCP - General Internal Medicine 06/03/24
--- OUTSIDE RECORDS SUMMARY | 2024-11-12 17:41 | XMS_ITS | Clinical Summary ---
Author Organization [employer] [facility] Address [address] [facility] [address] [place] [address] Care Team Providers Care Four Slide Operator Name Role Phone Unavailable Primary Care Provider Unavailabl e Allergies No known active allergies Medications Linzess 290 MCG capsule Take 290 mcg by mouth in the morning. 11/05/2022 Active magnesium oxide (Mag-Ox) 400 MG tablet Take 1 tablet by mouth Once per day. 01/23/2024 Active metoprolol tartrate (Lopressor) 25 MG tablet Take 25 mg by mouth 2 times daily. 04/14/2024 Active Active Problems No known active problems Encounters Date Type Department Care Team Description 10/22/2024 3:00 PM EDT Office Visit [facility] [address] [place] [address] Aliya Dorantes from Last 3 Months Social History Tobacco [...] Sign Reading Time Taken Comments Blood Pressure 122/80 10/22/2024 3:14 PM EDT Pulse 65 02/18/2024 1:56 PM EDT Temperature - - Respiratory Rate - - Oxygen Saturation - - Inhaled Oxygen Concentration - - Weight - - Height - - Body Mass Index - - Plan of Treatment Upcoming Encounters Date Type Department Care Team (Late st Contact Info) Description 11/13/2024 3:00 PM EDT Office Visit [facility] [address] [place] [address] Forte Mary, DDS [address] [place] [address] 04/23/2025 3:00 PM EDT Office Visit [facility] [address] [place] [address] Aliya Dorantes Health Maintenance Due Date Last Done Comments CT Colonography 1972 Colonoscopy 1972 Colorectal Cancer Screening 1972 Depression Screening 1972 FIT DNA/Cologuard 1972 [...] Influenza Vaccine (#1) 2024 06/11/2008, 2007 Dental Oral Exam 04/25/2025 10/22/2024, , 10/23/2022 Dental Prophylaxis 04/25/2025 10/22/2024, 0 02/18/2024, 07/13/2023, Additional history exists Tobacco Screening 10/22/2025 10/22/2024 Dental X-Ray: Bitewings 10/23/2025 10/23/19, 06/18/2024, 03/21/2024, Additional history exists DTaP/Tdap/Td Vaccines (2 - Td or Tdap) 2027 2017, 07/31/2006 Dental X-Ray: Full Mouth 10/24/2027 10/22/2024 RSV Patients and Patients Aged 60 years [...] Procedure Name Priority Date/Time Associated Diagnosis Comments PERIODIC ORAL EVALUATION - ESTABLISHED PATIENT Routine 10/22/2024 3:00 PM EDT INTRAORAL - COMPLETE SERIES OF RADIOGRAPHIC IMAGES Routine 10/22/2024 3:00 PM EDT ORAL HYGIENE INSTRUCTIONS Routine 2024 3:00 PM EDT CASE PRESENTATION, DETAILED AND EXTENSIVE TREATMENT PLANNING Routine 10/22/2024 3:00 PM EDT PROPHYLAXIS - ADULT Routine 10/22/2024 3 :00 PM EDT from Last 3 Months Insurance [facility] Member Subscriber Plan / Payer (Ef fective 2023-Present) Name:Adri Rhoades Relation to Subscriber:Self Name:Adri Rhoades Payer ID:Not on file Type:Indemnity Address: [address] [address] DENTAL - [facility] PARTIAL (MEDICAID)
--- OUTSIDE RECORDS SUMMARY | 2024-11-12 17:41 | XMS_ITS | Encounter Summary ---
Author Organization [facility] Address [address] [facility] 7[address] [place] [address] Care Team Providers Care Underwear Welter Name Role Phone Unavailable Primary Care Provider Unavailabl e Encounter Details Date Type Department Care Team (Latest Contact Info) Description 11/03/2020 Abstract [facility] CONVERSIONS Dental, Provider, DDS Social History [...] Description 11/13/2024 3:00 PM EDT Office Visit [facility] [address] [place] [address] Mary Forte, [place] [address] [place] [address] 04/23/2025 3:00 PM EDT Office Visit [facility] [address] [place] [address] Aliya Dorantes documented as of this encounter Visit Diagnoses Not on filedocumented in this encounter
== END 2024-11-12 14:57 | disposition home or self-care (01) ==
LOC: HO.CT 14:56
PROVIDERS: PCP Internal Medicine; Visit Provider Anesthesiology
DX: M46.1 Sacroiliitis, not elsewhere classified (principal); M53.3 Sacrococcygeal disorders, not elsewhere classified
CPT/HCPCS: 72192

== ENCOUNTER → 2024-11-12 14:58 | Outpatient (BNV) | payer OTHER, SELFPAY | PROVIDERS: PCP Internal Medicine; Visit Provider Specialist | DX: M46.1 Sacroiliitis, not elsewhere classified (principal) | CPT/HCPCS: 72192 ==

== ENCOUNTER 2024-11-26 14:59 | Outpatient (AMB) | payer OTHER, SELFPAY ==
[2024-11-26 15:08] VITALS: BP 106/58; PULSE 82; RESP 16; O2SAT 97; BMI 34.0
--- NOTE | 2024-11-26 15:08 | MHC.OFFVIS ---
Vital Signs 11/26/24 15:08 Height 5 ft 3 in Weight 192 lb BMI 34.0 BP 106/58 L Blood Pressure Location Lt brachial Position Sitting Respiration 16 Pulse 82 Pulse Source Pulse Oximeter Pulse Oximetry (%) 97 Oxygen Delivery Method Room Air Intake Visit Reasons: Discuss CT Results Oracle Hrms Developer Required: No Allergies No Known Allergies Allergy (Mild, Verified 11/26/24 15:09) N/A Medication List - Last Reconciled 11/26/24 by Jaye Garcia LPN metoprolol tartrate 25 mg PO DAILY omega 0-vei-kys-fish oil 1,000 (120-180) mg (Fish Oil) 1 cap PO BID HPI Comments Details: Adri is back in my office FOR THE FOLLOW-UP. She reported today that she was able to separate between the 2 different pains. She states that she feels pain more in the knee with radiation into the lateral hip on the right and another pain which was related to her sacroiliac joint. She stated that the injection which was performed in the sacroiliac joint is still working and that pain is different in nature. She reported and when she was examined in emergency room after her trauma she was told that she has knee effusion. 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 I will performed today as below intra-articular right knee steroid injection. I sent her for bony pelvis CT, the description of the reports - normal study. She blames the pain increase on the trauma she received in June. During this traumatic event she also injured her knees. She complains on severe pain in the knees. She was referred to Dr. Jimenez for evaluation. diagnostic sacroiliac joint injection on 06/17/24. She reported that before the procedure her pain was 8/10. Immediately after the procedure the pain decreased and became 1/10. 1 hour after the procedure she had pain 6/10 but probably secondary to irritation of the skin. After that 3 and 4 hours of the procedure she had pain 2/10 5 hours of the procedures she had pain 1/10 and 6 hours of the procedure she had pain 0/10. She reported excellent mobility during the time after the procedure. She reported good social interactions. She performed all the activities of daily living which usually aggravate her pain. Prior: complains on pain in the right lower back with radiation to the right lower extremity to the level of lateral hip and lateral macdonald on the right. Pain started on about 8 months ago she reported that pain is related to an accident in the gym. sitting aggravates her pain the most. Flexing forward aggravates her pain as well. 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 She had an MRI and x-ray of the lumbar spine performed on the order Dr. Jimenez, the results are dictated as below. In my opinion they are unimpressive and do not explain the pain of this patient. She was attending physical therapy she had for times physical therapy 8 sessions each time and she performed home exercise program as well. 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 Review of Systems Const All systems reviewed & are unremarkable except as noted in HPI and below ENT Reports Normal hearing present Neuro Reports Normal hearing present, Denies Abnormal speech present, Denies confusion and Denies Sensory deficit (Neuro) Psych Denies confusion Physical Exam Vital Signs: Last Vital Signs Pulse 82 11/26/24 15:08 Resp 16 11/26/24 15:08 BP 106/58 L 11/26/24 15:08 Pulse Ox 97 11/26/24 15:08 Oxygen Delivery Method Room Air 11/26/24 15:08 BMI result Body Mass Index 34.0 Const General: no acute distress; No confusion Orientation/consciousness: patient oriented x3 and No confusion Eyes General: appearance normal, both eyes and all related structures Pupils: Equal, round and reactive pupils present EOM: EOMs intact bilaterally Neck Neck: Yes full ROM Chest Chest palpation & inspection: normal inspection of the chest Resp Effort & Inspection: normal respiratory effort, able to speak in complete sentences, normal respiratory pattern, no audible wheezes and no cough Cardio Jugular venous distension: no JVD GI Inspection: Yes normal to inspection Back/Spine/Pelvis Other: The patient is able to stand on bilateral tiptoes in bilateral heels without any difficulty. She is able to lift the great toe in separation of the rest of the toes bilaterally. This demonstrates normal function bilaterally of L4-5 and S1 nerve roots. SLR is negative bilaterally. Heath test is positive on the right, Gaenslen test is positive on the right, pelvic distraction test is positive on the right. Flexing forward and flexing backwards aggravate her pain however flexing forward aggravate her pain much more than flexing backwards. There is no tenderness on palpation in paraspinal spinal region of the lumbar spine however there is severe tenderness on palpation in projection of the sacroiliac joint. Neuro General: patient oriented x3, gait normal and No confusion Cranial nerves: Yes CN's II-XII intact bilaterally, Yes Equal, round and reactive pupils present, Yes Normal hearing present and Yes Ability to bilaterally elevate shoulders present Speech: No Abnormal speech present Gait exam (Neuro): Normal gait present Motor exam (neuro): 5/5 motor strength present throughout Sensory Exam: No Sensory deficit (Neuro) Extrem General: No pedal edema Psych Speech and movement: Normal speech and movement present Affect: normal affect Attitude: cooperative Thought process: Normal thought process present Thought content: Normal thought content present Insight: Good insight present (Psych) Judgement: Good judgement present (Psych) Office Procedures AMB Joint Injection/Aspiration Joint Injection/Aspiration Primary Site: right knee Approach Used: anteromedial Procedure: The patient tolerated the procedure well Coding 71126 - Large joint Procedure code (CPT) selection complete Office Meds Kenalog 40 mg/mL suspension for injection Performing Provider: Alberto Recinos MD Performing Location: [facility] Administered by: Alberto Recinos MD on 11/26/24 16:02 Dose Route Admin Location Dispensed Lot Number Expiration Date [facility] Hydraulic Riveter 40 mg Infiltration 1 mL [id number] 04/28/26 Results Reviewed Results Reviewed: Ordering Physician: Jaye Smith Date of Service: 07/20/24 Procedure(s): XR knee RT 4V Accession Number(s): [id number] cc: Jaye Smith; Christina Cha MD~ EXAMINATION: XR KNEE, BILATERAL CLINICAL INFORMATION: Pain COMPARISON: None available. TECHNIQUE: 4 views of each knee FINDINGS: No acute visible fracture or dislocation. Joint space and alignment are maintained. Small bilateral knee joint effusions, right greater than left. Soft tissues are unremarkable. XR/XR knee RT 4V IMPRESSION: 1. No acute visible fracture or dislocation. 2. Small bilateral knee joint effusions, right greater than left. Electronically signed by: Neida Nieto MD 07/20/2024 11:27 AM [facility] Assessment & Plan Assessment & Plan (1) Arthritis of right knee: Code(s): M17.11 - Unilateral primary osteoarthritis, right knee Category: Medical Plan: Right knee steroid injection. Informed consent was thoroughly explained to the patient. Risks and benefits were explained to the patient including risks of bleeding and infection. The right knee was prepped with ChloraPrep. The solution of the bupivacaine 0.5% mixed with Kenalog 40 mg was sterilely obtained from the vials. The anterior medial surface of the right knee was prepped with ChloraPrep and after that injection was performed into the right knee retropatellar space after aspiration. No fluid was aspirated however the needle was very small 25 gauge and unlikely it would produce any aspirate. Upon completion of the injection the needle was removed and sterile Band-Aid was applied. The patient immediately felt improvement in her knee pain. (2) Sacroiliac joint dysfunction of right side: Code(s): M53.3 - Sacrococcygeal disorders, not elsewhere classified Category: Medical (3) Sacroiliitis: Code(s): M46.1 - Sacroiliitis, not elsewhere classified Category: Medical Plan: (4) Lumbar disc herniation with radiculopathy: Code(s): M51.16 - Intervertebral disc disorders with radiculopathy, lumbar region Category: Medical (5) Vertebrogenic low back pain: Code(s): M54.51 - Vertebrogenic low back pain Category: Medical Plan On physical exam right sacroiliitis is suspected. On the MRI there were subtle Modic type 1 changes at L5 and S1 vertebra. The rest of the vertebras are unremarkable. She went for the CT scan of the pelvis and pelvis CT was unremarkable demonstrating no pathology. The full report is available in the diagnostic section. Diagnostic sacroiliac joint injection resulted in very profound pain improvement during the 1st 6 hours after the procedure. Unfortunately before her sacroiliac joint therapeutic injection patient has suffered a fall in her bathroom and injured her knees and as well as felt severe pain in the projection of sacroiliac joint. She received therapeutic sacroiliac joint injection and as it discussed above she still reports very good pain relief from the procedure. We were able to separate her sacroiliac joint pain from the pain in her lateral hip and me. I firmly believe now that the pain she reported in the lateral hip is related to the knee trauma because after today is performed steroid knee injection see as above reported immediate improved mobility of the right lower extremity. Orders: Orders AMB Joint Injection/Aspiration 11/26/24 M17.11 - Unilateral primary osteoarthritis, right knee Coding Level of Care Code Est Pt Level 3 (21043) Procedure Only Diagnoses Arthritis of right knee M17.11 Sacroiliac joint dysfunction of right side M53.3 Sacroiliitis M46.1 Lumbar disc herniation with radiculopathy M51.16 Vertebrogenic low back pain M54.51 CPT Codes Coding - 03205 Large joint: 80798 - Large joint ([id number])
--- OUTSIDE RECORDS SUMMARY | 2024-11-26 16:07 | XMS_ITS | Clinical Summary ---
Author Organization [facility] Address [address] [place] [address] Phone Care Team Providers Care Rotary Driller Helper Name Role Phone Christnia Mora MD Primary Care Prov ider Allergies [...] day. 180 tablet 2 09/30/19 25 Active hydrocortisone-pra moxine (ANALPRAM-HC) 2.5-1% rectal cream INSERT 1 APPLICATION INTO THE RECTUM 3 (THREE) TIMES A DAY FOR 10 DAYS. 30 g 10/20/19 25 025 Active Problems Problem Noted Date Diagnosed Date [...] AJ (obstructive sleep apnea) 04/17/2017 Overview (04/29/2024): [facility] Home Polysomnogram: Date 04/10/2017; AHI [...] Encounters Date Type Department Care Team Description 11/14/2024 7:54 AM EDT - 11/14/2024 11:59 PM EDT Hospital Encounter [facility] Nuclear Medicine [address] [place] [phone] Nausea Discharge Disposition: Home or Self Care 10/23/2024 8:17 AM EDT - 10/23/2024 11:59 PM EDT Hospital Encounter [facility] CT Scan [address] [place] [phone] Right lower quadrant pain Discharge Disposition: Home or Self Care 10/16/2024 3:00 PM EDT Office Visit [facility] - [place] [address] [facility] [address] [facility] [address] [place] [phone] Isabel Griffiths PA Right lower quadrant pain (Primary Dx); Diverticulosis; Internal hemorrhoids 10/07/2024 10:00 AM EDT Ancillary Procedure [facility] [address] [place] [address] Palpitations; PVC (premature ventricular contraction) 09/29/2024 1:40 PM EST Office Visit [facility] [address] [facility] [address] [place] [address] Jennifer Vogel PA Palpitations (Primary Dx); PVC (premature ventricular contraction); Chest pain, unspecified type; AJ (obstructive sleep apnea) from Last 3 Months Immunizations Name Administration Dates Next Due Hepatitis B (Nyppgmu-Q-Kkcrm , Recombivax HB-Adult) 19yo and older 01/25/2007 Hepatitis B (Recombivax HB-Dialysis) 18yo and ol steven 08/30/2006,07/31/2006 Influenza trivalent, 0.5mL, preservative free (Fluarix; FluLaval; Fluzone) ages 6mo and older (Afluria) 3 years and older 06/11/2008 PPD Test 07/31/2006 Achieve X SARS-CoV-2 COVID-19, mRNA, LNP-S, preservative free 07/06/2021 Td Tetanus diptheria (Tdvax) 7yo and older 07/31 Tdap Tetanus diptheria acell ular pertussis (Boostrix; Adacel) 7yo and older 2017 Surgical History Surgery Date Site/Laterality Comments TUBAL LIGATION PROCEDURE: HISTORICAL TUBAL LIGATION COLONOSCOPY PROCEDURE: HISTORICAL COLONOSCOPY HYSTERECTOMY 07/30/2020 - 07/29/2021 Robotic hyst, REDD- Garry, menorrhagia Medical History Medical History Date [...] apnea 04/17/2017 DX:Obstr uctive sleep apnea; COMMENT: [facility] Home Polysomnogram: Date 04/10/2017; AHI [...] your loved ones. For example, child welfare worker or elderly care for an older [...] Care Team (Late st Contact Info) Description 02/03/2025 2:40 PM EDT Office Visit Gastroenterology - [place] [address] [facility] [address] [place] [address] Isabel Griffiths PA [address] [facility] [address] [place] [address] 04/22/2025 3:00 PM EDT Appointment Radiology Department - [address] [address] 04/28/2025 2:55 PM EDT Office Visit [facility] - [facility] [address] [facility] [address] [place] [address] Wander Jung MD [address] [facility] [address] [place] [address] Health Maintenance Due Date Last Done Comments [...] Procedure Name Priority Date/Time Associated Diagnosis Comments NM GASTRIC EMPTYING STUDY Routine 11/14/2024 12:[address] ABDOMEN PELVIS W CONTRAST Routine 10/23/2024 8:35 AM EDT Right lower quadrant pain CARDIAC HOLTER MONITOR (REPORT GENERATED IN HOUSE) Routine 10/07/2024 10:07 AM EDT Palpitations PVC (premature ventricular contraction) ECG 12-LEAD Routine 09/29/2024 2:07 PM EST Palpitations SCREENING MAMMOGRAPHY BI 2-VIEW BREAST INC CAD Routine 04/09/2024 9:37 AM EDT Encounter for screening mammogram for malignant neoplasm of breast LIPID PANEL Routine 04/01/2024 DEPRESSION SCREENING Routine 03/25/2024 COLONOSCOPY Routine 06/13/2023 HPV Routine 09/07/2020 HEPATITIS C SCREENING Routine 07/25/2013 HIV SCREENING Routine 07/25/2013 from Last 3 Months or Most Recently Relevant to Health Maintenance Results * NM Gastric Emptying Study (11/14/2024 12:25 PM EDT) Anatomical Region Laterality Modality Body Nuclear Medicine 11/16/2024 3:04 PM EDT Impressions 11/16/2024 3:05 PM EDT Delayed solid material gastric emptying. Teleulises POWELL ([id number]) -------- FINAL REPORT -------- Dictated By: Carmen Noyola Dictated Date: 11/16/2024 15:04 ET Assigned Physician: Carmen Noyola Reviewed and Electronically Signed By: Carmen Noyola Signed Date: 11/16/2024 15:05 ET Workstation ID: [id number] Transcribed By: Self Edit Transcribed Date: 11/16/2024 15:04 ET Narrative 11/16/2024 3:05 PM EDT HISTORY: Nausea. Question disordered gastric emptying. FINDINGS: Radionucleotide gastric emptying study performed following ingestion of 1.0 mCi of Tc99m sulfur colloid mixed with eggs for solid food evaluation. Solid food evaluation time to half peak clearance is 155 minutes with normal being less than 90 minutes. Patients 4 hour retention amount was calculated at 32%. Reference normal solid residual activity: less than 90% at 1 hour less than 60% at 2 hours less than 30% at 3 hours less than 10% at 4 hours Procedure Note Carmen Noyola MD - 11/16/2024 HISTORY: Nausea. Question disordered gastric emptying. FINDINGS: Radionucleotide gastric emptying study performed followingingestion of 1.0 mCi of Tc99m sulfur colloid mixed with eggs for solidfood evaluation. Solid food evaluation time to half peak clearance is 155 minutes withnormal being less than 90 minutes. Patients 4 hour retention amount was calculated at 32%. Reference normal solid residual activity: less than 90% at 1 hour less than 60% at 2 hours less than 30% at 3 hours less than 10% at 4 hours IMPRESSION: Delayed solid material gastric emptying. Belinda POWELL ([id number]) -------- FINAL REPORT -------- Dictated By: Carmen Noyola Dictated Date: 11/16/2024 15:04 ET Assigned Physician: Carmen Noyola Reviewed and Electronically Signed By: Carmen Noyola Signed Date: 11/16/2024 15:05 ET Workstation ID: [id number] Transcribed By: Self Edit Transcribed Date: 11/16/2024 15:04 ET Isabel POWELL [facility] PROCED[facility] Final Resul t * CT Abdomen Pelvis w Contrast (10/23/2024 [...] Signed Date: 10/28/2024 11:36 ET Workstation ID: [id number] Transcribed By: Self Edit Transcribed Date: 10/28/2024 [...] the right side of the pubic symphysis (3164). This is either new or increased. This [...] low attenuatingarea in the lower pancreatic head (). This is unlikely to have anyclinical significance. [...] Signed Date: 10/28/2024 11:36 ET Workstation ID: [id number] Transcribed By: Self Edit Transcribed Date: 10/28/2024 11:21 ET us Isabel POWELL IMG CT PROCEDURES Final Resul t * CARDIAC HOLTER MONITOR (REPORT GENERATED IN HOUSE) (10/07/2024 10:07 AM EDT) Anatomical Region Laterality Modality Cardiac Diagnost ic Narrative 10/13/2024 7:42 AM EDT [facility] DIAGNOSTIC TESTING DEPARTMENT [address] [place] [address], [id number] [place] [id number] TEL: FAX: Type of Test: 48 Hour [...] GEMUSE QTc 417 ms GEMUSE P Wave [place] 55 degrees GEMUSE R [place] 74 degrees GEMUSE T [place] 46 degrees GEMUSE ECG Interpretation Normal sinus rhythm Normal ECG When compared with ECG of 09-AUG-2023 10:58, No significant change was found Confirmed by Yuni LIRIANO JOHN ([id number]) on 09/29/2024 7:37:51 PM GEMUSE 09/29/2024 1:54 PM EST 09/29/2024 7:37 PM EST Jennifer POWELL ECG ORDERABLES Edited Result - Final GEMUSE * SCREENING MAMMOGRAPHY BI 2-VIEW BREAST INC [...] evidence of malignancy. BI-RADS 1 - negative [address] [address] Procedure Note Brianna Null MD - 05/14/2024 [...] evidence of malignancy. BI-RADS 1 - negative [address] [address] Christina Mora MD IMG XR PROCEDURES Final Result * (ABNORMAL) Lipid panel (04/01/2024) LDL/HDL Ratio 3 0 - 4 Triglycerides 64 0 - 150 mg/dL Cholesterol 218(A) 0 - 200 mg/dL HDL 69 >=40 mg/dL LDL Cholesterol 137(A) 0 - 100 mg/dL Blood Venous blood specimen / Unknown Historical Provider LAB BLOOD ORDERABLES Cande l Result * Depression Screening (03/25/2024) Pathologist [facility] Depression Screening Abstracted [facility] Provider HEALTH MAINTENANCE Final Result * Colonoscopy (06/13/2023) [facility] Colonoscopy No interpretation , abstracted Anatomical Region Laterality Modality Other [facility] Provider HEALTH MAINTENANCE Final Result * Cervical Cancer Screening: HPV (09/07/2020) [facility] Cervical Cancer Screening: HPV Negative, abstracted [facility] Provider HEALTH MAINTENANCE Final Result * HIV Screening (07/25/2013) [facility] HIV Screening Abstracted [facility] Provider HEALTH MAINTENANCE Final Result * Hepatitis C Screening (07/25/2013) [facility] Hepatitis C Screening Abstracted [facility] Provider HEALTH MAINTENANCE Final Result from Last 3 Months or Most Recently Relevant to Health Maintenance Insurance [facility] Care Teams Rotary Driller Helper Relationship Specialty Start Date End Date Christina Mora MD [address] [place] [id number] PCP - General Internal Medicine 06/03/24
--- OUTSIDE RECORDS SUMMARY | 2024-11-26 16:07 | XMS_ITS | Clinical Summary ---
Author Organization [employer] [facility] Address [address] [facility] [address] [place] [address] Care Team Providers Care Progressive Die Maker Name Role Phone Unavailable Primary Care [...] Encounters Date Type Department Care Team Description 11/18/2024 8:00 AM EDT [facility] [address] [place] [address] Mary Forte, DDS 11/13/2024 3:00 PM EDT Office Visit [facility] [address] [place] [address] Mary Forte, DDS 10/22/2024 3:00 PM EDT Office Visit [facility] [address] [place] [address] Aliya Dorantes from Last 3 Months Social [...] Sign Reading Time Taken Comments Blood Pressure 126/78 11/18/2024 8:08 AM EDT Pulse 65 02/18/2024 1:56 PM EDT Temperature - - Respiratory Rate - - Oxygen Saturation - - Inhaled Oxygen Concentration - - Weight - - Height - - Body Mass Index - - Plan of Treatment Upcoming Encounters Date Type Department Care Team (Late st Contact Info) Description 04/23/2025 3:00 PM EDT Office Visit [facility] [address] [place] [address] Aliya Dorantes Health Maintenance Due Date Last [...] 10/22/2024, 0 02/18/2024, 07/13/2023, Additional history exists Dental X-Ray: Bitewings 10/23/2025 10/23/19, 06/18/2024, 03/21/2024, Additional history exists Tobacco Screening 11/18/2025 11/18/2024 DTaP/Tdap/Td Vaccines (2 - Td or Tdap) [...] Procedure Name Priority Date/Time Associated Diagnosis Comments 17 O RESIN-BASED COMPOSITE - 1 SURF, POSTERIOR Routine 11/18/2024 8:00 AM EDT 5 MOD RESIN-BASED COMPOSITE - 3 SURF, POSTERIOR Routine 11/13/2024 3:00 PM EDT 30 B(V) RESIN-BASED COMPOSITE - 1 SURF, POSTERIOR Routine 11/13/2024 3:00 PM EDT PERIODIC ORAL EVALUATION - ESTABLISHED PATIENT Routine 10/22/2024 3:00 PM EDT INTRAORAL - COMPLETE SERIES OF RADIOGRAPHIC IMAGES Routine 10/22/2024 3:00 PM EDT ORAL HYGIENE INSTRUCTIONS Routine 2024 3:00 PM EDT CASE PRESENTATION, DETAILED AND EXTENSIVE TREATMENT PLANNING Routine 10/22/2024 3:00 PM EDT PROPHYLAXIS - ADULT Routine 10/22/2024 3 :00 PM EDT from Last 3 Months Insurance [facility] D[facility] - [facility] PARTIAL (MEDICAID)
--- OUTSIDE RECORDS SUMMARY | 2024-11-26 16:07 | XMS_ITS | Encounter Summary ---
Author Organization [facility] [employer] [facility] Address [address] [facility] [address] [place] [address] Care Team Providers Care Supervisor Stripping Name Role Phone Unavailable Primary Care Provider Unavailabl e Encounter Details Date Type Department Care Team (Latest Contact Info) Description 06/27/[address] [facility] CONVERSIONS Dental, Provider, DDS Social History [...] Description 04/23/2025 3:00 PM EDT Office Visit [facility] ADULT DENTAL [address] [place] [address] Aliya Dorantes documented as of this encounter Visit Diagnoses Not on filedocumented in this encounter
--- OUTSIDE RECORDS SUMMARY | 2024-11-26 16:07 | XMS_ITS | Encounter Summary ---
Author Organization [facility] [employer] [facility] Address [address] [facility] [address] [place] [address] Care Team Providers Care Cap Sizer Name Role Phone Unavailable Primary Care Provider Unavailabl e Encounter Details Date Type Department Care Team (Latest Contact Info) Description 11/03/2020 Abstract [facility] CONVERSIONS Dental, Provider, DDS Social History [...] Description 04/23/2025 3:00 PM EDT Office Visit [facility] ADULT DENTAL [address] [place] [address] Aliya Dorantes documented as of this encounter Visit Diagnoses Not on filedocumented in this encounter
--- OUTSIDE RECORDS SUMMARY | 2024-11-26 16:07 | XMS_ITS | Data Portability ---
Author Organization SHERRY Sinclair s, [address] Address [address] [place] [address] Care Team Providers Care Lance Crewmember/Mlrs Sergeant Name Role Phone [facility] Prim ciara Care Provider Assessment No assessment recorded. Plan of Treatment Reminders Order Date Submit Date Provider Last Modified By Organization Details Last Modified Time Details Appointments None recorded. Lab rapid strep group A, throat 2022 023 [place] [id number] [facility], [address] [place] [address], [address], 3 13:59:40 rapid SARS CoV 2 Ag, QL IA, respiratory specimen 2022 023 [place] [address] [facility], [address] [place] [address], [address], 3 13:59:40 Referral None recorded. Procedures None recorded. Surgeries None recorded. Imaging None recorded. Medication Orders amoxicillin 875 mg tablet 2022 023 [facility]/Pharmacy #2339, [address] [place], [address], 3 13:59:43 Allergy Relief (fluticason e) 50 mcg/actuati on nasal spray,suspe nsion 2022 023 [facility]/Pharmacy #2339, [address] [place], [address], 3 13:59:43 fexofenadin e-pseudoeph edrine ER 180 mg-240 mg tablet,ext. release 24 hr 2022 023 [facility]/Pharmacy #2339, [address] [facility], [place], [address], 13:59:42 Patient TargetsNo targets recorded. Patient Instructions Encounter Date Encounter Id Patient Instructions Last Modified By Organization Details Last Modified Time 01/09/2023 [id number] Acute Sinusitis: Care Instructions [email or web address] Not available 01/09/2023 13:59:40 Reason for Referral None Reported. Results Created Date Observation Date Name Description Value Unit Range Abnormal Flag Note LastModifiedBy Organization Detail LastModifiedTime 01/10/2001/09/2023 rapid SARS CoV 2 Ag, QL IA, respi rator y speci men Unknown Analyte Normal =Negat cari Not Available [address], [address], 01/09/2023 13:58:30 01/10/2001/09/2023 rapid SARS CoV 2 Ag, QL IA, respi rator y speci men Unknown Analyte negati ve Not Available [address], [address], 01/09/2023 13:58:30 01/10/20 23 01/09/2023 rapid strep group A, throa t Unknown Analyte Normal = Negati ve Not Available [address] [place] [address], [phone], 01/09/2023 13:58:29 01/10/20 23 01/09/2023 rapid strep group A, throa t Unknown Analyte negati ve Not Available [address] [place] [address], [address], 01/09/2023 13:58:29 Result Notes None recorded. Problems Name Problem SNOMED Code Status Onset Date Resolution Date Notes Provider Name and Address Organization Details Recorded Time Irritable bowel syndrome 22065528 Active 023 Kitty Sintia mendes PA - [facility] 13:11:17 Problem Notes None recorded. Medical [...] ) 50 mcg/actuatio n nasal spray,suspen sera [place] 1 spray every day by intranasal route [...] Updated DateTime 3 160.02 cm 31.5 kg/m2 87011.4 4 g 8 18 /min 98 % 98 % 76 /min 97.6 [degF] 90 mm[Hg] 51 mm[Hg] Kitty Packsofie PA [facility] 3 13:13:17 Social History Question Answer [...] SNOMED-CT Code Diagnosis ICD10 Code Diagnosis Note [id number] [facility] [address] [place] [address] 11/11/2020 13:15:47 11/11/2020 14:32:05 [id number] [facility] [address] [place] [address] 05/12/2022 08:04:24 05/12/2022 08:54:03 [id number] [facility] [address] [place] [address] 11/01/2020 11:00:14 11/01/2020 12:54:15 [id number] [facility] [address] [place] [address] 12/20/2020 16:18:42 12/20/2020 17:40:32 [id number] Catherine Bailey MD [address] [address] [place] [address] 01/09/2023 13:03:56 01/09/2023 14:01:19 Acute sinusitis [id number] J01.90 - Use the medication s prescribed [...] Sanchez Member ID Guarantor Name 11/01/[address] [facility] (MEDICAID REPLACEMENT - HMO) [place] Adri Rhoades [id number] Adri Rhoades 11/11/[address] [facility] (MEDICAID REPLACEMENT - HMO) [place] Adri Rhoades [id number] Adri Rhoades 12/20/[address] [facility] (MEDICAID REPLACEMENT - HMO) [place] Adri Rhoades [id number] Adri Rhoades 05/12/[address] [facility] (MEDICAID REPLACEMENT - HMO) [place] Adri Rhoades [id number] Adri Rhoades 01/09/[address] [facility] (MEDICAID REPLACEMENT - HMO) [place] Adri Rhoades [id number] Adri Rhoades Notes Date Note Type Note Provider Name and Address Organization Details Recorded Time 01/09/2023 text/html Sore throatRepor gail bypatient.Location:t hroat Severity:moderate Quality:hurts to swallow Associated Symptoms:sore throat;coughing;sinu s pain/ congestion Context:no sick contacts; no foreign travel; non-smoker Catherine Bailey MD [address] [place], [address], [place] - [facility] 01/09/2023 14:22:09 OBGyn Episode No OBEpisode recorded.
--- OUTSIDE RECORDS SUMMARY | 2024-11-26 16:07 | XMS_ITS | Encounter Summary ---
Author Organization Formerly [facility], [facility] Address [address] 7[address] [place] [address] Care Team Providers Care Maintenance Planning Clerk Name Role Phone Unavailable Primary Care Provider Unavailabl e Encounter Details Date Type Department Care Team (Latest Contact Info) Description 10/09/2018 Abstract [facility] CONVERSIONS Dental, Provider, DDS Social History Tobacco [...] Description 04/23/2025 3:00 PM EDT Office Visit [facility] [address] [place] [address] Aliya Dorantes documented as of this encounter Visit Diagnoses Not on filedocumented in this encounter
== END 2024-11-26 15:27 | disposition home or self-care (01) ==
LOC: HO.PMC 15:00
PROVIDERS: PCP Internal Medicine; Visit Provider Anesthesiology
DX: M17.11 Unilateral primary osteoarthritis, right knee (principal)
CPT/HCPCS: 20610

== ENCOUNTER → 2024-11-26 14:59 | Outpatient (BNVA) | payer OTHER, SELFPAY | PROVIDERS: PCP Internal Medicine; Visit Provider Anesthesiology | DX: M17.11 Unilateral primary osteoarthritis, right knee (principal); M53.3 Sacrococcygeal disorders, not elsewhere classified; M46.1 Sacroiliitis, not elsewhere classified; M51.16 Intervertebral disc disorders with radiculopathy, lumbar region; M54.51 Vertebrogenic low back pain | CPT/HCPCS: 20610; 99212; J3300 ==

== ENCOUNTER 2024-12-31 14:53 | Outpatient (AMB) | payer OTHER, SELFPAY ==
--- NOTE | 2024-12-31 14:56 | MHC.OFFVIS ---
Vital Signs 12/31/24 14:58 Weight 189 lb BP 117/71 Blood Pressure Location Lt brachial Position Sitting Respiration 20 Pulse 63 Pulse Source Pulse Oximeter Pulse Oximetry (%) 100 Oxygen Delivery Method Room Air Intake Visit Reasons: 1 month fu Supervisor Power Reactor Required: No Allergies No Known Allergies Allergy (Mild, Verified 12/31/24 14:56) N/A HPI Comments Details: Adri is back in my office after therapeutic right knee steroid injection. She reports excellent pain relief. She reports that her ability to exercise improved. She is riding mountain bicycle in town. I recommended her to consider stationary recliner bicycle instead of mind on bicycle on the roads to avoid trauma, and avoid impact. Patient agreed. She is still feeling good about sacroiliac joint injection which was performed on 06/17/2024. That was diagnostic injection. She will make an appointment if anything will change. Prior: complains on pain in the right lower back with radiation to the right lower extremity to the level of lateral hip and lateral macdonald on the right. Pain started on about 8 months ago she reported that pain is related to an accident in the gym. sitting aggravates her pain the most. Flexing forward aggravates her pain as well. 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 She had an MRI and x-ray of the lumbar spine performed on the order Dr. Jimenez, the results are dictated as below. In my opinion they are unimpressive and do not explain the pain of this patient. She was attending physical therapy she had for times physical therapy 8 sessions each time and she performed home exercise program as well. 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 Review of Systems Const All systems reviewed & are unremarkable except as noted in HPI and below ENT Reports Normal hearing present Neuro Reports Normal hearing present, Denies Abnormal speech present, Denies confusion and Denies Sensory deficit (Neuro) Psych Denies confusion Physical Exam Vital Signs: Last Vital Signs Pulse 63 12/31/24 14:58 Resp 20 12/31/24 14:58 BP 117/71 12/31/24 14:58 Pulse Ox 100 12/31/24 14:58 Oxygen Delivery Method Room Air 12/31/24 14:58 Const General: no acute distress; No confusion Orientation/consciousness: patient oriented x3 and No confusion Eyes General: appearance normal, both eyes and all related structures Pupils: Equal, round and reactive pupils present EOM: EOMs intact bilaterally Neck Neck: Yes full ROM Chest Chest palpation & inspection: normal inspection of the chest Resp Effort & Inspection: normal respiratory effort, able to speak in complete sentences, normal respiratory pattern, no audible wheezes and no cough Cardio Jugular venous distension: no JVD GI Inspection: Yes normal to inspection Back/Spine/Pelvis Other: The patient is able to stand on bilateral tiptoes in bilateral heels without any difficulty. She is able to lift the great toe in separation of the rest of the toes bilaterally. This demonstrates normal function bilaterally of L4-5 and S1 nerve roots. SLR is negative bilaterally. Heath test is positive on the right, Gaenslen test is positive on the right, pelvic distraction test is positive on the right. Flexing forward and flexing backwards aggravate her pain however flexing forward aggravate her pain much more than flexing backwards. There is no tenderness on palpation in paraspinal spinal region of the lumbar spine however there is severe tenderness on palpation in projection of the sacroiliac joint. Neuro General: patient oriented x3, gait normal and No confusion Cranial nerves: Yes CN's II-XII intact bilaterally, Yes Equal, round and reactive pupils present, Yes Normal hearing present and Yes Ability to bilaterally elevate shoulders present Speech: No Abnormal speech present Gait exam (Neuro): Normal gait present Motor exam (neuro): 5/5 motor strength present throughout Sensory Exam: No Sensory deficit (Neuro) Extrem General: No pedal edema Psych Speech and movement: Normal speech and movement present Affect: normal affect Attitude: cooperative Thought process: Normal thought process present Thought content: Normal thought content present Insight: Good insight present (Psych) Judgement: Good judgement present (Psych) Assessment & Plan Assessment & Plan (1) Arthritis of right knee: Code(s): M17.11 - Unilateral primary osteoarthritis, right knee Category: Medical (2) Sacroiliac joint dysfunction of right side: Code(s): M53.3 - Sacrococcygeal disorders, not elsewhere classified Category: Medical (3) Sacroiliitis: Code(s): M46.1 - Sacroiliitis, not elsewhere classified Category: Medical Plan: (4) Lumbar disc herniation with radiculopathy: Code(s): M51.16 - Intervertebral disc disorders with radiculopathy, lumbar region Category: Medical (5) Vertebrogenic low back pain: Code(s): M54.51 - Vertebrogenic low back pain Category: Medical Plan On physical exam right sacroiliitis is suspected. On the MRI there were subtle Modic type 1 changes at L5 and S1 vertebra. The rest of the vertebras are unremarkable. She went for the CT scan of the pelvis and pelvis CT was unremarkable demonstrating no pathology. Diagnostic sacroiliac joint injection resulted in very profound pain improvement during the 1st 6 hours after the procedure. She still reports pain improvement after the injection. She also reports very good pain relief after the therapeutic intra-articular injection of the steroid into the right knee. 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 She fell on her knees. Now she started to exercise with her bicycle. I recommended recliner stationary bicycle set of the bicycle on the road. I will see this patient next time as needed. Coding Level of Care Code Est Pt Level 3 (85928) Diagnoses Arthritis of right knee M17.11 Sacroiliac joint dysfunction of right side M53.3 Sacroiliitis M46.1 Lumbar disc herniation with radiculopathy M51.16 Vertebrogenic low back pain M54.51
[2024-12-31 14:58] VITALS: BP 117/71; PULSE 63; RESP 20; O2SAT 100
--- OUTSIDE RECORDS SUMMARY | 2024-12-31 14:59 | XMS_ITS | Data Portability ---
Author Organization SHERRY Sinclair s, [address] Address [address] [place] [address] Care Team Providers Care Newspaper Carrier Name Role Phone [facility] Prim ciara Care Provider Assessment No assessment recorded. Plan of Treatment Reminders Order Date Submit Date Provider Last Modified By Organization Details Last Modified Time Details Appointments None recorded. Lab rapid strep group A, throat 2022 023 [place] [address] [facility], [address] [place] [address], [address], 3 13:59:40 rapid SARS CoV 2 Ag, QL IA, respiratory specimen 2022 023 [place] [address] [facility], [address] [place] [address], [address], 3 13:59:40 Referral None recorded. Procedures None recorded. Surgeries None recorded. Imaging None recorded. Medication Orders amoxicillin 875 mg tablet 2022 023 [facility]/Pharmacy #2339, [address] [place], [address], 3 13:59:43 Allergy Relief (fluticason e) 50 mcg/actuati on nasal spray,suspe nsion 2022 023 [facility]/Pharmacy #2339, [address] [place], [address], 3 13:59:43 fexofenadin e-pseudoeph edrine ER 180 mg-240 mg tablet,ext. release 24 hr 2022 023 [facility]/Pharmacy #2339, [address] [facility], [place], [address], 13:59:42 Patient TargetsNo targets recorded. Patient Instructions Encounter Date Encounter Id Patient Instructions Last Modified By Organization Details Last Modified Time 01/09/2023 [id number] Acute Sinusitis: Care Instructions [email or web address] Not available 01/09/2023 13:59:40 Reason for Referral None Reported. Results Created Date Observation Date Name Description Value Unit Range Abnormal Flag Note LastModifiedBy Organization Detail LastModifiedTime 01/10/2001/09/2023 rapid SARS CoV 2 Ag, QL IA, respi rator y speci men Unknown Analyte Normal =Negat cari Not Available [address], [address], 01/09/2023 13:58:30 01/10/2001/09/2023 rapid SARS CoV 2 Ag, QL IA, respi rator y speci men Unknown Analyte negati ve Not Available [address], [address], 01/09/2023 13:58:30 01/10/20 23 01/09/2023 rapid strep group A, throa t Unknown Analyte Normal = Negati ve Not Available [address] [place] [address], [address], 01/09/2023 13:58:29 01/10/20 23 01/09/2023 rapid strep group A, throa t Unknown Analyte negati ve Not Available [address] [place] [address], [address], 01/09/2023 13:58:29 Result Notes None recorded. Problems Name Problem SNOMED Code Status Onset Date Resolution Date Notes Provider Name and Address Organization Details Recorded Time Irritable bowel syndrome 05056553 Active 023 Kitty PackSHERRY mei [employer] [facility] 3 13:11:17 Problem Notes None recorded. Medical Equipment [...] ) 50 mcg/actuatio n nasal spray,suspen sera [place] 1 spray every day by intranasal route for 2 days. 2022 active Not Available Not Available Not Avai lable Vitals Date Recorded Body height Body mass index (BMI) Body weight Respiratory rate Oxygen saturation Oxygen saturation in Arterial blood by Pulse oximetry Heart rate Body temperature Systolic blood pressure Diastolic blood pressure Provider Name and Address Organization Details Last Updated DateTime 3 160.02 cm 31.5 kg/m2 02522.4 4 g 18 /min 98 % 98 % 76 /min 97.6 [degF] 90 mm[Hg] 51 mm[Hg] Kitty Longsav Haq [employer] [facility] 3 13:13:17 Social History Question Answer Notes LastModified by [employer] Details LastModified Time Tobacco Smoking Status Never Smoker Kitty LongSHERRY sotelo [facility] 01/09/2023 13:11:47 Have You Recently Traveled Abroad? No Information not available 01/09/2023 Sex: Unknown Functional Status Question Answer Note LastModified by [employer] Details LastModified Time Do you use any illicit or recreational drugs? No Information not available 01/09/2023 Do you or have you ever used any other forms of tobacco or nicotine? No Information not available 01/09/2023 What is your level of alcohol consumption? None Information not available 01/09/2023 Mental Status None recorded. Family History Relationship [...] SNOMED-CT Code Diagnosis ICD10 Code Diagnosis Note [id number] [facility] [facility] [address] [place] [address] 11/11/2020 13:15:47 11/11/2020 14:32:05 [id number] [facility] [address] [place] [address] 05/12/2022 08:04:24 05/12/2022 08:54:03 [id number] [facility] [address] [place] [address] 11/01/2020 11:00:14 11/01/2020 12:54:15 [id number] [facility] [address] [place] [address] 12/20/2020 16:18:42 12/20/2020 17:40:32 [id number] Catherine Bailey MD [address] [address] [place] [address] 01/09/2023 13:03:56 01/09/2023 14:01:19 Acute sinusitis [id number] J01.90 - Use the medication s prescribed [...] Recorded Advance Directives Directive None Recorded Payers Insurance Date Sequence Insurance Name Policy Number Policy Sanchez Covered Member ID Sanchez Member ID Guarantor Name 01/09/2023 1 [facility] - [employer] (MEDICAID REPLACEMENT - HMO) ELLEN Carmonaelyn Rhoades [id number] Adri Rhoades Notes Date Note Type Note Provider Name and Address Organization Details Recorded Time 01/09/2023 text/html Sore throatRepor gail bypatient.Location: hroat Severity:moderate Quality:hurts to swallow Associated Symptoms:sore throat;coughing;sinu s pain/ congestion Context:no sick contacts; no foreign travel; non-smoker Catherine Bailey MD [address] [place], [address], [place] - [facility] 01/09/2023 14:22:09 OBGyn Episode No OBEpisode recorded.
== END 2024-12-31 15:40 | disposition home or self-care (01) ==
LOC: HO.PMC 14:54
PROVIDERS: PCP Internal Medicine; Visit Provider Anesthesiology
DX: M17.11 Unilateral primary osteoarthritis, right knee (principal); M53.3 Sacrococcygeal disorders, not elsewhere classified; M46.1 Sacroiliitis, not elsewhere classified; M51.16 Intervertebral disc disorders with radiculopathy, lumbar region; M54.51 Vertebrogenic low back pain
CPT/HCPCS: 99213

== ENCOUNTER → 2024-12-31 14:53 | Outpatient (BNVA) | payer OTHER, SELFPAY | PROVIDERS: PCP Internal Medicine; Visit Provider Anesthesiology | DX: M17.11 Unilateral primary osteoarthritis, right knee (principal); M53.3 Sacrococcygeal disorders, not elsewhere classified; M46.1 Sacroiliitis, not elsewhere classified; M51.16 Intervertebral disc disorders with radiculopathy, lumbar region; M54.51 Vertebrogenic low back pain | CPT/HCPCS: 99212 ==

== ENCOUNTER 2025-01-13 14:58 | Outpatient (AMB) | payer OTHER, SELFPAY ==
[2025-01-13 15:00] VITALS: BMI 33.5
--- NOTE | 2025-01-13 15:00 | A.OFFVIS_ITS ---
Vital Signs 01/13/25 15:00 Height 5 ft 3 in Weight 189 lb BMI 33.5 Intake Visit Reasons: OV F/u RT Greater Trochanter injection Intake Note: Adri is a 54 year old female who presents today for follow up status post right greater trochanter injection administered 10/10/24.Patient states that she is still in pain, states that during the day she is fine, it's at night time when the pain really kicks in. No numbness or tingling to report at this time. Allergies No Known Allergies Allergy (Mild, Verified 01/13/25 15:11) N/A Medication List - Last Reconciled 01/13/25 by Shaye Garcia MD metoprolol tartrate 25 mg PO DAILY omega 5-ahd-bny-fish oil 1,000 (120-180) mg (Fish Oil) 1 cap PO BID HPI Comments Details: 07/18/24 - fall at home, xray for knee no fracture, good joint line. Today still having right knee pain, medial area. Right knee hurts more than left. Points to right SI joint, to buttocks, posterior thigh and knee. No pain below the knee. No numbness/tingling. I previously saw her 04/01/24. Since then she's been going to Pain Management, Dr. Recinos, for mostly SI joint pain. Had right SI joint therapeutic injection 09/02/24, which did help at all. She's also had intervention for knee pain from Dr. Recinos. On last visit, 10/10/2024, patient presented with right GT bursitis. Injection done on that same day. Now able to sleep on that side. Bursitis is now 100%. Still points to right SI joint as source of other pain. MRI showed: L5-S1: Shallow right foraminal disc protrusion and bilateral facet arthrosis. No significant spinal canal nor foraminal narrowing however the disc abuts the right exiting L5 nerve roots. 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 MSK: No specific abnormalities found on inspection of the spine and all extremities. Lumbar ROM was full. Bilateral hip, knee and ankle ROM WNL. Right SI joint tender. GT nontender. Strength is 5/5 in all muscle groups tested. No increased tone noted. Neurological: Neurologic examination of the upper and lower extremities was nonfocal with intact sensation, muscle stretch reflexes and without focal motor deficits. Babinski was down going bilaterally. Clonus was negative. Gait is non-antalgic without loss of balance. Results Reviewed Results Reviewed: Lumbar MRI reported shallow disc herniation L5-S1, images reviewed by me, very small disc herniation if any. No spinal stenosis. Assessment & Plan Assessment & Plan (1) Lumbar disc herniation with radiculopathy: Code(s): M51.16 - Intervertebral disc disorders with radiculopathy, lumbar region Category: Medical (2) Sacroiliac joint dysfunction of right side: Code(s): M53.3 - Sacrococcygeal disorders, not elsewhere classified Category: Medical Plan Right greater trochanteric bursitis improved/resolved after injection done by me last visit. Continues to have right SI joint pain, however injections have not been helpful. MRI shows question of right disc protrusion near right L5 nerve root. I sent a message to Dr. Recinos to inquire if he would consider doing a right L5 TFE. Await response. Assessment and plan discussed with patient, and patient was agreeable. All questions were answered thoroughly. Shaye Garcia MD, PEDRO PABLO Board Certified, [place] Board [employer] and Rehabilitation (ABPMR) Board Certified, [place] Board of Electrodiagnostic Medicine (ABEM) Coding Level of Care Code Est Pt Level 4 (22188) Diagnoses Lumbar disc herniation with radiculopathy M51.16 Sacroiliac joint dysfunction of right side M53.3
--- OUTSIDE RECORDS SUMMARY | 2025-01-13 17:25 | XMS_ITS | Data Portability ---
Author Organization SHERRY Sinclair s, [address] Address [address] [place] [address] Care Team Providers Care Automotive Brake Adjuster Name Role Phone [facility] Prim ciara Care Provider Assessment No assessment recorded. Plan of Treatment Reminders Order Date Submit Date Provider Last Modified By Organization Details Last Modified Time Details Appointments None recorded. Lab rapid strep group A, throat 2022 023 [place] [address] [facility], [address] [place] [address], [phone], 3 13:59:40 rapid SARS CoV 2 Ag, QL IA, respiratory specimen 2022 023 [place] [address] [facility], [address] [place] [address], [phone], 3 13:59:40 Referral None recorded. Procedures None recorded. Surgeries None recorded. Imaging None recorded. Medication Orders amoxicillin 875 mg tablet 2022 023 [facility] #[id number], [address] [place], [address], 3 13:59:43 Allergy Relief (fluticason e) 50 mcg/actuati on nasal spray,suspe nsion 2022 023 [facility] #[id number], [address] [place], [address], 3 13:59:43 fexofenadin e-pseudoeph edrine ER 180 mg-240 mg tablet,ext. release 24 hr 2022 023 [facility] #[id number], [address] [facility], [place], [address], 13:59:42 Patient TargetsNo targets recorded. Patient Instructions Encounter Date Encounter Id Patient Instructions Last Modified By Organization Details Last Modified Time 01/09/2023 [id number] Acute Sinusitis: Care Instructions [email or web address] Not available 01/09/2023 13:59:40 Reason for Referral None Reported. Results Created Date Observation Date Name Description Value Unit Range Abnormal Flag Note LastModifiedBy Organization Detail LastModifiedTime 01/10/2001/09/2023 rapid SARS CoV 2 Ag, QL IA, respi rator y speci men Unknown Analyte Normal =Negat cari Not Available [address], [address], 01/09/2023 13:58:30 01/10/2001/09/2023 rapid SARS CoV 2 Ag, QL IA, respi rator y speci men Unknown Analyte negati ve Not Available [address], [address], 01/09/2023 13:58:30 01/10/20 23 01/09/2023 rapid strep group A, throa t Unknown Analyte Normal = Negati ve Not Available [address] [place] [address], [phone], 01/09/2023 13:58:29 01/10/20 23 01/09/2023 rapid strep group A, throa t Unknown Analyte negati ve Not Available [address] [place] [address], [phone], 01/09/2023 13:58:29 Result Notes None recorded. Problems Name Problem SNOMED Code Status Onset Date Resolution Date Notes Provider Name and Address Organization Details Recorded Time Irritable bowel syndrome 98205223 Active 023 Kitty PackSHERRY mei [facility] 3 13:11:17 Problem Notes None recorded. [...] ) 50 mcg/actuatio n nasal spray,suspen sera Custer 1 spray every day by intranasal route [...] Updated DateTime 3 160.02 cm 31.5 kg/m2 74600.4 4 g 18 /min 98 % 98 % 76 /min 97.6 [degF] 90 mm[Hg] 51 mm[Hg] Kitty Longsav Haq [facility] 3 13:13:17 Social History Question Answer Notes LastModified by [employer] Details LastModified Time Tobacco Smoking Status Never Smoker Kitty LongSHERRY sotelo [facility] 01/09/2023 13:11:47 Have You Recently Traveled Abroad? No Information not available 01/09/2023 Sex: Unknown Functional Status Question Answer Note LastModified by [employer] Details LastModified Time Do you use any [...] SNOMED-CT Code Diagnosis ICD10 Code Diagnosis Note [id number] [facility] [facility] [place] [address] 11/11/2020 13:15:47 11/11/2020 14:32:05 [id number] [facility] [address] [place] [address] 05/12/2022 08:04:24 05/12/2022 08:54:03 [id number] [facility] [facility] [place] [address] 11/01/2020 11:00:14 11/01/2020 12:54:15 [id number] [facility] [address] [place] [address] 12/20/2020 16:18:42 12/20/2020 17:40:32 [id number] Catherine Bailey MD [address] [address] [place] [address] 01/09/2023 13:03:56 01/09/2023 14:01:19 Acute sinusitis [id number] J01.90 - Use the medication s prescribed [...] Sanchez Member ID Guarantor Name 01/09/2023 1 [facility] - [employer] (MEDICAID REPLACEMENT - HMO) ELLEN Carmonaelyn Rhoades [id number] Adri Rhoades Notes Date Note Type Note Provider Name and Address Organization Details Recorded Time 01/09/2023 text/html Sore throatRepor gail bypatient.Location: hroat Severity:moderate Quality:hurts to swallow Associated Symptoms:sore throat;coughing;sinu s pain/ congestion Context:no sick contacts; no foreign travel; non-smoker Catherine Bailey MD [address] [place], [address], [place] - [facility] 01/09/2023 14:22:09 OBGyn Episode No OBEpisode recorded.
== END 2025-01-13 15:25 | disposition home or self-care (01) ==
LOC: HO.HOS 14:58
PROVIDERS: PCP Internal Medicine; Visit Provider Physical Medicine & Rehabilitation
DX: M51.16 Intervertebral disc disorders with radiculopathy, lumbar region (principal); M53.3 Sacrococcygeal disorders, not elsewhere classified
CPT/HCPCS: 99214

== ENCOUNTER → 2025-01-13 14:58 | Outpatient (BNVA) | payer OTHER, SELFPAY | PROVIDERS: PCP Internal Medicine; Visit Provider Physical Medicine & Rehabilitation | DX: M51.16 Intervertebral disc disorders with radiculopathy, lumbar region (principal); M53.3 Sacrococcygeal disorders, not elsewhere classified | CPT/HCPCS: 99212 ==

== ENCOUNTER 2025-03-05 13:55 | Outpatient (REF) | payer OTHER, SELFPAY ==
--- NOTE | 2025-03-05 13:58 | EMG_ITS ---
Chief complaint: Right-sided back pain that wraps around the knee Reason for referral: Evaluate for lumbar radiculopathy versus peroneal neuropathy Procedure done: Right lower extremity NCS/EMG Precautions and/or limitations: None The limb temperature was monitored continuously and remained between 32-36 degrees C during the performance of the NCS. Nerve Conduction Studies Anti Sensory Summary Table ?Stim Site NR Onset (ms) Norm Onset (ms) Peak (ms) Norm Peak (ms) O-P Amp (?V) Norm O-P Amp Site1 Site2 Delta-0 (ms) Dist (cm) Wolf (m/s) Norm Wolf (m/s) Right Sural Anti Sensory (Lat Mall) Calf ? 3.0 3.8 <4.0 12.8 >5.0 Calf Lat Mall 3.0 14.0 47 Motor Summary Table ?Stim Site NR Onset (ms) Norm Onset (ms) O-P Amp (mV) Norm O-P Amp iAmp (mV) Amp (1st) (%) Site1 Site2 Delta-0 (ms) Dist (cm) Wolf (m/s) Norm Wolf (m/s) Right Peroneal Motor (Ext Dig Brev) Ankle ? 3.6 <4.0 7.0 >2.5 10.1 100.0 Ankle Ext Dig Brev 3.6 0.0 B Fib ? 9.5 5.7 8.2 81.4 B Fib Ankle 5.9 30.0 51 >40 Poplt ? 10.3 6.4 9.0 91.4 Poplt B Fib 0.8 5.0 62 >40 Right Tibial Motor (Abd Hooper Brev) Ankle ? 3.4 <5 10.9 >2.5 14.6 100.0 Ankle Abd Hooper Brev 3.4 0.0 Knee ? 10.1 7.3 9.8 67.0 Knee Ankle 6.7 33.0 49 >40 EMG ?Side Muscle Nerve Root Ins Act Fibs Psw Amp Dur Poly Recrt Int Pat Comment Right AbdHallucis MedPlantar S1-2 Nml Nml Nml Nml Nml 0 Nml Complete Right AntTibialis Dp Br Peron L4-5 Nml Nml Nml Nml Nml 0 Nml Complete Right PostTibialis Tibial L5, S1 Nml Nml Nml Nml Nml 0 Nml Complete Right MedGastroc Tibial S1-2 Nml Nml Nml Nml Nml 0 Nml Complete Right VastusMed Femoral L2-4 Nml Nml Nml Nml Nml 0 Nml Complete FINDINGS: All motor and sensory nerves tested showed normal latencies, amplitudes and conduction velocities. Concentric needle EMG was performed in selected muscles of the right lower extremity. Study did not reveal signs of electric abnormalities as shown in the table above. IMPRESSION: 1. This is a normal study. 2. There is no electrodiagnostic evidence for peroneal neuropathy, tibial neuropathy, lumbosacral plexopathy, lumbar radiculopathy, or peripheral neuropathy. Thank you for your kind referral. Shaye Garcia MD, PEDRO PABLO Board Certified, [place] Board of Physical Medicine and Rehabilitation (ABPMR) Board Certified, [place] Board of Electrodiagnostic Medicine (ABEM) [place] [id number] [facility]
--- OUTSIDE RECORDS SUMMARY | 2025-03-05 14:04 | XMS_ITS | Encounter Summary ---
Author Organization [facility] [employer] Address [address] [facility] 7t [place] [address] Care Team Providers Care Cut Out Worker Name Role Phone Unavailable Primary Care Provider Unavailabl e Encounter Details Date Type Department Care Team (Latest Contact Info) Description 06/27/2021 Abstract [facility] CONVERSIONS Dental, Provider, DDS Social History Tobacco [...] Description 04/23/2025 3:00 PM EDT Office Visit [facility] [address] [place] [address] Aliya Dorantes documented as of this encounter Visit Diagnoses Not on filedocumented in this encounter
--- OUTSIDE RECORDS SUMMARY | 2025-03-05 14:04 | XMS_ITS | Clinical Summary ---
Author Organization [facility] Address [address] [place] [address] Phone Care Team Providers Care Sheet Turner Name Role Phone Christina Mora MD Primary [...] nausea. for up to 30 days Active metoclopramide (REGLAN) 5 mg tablet Take 1 tablet (5 mg total) by mouth 4 (four) times a day (before meals and nightly). 120 each 3 02/04/20 25 026 Active metoprolol tartrate (LOPRESSOR) 25 mg tabletIndications: Palpitations,PVC (premature ventricular contraction) TAKE 1/2 TABLET BY MOUTH TWICE A DAY 90 tablet 1 02/14/20 25 Active metoprolol tartrate (LOPRESSOR) 25 mg tabletIndications: Palpitations,PVC (premature ventricular contraction) Take 1 tablet (25 mg total) by mouth 2 (two) times a day. 180 tablet 2 09/30/19 25 025 Discontinued Active Problems Problem Noted Date Diagnosed Date [...] is any evidence of for persistent pericarditis. HJoseph pylori infection 09/14/2021 Hypercholesteremia 06/23/2020 Internal hemorrhoids 07/02/2019 Diverticulitis 07/02/2019 Calcific tendinitis of right shoulder 06/18/2017 Overview (04/29/2024): Follows with orthopedic AJ (obstructive sleep apnea) 04/17/2017 Overview (04/29/2024): [facility] Home Polysomnogram: Date 04/10/2017; AHI 5, [...] Encounters Date Type Department Care Team Description 02/17/2025 Telephone Gastroenterology [facility] [address] [facility] [address] [place] [phone] Isabel Griffiths PA patient call 02/03/2025 2:40 PM EDT Office Visit Gastroenterology [facility] [address] [place] [address] Isabel Griffiths PA Gastroparesis (Primary Dx); Stenosis of renal vein from Last 3 Months Immunizations Name Administration Dates Next Due Hepatitis B (Ivdwari-P-Mrzkk , Recombivax HB-Adult) 19yo and older 01/25/2007 Hepatitis B (Recombivax HB-Dialysis) 18yo and ol steven 08/30/2006,07/31/2006 Influenza trivalent, 0.5mL, preservative free (Fluarix; FluLaval; Fluzone) ages 6mo and older (Afluria) 3 years and older 06/11/2008 PPD Test 07/31/2006 CURRENT SARS-CoV-2 COVID-19, mRNA, LNP-S, preservative free 07/06/2021 Td Tetanus diptheria (Tdvax) 7yo and older 07/31 Tdap Tetanus diptheria acell ular pertussis (Boostrix; Adacel) 7yo and older 2017 Surgical History Surgery Date Site/Laterality Comments TUBAL LIGATION PROCEDURE: HISTORICAL TUBAL LIGATION COLONOSCOPY PROCEDURE: HISTORICAL COLONOSCOPY HYSTERECTOMY 07/30/2020 - 07/29/2021 Robotic NEGIN monge, menorrhagia Medical History Medical History Date Comments [...] apnea 04/17/2017 DX:Obstr uctive sleep apnea; COMMENT: [facility] Home Polysomnogram: Date 04/10/2017; AHI 5, [...] care for your loved ones. For example, childcare provider or elderly care for an older adult? [...] Sign Reading Time Taken Comments Blood Pressure 96/58 02/03/2025 2:35 PM EDT Pulse 85 02/03/2025 2:35 PM EDT Temperature 36.2 C (97.1 F) 08/25/2024 2:51 PM EST Respiratory Rate 12 08/14/2024 8:19 AM EST Oxygen Saturation 99% 02/03/2025 2:35 PM EDT Inhaled Oxygen Concentration - - Weight 85.3 kg (188 lb) 02/03/2025 2:35 PM EDT Height 160 cm (5' 3 ) 02/03/2025 2:35 PM EDT Body Mass Index 33.3 02/03/2025 2:35 PM EDT Plan of Treatment Upcoming Encounters Date Type Department Care Team (Late st Contact Info) Description 04/01/2025 9:30 AM EDT Office Visit Adult Medicine [address] [place] [phone] Ashley Nixon PA [address] [place], [place] 04/22/2025 3:00 PM EDT Appointment Radiology Department - [address] [phone] 04/28/2025 2:55 PM EDT Office Visit [facility] - [facility] [address] [facility] 154 [place] [address] Wander Jung MD 300 [facility] access hospital [address] [place] [address] 05/07/2025 3:00 PM EDT Office Visit Gastroenterology - [place] 175 [facility] 175 [facility] [address] [place] [phone] Isabel Griffiths PA 175 [facility] 200 [place] [address] 05/15/2025 3:30 PM EDT Consult Vascular Surgery - [place] 300 [facility] 210 [place] [address] Luisito Paredes MD 300 [facility] 210 [place] [address] 07/28/2025 7:30 AM EST Office Visit Adult Medicine [facility] - [address] [phone] Christina Mora MD [address] [place] [address] Health Maintenance Due Date Last Done Comments Pneumococcal Vaccine: 50+ Years (1 of 1 - PCV) 2022 Zoster Vaccines (1 of 2) 2022 COVID-19 Vaccine (3 - 2024-25 season) 2024 07/06/2021, 06/15/2021 Depression Screening 07/30/2024 06/02/2024, 03/25/20 24 Influenza Vaccine (#1) 2025 06/11/2008 Social Influencers of Health Screening 06/02/2025 06/02/2024, [...] Procedure Name Priority Date/Time Associated Diagnosis Comments SCREENING MAMMOGRAPHY BI 2-VIEW BREAST INC CAD Routine 04/09/2024 9:37 AM EDT Encounter for screening mammogram for malignant neoplasm of breast LIPID PANEL Routine 04/01/2024 DEPRESSION SCREENING Routine 03/25/2024 COLONOSCOPY Routine 06/13/2023 HM HPV Routine 09/07/2020 HEPATITIS C SCREENING Routine 07/25/2013 HM HIV SCREENING Routine 07/25/2013 from Last 3 Months or Most Recently Relevant to Health Maintenance Results * SCREENING MAMMOGRAPHY BI 2-VIEW BREAST INC [...] interpreted with the aid of computer-aided detection. Comparison is made with 04/04/2023 and as far back as 03/26/2020. Breast parenchyma is heterogeneously dense, which may obscure small masses. No new suspicious mass, architectural distortion, or suspicious calcifications. Impression: No mammographic evidence of malignancy. BI-RADS 1 - negative [facility] [address] [place] [address] Procedure Note Brianna Null MD - 05/14/2024 [...] evidence of malignancy. BI-RADS 1 - negative [facility] [address] [place], [place] [id number] Result [facility] Christina Mora MD IMG XR PROCEDURES Final Result * (ABNORMAL) Lipid panel (04/01/2024) [facility] LDL/HDL Ratio 3 0 - 4 Triglycerides 64 0 - 150 mg/dL Cholesterol 218(A) 0 - 200 mg/dL HDL 69 >=40 mg/dL LDL Cholesterol 137(A) 0 - 100 mg/dL Blood Venous blood specimen / Unknown Result [facility] Provider LAB BLOOD ORDERABLES Cande l Result * Depression Screening (03/25/2024) [facility] Depression Screening Abstracted Result [facility] Provider HEALTH MAINTENANCE Final Result * Colonoscopy (06/13/2023) [facility] Colonoscopy No interpretation , abstracted Anatomical Region Laterality Modality Other Result [facility] Provider HEALTH MAINTENANCE Final Result * Cervical Cancer Screening: HPV (09/07/2020) [facility] Cervical Cancer Screening: HPV Negative, abstracted Result [facility] Provider HEALTH MAINTENANCE Final Result * HIV Screening (07/25/2013) [facility] HIV Screening Abstracted Result [facility] Provider HEALTH MAINTENANCE Final Result * Hepatitis C Screening (07/25/2013) [facility] Hepatitis C Screening Abstracted Result [facility] Provider HEALTH MAINTENANCE Final Result from Last 3 Months or Most Recently Relevant to Health Maintenance Insurance [facility] Care Teams Sheet Turner Relationship Specialty Start Date End Date Christina Mora MD [address] [place] [id number] PCP - General Internal Medicine 06/03/24
--- OUTSIDE RECORDS SUMMARY | 2025-03-05 14:04 | XMS_ITS ---
Author Name [facility] Organization Unknown Care Team Organization Name Specialty Phone Email Start Date End Da te [facility] Bailee Perdomo Primary Care 06/06/20222023
== END 2025-03-05 13:56 | disposition home or self-care (01) ==
LOC: HO.NEURO 13:55
PROVIDERS: PCP Internal Medicine; Visit Provider Physical Medicine & Rehabilitation
DX: M79.604 Pain in right leg (principal); M54.16 Radiculopathy, lumbar region
CPT/HCPCS: 95886; 95909

== ENCOUNTER → 2025-03-05 13:58 | Outpatient (BNV) | payer OTHER, SELFPAY | PROVIDERS: PCP Internal Medicine; Visit Provider Physical Medicine & Rehabilitation | DX: M54.9 Dorsalgia, unspecified (principal) | CPT/HCPCS: 95886; 95909 ==

== ENCOUNTER 2025-03-19 13:51 | Outpatient (AMB) | payer OTHER, SELFPAY ==
[2025-03-19 13:59] VITALS: BP 105/59; PULSE 62; RESP 18; O2SAT 98
--- NOTE | 2025-03-19 13:59 | MHC.OFFVIS ---
Vital Signs 03/19/25 13:59 Weight 190 lb BP 105/59 L Blood Pressure Location Lt brachial Position Sitting Respiration 18 Pulse 62 Pulse Source Pulse Oximeter Pulse Oximetry (%) 98 Oxygen Delivery Method Room Air Intake Visit Reasons: EMG FOLLOW UP Fuse Spooler Required: No Allergies No Known Allergies Allergy (Mild, Verified 03/19/25 13:59) N/A HPI Comments Details: Adri is back in my office discuss pain in the right knee. She reports that this condition started after trauma she fell on her knees. She went for EMG and EMG reports was completely negative no radiculopathy no plexopathy no peripheral neuropathy. It is just radiation of the pain from the knee. I recommended her to improve strength of the inner and posterior muscles of the right knee. I recommended her wreath and garland maker hand exercises. We performed in the past less than 3 months ago intra-articular knee steroid injection. She reported excellent pain relief after this procedure. However now the pain is back I explained to the patient that I would prefer to wait for at least 4-8 weeks before I will consider repeating injection of the steroids into her right knee. I discussed this with the patient. I also explained to her that possibility exists of treating the inflammation in her knee with PRP injection. At this time patient can not afford it. We will schedule appointment with me in 3 months and we will discuss things further. Prior: complains on pain in the right lower back with radiation to the right lower extremity to the level of lateral hip and lateral macdonald on the right. Pain started on about 8 months ago she reported that pain is related to an accident in the gym. sitting aggravates her pain the most. Flexing forward aggravates her pain as well. 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 She had an MRI and x-ray of the lumbar spine performed on the order Dr. Jimenez, the results are dictated as below. In my opinion they are unimpressive and do not explain the pain of this patient. She was attending physical therapy she had for times physical therapy 8 sessions each time and she performed home exercise program as well. 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 Review of Systems Const All systems reviewed & are unremarkable except as noted in HPI and below ENT Reports Normal hearing present Neuro Reports Normal hearing present, Denies Abnormal speech present, Denies confusion and Denies Sensory deficit (Neuro) Psych Denies confusion Physical Exam Vital Signs: Last Vital Signs Pulse 62 03/19/25 13:59 Resp 18 03/19/25 13:59 BP 105/59 L 03/19/25 13:59 Pulse Ox 98 03/19/25 13:59 Oxygen Delivery Method Room Air 03/19/25 13:59 Const General: no acute distress; No confusion Orientation/consciousness: patient oriented x3 and No confusion Eyes General: appearance normal, both eyes and all related structures Pupils: Equal, round and reactive pupils present EOM: EOMs intact bilaterally Neck Neck: Yes full ROM Chest Chest palpation & inspection: normal inspection of the chest Resp Effort & Inspection: normal respiratory effort, able to speak in complete sentences, normal respiratory pattern, no audible wheezes and no cough Cardio Jugular venous distension: no JVD GI Inspection: Yes normal to inspection Back/Spine/Pelvis Other: The patient is able to stand on bilateral tiptoes in bilateral heels without any difficulty. She is able to lift the great toe in separation of the rest of the toes bilaterally. This demonstrates normal function bilaterally of L4-5 and S1 nerve roots. SLR is negative bilaterally. Heath test is positive on the right, Gaenslen test is positive on the right, pelvic distraction test is positive on the right. Flexing forward and flexing backwards aggravate her pain however flexing forward aggravate her pain much more than flexing backwards. There is no tenderness on palpation in paraspinal spinal region of the lumbar spine however there is severe tenderness on palpation in projection of the sacroiliac joint. Neuro General: patient oriented x3, gait normal and No confusion Cranial nerves: Yes CN's II-XII intact bilaterally, Yes Equal, round and reactive pupils present, Yes Normal hearing present and Yes Ability to bilaterally elevate shoulders present Speech: No Abnormal speech present Gait exam (Neuro): Normal gait present Motor exam (neuro): 5/5 motor strength present throughout Sensory Exam: No Sensory deficit (Neuro) Extrem General: No pedal edema Psych Speech and movement: Normal speech and movement present Affect: normal affect Attitude: cooperative Thought process: Normal thought process present Thought content: Normal thought content present Insight: Good insight present (Psych) Judgement: Good judgement present (Psych) Results Reviewed Results Reviewed: Ordering Physician: Jaye Smith Date of Service: 07/20/24 Procedure(s): XR knee RT 4V Accession Number(s): [id number] cc: Jaye Smith; Christina Cha MD~ EXAMINATION: XR KNEE, BILATERAL CLINICAL INFORMATION: Pain COMPARISON: None available. TECHNIQUE: 4 views of each knee FINDINGS: No acute visible fracture or dislocation. Joint space and alignment are maintained. Small bilateral knee joint effusions, right greater than left. Soft tissues are unremarkable. XR/XR knee RT 4V IMPRESSION: 1. No acute visible fracture or dislocation. 2. Small bilateral knee joint effusions, right greater than left. Electronically signed by: Neida Nieto MD 07/20/2024 11:27 AM [facility] [employer] Assessment & Plan Assessment & Plan (1) Arthritis of right knee: Code(s): M17.11 - Unilateral primary osteoarthritis, right knee Category: Medical (2) Sacroiliac joint dysfunction of right side: Code(s): M53.3 - Sacrococcygeal disorders, not elsewhere classified Category: Medical (3) Sacroiliitis: Code(s): M46.1 - Sacroiliitis, not elsewhere classified Category: Medical Plan: (4) Lumbar disc herniation with radiculopathy: Code(s): M51.16 - Intervertebral disc disorders with radiculopathy, lumbar region Category: Medical (5) Vertebrogenic low back pain: Code(s): M54.51 - Vertebrogenic low back pain Category: Medical Plan On the MRI there were subtle Modic type 1 changes at L5 and S1 vertebra. The rest of the vertebras are unremarkable. She went for the CT scan of the pelvis and pelvis CT was unremarkable demonstrating no pathology. Diagnostic sacroiliac joint injection resulted in very profound pain improvement during the 1st 6 hours after the procedure. She still reports pain improvement after the injection. She is here today to discuss injection of the steroids into the right knee. EMG is completely negative as above. I would prefer to wait little bit longer. I will schedule her for an appointment in 3 months. PRP was discussed. See as above. Steroid injections explained to the patient. She will continue knee bracing. She will perform commended exercises to improve strength of the muscles of the right thigh. Coding Level of Care Code Est Pt Level 3 (59565) Diagnoses Arthritis of right knee M17.11 Sacroiliac joint dysfunction of right side M53.3 Sacroiliitis M46.1 Lumbar disc herniation with radiculopathy M51.16 Vertebrogenic low back pain M54.51
--- OUTSIDE RECORDS SUMMARY | 2025-03-19 13:59 | XMS_ITS | Clinical Summary ---
Author Organization [facility] Address [address] [place] [address] Phone Care Team Providers Care Diesel Technology Instructor Name Role Phone Christina Mora MD Primary [...] if needed (taken as needed per pt). 4 Active ondansetron ODT (ZOFRAN-ODT) 4 mg disintegrating tablet Dissolve 1 tablet (4 mg total) on top of the tongue every 8 (eight) hours if needed for nausea. for up to 30 days Active metoclopramide (REGLAN) 5 mg tablet Take 1 tablet (5 mg total) by mouth 4 (four) times a day (before meals and nightly). 120 each 3 5 02/04/20 26 Active metoprolol tartrate (LOPRESSOR) 25 mg tabletIndications:P alpitations,PVC (premature ventricular contraction) TAKE 1/2 TABLET BY MOUTH TWICE A DAY 90 tablet 1 5 Active Active Problems Problem Noted Date [...] AJ (obstructive sleep apnea) 04/17/2017 Overview (04/29/2024): [facility] Home Polysomnogram: Date 04/10/2017; AHI [...] Department Care Team Description 02/17/2025 Telephone Gastroenterology [facility] [address] [phone] Isabel Griffiths PA patient call 02/03/2025 2:40 PM EDT Office Visit Gastroenterology [facility] [address] [address] Isabel Griffiths PA Gastroparesis (Primary Dx); Stenosis of renal vein from Last 3 Months Immunizations Name Administration Dates Next Due Hepatitis B (Ecbjzip-N-Pvfwf , Recombivax HB-Adult) 19yo and older 01/25/2007 Hepatitis B (Recombivax HB-Dialysis) 18yo and ol steven 08/30/2006,07/31/2006 Influenza trivalent, 0.5mL, preservative free (Fluarix; FluLaval; Fluzone) ages 6mo and older (Afluria) 3 years and older 06/11/2008 PPD Test 07/31/2006 [employer] SARS-CoV-2 COVID-19, mRNA, LNP-S, preservative free 07/06/2021 Td Tetanus diptheria (Tdvax) 7yo and older 07/31 Tdap Tetanus diptheria acell ular pertussis (Boostrix; Adacel) 7yo and older 2017 Surgical History Surgery Date Site/Laterality Comments TUBAL LIGATION PROCEDURE: HISTORICAL TUBAL LIGATION COLONOSCOPY PROCEDURE: HISTORICAL COLONOSCOPY HYSTERECTOMY 07/30/2020 - 07/29/2021 Robotic hyst, BS- Марияsteiner, menorrhagia Medical History Medical History Date Comments [...] care for your loved ones. For example, special needs child caregiver or elderly care for an older adult? [...] 9:30 AM EDT Office Visit Adult Medicine [facility] [address] [place] [address] Ashley Nixon PA [address] [place] [address] 04/22/2025 3:00 PM EDT Appointment Radiology Department - [address] [phone] 04/28/2025 2:55 PM EDT Office Visit [facility] - [facility] 154 300 [facility] 154 [place] [address] Wander Jung MD 300 [facility] 154 [place] [address] 05/07/2025 3:00 PM EDT Office Visit Gastroenterology - [place] 175 [facility] [address] [facility] [place] [phone] Isabel Griffiths PA 175 [facility] 200 [place] [address] 05/15/2025 3:30 PM EDT Consult Vascular Surgery - [place] [address] [place] [address] Luisito Paredes MD 300 [facility] 210 [place] [address] 07/28/2025 7:30 AM EST Office Visit [facility] - [address] [phone] Christina Mora MD [address] [place] [address] Health Maintenance Due Date Last Done Comments Pneumococcal Vaccine: 50+ Years (1 of 1 - PCV) 2022 Zoster Vaccines (1 of 2) 2022 COVID-19 Vaccine (3 - 2023- season) 2024 07/06/2021, 06/15/2021 Depression Screening 07/30/2024 [...] evidence of malignancy. BI-RADS 1 - negative [address] [id number] Procedure Note Brianna Null MD - 05/14/2024 [...] evidence of malignancy. BI-RADS 1 - negative [address] [address] Christina Mora MD IMG XR PROCEDURES Final Result * (ABNORMAL) Lipid panel (04/01/2024) [facility] LDL/HDL Ratio 3 0 - 4 Triglycerides 64 0 - 150 mg/dL Cholesterol 218(A) 0 - 200 mg/dL HDL 69 >=40 mg/dL LDL Cholesterol 137(A) 0 - 100 mg/dL Blood Venous blood specimen / Unknown Result [facility] Provider LAB BLOOD ORDERABLES Cande l Result * Depression Screening (03/25/2024) [facility] Depression Screening Abstracted Result [facility] Provider HEALTH MAINTENANCE Final Result * Colonoscopy (06/13/2023) [facility] Colonoscopy No interpretation , abstracted Anatomical Region Laterality Modality Other Result [facility] Provider HEALTH MAINTENANCE Final Result * Cervical Cancer Screening: HPV (09/07/2020) [facility] Cervical Cancer Screening: HPV Negative, abstracted Result [facility] Provider HEALTH MAINTENANCE Final Result * HIV Screening (07/25/2013) [facility] HIV Screening Abstracted [place] [facility] Provider HEALTH MAINTENANCE Final Result * Hepatitis C Screening (07/25/2013) [facility] Hepatitis C Screening Abstracted Result [facility] Historical Provider HEALTH MAINTENANCE Final Result from Last 3 Months or Most Recently Relevant to Health Maintenance Insurance [facility] Care Teams Diesel Technology Instructor Relationship Specialty Start Date End Date Christina Mora MD [address] [place] [phone] PCP - General Internal Medicine 06/03/24
--- OUTSIDE RECORDS SUMMARY | 2025-03-19 13:59 | XMS_ITS | Encounter Summary ---
Author Organization [facility] [employer] Address [address] [facility] 7t [place] [address] Care Team Providers Care Rental Car Deliverer Name Role Phone Unavailable Primary Care Provider Unavailabl e Encounter Details Date Type Department Care Team (Latest Contact Info) Description 06/27/2021 Abstract [facility] CONVERSIONS Dental, Provider, DDS Social History [...] Description 04/23/2025 3:00 PM EDT Office Visit [facility]ULT DENTAL [address] [place] [address] Aliya Dorantes documented as of this encounter Visit Diagnoses Not on filedocumented in this encounter
== END 2025-03-19 14:37 | disposition home or self-care (01) ==
LOC: HO.PMC 13:52
PROVIDERS: PCP Internal Medicine; Visit Provider Anesthesiology
DX: M17.11 Unilateral primary osteoarthritis, right knee (principal); M53.3 Sacrococcygeal disorders, not elsewhere classified; M46.1 Sacroiliitis, not elsewhere classified; M51.16 Intervertebral disc disorders with radiculopathy, lumbar region; M54.51 Vertebrogenic low back pain
CPT/HCPCS: 99213

== ENCOUNTER → 2025-03-19 13:51 | Outpatient (BNVA) | payer OTHER, SELFPAY | PROVIDERS: PCP Internal Medicine; Visit Provider Anesthesiology | DX: M17.11 Unilateral primary osteoarthritis, right knee (principal); M53.3 Sacrococcygeal disorders, not elsewhere classified; M46.1 Sacroiliitis, not elsewhere classified; M51.16 Intervertebral disc disorders with radiculopathy, lumbar region; M54.51 Vertebrogenic low back pain | CPT/HCPCS: 99212 ==

== ENCOUNTER 2025-05-22 13:28 | Emergency (ER) | payer OTHER, SELFPAY ==
--- NOTE | 2025-05-22 14:09 | ED.GENADULT ---
HPI - General Adult General Chief complaint: Headache Stated complaint: Dizziness Headache Time Seen by Provider: 05/22/25 15:02 Related Data Home Medications ?Medication ?Instructions ?Recorded ?Confirmed metoprolol tartrate 25 mg tablet 25 mg PO DAILY 04/24/24 01/13/25 omega 5-ugk-koy-fish oil 1,000 mg 1 cap PO BID 10/10/24 01/13/25 (120 mg-180 mg) capsule (Fish Oil) Allergies Allergy/AdvReac Type Severity Reaction Status Date / Time No Known Allergies Allergy Mild N/A Verified 05/22/25 14:12 [facility] Past Medical History Medical History Chronic constipation Diverticulitis Social History Social History Alcohol intake: never Patient Tobacco Use Status: Never used Tobacco Advance Directives: No Advance Directives Information Provided: No 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 Deferred additional HPI, ROS, PE to primary provider. 54 yo female with history of vertigo here with complaints of dizziness with waking this morning, feels different then her typical vertigo at 550am. This is associated with nausea/vomiting, headache. Will obtain labs, UA, EKG. VSS Medical Decision Making Lab Data 05/22/25 14:23 05/22/25 14:23 Labs: Lab Results 05/22/25 Range/Units 14:23 WBC 6.6 (4.8-10.8) X10*3/uL RBC 5.02 (4.20-5.50) X10*6/uL Hgb 14.4 (12.0-16.0) g/dl Hct 43.8 (37.0-47.0) % MCV 87.3 (80.0-98.0) fL MCH 28.7 (27.0-33.0) pg MCHC 32.9 (31.0-35.0) g/dl RDW 13.9 (11.0-16.0) % Plt Count 220 (160-400) X10*3/uL MPV 10.2 (9.4-12.3) fL Immature Gran % (Auto) 0.2 (0.0-0.4) % Neut % (Auto) 62.3 (45-73) % Lymph % (Auto) 30.4 (20-40) % [place] % (Auto) 6.1 (2-11) % Eos % (Auto) 0.5 (0-4) % Baso % (Auto) 0.5 (0-2) % Lymph # (Auto) 2.0 (1.2-4.9) X10*3/uL [place] # (Auto) 0.4 (0.1-1.2) X10*3/uL Eos # (Auto) 0.0 (0.0-0.4) X10*3/uL Baso # (Auto) 0.0 (0.0-0.2) X10*3/uL Abs Immat Gran (auto) 0.01 (0.00-0.03) X10*3/uL Absolute Neuts (auto) 4.1 (2.0-8.3) x10*3/uL Absolute Nucleated RBC 0.000 (0.0-0.012) X10*3/uL Nucleated RBC % (auto) 0.0 (0.0-0.2) /100WBC Sodium 141 (135-145) mmol/L Potassium 4.1 (3.3-5.1) mmol/L Chloride 107 (96-108) mmol/L Carbon Dioxide 29 (22-29) mmol/L Anion Gap 9 L (12-20) BUN 11 (9-16) mg/dL Creatinine 0.61 (0.5-1.4) mg/dL Estim Creat Clear Calc 110.2 Estimated GFR > 60 Random Glucose 139 H (60-115) mg/dL Calcium 9.6 (8.4-10.2) mg/dL Total Bilirubin 0.5 (0.0-1.0) mg/dL Direct Bilirubin 0.1 (0.0-0.5) mg/dL AST 27 (5-31) U/L ALT 27 (0-31) U/L Alkaline Phosphatase 65 (39-117) U/L Troponin I High Sens < 2.7 (<3.5-17.0) ng/L Total Protein 7.6 (6.5-8.0) g/dL Albumin 4.5 (3.5-5.0) g/dL Discharge Plan Discharge Clinical Impression: Benign paroxysmal positional vertigo Patient Disposition: Home, Self-Care Instructions: Benign Paroxysmal Positional Vertigo (ED) Additional Instructions: Your examination is consistent with vertigo. You are not having a stroke. Take your Zofran oral dissolvable tablets as prescribed by your provider to help with your nausea and vomiting. If you are not better in the next 2-3 days then you should ask your primary care provider to refer you to a vertigo/vestibular specialist for evaluation and treatment We have vertigo/vestibular therapy specialists at [facility]. Your doctor will need to fax a referral to our physical therapy department requesting ?evaluation for vertigo/vestibular treatment Continue taking your other medications as prescribed by your providers. Follow-up with your doctor in 2 days. Please see the return to work in a Please return to the emergency department if your symptoms get worse or if you develop any symptoms that are concerning to you. Core physical therapy Prescriptions: No Action metoprolol tartrate 25 mg tablet 25 mg PO DAILY omega 3-ycb-hik-fish oil [Fish Oil] 1,000 (120-180) mg capsule 1 cap PO BID Stand Alone Forms: Work/School Release Print Language: Chadian
[2025-05-22 14:10] VITALS: BP 175/74; PULSE 94; RESP 18; TEMP 36.3; O2SAT 99; BMI 32.5
--- NOTE | 2025-05-22 14:10 | ECG_ITS ---
Test Reason : diziness Blood Pressure : */* mmHG Vent. Rate : 70 BPM Atrial Rate : 70 BPM P-R Int : 116 ms QRS Dur : 80 ms QT Int : 380 ms P-R-T Axes : 27 54 45 degrees QTcB Int : 410 ms Normal sinus rhythm Normal ECG No previous ECGs available Referred By: Yaa Howard Electronically Signed By: HERO HA MD
[2025-05-22 14:28] LABS: MANUAL DIFF FLAG NO
[2025-05-22 14:29] LABS: Hematocrit 43.8 % (37.0-47.0); Hemoglobin 14.4 g/dl (12.0-16.0); Imm Gran Abs Auto 0.01 X10*3/uL (0.00-0.03); Imm Gran Pct Auto 0.2 % (0.0-0.4); Lymphocytes Absolute Auto 2.0 X10*3/uL (1.2-4.9); Mean Corpuscular HGB Conc 32.9 g/dl (31.0-35.0); Mean Corpuscular Hemoglobin 28.7 pg (27.0-33.0); Mean Corpuscular Volume 87.3 fL (80.0-98.0); NRBC Abs Auto 0.000 X10*3/uL (0.0-0.012); NRBC Pct Auto 0.0 /100WBC (0.0-0.2); Platelet Count 220 X10*3/uL (160-400); Red Blood Count 5.02 X10*6/uL (4.20-5.50); White Blood Count 6.6 X10*3/uL (4.8-10.8)
[2025-05-22 14:44] LABS: Alanine Aminotransferase 27 U/L (0-31); Albumin Level 4.5 g/dL (3.5-5.0); Alkaline Phosphatase 65 U/L (39-117); Anion Gap 9 (12-20); Aspartate Amino Transferase 27 U/L (5-31); Blood Urea Nitrogen 11 mg/dL (9-16); Calcium 9.6 mg/dL (8.4-10.2); Carbon Dioxide 29 mmol/L (22-29); Chloride 107 mmol/L (96-108); Creatinine Clr Calc Pharmacy 110.2; Estimated Glomerular Filt Rate > 60; Potassium 4.1 mmol/L (3.3-5.1); Sodium 141 mmol/L (135-145); Total Protein 7.6 g/dL (6.5-8.0)
[2025-05-22 14:52] LABS: Troponin-I High Sensitivity < 2.7 ng/L (<3.5-17.0)
[2025-05-22 16:47] VITALS: BP 175/74; PULSE 94; RESP 18; TEMP 36.3; O2SAT 99
--- OUTSIDE RECORDS SUMMARY | 2025-05-22 16:58 | XMS_ITS | Clinical Summary ---
Author Organization [facility] Address [address] [place] [address] Phone Care Team Providers Care Goal Umpire Name Role Phone Christina Mora MD Primary Care Prov ider Allergies No known active allergies Medications OMEGA-3 FATTY ACIDS ORAL Take by mouth 1 (one) time each day. Active metoclopramide (REGLAN) 5 mg tablet Take 1 tablet (5 mg total) by mouth 4 (four) times a day (before meals and nightly). 120 each 3 5 02/04/20 26 Active metoprolol tartrate (LOPRESSOR) 25 mg tablet Take 0.5 tablets (12.5 mg total) by mouth 2 (two) times a day for 14 days, THEN 0.5 tablets (12.5 mg total) 1 (one) time each day for 14 days. Then stop. 5 Active predniSONE (DELTASONE) 20 mg tablet Take 1 tablet (20 mg total) by mouth 1 (one) time each day. for 7 days 4 Active fluticasone propionate (FLONASE) 50 mcg/actuation nasal spray [place] 1 spray every day by intranasal route for 2 days. 3 Active cyclobenzaprin e (FLEXERIL) 5 mg tablet TAKE 1 TABLET BY MOUTH 3 TIMES A DAY NEEDED FOR PAIN FOR 7 DAYS 4 Active amoxicillin-cl avulanate (AUGMENTIN) 875-125 mg per tablet Take 1 tablet by mouth 2 (two) times a day. 20 tablet 5 Active amoxicillin (AMOXIL) 500 mg capsule take 1 capsule (500 mg) by mouth every 8 hours for 7 days 4 05/15/20 25 Discontinu ed( ) Active Problems Problem Noted Date Diagnosed Date [...] she is very symptomatic with the arrhythmia Assessment & Plan (04/29/2025 12:23 PM EDT): Orders: ECG 12 lead Vaginal pain 10/24/2022 Overview (04/29/2024): Last Assessment [...] (obstructive sleep apnea) 04/17/2017 Overview (04/29/2024): [facility] Home Polysomnogram: Date 04/10/2017; AHI 5, Unclassified [...] Encounters Date Type Department Care Team Description 05/15/2025 3:30 PM EDT Consult Vascular Surgery - [place] [address] [place] [address] Luisito Paredes MD Diverticulitis (Primary Dx) 04/28/2025 2:55 PM EDT Office Visit [facility] - [address] [place] [address] Wander Mckay MD Palpitations (Primary Dx); PVC (premature ventricular contraction) 04/27/2025 Results Follow-Up Adult Medicine [address] [phone] Christina Mora MD 04/22/2025 2:51 PM EDT - 04/22/2025 11:59 PM EDT Hospital Encounter Radiology Department [address] [phone] Encounter for screening mammogram for breast cancer Discharge Disposition: Home or Self Care 04/01/2025 9:30 AM EDT Office Visit Adult Medicine [address] [phone] Ashley Nixon PA Low blood pressure reading (Primary Dx); PVC (premature ventricular contraction); Palpitations from Last 3 Months Immunizations Immunization Administration Dates Next Due Hepatitis B (Hczvxks-X-Bqbhv , Recombivax HB-Adult) 19yo and older 01/25/2007 Hepatitis B (Recombivax HB-Dialysis) 18yo and ol steven 08/30/2006,07/31/2006 Influenza trivalent, 0.5mL, preservative free (Fluarix; FluLaval; Fluzone) ages 6mo and older (Afluria) 3 years and older 06/11/2008 PPD Test 07/31/2006 [place]io SARS-CoV-2 COVID-19, mRNA, LNP-S, preservative free 07/06/2021 Td Tetanus diptheria (Tdvax) 7yo and older 07/31 Tdap Tetanus diptheria acell ular pertussis (Boostrix; Adacel) 7yo and older 2017 Surgical History Surgery Date Site/Laterality Comments TUBAL LIGATION PROCEDURE: HISTORICAL TUBAL LIGATION COLONOSCOPY PROCEDURE: HISTORICAL COLONOSCOPY HYSTERECTOMY 07/30/2020 - 07/29/2021 Robotic shrutist, REDD- Eppsteiner, menorrhagia Medical History Medical History Date [...] 04/17/2017 DX:Obstr uctive sleep apnea; COMMENT: [facility] Home Polysomnogram: Date 04/10/2017; AHI 5, Unclassified [...] your loved ones. For example, child care sitter or elderly care for an older adult? [...] Date Recorded What is your living situation? Unrecognized valu e 06/02/2024 Comments No Sex and Gender Information Value [...] Sign Reading Time Taken Comments Blood Pressure 122/73 05/15/2025 3:41 PM EDT Pulse 95 05/15/2025 3:41 PM EDT Temperature 36.3 C (97.4 F) 04/01/2025 9:29 AM EDT Respiratory Rate 13 04/01/2025 9:29 AM EDT Oxygen Saturation 95% 04/28/2025 3:10 PM EDT Inhaled Oxygen Concentration - - Weight 85.1 kg (187 lb 9.6 oz) 05/15/2025 3:41 P M EDT Height 160 cm (5' 3 ) 05/15/2025 3:41 PM EDT Body Mass Index 33.23 05/15/2025 3:41 PM EDT Plan of Treatment Upcoming Encounters Date Type Department Care Team (Late st Contact Info) Description 07/28/2025 7:30 AM EST Office Visit Adult Medicine [address] [phone] Christina Mora MD [address] [place] [address] 08/25/2025 2:30 PM EST Office Visit [facility] - [facility] [address] [place] [phone] Miguel Angel Ni MD [address] [place] [address] [address] [place] [phone] 11/04/2025 3:00 PM EDT Office Visit Gastroenterology - [address] [place] [phone] Isabel Griffiths PA [address] [place] [address] Health Maintenance Due Date Last Done Comments Pneumococcal Vaccine: 50+ Years (1 of 1 - PCV) 2022 Zoster Vaccines (1 of 2) 2022 Cervical Cancer Screening: HPV 09/07/2023 09/07/2020 COVID-19 Vaccine (3 - season) 2025 07/06/2021, 06/15/2021 Influenza Vaccine (#1) 2025 06/11/2008 Social Influencers of Health Screening 06/02/2025 06/02/2024, 08/16/2023 Breast Cancer Screening 04/22/2027 04/22/20 25, 04/09/2024, 04/09/2024, Additional history exists DTaP,Tdap,and Td Vaccines (3 - Td or Tdap) 2027 2017, 07/31/2006 Colorectal Cancer Screening: Colonoscopy 06/13/2028 06/13/2023, 06/13/2023 Cholesterol Screening (Lipid Panel) 04/01/2029 04/01/2024, 04/01/2024 RSV Immunization Adult Patients (1 - 1-dose 75+ series) 2047 Hepatitis B Vaccines Completed 01/25/2007, 08/30/2006, 07/31/2006 HIV Screening Completed 07/25/2013 Hepatitis C Screening Completed 07/25/2013, 013 Depression Screening Completed 04/01/2025, 03/25/20 24 HIB Vaccines Aged Out No longer eligi [...] Date/Time Associated Diagnosis Comments ECG 12-LEAD Routine 04/28/2025 3:16 PM EDT Palpitations MG MAMMO DIGITAL SCREENING W DONTRELL BILAT Routine 04/22/2025 3:04 PM EDT Encounter for screening mammogram for breast cancer ECG 12-LEAD Routine 04/01/2025 9:51 AM EDT Low blood pressure reading LIPID PANEL Routine 04/01/2024 DEPRESSION SCREENING Routine 03/25/2024 COLONOSCOPY Routine 06/13/2023 HPV Routine 09/07/2020 HEPATITIS C SCREENING Routine 07/25/2013 HIV SCREENING Routine 07/25/2013 from Last 3 Months or Most Recently Relevant to Health Maintenance Results * ECG 12 lead (04/28/2025 3:16 PM EDT) Only the most recent of2 resultswithin the time period is included. Ventricular Rate ECG 60 BPM GEMUSE Atrial Rate 60 BPM GEMUSE P-R Interval 130 ms GEMUSE QRS Duration 92 ms GEMUSE Q-T Interval 420 ms GEMUSE QTc 420 ms GEMUSE P Wave [place] 48 degrees GEMUSE R [place] 75 degrees GEMUSE T [place] 56 degrees GEMUSE ECG Interpretation Normal sinus rhythm When compared with ECG of 29-SEP-2024 13:54, No significant change was found Confirmed by AMY MCKAY ([id number]) on 04/29/2025 12:00:57 PM GEMUSE 04/28/2025 3:16 PM EDT 04/29/2025 12:00 PM EDT Wander Mckay MD ECG ORDERABLES Final Resu lt GEMUSE * MG Mammo Digital Screening w Dontrell bilat (04/22/2025 3:04 PM EDT) Anatomical Region Laterality Modality Breast Bilateral Mammography 04/23/2025 6:41 PM EDT Impressions 04/23/2025 6:42 PM EDT No mammographic evidence of malignancy. BREAST DENSITY: C - The breasts are heterogeneously dense which may obscure small masses. BI-RADS CATEGORY: 1 - NEGATIVE RECOMMENDATION: Screening bilateral mammogram is recommended in 1 year. MAMMO LOCATION: [facility], [address] [place] [address], [id number], . -------- FINAL REPORT -------- Dictated By: Brianna Null Dictated Date: 04/23/2025 18:41 ET Assigned Physician: Brianna Null Reviewed and Electronically Signed By: Brianna Null Signed Date: 04/23/2025 18:42 ET Workstation ID: [id number] Transcribed By: Self Edit Transcribed Date: 04/23/2025 18:41 ET Narrative 04/23/2025 6:42 PM EDT EXAM: Screening Mammogram CLINICAL: 54 years old, Female, routine annual exam. COMPARISON: 04/09/2024 and as far back as 03/29/2021 TECHNIQUE: Bilateral MLO and CC views were obtained digitally with 3-D mammogram (digital breast tomosynthesis). Computer-aided detection was utilized in evaluation of this exam (CAD). FINDINGS: No new suspicious mass, architectural distortion, or suspicious calcifications. Procedure Note Brianna Null MD - 04/23/2025 EXAM: Screening Mammogram CLINICAL: 54 years old, Female, routine annual exam. COMPARISON: 04/09/2024 and as far back as 03/29/2021 TECHNIQUE: Bilateral MLO and CC views were obtained digitally with 3-Dmammogram (digital breast tomosynthesis). Computer-aided detection wasutilized in evaluation of this exam (CAD). FINDINGS: No new suspicious mass, architectural distortion, or suspiciouscalcifications. IMPRESSION: No mammographic evidence of malignancy. BREAST DENSITY: C - The breasts are heterogeneously dense which mayobscure small masses. BI-RADS CATEGORY: 1 - NEGATIVE RECOMMENDATION: Screening bilateral mammogram is recommended in 1 year. MAMMO LOCATION: [facility], [address] [place] [address], [id number], . -------- FINAL REPORT -------- Dictated By: Brianna Null Dictated Date: 04/23/2025 18:41 ET Assigned Physician: Brianna Null Reviewed and Electronically Signed By: Brianna Null Signed Date: 04/23/2025 18:42 ET Workstation ID: [id number] Transcribed By: Self Edit Transcribed Date: 04/23/2025 18:41 ET Christina Mora MD IMG BI PROCEDURES Final Result * (ABNORMAL) Lipid panel (04/01/2024) [facility] LDL/HDL Ratio 3 0 - 4 Triglycerides 64 0 - 150 mg/dL Cholesterol 218(A) 0 - 200 mg/dL HDL 69 >=40 mg/dL LDL Cholesterol 137(A) 0 - 100 mg/dL Blood Venous blood specimen / Unknown Result [facility] Provider LAB BLOOD ORDERABLES Cande l Result * Depression Screening (03/25/2024) [facility] Depression Screening Abstracted Result [facility] Provider HEALTH MAINTENANCE Final Result * Colonoscopy (06/13/2023) [facility] Colonoscopy No interpretation , abstracted Anatomical Region Laterality Modality Other Result [facility] Provider HEALTH MAINTENANCE Final Result * Cervical Cancer Screening: HPV (09/07/2020) [facility] Cervical Cancer Screening: HPV Negative, abstracted Result [facility] Provider HEALTH MAINTENANCE Final Result * HIV Screening (07/25/2013) [facility] HIV Screening Abstracted [facility] Provider HEALTH MAINTENANCE Final Result * Hepatitis C Screening (07/25/2013) Hepatitis C Screening Abstracted us Historical Provider HEALTH MAINTENANCE Final Result from Last 3 Months or Most Recently Relevant to Health Maintenance Insurance [facility] [employer] [place] [address] Care Teams Goal Umpire Relationship Specialty Start Date End Date Christina Mora MD [address] [place] [phone] PCP - General Internal Medicine 06/03/24
--- OUTSIDE RECORDS SUMMARY | 2025-05-22 16:58 | XMS_ITS | Encounter Summary ---
Author Organization [employer] [facility] Address [address] [facility] [address] [place] [address] Care Team Providers Care Load Builder Name Role Phone Unavailable Primary Care Provider Unavailabl e Encounter Details Date Type Department Care Team (Latest Contact Info) Description 11/03/2020 Abstract [facility] CONVERSIONS Dental, Provider, DDS Social History Tobacco [...]
--- OUTSIDE RECORDS SUMMARY | 2025-05-22 16:58 | XMS_ITS | Encounter Summary ---
Author Organization [employer] [facility] Address [address] [facility] 7t [place] [address] Care Team Providers Care Information Systems Consultant Name Role Phone Unavailable Primary Care Provider Unavailabl e Encounter Details Date Type Department Care Team (Latest Contact Info) Description 06/27/2021 Abstract [facility] CONVERSIONS Dental, Provider, DDS Social [...]
--- OUTSIDE RECORDS SUMMARY | 2025-05-22 16:58 | XMS_ITS | Data Portability ---
Author Organization SHERRY Sinclair s, [address] Address [address] [place] [address] Care Team Providers Care Dealership General Manager Name Role Phone [facility] Prim ciara Care Provider Assessment No assessment recorded. Plan of Treatment Reminders Order Date Submit Date Provider Last Modified By Organization Details Last Modified Time Details Appointments None recorded. Lab rapid strep group A, throat 2022 023 [place] [address] [facility], [address] [place] [address], [address], 3 13:59:40 rapid SARS CoV 2 Ag, QL IA, respiratory specimen 2022 023 [place] [address] [facility], [address] [place] [address], [address], 3 13:59:40 Referral None recorded. Procedures None recorded. Surgeries None recorded. Imaging None recorded. Medication Orders amoxicillin 875 mg tablet 2022 023 [facility]/Pharmacy #2339, [address] [place], [address], 3 13:59:43 Allergy Relief (fluticason e) 50 mcg/actuati on nasal spray,suspe nsion 2022 023 [facility]armacy #2339, [address] [place], [address], 3 13:59:43 fexofenadin e-pseudoeph edrine ER 180 mg-240 mg tablet,ext. release 24 hr 2022 023 [facility]/Pharmacy #2339, [address] [facility], [place], [address], 13:59:42 Patient TargetsNo targets recorded. Patient Instructions Encounter Date Encounter Id Patient Instructions Last Modified By Organization Details Last Modified Time 01/09/2023 [id number] Acute Sinusitis: Care Instructions [email or web address] Not available 01/09/2023 13:59:40 Reason for Referral None Reported. Results Created Date Observation Date Name Description Value Unit Range Abnormal Flag Note LastModifiedBy Organization Detail LastModifiedTime 01/10/2001/09/2023 rapid SARS CoV 2 Ag, QL IA, respi rator y speci men Unknown Analyte Normal =Negat cari Not Available [address], [address], 01/09/2023 13:58:30 01/10/2001/09/2023 rapid SARS CoV 2 Ag, QL IA, respi rator y speci men Unknown Analyte negati ve Not Available [address] [place] [address], [address], 01/09/2023 13:58:30 01/10/20 23 01/09/2023 rapid strep group A, throa t Unknown Analyte Normal = Negati ve Not Available [address] [place] [address], [address], 01/09/2023 13:58:29 01/10/20 23 01/09/2023 rapid strep group A, throa t Unknown Analyte negati ve Not Available [address] [place] [address], [address], 01/09/2023 13:58:29 Result Notes None recorded. Problems Name Problem SNOMED Code Status Onset Date Resolution Date Notes Provider Name and Address Organization Details Recorded Time Irritable bowel syndrome 76751771 Active 023 SHERRY Meehan [employer] [facility] 3 13:11:17 Problem Notes None recorded. [...] ) 50 mcg/actuatio n nasal spray,suspen sera [place] 1 spray every day by intranasal route for 2 days. 2022 active Not Available Not Available Not Avai lable Vitals Date Recorded Body height Body mass index (BMI) Body weight Pain severity - 0-10 verbal numeric rating [Score] - Reported Respiratory rate Oxygen saturation Oxygen saturation in Arterial blood by Pulse oximetry Heart rate Body temperature Systolic And Diastolic Provider Name and Address Organization Details Last Updated DateTime 3 160.02 cm 31.5 kg/m2 43144.4 4 g 8 18 /min 98 % 98 % 76 /min 97.6 [degF] 90/51 mm[Hg] Kitty POWELL [employer] [facility] 3 13:13:17 Social History Question Answer Notes LastModified by [employer] Details LastModified Time Tobacco Smoking Status Never Smoker HSERRY Meehan [facility] 01/09/2023 13:11:47 Have You Recently Traveled Abroad? No Information not available 01/09/2023 Sex: Unknown Functional Status Question Answer Note LastModified by [employer]) Details LastModified Time Do you use any [...] Diagnosis SNOMED-CT Code Diagnosis ICD10 Code Diagnosis IMO Codes Diagnosis Note [id number] [facility] [address] [place] [phone] 11/11/2020 13:15:47 11/11/2020 14:32:05 [id number] [facility] [address] [place] [phone] 05/12/2022 08:04:24 05/12/2022 08:54:03 [id number] [facility] [address] [place] [address] 11/01/2020 11:00:14 11/01/2020 12:54:15 [id number] [facility] [address] [place] [phone] 12/20/2020 16:18:42 12/20/2020 17:40:32 [id number] Catherine Bailey MD [facility] [address] [place] [address] 01/09/2023 13:03:56 01/09/2023 14:01:19 Acute sinusitis [id number] J01.90 - Use the medication s prescribed [...] Sanchez Member ID Guarantor Name 01/09/2023 1 [facility] PL[facility] - [facility] (MEDICAID REPLACEMENT - HMO) ELLEN Muroo [id number] Adrisaul Muroo Notes Date Note Type Note Provider Name and Address Organization Details Recorded Time 01/09/2023 text/html COVID-19 SymptomsReported by Patient Sore throatReported by PatientSore ThroatFor associated symptoms, patient reportssore throat,coughing, andsinus pain/ congestion. For location, patient reportsthroat. For severity, patient reportsmoderate. For quality, patient reportshurts to swallow. For context, patient reportsno sick contacts,no foreign travel, andnon-smoker. Catherine Bailey MD [address] [place] [address] [place], [address], [place] - [facility] 01/09/2023 14:22:09 OBGyn Episode No OBEpisode recorded.
--- OUTSIDE RECORDS SUMMARY | 2025-05-22 16:58 | XMS_ITS | Encounter Summary ---
Author Organization [employer] Address [address] [place] [address] Care Team Providers Care Manager Reporting Name Role Phone Christina Mora MD Primary Care Prov ider Encounter Details Date Type Department Care Team (Late st Contact Info) Description 04/27/2025 Results Follow-Up Adult Medicine [address] [phone] Christina Mora MD [address] [place], [place] Social History Tobacco Use Types Packs/Day Years [...] care for your loved ones. For example, director child or elderly care for an older adult? [...] 7:30 AM EST Office Visit Adult Medicine [address] [phone] Christina Mora MD [address] [place] [address] 08/25/2025 2:30 PM EST Office Visit [facility] [address] [place] [phone] Miguel Angel Ni MD [address] [place] [address] [address] [place] [address] 11/04/2025 3:00 PM EDT Office Visit Gastroenterology - [address] [place] [address] Isabel Griffiths PA [address] [place] [address] documented as of this encounter Visit Diagnoses Not on filedocumented in this encounter Additional Health Concerns Assessment Noted Time PHQ-9 Depression Total Score: 0 04/01/20 25 9:29 AM EDT documented as of this encounter Care Teams Manager Reporting Relationship Specialty Start Date End Date Christina Mora MD [address] [place] [phone] PCP - General Internal Medicine 06/03/24 documented as of this encounter
--- OUTSIDE RECORDS SUMMARY | 2025-05-22 16:58 | XMS_ITS | Clinical Summary ---
Author Organization [employer] Address [address] [facility] 7t [place] [address] Care Team Providers Care Wedding Planning Internship Name Role Phone Unavailable Primary Care [...] Active Active Problems No known active problems Social History Tobacco Use Types Packs/Day Years [...] Screening 1972 SDOH Screening 1972 Sigmoidoscopy 1972 Disability Screening 1972 Alcohol/Substance Use Screening 1984 Family Planning (PISQ) 1987 Hepatitis C Screening 1990 Pap Smear 1993 Cervical Cancer Screening 2002 HPV/Cotest 2002 Mammogram 2012 Pneumococcal Vaccine: 50+ Years (1 of 1 - PCV) 2022 Zoster Vaccines (1 of 2) 2022 COVID-19 Vaccine (3 - season) 2025 07/06/2021, 06/15/2021 Influenza Vaccine (#1) 2025 06/11/2008, 2007 Dental Oral Exam 04/25/2025 10/22/2024, , 10/23/2022 Dental Prophylaxis 04/25/2025 10/22/2024, 0 02/18/2024, 07/13/2023, Additional history exists Dental X-Ray: Bitewings 10/23/2025 10/23/19 25, 06/18/2024, 03/21/2024, Additional history exists Tobacco Screening [...] Procedure Name Priority Date/Time Associated Diagnosis Comments PROPHYLAXIS - ADULT Routine 10/22/2024 3 :00 PM EDT INTRAORAL - COMPLETE SERIES OF RADIOGRAPHIC IMAGES Routine 10/22/2024 3:00 PM EDT PERIODIC ORAL EVALUATION - ESTABLISHED PATIENT Routine 10/22/2024 3:00 PM EDT from Last 3 Months or Most Recently Relevant to Health Maintenance Insurance [facility] - [facility] PARTIAL (MEDICAID)
--- OUTSIDE RECORDS SUMMARY | 2025-05-22 16:58 | XMS_ITS | Encounter Summary ---
Author Organization [employer] [facility] Address [address] [facility] 7t [place] [address] Care Team Providers Care Car Oiler Name Role Phone Unavailable Primary Care Provider Unavailabl e Encounter Details Date Type Department Care Team (Latest Contact Info) Description 10/09/2018 Abstract [facility] CONVERSIONS Dental, Provider, DDS Social [...]
== END 2025-05-22 16:55 | disposition home or self-care (01) ==
PROVIDERS: Nurse Practitioner Family; Emergency Provider Emergency Medicine Emergency Medical Services; PCP Internal Medicine
DX: H81.10 Benign paroxysmal vertigo, unspecified ear (principal)
CPT/HCPCS: 36415; 80048; 80076; 84484; 85025; 93005; 99283

== ENCOUNTER → 2025-05-22 14:10 | Outpatient (BNV) | payer OTHER, SELFPAY | PROVIDERS: Emergency Provider Emergency Medicine Emergency Medical Services; PCP Internal Medicine; Visit Provider Internal Medicine Cardiovascular Disease | DX: R42 Dizziness and giddiness (principal) | CPT/HCPCS: 93010 ==

== ENCOUNTER 2025-06-18 14:51 | Outpatient (AMB) | payer OTHER, SELFPAY ==
[2025-06-18 14:56] VITALS: BP 119/56; PULSE 85; RESP 16; O2SAT 95; BMI 33.3
--- NOTE | 2025-06-18 14:56 | A.OFFVIS_ITS ---
Vital Signs 06/18/25 14:56 Height 5 ft 3 in Weight 188 lb BMI 33.3 BP 119/56 L Blood Pressure Location Rt brachial Position Sitting Respiration 16 Pulse 85 Pulse Source Pulse Oximeter Pulse Oximetry (%) 95 Oxygen Delivery Method Room Air Intake Visit Reasons: 3 MONTH FOLLOW UP Software Sales Consultant Required: No Accompanied by: Self / Same As Patient Allergies No Known Allergies Allergy (Mild, Verified 06/18/25 14:57) N/A HPI Comments Details: Adri is back in my office discuss pain in the right knee. Last time we discussed steroid injections and PRP injections. She does not want to go this way. PRP she can not afford and steroids she is afraid of side effects. We discussed possibility of treating her knee pain with physical therapy exercises. While we are talking in the room I showed her 3 exercises to strengthen the muscles around her right knee. Those are sitting lying down and standing on the knees exercises. We also decided to try genicular nerve block. I will schedule this patient for right genicular nerve block to possibly treat her pain with radiofrequency ablation versus peripheral nerve stimulation. Patient agreed to go for the procedure. I will schedule her as soon as possible. Prior: complains on pain in the right lower back with radiation to the right lower extremity to the level of lateral hip and lateral macdoanld on the right. Pain started on about 8 months ago she reported that pain is related to an accident in the gym. sitting aggravates her pain the most. Flexing forward aggravates her pain as well. 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 She had an MRI and x-ray of the lumbar spine performed on the order Dr. Jimenez, the results are dictated as below. In my opinion they are unimpressive and do not explain the pain of this patient. She was attending physical therapy she had for times physical therapy 8 sessions each time and she performed home exercise program as well. 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 Review of Systems Const All systems reviewed & are unremarkable except as noted in HPI and below ENT Reports Normal hearing present Neuro Reports Normal hearing present, Denies Abnormal speech present, Denies confusion and Denies Sensory deficit (Neuro) Psych Denies confusion Physical Exam Vital Signs: Last Vital Signs Pulse 85 06/18/25 14:56 Resp 16 06/18/25 14:56 BP 119/56 L 06/18/25 14:56 Pulse Ox 95 06/18/25 14:56 Oxygen Delivery Method Room Air 06/18/25 14:56 BMI result Body Mass Index 33.3 Const General: no acute distress; No confusion Orientation/consciousness: patient oriented x3 and No confusion Eyes General: appearance normal, both eyes and all related structures Pupils: Equal, round and reactive pupils present EOM: EOMs intact bilaterally Neck Neck: Yes full ROM Chest Chest palpation & inspection: normal inspection of the chest Resp Effort & Inspection: normal respiratory effort, able to speak in complete sentences, normal respiratory pattern, no audible wheezes and no cough Cardio Jugular venous distension: no JVD GI Inspection: Yes normal to inspection Back/Spine/Pelvis Other: The patient is able to stand on bilateral tiptoes in bilateral heels without any difficulty. She is able to lift the great toe in separation of the rest of the toes bilaterally. This demonstrates normal function bilaterally of L4-5 and S1 nerve roots. SLR is negative bilaterally. Heath test is positive on the right, Gaenslen test is positive on the right, pelvic distraction test is positive on the right. Flexing forward and flexing backwards aggravate her pain however flexing forward aggravate her pain much more than flexing backwards. There is no tenderness on palpation in paraspinal spinal region of the lumbar spine however there is severe tenderness on palpation in projection of the sacroiliac joint. Neuro General: patient oriented x3, gait normal and No confusion Cranial nerves: Yes CN's II-XII intact bilaterally, Yes Equal, round and reactive pupils present, Yes Normal hearing present and Yes Ability to bilater ally elevate shoulders present Speech: No Abnormal speech present Gait exam (Neuro): Normal gait present Motor exam (neuro): 5/5 motor strength present throughout Sensory Exam: No Sensory deficit (Neuro) Extrem General: No pedal edema Psych Speech and movement: Normal speech and movement present Affect: normal affect Attitude: cooperative Thought process: Normal thought process present Thought content: Normal thought content present Insight: Good insight present (Psych) Judgement: Good judgement present (Psych) Assessment & Plan Assessment & Plan (1) Arthritis of right knee: Code(s): M17.11 - Unilateral primary osteoarthritis, right knee Category: Medical (2) Sacroiliac joint dysfunction of right side: Code(s): M53.3 - Sacrococcygeal disorders, not elsewhere classified Category: Medical (3) Sacroiliitis: Code(s): M46.1 - Sacroiliitis, not elsewhere classified Category: Medical Plan: (4) Lumbar disc herniation with radiculopathy: Code(s): M51.16 - Intervertebral disc disorders with radiculopathy, lumbar region Category: Medical (5) Vertebrogenic low back pain: Code(s): M54.51 - Vertebrogenic low back pain Category: Medical Plan On the MRI there were subtle Modic type 1 changes at L5 and S1 vertebra. The rest of the vertebras are unremarkable. She went for the CT scan of the pelvis and pelvis CT was unremarkable demonstrating no pathology. Diagnostic sacroiliac joint injection resulted in very profound pain improvement during the 1st 6 hours after the procedure. She still reports pain improvement after the injection. However today she is here to discuss pain in the knee. We decided to try genicular nerve block. I will perform genicular nerve block and then we will decide on whether we want to do radiofrequency ablation or peripheral nerve stimulation for this patient. Physical therapy exercises were explained to the patient as well. Patient expressed understanding. Coding Level of Care Code Est Pt Level 3 (63080) Diagnoses Arthritis of right knee M17.11 Sacroiliac joint dysfunction of right side M53.3 Sacroiliitis M46.1 Lumbar disc herniation with radiculopathy M51.16 Vertebrogenic low back pain M54.51
--- OUTSIDE RECORDS SUMMARY | 2025-06-18 20:21 | XMS_ITS | Encounter Summary ---
Author Organization [facility] [employer] Address [address] [facility] 7t [place] [address] Care Team Providers Care Compression Molding Machine Operator Name Role Phone Unavailable Primary Care Provider Unavailabl e Encounter Details Date Type Department Care Team (Latest Contact Info) Description 06/27/2021 Abstract [facility] CONVERSIONS Dental, Provider, DDS Social History [...] Care Team (Late st Contact Info) Description 07/07/2025 8:00 AM EST Office Visit [facility]ULT [facility] [address] [place] [address] Aliya Dorantes documented as of this encounter Visit Diagnoses Not on filedocumented in this encounter
--- OUTSIDE RECORDS SUMMARY | 2025-06-18 20:21 | XMS_ITS | Data Portability ---
Author Organization SHERRY Sinclair s, [address] Address [address] [place] [address] Care Team Providers Care Cable Coverer Name Role Phone [facility] Prim ciara Care Provider Assessment No assessment recorded. Plan of Treatment Reminders Order Date Submit Date Provider Last Modified By Organization Details Last Modified Time Details Appointments None recorded. Lab rapid strep group A, throat 2022 023 [place] [address] [facility], [address] [place] [address], [address], 3 13:59:40 rapid SARS CoV 2 Ag, QL IA, respiratory specimen 2022 023 [place] [address] [facility], [address] [place] [address], [address], 3 13:59:40 Referral None recorded. Procedures None recorded. Surgeries None recorded. Imaging None recorded. Medication Orders amoxicillin 875 mg tablet 2022 023 [facility]/Pharmacy #2339, [address] [place], [address], 3 13:59:43 Allergy Relief (fluticason e) 50 mcg/actuati on nasal spray,suspe nsion 2022 023 [facility]/Pharmacy #2339, [address] [place], [address], 3 13:59:43 fexofenadin e-pseudoeph edrine ER 180 mg-240 mg tablet,ext. release 24 hr 2022 023 [facility]/Pharmacy #2339, [address] [facility], [place], [address], 13:59:42 Patient TargetsNo targets recorded. Patient Instructions Encounter Date Encounter Id Patient Instructions Last Modified By Organization Details Last Modified Time 01/09/2023 [id number] Acute Sinusitis: Care Instructions [email or web address] Not available 01/09/2023 13:59:40 Reason for Referral None Reported. Results Created Date Observation Date Name Description Value Unit Range Abnormal Flag Note LastModifiedBy Organization Detail LastModifiedTime 01/10/2001/09/2023 rapid SARS CoV 2 Ag, QL IA, respi rator y speci men Unknown Analyte Normal =Negat cari Not Available [address], [phone], 01/09/2023 13:58:30 01/10/2001/09/2023 rapid SARS CoV 2 Ag, QL IA, respi rator y speci men Unknown Analyte negati ve Not Available [address] [place] [address], [address], 01/09/2023 13:58:30 01/10/20 23 01/09/2023 rapid strep group A, throa t Unknown Analyte Normal = Negati ve Not Available [address] [place] [address], [address], 01/09/2023 13:58:29 01/10/20 23 01/09/2023 rapid strep group A, throa t Unknown Analyte negati ve Not Available [address] [place] [address], [phone], 01/09/2023 13:58:29 Result Notes None recorded. Problems Name Problem SNOMED Code Status Onset Date Resolution Date Notes Provider Name and Address Organization Details Recorded Time Irritable bowel syndrome 59917675 Active 023 Kitty Varelaana rosa mendes PA - [employer] [facility] 3 13:11:17 Problem Notes None recorded. [...] ) 50 mcg/actuatio n nasal spray,suspen sera [place] 1 spray every day by intranasal route for 2 days. 2022 active Not Available Not Available Not Avai lable Vitals Date Recorded Body height Body mass index (BMI) Body weight Pain severity - 0-10 verbal numeric rating [Score] - Reported Respiratory rate Oxygen saturation Heart rate Body temperature Systolic And Diastolic Provider Name and Address Organization Details Last Updated DateTime 3 160.02 cm 31.5 kg/m2 79892.4 4 g 8 18 /min 98 % 76 /min 97.6 [degF] 90/51 mm[Hg] Kitty Varelaana rosa Haq [facility] 3 13:13:17 Social History Question Answer Notes LastModified by [employer] Details LastModified Time Tobacco Smoking Status Never Smoker Kitty LongSHERRY sotelo [facility] 01/09/2023 13:11:47 Have You Recently Traveled Abroad? No Information not available 01/09/2023 Sex: Unknown Functional Status Question Answer Note LastModified by [employer] Details LastModified Time Do you use any [...] ICD10 Code Diagnosis IMO Codes Diagnosis Note [id number] [facility] [address] [place] [phone] 11/11/2020 13:15:47 11/11/2020 14:32:05 [id number] [facility] [address] [place] [phone] 05/12/2022 08:04:24 05/12/2022 08:54:03 [id number] [facility] [address] [place] [address] 11/01/2020 11:00:14 11/01/2020 12:54:15 [id number] [facility] [address] [place] [phone] 12/20/2020 16:18:42 12/20/2020 17:40:32 [id number] Catherine Bailey MD [facility] [address] [place] [phone] 01/09/2023 13:03:56 01/09/2023 14:01:19 Acute sinusitis [id number] J01.90 - Use the medication s prescribed [...] Sanchez Member ID Guarantor Name 01/09/2023 1 [employer] [facility] [employer] - [employer] (MEDICAID REPLACEMENT - HMO) ELLEN Carmonasevero Rhoades [id number] Adri Rhoades Notes Date Note Type Note Provider Name and Address Organization Details Recorded Time 01/09/2023 text/html COVID-19 SymptomsReported by Patient Sore throatReported by PatientSore ThroatFor associated symptoms, patient reportssore throat,coughing, andsinus pain/ congestion. For location, patient reportsthroat. For severity, patient reportsmoderate. For quality, patient reportshurts to swallow. For context, patient reportsno sick contacts,no foreign travel, andnon-smoker. Catherine Bailey MD [address] [facility] [place], [address], [place] - [facility] 01/09/2023 14:22:09 OBGyn Episode No OBEpisode recorded.
--- OUTSIDE RECORDS SUMMARY | 2025-06-18 20:21 | XMS_ITS | Encounter Summary ---
Author Organization [facility] [employer] Address [address] [facility] 7t [place] [address] Care Team Providers Care Elocution Teacher Name Role Phone Unavailable Primary Care Provider Unavailabl e Encounter Details Date Type Department Care Team (Latest Contact Info) Description 10/09/2018 Abstract [facility] CONVERSIONS Dental, Provider, DDS Social [...] Description 07/07/2025 8:00 AM EST Office Visit [facility] ADULT DENTAL [address] [place] [address] Aliya Dorantes documented as of this encounter Visit Diagnoses Not on filedocumented in this encounter
--- OUTSIDE RECORDS SUMMARY | 2025-06-18 20:21 | XMS_ITS | Clinical Summary ---
Author Organization [employer] Address [address] [facility] [address] [place] [address] Care Team Providers Care Pipe Fitter Welding Name Role Phone Unavailable Primary Care Provider [...] Upcoming Encounters Date Type Department Care Team ([facility] st Contact Info) Description 07/07/2025 8:00 AM EST Office Visit [facility] ADULT DENTAL [address] [place] [address] Aliya Dorantes Health Maintenance Due Date Last Done Comments CT Colonography 1972 Colonoscopy 1972 Colorectal Cancer Screening 1972 Depression Screening 1972 FIT DNA/Cologuard 1972 FIT 1972 FOBT 1972 HIV Screening 1972 SDOH Screening 1972 Sigmoidoscopy 1972 Disability Screening 1972 Alcohol/Substance Use Screening 1984 Family Planning (PISQ) 1987 Hepatitis C Screening 1990 Pap Smear 1993 Cervical Cancer Screening 2002 HPV/Cotest 2002 Pneumococcal Vaccine: 50+ Years (1 of 1 - PCV) 2022 Zoster Vaccines (1 of 2) 2022 COVID-19 Vaccine (3 - season) 2025 07/06/2021, 06/15/2021 Influenza Vaccine (#1) 2025 06/11/2008, 2007 Dental Oral Exam 04/25/2025 10/22/2024, , 10/23/2022 Dental Prophylaxis 04/25/2025 10/22/2024, 0 02/18/2024, 07/13/2023, Additional history exists Dental X-Ray: Bitewings 10/23/2025 10/23/19, 06/18/2024, 03/21/2024, Additional history exists Tobacco Screening 11/18/2025 11/18/2024 Mammogram 04/22/2027 04/22/2025, 04/22/2025 DTaP/Tdap/Td Vaccines (2 - Td or Tdap) [...] Most Recently Relevant to Health Maintenance Insurance [facility] D[facility] - HSN PARTIAL (MEDICAID)
--- OUTSIDE RECORDS SUMMARY | 2025-06-18 20:21 | XMS_ITS | Encounter Summary ---
Author Organization [facility] [employer] Address [address] [facility] 7[address] [place] [address] Care Team Providers Care Tape Calender Name Role Phone Unavailable Primary Care Provider Unavailabl e Encounter Details Date Type Department Care Team (Latest Contact Info) Description 11/03/2020 Abstract [facility] CONVERSIONS Dental, Provider, DDS Social History [...] Description 07/07/2025 8:00 AM EST Office Visit [facility] ADULT DENTAL [address] [place] [address] Aliya Dorantes documented as of this encounter Visit Diagnoses Not on filedocumented in this encounter
== END 2025-06-18 15:11 | disposition home or self-care (01) ==
LOC: HO.PMC 14:52
PROVIDERS: PCP Internal Medicine; Visit Provider Anesthesiology
DX: M17.11 Unilateral primary osteoarthritis, right knee (principal); M53.3 Sacrococcygeal disorders, not elsewhere classified; M46.1 Sacroiliitis, not elsewhere classified; M51.16 Intervertebral disc disorders with radiculopathy, lumbar region; M54.51 Vertebrogenic low back pain
CPT/HCPCS: 99213

== ENCOUNTER → 2025-06-18 14:51 | Outpatient (BNVA) | payer OTHER, SELFPAY | PROVIDERS: PCP Internal Medicine; Visit Provider Anesthesiology | DX: M17.11 Unilateral primary osteoarthritis, right knee (principal); M53.3 Sacrococcygeal disorders, not elsewhere classified; M46.1 Sacroiliitis, not elsewhere classified; M51.16 Intervertebral disc disorders with radiculopathy, lumbar region; M54.51 Vertebrogenic low back pain | CPT/HCPCS: 99212 ==

== ENCOUNTER 2025-06-24 11:27 | Emergency (ER) | payer OTHER, SELFPAY ==
--- OUTSIDE RECORDS SUMMARY | 2025-06-23 10:15 | XMS_ITS | Encounter Summary ---
Author Organization [employer] Address [address] [place] [address] Care Team Providers Care Timber Inspector Name Role Phone Christina Mora MD Primary Care Prov ider Reason for Referral * Imaging (Routine) - Authorized Specialty Diagnoses / Procedures Referred By James joseph Referred To Contact Radiology Diagnoses Vertigo Gait abnormality Procedures MR Brain wo and w Contrast Ashley Nixon PA [address] [place] [address] Phone: tel: fax: [address] Phone: tel: Referral ID Status Reason Start Date Expiration Date V isits Requested Visits Authorized [id number] Authorized 06/11/2025 06/11/2026 1 1 Reason for Visit * Imaging (Routine) - Authorized Specialty Diagnoses / Procedures Referred By Contjuancarlos t Referred To Contact Radiology Diagnoses Vertigo Gait abnormality Procedures MR Brain wo and w Contrast Ashley Nixon PA [address] [place] [address] Phone: tel: fax: [place] [id number] [address] Phone: tel: Referral ID Status Reason Start Date Expiration Date V isits Requested Visits Authorized [id number] Authorized 06/11/2025 06/11/2026 1 1 Encounter Details Date Type Department Care Team (Latest Contact Info) Description 06/23/2025 10:15 AM EST - 06/23/2025 11:59 PM EST Hospital Encounter Radiology Department - [address] [phone] Vertigo; Gait abnormality Discharge Disposition: Home or Self Care Social History Tobacco Use Types Packs/Day Years Used Date Smoking Tobacco: Never Smokeless Tobacco: Never Alcohol Use Standard Drinks/Week Comments No 0 (1 standard drink = 0.6 oz pur e alcohol) Housing Instability Answer Date Recorde d Are you worried that in the next 2 months you may not have stable housing? No 06/11/2025 Food Access & Nutrition Answer Date Rec orded Do you have access to a vari ety of food including fruits and vegetables? Yes 06/11/2025 Access to Healthcare Answer Date Record ed Within the last 3 months, ho w many times did you visit the emergency department for your medical care? 1 06/11/2025 Health Literacy Answer Date Recorded How often do you need to hav e someone help you when you read instructions, pamphlets, or other written material from your doctor or pharmacy? Never 06/11/2025 Caregiver: How often do you need to have someone help you when you read instructions, pamphlets, or other written material from your doctor or pharmacy? Not on file 06/11/2025 Financial Risk Answer Date Recorded How hard is it for you to pa y for the very basics like food, housing, medical care, and air conditioning / heating? Not asked 06/11/2025 Transportation Answer Date Recorded Has the lack of transportati on kept you from meetings, work, or from getting things needed for daily living? No Has the lack of transportati on kept you from medical appointments or from getting medications? No 06/11/2025 Social Isolation Answer Date Recorded How often do you feel lonely or isolated from th ose around you? Never 06/11/2025 Food Risk Answer Date Recorded Within the past 12 months we worried whether our food would run out before we got money to buy more. Never true 06/11/2025 Within the past 12 months th e food we bought just didn't last and we didn't have money to get more. Never true 06/11/2025 Dependent Care Answer Date Recorded Do you need help finding or paying for care for your loved ones. For example, child adolescent care or elderly care for an older adult? No 06/11/2025 Education Answer Date Recorded Do you think completing more education or training, like finishing a GED, going to college, or learning a trade, would be helpful for you? No 06/11/2025 Employment and Income Answer Date Recor ded During the last four weeks, have you been actively looking for work? No 06/11/2025 Living Situation Answer Date Recorded What is your living situation? Unrecognized valu e 06/11/2025 Comments No Sex and Gender Information Value Date Recorded Sex Assigned at Female 08/12/2024 10:48 AM EST Legal Sex Female 9:24 AM EST Gender Identity Female 08/12/2024 10:48 AM EST Sexual Orientation Straight 08/12/2024 10 :48 AM EST documented as of this encounter Medications at Time of Discharge OMEGA-3 FATTY ACIDS ORAL Take 1,000 mg by mouth 2 (two) times a day. documented as of this encounter Discharge Disposition Disposition Code Departure Means Destination Home or Self Care documented in this encounter Plan of Treatment Upcoming Encounters Date Type Department Care Team (Late st Contact Info) Description 08/04/2025 7:30 AM EST Office Visit Adult Medicine [facility] [address] [place], [place] [phone] Ashley Nixon PA [address] [place], [place] 08/25/2025 2:30 PM EST Office Visit [facility] [address] [place] [phone] Miguel Angel Ni MD [address] [place] [address] [address] [place] [address] 11/04/2025 3:00 PM EDT Office Visit Gastroenterology - [address] [facility] [address] [place] [phone] Isabel Griffiths PA [address] [facility] [address] [place] [address] documented as of this encounter Procedures Procedure Name Priority Date/Time Associated Diagnosis Comments MR BRAIN WO AND W CONTRAST Routine 06/23/2025 11:11 AM EST Vertigo Gait abnormality documented in this encounter Results * MR Brain wo and w Contrast (06/23/2025 11:11 AM EST) Anatomical Region Laterality Modality Head and Neck Magnetic Resonan ce 06/24/2025 9:18 AM EST Impressions 06/24/2025 9:35 AM EST Impression: 1. No acute intracranial abnormality. 2. No abnormal intracranial enhancement -------- FINAL REPORT -------- Dictated By: Janay Gallegos Dictated Date: 06/24/2025 09:18 ET Assigned Physician: Janay Gallegos Reviewed and Electronically Signed By: Janay Gallegos Signed Date: 06/24/2025 09:35 ET Workstation ID: [id number] Transcribed By: Self Edit Transcribed Date: 06/24/2025 09:18 ET Narrative 06/24/2025 9:35 AM EST MRI BRAIN WITH AND WITHOUT CONTRAST Clinical Statement: gait abnormality vertigo Comparison: None Technique: Multiplanar, multisequence MR images of the brain were obtained prior to and following the uneventful intravenous administration of 15 mL of Dotarem Findings: There is no evidence of diffusion restriction. No intracranial hemorrhage. Minimal white matter hyperintensities within the periventricular and supraventricular region consistent with microvascular ischemic changes. The craniocervical junction is normal. The ventricular system is normal in size and morphology. The basilar cisterns are normal. There is no evidence of abnormal intracranial enhancement. The orbits and globes are within normal limits. The paranasal sinuses and mastoids are clear. Procedure Note Janay Gallegos MD - 06/24/2025 MRI BRAIN WITH AND WITHOUT CONTRAST Clinical Statement: gait abnormality vertigo Comparison: None Technique: Multiplanar, multisequence MR images of the brain wereobtained prior to and following the uneventful intravenous administrationof 15 mL of Dotarem Findings: There is no evidence of diffusion restriction. No intracranialhemorrhage. Minimal white matter hyperintensities within theperiventricular and supraventricular region consistent with microvascularischemic changes. The craniocervical junction is normal. The ventricularsystem is normal in size and morphology. The basilar cisterns are normal.There is no evidence of abnormal intracranial enhancement. The orbitsand globes are within normal limits. The paranasal sinuses and mastoidsare clear. IMPRESSION: Impression: 1. No acute intracranial abnormality. 2. No abnormal intracranial enhancement -------- FINAL REPORT -------- Dictated By: Janay Gallegos Dictated Date: 06/24/2025 09:18 ET Assigned Physician: Janay Gallegos Reviewed and Electronically Signed By: Janay Gallegos Signed Date: 06/24/2025 09:35 ET Workstation ID: [id number] Transcribed By: Self Edit Transcribed Date: 06/24/2025 09:18 ET Ashley POWELL IMG MRI PROCEDURES Final Result documented in this encounter Visit Diagnoses Diagnosis Vertigo Dizziness and giddiness Gait abnormality Abnormality of gait documented in this encounter Administered Medications Inactive Administered Medications - up to 3 most recent administrations Medication Order MAR Action Action Date Dose Rate Site gadoterate meglumine (CLARISCAN, DOTAREM) injection 15 mL 15 mL, intravenous, Once in imaging, Starting on Sun06/23/25 at 1112, For 1 dose Given 06/23/2025 11:12 AM EST 15 mL documented in this encounter Orders Medications Ordered That Theo ht Not Have Been Administered Count Last Ordered Date First Ordered Date gadoterate meglumine (DAVID CAN, DOTAREM) injection 15 mL 1 06/23/2025 documented in this encounter Additional Health Concerns Assessment Noted Time PHQ-9 Depression Total Score: 0 04/01/20 9:29 AM EDT documented as of this encounter Care Teams Timber Inspector Relationship Specialty Start Date End Date Christina Mora MD [address] [place] [phone] PCP - General Internal Medicine 06/03/24 documented as of this encounter
--- NOTE | ~2025-06-24 | CT_ITS ---
EXAMINATION: CT ABDOMEN AND PELVIS WITH CONTRAST CLINICAL INFORMATION: Rt 09/24/2023 abdominal tenderness COMPARISON: None available. TECHNIQUE: Multidetector volumetric images were obtained from the superior aspect of the liver through the pubic symphysis following administration 85 mL of Omnipaque 350 intravenous contrast. Sagittal and coronal reformatted images were obtained on the technologist's workstation. Oral contrast: No This CT examination was performed using dose optimization techniques as appropriate, variously including the following: *Automated exposure control *Adjustment of mA and/or kV according to patient size (this includes techniques or standardized protocols for targeted exams where dose is matched to indication/reason for exam; i.e. extremities or head) *Use of iterative reconstruction technique FINDINGS: LUNG BASES: 8 millimeter calcified granulomas identified in the posterior lateral right lower lobe. LIVER, GALLBLADDER, AND BILIARY TREE: Mild fatty changes are present in the liver. The gallbladder is unremarkable with no evidence of radiopaque gallstones, gallbladder wall thickening, or obvious pericholecystic inflammatory changes. PANCREAS: Unremarkable. SPLEEN: Unremarkable. ADRENAL GLANDS: Unremarkable. KIDNEYS AND URETERS: The kidneys are normal in size, shape, and attenuation. No hydronephrosis, hydroureter, or calculi seen. No perinephric stranding. BLADDER: Unremarkable. GASTROINTESTINAL TRACT: A few scattered pseudodiverticula are present in the colon, most pronounced in the descending colon. Bowel wall thickening at the descending colon-sigmoid colon junction has resolved since the prior study. A normal appendix is identified. Ileocecal junction is within normal limits. ABDOMINAL WALL: No significant hernia is appreciated. LYMPH NODES: Normal. VASCULAR: Unremarkable. PELVIC VISCERA: Unremarkable. OSSEOUS STRUCTURES: Mild degenerative sclerosis is present in the pubic symphysis joint. CT/CT abdomen pelvis w IV con IMPRESSION: Chronic diverticulosis is present without evidence of active inflammation. A normal appendix is identified. Ileocecal junction was within normal limits. Gallbladder is grossly normal. Mild hepatic steatosis. 8 mm right lower lobe calcified granuloma is stable. Fleischner guidelines were followed. Electronically signed by: Vasquez Spencer MD 06/24/2025 01:43 PM EST
--- OUTSIDE RECORDS SUMMARY | 2025-06-24 09:30 | XMS_ITS | Encounter Summary ---
Author Organization [employer] Address [address] [place] [address] Care Team Providers Care Digital Content Producer Name Role Phone Christina Mora MD Primary Care Prov ider Reason for Visit * Reason Comments UTI symptoms Encounter Details Date Type Department Care Team (Late st Contact Info) Description 06/24/2025 9:30 AM EST Office Visit Adult Medicine [facility] [address] [place], [place] [phone] Allan Beltran PA [address] [place], [place] Urinary frequency (Primary Dx); Epigastric pain Social History Tobacco Use Types Packs/Day Years [...] Sign Reading Time Taken Comments Blood Pressure 133/60 06/24/2025 9:28 AM EST Pulse 79 06/24/2025 9:28 AM EST Temperature 36.2 C (97.2 F) 06/24/2025 9:28 AM EST Respiratory Rate 15 06/24/2025 9:28 AM EST Oxygen Saturation 93% 06/24/2025 9:28 AM EST Inhaled Oxygen Concentration - - Weight 84.4 kg (186 lb) 06/24/2025 9:28 AM EST Height 160 cm (5' 3 ) 06/24/2025 9:28 AM EST Body Mass Index 32.95 06/24/2025 9:28 AM EST documented in this encounter Ordered Prescriptions Prescription Sig Dispense Quantity Refills Last Filled Start Date End Date sulfamethoxazole-t rimethoprim (BACTRIM DS,SEPTRA DS) 800-160 mg per tablet Take 1 tablet by mouth 2 (two) times a day for 5 days. 10 each 06/24/2025 06/29/2025 documented in this encounter Progress Notes * Dylon Monterroso MA - 06/24/2025 9:30 AM ESTAddended by: DYLON MONTERROSO on: 06/24/2025 02:47 PM Modules accepted: Orders * SHERRY Stout - 06/24/2025 9:30 AM EST CHIEF COMPLAINT: UTI (symptoms) IDENTIFIER: Adri Rhoades is a 54 y.o. old female who comes alone. HPI: 54 y/o F presents with increased urinary frequency, some diffuse abdominal discomfort which she feels got a bit worse in the epigastrium yesterday, with pain radiating to her back. No fatigue, dyspnea, CP, SOB, nausea, vomiting. Reports hx of hysterectomy. No other abdominal surgeries. Patient alsofeels like there is pain in her kidneys. No syncope or near syncope. Does reports she has been having on and off abdominal pain for many months now. 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 OB Status Hysterectomy Smoking Status Never BSA 1.88 m?? APPEARANCE: Alert and in no acute distress HEART: RRR with normal S1 and S2, no murmurs, no gallops LUNG: clear to auscultation EXTREMITIES: Extremities warm and well perfused without clubbing, cyanosis, or edema Abdomen: Soft. Tenderness over epigastrium. Normoactive bowel sounds. Some mild suprapubic tenderness. SKIN: Skin color, texture, turgor normal. No rashes or lesions. PSYCH: Stable mood and affect. Nonpressured speech. IMPRESSION: 1. Urinary frequency 2. Epigastric pain PLAN: 1/2. Most likely UTI but she has some other symptoms which would not be fully explained by UTI alone. The epigastric discomfort will be further evaluated with basic labs and amylase and lipase. If any significant derangement will refer patient to ER For potential CT scan. I did an EKG which was non-ischemic. Low suspicion for cardiac disease without any fatigue, CP, SOB, dyspnea on exertion, or major risk factors. She could have pyelo but is well appearing. With abnormal urine dip, will start bactrim for 5 days. Will await culture My colleagues and I have maintained a longitudinal relationship with this patient and serve as a focal point of their care. Orders Placed This Encounter Procedures Culture urine Lipase Amylase CBC and differential Comprehensive metabolic panel ADDITIONAL ORDERS: None Today's documentation was made using voice recognition software.This note may contain grammatical errors secondary to this software. SHERRY Stout on 06/24/2025 at 9:52 AM EST [1] Outpatient Medications Marked as Taking for the 06/24/25 encounter (Office Visit) with SHERRY Stout Medication Sig Dispense Refill OMEGA-3 FATTY ACIDS ORAL Take 1,000 mg by mouth 2 (two) times a day. [2] No Known Allergies documented in this encounter Plan of Treatment Upcoming Encounters Date Type Department Care Team (Late st Contact Info) Description 08/04/2025 7:30 AM EST Office Visit Adult Medicine [facility] [address] [place], [place] [phone] Ashley Nixon PA [address] [place], [place] 08/25/2025 2:30 PM EST Office Visit [facility] [address] [place] [phone] Miguel Angel Ni MD [address] [place] [address] [address] [place] [phone] 11/04/2025 3:00 PM EDT Office Visit Gastroenterology - [address] [phone] Isabel Griffiths PA [address] [address] Pending Results Name Type Priority Associated Diagnoses Date /Time Culture urine Microbiology Routine Urinary frequency 06/24/2025 10:46 AM EST Scheduled Orders Name Type Priority Associated Diagnoses Orde r Schedule ECG 12 lead ECG Routine Epigastric pain Ordered: 06/24/2025 documented as of this encounter Procedures Procedure Name Priority Date/Time Associated Diagnosis Comments POC URINE NON-AUTO W/O MICRO Routine 06/24/2025 10:37 AM EST Urinary frequency Epigastric pain documented in this encounter Results * (ABNORMAL) POC Urine Non-Auto W/O Micro (06/24/2025 10:37 AM EST) Pathologist [facility] Leukocytes UA POC Negative Negative Nitrite UA POC Positive(A) Negative Urobilinogen UA POC Negative Negative Comment:.2 Protein UA POC Positive(A) Negative Comment:30 PH UA POC 6.5 5.0 - 9.0 Blood UA POC Negative Negative, Trace Specific Ada UA POC 1.030 1.001 - 1.035 Ketones UA POC Negative Negative Comment:trace Bilirubin UA POC Positive(A) Negative Comment:small Glucose UA POC Normal Normal, Trace Urine Urine specimen obtained by clean catch procedure / Unknown 06/24/2025 10:37 AM EST Allan POWELL POINT OF CARE TEST ENTER /EDIT ORDERABLES Final Result * Comprehensive metabolic panel (06/24/2025 10:17 AM EST) [facility] Sodium 139 133 - 145 mmol/L 06/24/2025 1:59 PM [facility] Potassium 4.6 3.5 - 5.5 mmol/L 06/24/2025 1:59 PM [facility] Chloride 100 96 - 110 mmol/L 06/24/2025 1:59 PM [facility] CO2 30 21 - 32 mmol/L 06/24/2025 1:59 PM [facility] Anion Gap 9 3 - 11 06/24/2025 1:59 PM [facility] Glucose 95 70 - 100 mg/dL 06/24/2025 1:59 PM [facility] BUN 12 5 - 25 mg/dL 06/24/2025 1:59 PM [facility] Creatinine 0.75 0.50 - 1.10 mg/dL 06/24/2025 1:59 PM [facility] eGFR 96 >=60 mL/min/1. 73m2 06/24/2025 1:59 PM [facility] Comment:Calculation based on the Chronic Kidney Disease Epidemiology Collaboration (CKD-EPI) equation refit without adjustment for race. BUN/Creatinine Ratio 16.0 06/24/2025 1:59 PM [facility] Calcium 8.9 8.5 - 10.5 mg/dL 06/24/2025 1:59 PM [facility] AST (SGOT) 32 10 - 42 unit/L 06/24/2025 1:59 PM [facility] ALT (SGPT) 29 10 - 60 unit/L 06/24/2025 1:59 PM [facility] Alkaline Phosphatase 75 42 - 121 unit/L 06/24/2025 1:59 PM [facility] Total Protein 7.8 6.0 - 8.0 g/dL 06/24/2025 1:59 PM [facility] Albumin 4.1 3.2 - 5.0 g/dL 06/24/2025 1:59 PM [facility] Total Bilirubin 0.5 0.0 - 1.4 mg/dL 06/24/2025 1:59 PM [facility] Blood Venous blood specimen / Unknown Venipuncture / Unknown 06/24/2025 10:17 AM EST 06/24/2025 10:17 AM EST us Allan POWELL LAB BLOOD ORDERABLES Fin al Result [facility] [address] [place] [address], * Amylase (06/24/2025 10:17 AM EST) Amylase 44 25 - 115 unit/L 06/24/2025 12:56 PM [facility] Blood Venous blood specimen / Unknown Venipuncture / Unknown 06/24/2025 10:17 AM EST 06/24/2025 10:17 AM EST Allan POWELL LAB BLOOD ORDERABLES Fin al Result Performing Organization Address City/[facility]/ZIP Co de Phone Number [facility] [address] [place] [address], [place] [phone] * Lipase (06/24/2025 10:17 AM EST) Lipase 28 12 - 53 unit/L 06/24/2025 12:56 PM EST [facility] Blood Venous blood specimen / Unknown Venipuncture / Unknown 06/24/2025 10:17 AM EST 06/24/2025 10:17 AM EST Allan POWELL LAB BLOOD ORDERABLES Fin al Result Performing Organization Address [facility] de Phone Number [facility] [address] [place] [address], [place] [phone] documented in this encounter Visit Diagnoses Diagnosis Urinary frequency- Primary Epigastric pain Abdominal pain, epigastric documented in this encounter Additional Health Concerns Assessment Noted Time PHQ-9 Depression Total Score: 0 04/01/20 25 9:29 AM EDT documented as of this encounter Care Teams Digital Content Producer Relationship Specialty Start Date End Date Christina Mora MD [address] [place] [phone] PCP - General Internal Medicine 06/03/24 documented as of this encounter
--- OUTSIDE RECORDS SUMMARY | 2025-06-24 10:15 | XMS_ITS | Encounter Summary ---
Author Organization [facility] Address [address] [place] [address] Care Team Providers Care Drafter Castings Name Role Phone Christina Mora MD Primary Care Prov ider Encounter Details Date Type Department Care Team (Late st Contact Info) Description 06/24/2025 10:15 AM EST Lab Draw Station - [place] [address] [place] [address] Urinary frequency; Epigastric pain Social History Tobacco Use Types [...] for your loved ones. For example, children's institution attendant or elderly care for an older adult? [...] Office Visit Adult Medicine [facility] [address] [place] [address] Ashley Nixon PA [address] [place], [place] 08/25/2025 2:30 PM EST Office Visit [facility] [address] [place] [phone] Miguel Angel Ni MD [address] [place] [address] [address] [place] [phone] 11/04/2025 3:00 PM EDT Office Visit Gastroenterology - [address] [place] [phone] Isabel Griffiths PA [address] [place] [address] documented as of this encounter Procedures Procedure Name Priority Date/Time Associated Diagnosis Comments CBC WITH AUTO DIFFERENTIAL Routine 06/24/2025 10:17 AM EST Urinary frequency Epigastric pain CBC AND DIFFERENTIAL Routine 06/24/2025 10:17 AM EST Urinary frequency Epigastric pain LIPASE Routine 06/24/2025 10:17 AM EST Urinary frequency Epigastric pain AMYLASE Routine 06/24/2025 10:17 AM EST Urinary frequency Epigastric pain COMPREHENSIVE METABOLIC PANEL Routine 06/24/2025 10:17 AM EST Urinary frequency Epigastric pain documented in this encounter Results * (ABNORMAL) CBC auto differential (06/24/2025 10:17 AM EST) WBC 6.6 4.8 - 10.8 K/[facility] LAB HEMETOLOGY METHOD 06/24/2025 12:[address] [facility] RBC 4.90(H) 3.80 - 4.80 M/[facility] LAB HEMETOLOGY METHOD 06/24/2025 12:[address] [facility] Hemoglobin 14.1 11.5 - 16.0 g/dL LAB HEMETOLOGY METHOD 06/24/2025 12:11 PM [facility] Hematocrit 43.8 35.0 - 47.0 % LAB HEMETOLOGY METHOD 06/24/2025 12:11 PM [facility] MCV 89.0 79.0 - 98.0 FL LAB HEMETOLOGY METHOD 06/24/2025 12:11 [facility] MCH 28.7 27.0 - 32.0 pcg LAB HEMETOLOGY METHOD 06/24/2025 12:11 PM [facility] MCHC 32.2 32.0 - 37.0 g/dL LAB HEMETOLOGY METHOD 06/24/2025 12:11 PM [facility] RDW 14.0 11.0 - 15.0 % LAB HEMETOLOGY METHOD 06/24/2025 12:11 [facility] Platelets 254 130 - 400 K/mcL LAB HEMETOLOGY METHOD 06/24/2025 12:11 [facility] MPV 11.5(H) 7.0 - 11.0 [place] LAB HEMETOLOGY METHOD 06/24/2025 12:11 [facility] NRBC 0.0 <1.0 % LAB HEMETOLOGY METHOD 06/24/2025 12:11 [facility] NRBC Absolute 0.00 <0.10 K/mcL LAB HEMETOLOGY METHOD 06/24/2025 12:11 [facility] Neutrophils Relative 52.9 % LAB HEMETOLOGY METHOD 06/24/2025 12:11 PM [facility] Lymphocytes Relative 38.4 % LAB HEMETOLOGY METHOD 06/24/2025 12:11 [facility] Monocytes Relative 7.6 % LAB HEMETOLOGY METHOD 06/24/2025 12:11 [facility] Eosinophils Relative 0.6 % LAB HEMETOLOGY METHOD 06/24/2025 12:11 PM [facility] Basophils Relative 0.3 % LAB HEMETOLOGY METHOD 06/24/2025 12:11 PM [facility] Immature Granulocytes Relative 0.2 % LAB HEMETOLOGY METHOD 06/24/2025 12:11 PM [facility] Neutrophils Absolute 3.48 1.50 - 7.00 K/mcL LAB HEMETOLOGY METHOD 06/24/2025 12:11 PM [facility] Lymphocytes Absolute 2.52 1.00 - 5.00 K/mcL LAB HEMETOLOGY METHOD 06/24/2025 12:11 PM [facility] Monocytes Absolute 0.50 0.20 - 1.00 K/mcL LAB HEMETOLOGY METHOD 06/24/2025 12:11 PM [facility] Eosinophils Absolute 0.04 0.00 - 0.50 K/mcL LAB HEMETOLOGY METHOD 06/24/2025 12:11 PM [facility] Basophils Absolute 0.02 0.00 - 0.20 K/mcL LAB HEMETOLOGY METHOD 06/24/2025 12:11 PM [facility] Immature Granulocytes Absolute 0.01 0.00 - 0.03 K/mcL LAB HEMETOLOGY METHOD 06/24/2025 12:11 PM [facility] Blood Venous blood specimen / Unknown Venipuncture / Unknown 06/24/2025 10:17 AM EST 06/24/2025 10:17 AM EST us Allan POWELL LAB BLOOD ORDERABLES Fin al Result [facility] [address] [place] [address], * Lipase (06/24/2025 10:17 AM EST) Lipase 28 12 - 53 unit/L 06/24/2025 12:[address] [facility] Blood Venous blood specimen / Unknown Venipuncture / Unknown 06/24/2025 10:17 AM EST 06/24/2025 10:17 AM EST Allan POWELL LAB BLOOD ORDERABLES Fin al Result Performing Organization Address City/[facility]/ZIP Co de Phone Number [facility] [address] [place] [address], [place] [phone] * Amylase (06/24/2025 10:17 AM EST) Amylase 44 25 - 115 unit/L 06/24/2025 12:56 PM [facility] Blood Venous blood specimen / Unknown Venipuncture / Unknown 06/24/2025 10:17 AM EST 06/24/2025 10:17 AM EST Allan POWELL LAB BLOOD ORDERABLES Fin al Result Performing Organization Address City/[facility]/ZIP Co de Phone Number [facility] [address] [place] [address], [place] [phone] * Comprehensive metabolic panel (06/24/2025 10:17 AM EST) Sodium 139 133 - 145 mmol/L 06/24/2025 1:59 PM [facility] Potassium 4.6 3.5 - 5.5 mmol/L 06/24/2025 1:59 PM [facility] Chloride 100 96 - 110 mmol/L 06/24/2025 1:59 PM [facility] CO2 30 21 - 32 mmol/L 06/24/2025 1:59 PM [facility] Anion Gap 9 3 - 11 06/24/2025 1:59 PM [facility] Glucose 95 70 - 100 mg/dL 06/24/2025 1:59 PM [facility] BUN 12 5 - 25 mg/dL 06/24/2025 1:59 PM [facility] Creatinine 0.75 0.50 - 1.10 mg/dL 06/24/2025 1:59 PM [facility] eGFR 96 >=60 mL/min/1. 73m2 06/24/2025 1:59 PM [facility] Comment:Calculation based on the Chronic Kidney Disease Epidemiology Collaboration (CKD-EPI) equation refit without adjustment for race. BUN/Creatinine Ratio 16.0 06/24/2025 1:59 PM [facility] Calcium 8.9 8.5 - 10.5 mg/dL 06/24/2025 1:59 PM [facility] AST (SGOT) 32 10 - 42 unit/L 06/24/2025 1:59 PM [facility] ALT (SGPT) 29 10 - 60 unit/L 06/24/2025 1:59 PM [facility] Alkaline Phosphatase 75 42 - 121 unit/L 06/24/2025 1:59 PM [facility] Total Protein 7.8 6.0 - 8.0 g/dL 06/24/2025 1:59 PM [facility] Albumin 4.1 3.2 - 5.0 g/dL 06/24/2025 1:59 PM [facility] Total Bilirubin 0.5 0.0 - 1.4 mg/dL 06/24/2025 1:59 PM [facility] Blood Venous blood specimen / Unknown Venipuncture / Unknown 06/24/2025 10:17 AM EST 06/24/2025 10:17 AM EST us Allan OPWELL LAB BLOOD ORDERABLES Fin al Result [facility] [address] [place] [address], documented in this encounter Visit Diagnoses Diagnosis Urinary frequency Epigastric pain Abdominal pain, epigastric documented in this encounter Additional Health Concerns Assessment Noted Time PHQ-9 Depression Total Score: 0 04/01/20 25 9:29 AM EDT documented as of this encounter Care Teams Drafter Castings Relationship Specialty Start Date End Date Christina Mora MD [address] [place] [phone] PCP - General Internal Medicine 06/03/24 documented as of this encounter
--- NOTE | 2025-06-24 11:30 | ED_ITS ---
HPI - Abdominal Pain General Chief Complaint: Abdominal Pain Stated Complaint: Stomach Pain Time Seen by Provider: 06/24/25 11:40 Source: patient, RN notes reviewed and old records reviewed Mode of arrival: ambulatory Limitations: no limitations History of Present Illness ED Provider: PUSHPA Pal HPI narrative: 54-year-old female with medical history of lumbar radiculopathy, sacroiliitis, IBS, presents to the ED due to 3 days of B/L lumbar back pain. Patient states she woke up 3 days ago with pain of lumbar back gradually increasing throughout the day. Patient originally thought it may be a lumbar back strain as she had been cleaning the house and doing chores. Patient states yesterday, the back pain began to wrap around the upper part of her abdomen in a band like pattern, with pain worse on the R side of her abdomen associated with nausea. Patient presented to PCP office this morning and was encouraged to come to the ED for further evaluation due to pain wrapping around the abdomen. Patient states she has history of kidney stones, however this pain is different as it is now radiating into the upper abdomen and she has never experienced pain like this before. Patient states last bowel movement was this morning and was normal in volume, consistency, and caliber for her. Denies recent travel, sick contacts, drug/alcohol use, vomiting, diarrhea, urinary symptoms, chest pain, SOB, difficulty breathing. Related Data Home Medications ?Medication ?Instructions ?Recorded ?Confirmed metoprolol tartrate 25 mg tablet 25 mg PO DAILY 01/13/25 omega 5-nti-yyw-fish oil 1,000 mg 1 cap PO BID 5 01/13/25 (120 mg-180 mg) capsule (Fish Oil) Allergies Allergy/AdvReac Type Severity Reaction Status Date / Time No Known Allergies Allergy Mild N/A Verified 06/24/25 11:39 Review of Systems Review of Systems Yes all other systems are reviewed and are negative PMFSH Past Medical History Attestation statement: The following information was validated with the patient. 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 HEENT: ?NC, AT. MMM. EOMI, clear conjunctiva, oropharynx clear. NECK: ?Supple without lymphadenopathy.? No stiffness or restricted ROM. HEART:? Normal rate and regular rhythm, normal S1/S2, no m/r/g LUNGS:? CTAB, moving air well. No crackles or wheezes are heard. ABDOMEN: ?Soft, nondistended, no rigidity, negative rebound tenderness, moderate tenderness to palpation of the RUQ, and right-sided periumbilical region, no overlying skin changes BACK: Patient without CVAT, no tenderness when palpating the lumbar paraspinal muscles, no midline spinal tenderness, no overlying skin changes EXTREMITIES: ?Without cyanosis, clubbing or edema. NEUROLOGICAL: ?Grossly nonfocal. Alert and oriented, moving all 4 extremities. Observed to ambulate with normal gait. Skin: ?Warm and dry without any rash. Course Course Course Narrative: This is a Rapid Medical Exam performed in triage by Terri Downey PA-C. Full HPI, ROS and PE to be performed by primary ED provider. 54 yo F w/pmhx diverticulitis presenting to the ED c/o flank pain & R sided abdominal pain x3 days w/assoc nausea & headache. PE: abdomen soft w/RUQ/RLQ and R CVAT. no rebound or guarding Plan: Labs, UA Medical Decision Making Medical Decision Making MDM Narrative: 54-year-old female with medical history of lumbar radiculopathy, sacroiliitis, IBS, presents to the ED due to 3 days of B/L lumbar back pain that is radiating into the R side of the abdomen. Patient saw her PCP this morning who encouraged the patient to come to ED for further imaging of her abdomen. VS on initial observation-BP 127/71, pulse rate of 87, respiratory rate of 16, afebrile with oral temp of 97.1?, O2 saturation 97% on room air. On physical exam patient is alert and oriented, nontoxic appearing, Lumbar back without pain to palpation, no midine spinal tenderness, no overlying skin changes, no CVAT. Abdomen is soft, nondistended, no rigidity, no rebound tenderness, moderate TTP to RUQ, and right periumbilical region of the abdomen, no overlying skin changes. Plan: Labs, UA, EKG, CT abdomen and pelvis - Patient medicated with 1L IV fluids, 4 mg IV morphine for pain control EKG reveals normal sinus rhythm with sinus arrhythmia, no significant ST- elevation/depression, with non specific T wave abnormality, Troponin Labs without leukocytosis/leukopenia, no left shift, no evidence of anemia H&H stable, mildly elevated random glucose of 133, no electrolyte abnormalities, lipase WNL at 20, LFTs WNL. UA without blood or bacteria. Upreg negative. CT abdomen/pelvis reveals chronic diverticulosis without inflammation, normal appendix, normal galbladder, no nephrolithiasis observed, no thickening or inflammation of the intestines or colon. Stable 8mm R lower lobe calcified granuloma observed. Patient presents with 3 days of lumbar back pain radiating into the R side of abdomen. Saw PCP this morning with [facility], was told she had UTI, was discharged with course of bactrim and told to come to ED for further evaluation. Labs without leukocytosis/leukopenia, lipase WNL, LFTs WNL. Urine without evidence of blood or bacteria. Physical exam I an unable to find an area of tenderness when palpating the thoracic/lumbar paraspinal muscles, no CVAT. CT abdomen and pelvis without any acute abdominal findings. Patient was medicated with 4 mg IV morphine which has provided adequate pain control. Patient will be given a dose of 15 mg IV Toradol for further anti-inflammatory properties. Patient will be discharged home to follow up with her primary care doctor. Patient asked if she should continue her antibiotics, I stated that she should finish them at this time and follow up with her primary care doctor for further instruction. Patient feels well enough to go home at this time. I counseled patient to manage pain at home with 500 mg Tylenol, 400 mg of ibuprofen q.6. I counseled patient on strict return precautions. Patient in agreement of the plan. Differential Diagnosis Differential Diagnoses: The differential diagnosis associated with the presentation includes Nephrolithiasis Biliary disease Pancreatitis Gastritis Lumbar back strain Admission/Observation Consideration of admission/observation: Escalation of care including admission/observation considered Lab Data MDM Lab Attestation statement: I reviewed the patient's lab results. 06/24/25 11:46 06/24/25 11:46 Labs: Lab Results 06/24/25 06/24/25 Range/Units 11:46 11:55 WBC 6.2 (4.8-10.8) X10*3/uL RBC 4.85 (4.20-5.50) X10*6/uL Hgb 14.0 (12.0-16.0) g/dl Hct 42.3 (37.0-47.0) % MCV 87.2 (80.0-98.0) fL MCH 28.9 (27.0-33.0) pg MCHC 33.1 (31.0-35.0) g/dl RDW 13.8 (11.0-16.0) % Plt Count 235 (160-400) X10*3/uL MPV 10.6 (9.4-12.3) fL Immature Gran % (Auto) 0.3 (0.0-0.4) % Neut % (Auto) 56.2 (45-73) % Lymph % (Auto) 38.4 (20-40) % [place] % (Auto) 4.1 (2-11) % Eos % (Auto) 0.7 (0-4) % Baso % (Auto) 0.3 (0-2) % Lymph # (Auto) 2.4 (1.2-4.9) X10*3/uL [place] # (Auto) 0.3 (0.1-1.2) X10*3/uL Eos # (Auto) 0.0 (0.0-0.4) X10*3/uL Baso # (Auto) 0.0 (0.0-0.2) X10*3/uL Abs Immat Gran (auto) 0.02 (0.00-0.03) X10*3/uL Absolute Neuts (auto) 3.5 (2.0-8.3) x10*3/uL Absolute Nucleated RBC 0.000 (0.0-0.012) X10*3/uL Nucleated RBC % (auto) 0.0 (0.0-0.2) /100WBC Sodium 137 (135-145) mmol/L Potassium 3.9 (3.3-5.1) mmol/L Chloride 104 (96-108) mmol/L Carbon Dioxide 28 (22-29) mmol/L Anion Gap 9 L (12-20) BUN 13 (9-16) mg/dL Creatinine 0.66 (0.5-1.4) mg/dL Estim Creat Clear Calc 102.0 Estimated GFR > 60 Random Glucose 133 H (60-115) mg/dL Calcium 9.7 (8.4-10.2) mg/dL Magnesium 2.1 (1.6-2.6) mg/dL Total Bilirubin 0.4 (0.0-1.0) mg/dL Direct Bilirubin 0.2 (0.0-0.5) mg/dL AST 28 (5-31) U/L ALT 29 (0-31) U/L Alkaline Phosphatase 70 (39-117) U/L Troponin I High Sens < 2.7 (<3.5-17.0) ng/L Total Protein 8.0 (6.5-8.0) g/dL Albumin 4.6 (3.5-5.0) g/dL Lipase 20 (8-78) U/L Urine Color Yellow Urine Appearance Clear Urine pH 6.0 (5.0-9.0) Ur Specific [place] 1.015 (1.005-1.025) Urine Protein Negative (Neg-Trace) mg/dL Urine Glucose (UA) Negative (Negative) mg/dL Urine Ketones Negative (Negative) mg/dL Urine Blood Negative (Negative) Urine Nitrite Negative (Negative) Ur Leukocyte Esterase Negative (Negative) Urine Test NEGATIVE (NEGATIVE) Independent Interpretation I performed an independent interpretation of an: EKG and CT Scan Interpretation: I personally interpreted the EKG which reveals normal sinus rhythm, sinus arrhythmia without significant ST-elevation/depression, with nonspecific T-wave abnormality Vent. Rate : 84 BPM Atrial Rate : 84 BPM P-R Int : 126 ms QRS Dur : 88 ms QT Int : 362 ms P-R-T Axes : 37 58 -8 degrees QTcB Int : 427 ms Normal sinus rhythm with sinus arrhythmia Abnormal QRS-T angle, consider primary T wave abnormality Abnormal ECG When compared with ECG of 22-May-2025 14:15, No significant change was found Radiology Impression Discussion of test interpretation with radiology: I have reviewed the radiologist's reading. Radiologist Impression: CT abdomen and pelvis External Record Review External record reviewed: Inpatient record, Office record, Outpatient record, Prior outpatient labs and Primary care record Prescription Management I considered prescription management with: Antibiotic UA negative for blood or infection, CT scan without findings of acute abdomen, patient afebrile, without leukocytosis, no indication for antibiotics at this time. Chronic Conditions Patient?s care impacted by: Other (Lumbar radiculopathy, sacroiliitis, IBS) Social Determinants Patient?s care significantly limited by Social Determinants of Health including: Other Social Determinant of Health Medications Administered Discontinued Medications Generic Name Dose Route Start Last Admin Trade Name Rita PRN Reason Stop Dose Admin Lactated Ringer's 1,000 mls @ 999 mls/hr 06/24/25 12:46 06/24/25 14:49 Lr IV 06/24/25 13:46 Infused .Q1H1M ONE Infusion Iohexol 100 ml 06/24/25 13:22 06/24/25 13:22 Iohexol 350 Mg/Ml 100 Ml Infus..Btl IV 06/24/25 13:23 85 ml ONCE ONE Administration Morphine Sulfate 4 mg 06/24/25 12:46 06/24/25 12:59 Morphine Sulfate 4 Mg/Ml Cartridge IVPUSH 06/24/25 12:47 4 mg ONCE ONE Administration Protocol Discharge Plan Discharge Clinical Impression: Back pain, Abdominal pain Patient Disposition: Home, Self-Care Additional Instructions: You were evaluated in the emergency department due to lumbar back pain that was radiating into the abdomen. Your blood work was reassuring as there was no significant elevation or decrease in your white blood cell count indicative of infection, no evidence of anemia, no electrolyte abnormalities. Your random serum glucose was slightly elevated today at 133. Your EKG showed normal sinus rhythm with sinus arrhythmia, this is nonemergent and is most likely normal for you. Your troponin which is a protein that the heart gives off under stress or damage was undetectable today. Your urine was negative for blood or infection. Your CT abdomen and pelvis revealed fatty streaking of your liver, and a stable 8 mm calcified granuloma in your lung, but no emergent findings explaining the cause of your pain. To manage pain at home I recommend taking 500 mg of Tylenol, and 400 mg of ibuprofen every 6 hours. And using a heating pad over the affected areas of your back. Please follow up with your primary care doctor for further evaluation and management of your abdominal/back pain. Please return to the emergency department if you experience worsening back/abdominal pain, nausea, vomiting, fevers over 100.4? that are not controlled by Tylenol/ibuprofen, difficulty urinating, not able to produce a bowel movement, not passing flatus from the rectum, or any new/worsening/concerning symptoms. Prescriptions: No Action metoprolol tartrate 25 mg tablet 25 mg PO DAILY omega 9-kbz-xvz-fish oil [Fish Oil] 1,000 (120-180) mg capsule 1 cap PO BID Print Language: Croatian
[2025-06-24 11:31] VITALS: BP 127/71; PULSE 87; RESP 16; TEMP 36.2; O2SAT 97; BMI 32.6
[2025-06-24 11:52] LABS: MANUAL DIFF FLAG NO
[2025-06-24 11:53] LABS: Hematocrit 42.3 % (37.0-47.0); Hemoglobin 14.0 g/dl (12.0-16.0); Imm Gran Abs Auto 0.02 X10*3/uL (0.00-0.03); Imm Gran Pct Auto 0.3 % (0.0-0.4); Lymphocytes Absolute Auto 2.4 X10*3/uL (1.2-4.9); Mean Corpuscular HGB Conc 33.1 g/dl (31.0-35.0); Mean Corpuscular Hemoglobin 28.9 pg (27.0-33.0); Mean Corpuscular Volume 87.2 fL (80.0-98.0); NRBC Abs Auto 0.000 X10*3/uL (0.0-0.012); NRBC Pct Auto 0.0 /100WBC (0.0-0.2); Platelet Count 235 X10*3/uL (160-400); Red Blood Count 4.85 X10*6/uL (4.20-5.50); White Blood Count 6.2 X10*3/uL (4.8-10.8)
[2025-06-24 12:03] LABS: Appearance Urine Clear; Glucose Urine UA Negative (Negative); PH 6.0 (5.0-9.0); Specific Gravity - Urine 1.015 (1.005-1.025)
[2025-06-24 12:05] LABS: UPreg QC Valid YES
[2025-06-24 12:15] LABS: Alanine Aminotransferase 29 U/L (0-31); Albumin Level 4.6 g/dL (3.5-5.0); Alkaline Phosphatase 70 U/L (39-117); Anion Gap 9 (12-20); Aspartate Amino Transferase 28 U/L (5-31); Blood Urea Nitrogen 13 mg/dL (9-16); Calcium 9.7 mg/dL (8.4-10.2); Carbon Dioxide 28 mmol/L (22-29); Chloride 104 mmol/L (96-108); Creatinine Clr Calc Pharmacy 102.0; Estimated Glomerular Filt Rate > 60; Lipase 20 U/L (8-78); Magnesium 2.1 mg/dL (1.6-2.6); Potassium 3.9 mmol/L (3.3-5.1); Sodium 137 mmol/L (135-145); Total Protein 8.0 g/dL (6.5-8.0)
--- NOTE | 2025-06-24 12:51 | ECG_ITS ---
Test Reason : ABD PAIN Blood Pressure : */* mmHG Vent. Rate : 84 BPM Atrial Rate : 84 BPM P-R Int : 126 ms QRS Dur : 88 ms QT Int : 362 ms P-R-T Axes : 37 58 -8 degrees QTcB Int : 427 ms Normal sinus rhythm with sinus arrhythmia Abnormal QRS-T angle, consider primary T wave abnormality Abnormal ECG When compared with ECG of 22-May-2025 14:15, No significant change was found Referred By: Tim Pal Electronically Signed By: Vinayak San
[2025-06-24 12:59] VITALS: RESP 20
[2025-06-24] MEDS: Lactated Ringers 1,000 ML 999 ML IV (13:04)
[2025-06-24] MEDS: iohexoL 350 MG/ML 100 ML INFUS..BTL IV (13:22)
[2025-06-24 13:26] LABS: Troponin-I High Sensitivity < 2.7 ng/L (<3.5-17.0)
[2025-06-24 14:06] VITALS: BP 103/63; PULSE 68; RESP 16; TEMP 36.7; O2SAT 97
--- OUTSIDE RECORDS SUMMARY | 2025-06-24 14:50 | XMS_ITS | Encounter Summary ---
Author Organization Formerly [facility] [employer] Address [address] [place] [address] Care Team Providers Care Satellite Specialist Name Role Phone Unavailable Primary Care Provider Unavailabl e Encounter Details Date Type Department Care Team (Latest Contact Info) Description 06/27/2021 Abstract [facility] CONVERSIONS Dental, Provider, DDS Social History [...] Description 07/07/2025 8:00 AM EST Office Visit [facility] ADULT DENTAL [address] [place] [address] Aliya Dorantes documented as of this encounter Visit Diagnoses Not on filedocumented in this encounter
--- OUTSIDE RECORDS SUMMARY | 2025-06-24 14:50 | XMS_ITS | Encounter Summary ---
Author Organization [employer] Address [address] [place] [address] Care Team Providers Care Insole Bottom Filler Name Role Phone Christina Mora MD Primary Care Prov ider Encounter Details Date Type Department Care Team (Late st Contact Info) Description 06/23/2025 Telephone Adult Medicine [facility] [address] [place], [place] [phone] Christina Mora MD [address] [place], [place] Social History Tobacco Use Types Packs/Day [...] for your loved ones. For example, director of child welfare services or elderly care for an older adult? [...] as of this encounter Progress Notes * Marcia Ortiz - 06/23/2025 10:21 AM EST Opened in error documented in this encounter Plan of Treatment Upcoming Encounters Date Type Department Care Team (Late st Contact Info) Description 08/04/2025 7:30 AM EST Office Visit Adult Medicine [facility] [address] [place], [place] [phone] Ashley Nixon PA [address] [place], [place] 08/25/2025 2:30 PM EST Office Visit [facility] Cardiology [facility] [address] [place] [address] [place] [phone] Miguel Angel Ni MD [address] [place] [address] [address] [place] [phone] 11/04/2025 3:00 PM EDT Office Visit Gastroenterology - [address] [place] [address] Isabel Griffiths PA [address] [place] [address] documented as of this encounter Visit Diagnoses Not on filedocumented in this encounter Additional Health Concerns Assessment Noted Time PHQ-9 Depression Total Score: 0 04/01/20 25 9:29 AM EDT documented as of this encounter Care Teams Insole Bottom Filler Relationship Specialty Start Date End Date Christina Mora MD [address] [place] [address] PCP - General Internal Medicine 06/03/24 documented as of this encounter
--- OUTSIDE RECORDS SUMMARY | 2025-06-24 14:50 | XMS_ITS | Encounter Summary ---
Author Organization [employer] Address [address] [place] [address] Care Team Providers Care Lacing String Cutter Name Role Phone Christina Mora MD Primary Care Prov ider Encounter Details Date Type Department Care Team (Late st Contact Info) Description 06/11/2025 Results Follow-Up Adult Medicine [facility] [address] [place], [place] [phone] Ashley Nixon PA [address] [place], [place] Social History Tobacco Use Types Packs/Day [...] do you feel lonely or isolated from ose around you? Never 06/11/2025 Food Risk [...] for your loved ones. For example, children's attendant or elderly care for an older [...] Upcoming Encounters Date Type Department Care Team ([facility] Contact Info) Description 08/04/2025 7:30 AM EST Office Visit Adult Medicine [address], [place] [phone] Ashley Nixon PA [address] [place], [place] 08/25/2025 2:30 PM EST Office Visit [facility] Cardiology [facility] [address] [place] [address] [place] [address] Miguel Angel Ni MD [address] [place] [address] [address] [place] [address] 11/04/2025 3:00 PM EDT Office Visit Gastroenterology - [address] [facility] [address] [place] [phone] Isabel Griffiths PA [address] [place] [address] documented as of this encounter Visit Diagnoses Not on filedocumented in this encounter Additional Health Concerns Assessment Noted Time PHQ-9 Depression Total Score: 0 04/01/20 25 9:29 AM EDT documented as of this encounter Care Teams Lacing String Cutter Relationship Specialty Start Date End Date Christina Mora MD [address] [place] [address] PCP - General Internal Medicine 06/03/24 documented as of this encounter
--- OUTSIDE RECORDS SUMMARY | 2025-06-24 14:50 | XMS_ITS | Encounter Summary ---
Author Organization [facility] [employer] Address [address] [facility] [address] [place] [address] Care Team Providers Care Restaurant Hospitality Manager Name Role Phone Unavailable Primary Care Provider Unavailabl e Encounter Details Date Type Department Care Team (Latest Contact Info) Description 11/03/2020 Abstract [facility] CONVERSIONS Dental, Provider, DDS Social [...] Description 07/07/2025 8:00 AM EST Office Visit [facility] CHC ADULT DENTAL [address] [place] [address] Aliya Dorantes documented as of this encounter Visit Diagnoses Not on filedocumented in this encounter
--- OUTSIDE RECORDS SUMMARY | 2025-06-24 14:50 | XMS_ITS | Encounter Summary ---
Author Organization [facility] [employer] Address [address] [facility] [address] [place] [address] Care Team Providers Care Road Inspector Name Role Phone Unavailable Primary Care Provider Unavailabl e Encounter Details Date Type Department Care Team (Latest Contact Info) Description 10/09/2018 Abstract [facility] CONVERSIONS Dental, Provider, DDS Social [...] Description 07/07/2025 8:00 AM EST Office Visit [facility] CHC ADULT DENTAL [address] [place] [address] Aliya Dorantes documented as of this encounter Visit Diagnoses Not on filedocumented in this encounter
--- OUTSIDE RECORDS SUMMARY | 2025-06-24 14:50 | XMS_ITS | Encounter Summary ---
Author Organization [facility] Address [address] [place] [address] Care Team Providers Care Title Clerk Name Role Phone Christina Mora MD Primary Care Prov ider Encounter Details Date Type Department Care Team (Late st Contact Info) Description 06/24/2025 Results Follow-Up Adult Medicine [facility] [address] [place], [place] [phone] Allan Beltran PA [address] [place], [place] Social History Tobacco Use Types Packs/Day [...] your loved ones. For example, child care lead teacher or elderly care for an [...] Upcoming Encounters Date Type Department Care Team ([facility] Contact Info) Description 08/04/2025 7:30 AM EST Office Visit Adult Medicine [address], [place] [phone] Ashley Nixon PA [address] [place], [place] 08/25/2025 2:30 PM EST Office Visit [facility] Cardiology [facility] [address] [place] [address] [place] [address] Miguel Angel Ni MD [address] [place] [address] Dr [address] [place] [address] 11/04/2025 3:00 PM EDT Office Visit Gastroenterology - [address] [facility] [address] [place] [phone] Isabel Griffiths PA [address] [place] [address] documented as of this encounter Visit Diagnoses Not on filedocumented in this encounter Additional Health Concerns Assessment Noted Time PHQ-9 Depression Total Score: 0 04/01/20 25 9:29 AM EDT documented as of this encounter Care Teams Title Clerk Relationship Specialty Start Date End Date Christina Mora MD [address] [place] [address] PCP - General Internal Medicine 06/03/24 documented as of this encounter
--- OUTSIDE RECORDS SUMMARY | 2025-06-24 14:51 | XMS_ITS | Clinical Summary ---
Author Organization [employer] Address [address] [facility] 7t [place] [address] Care Team Providers Care Licensed Real Estate Broker Name Role Phone Unavailable Primary Care Provider [...] Upcoming Encounters Date Type Department Care Team ([facility] st Contact Info) Description 07/07/2025 8:00 AM EST Office Visit [facility] AD[facility]AL [address] [place] [address] Aliya Dorantes Health Maintenance Due Date Last [...] Most Recently Relevant to Health Maintenance Insurance [facility] D[facility] - HSN PARTIAL (MEDICAID)
--- OUTSIDE RECORDS SUMMARY | 2025-06-24 14:51 | XMS_ITS | Encounter Summary ---
Author Organization [employer] Address [address] [place] [address] Care Team Providers Care Forest Fire Control Officer Name Role Phone Christina Mora MD Primary Care Prov ider Encounter Details Date Type Department Care Team (Late st Contact Info) Description 04/27/2025 Results Follow-Up Adult Medicine [address] [phone] Christina Mora MD [address] [place], [place] Social History Tobacco Use Types Packs/Day [...] care for your loved ones. For example, summer child caregiver or elderly care for an [...] 7:30 AM EST Office Visit Adult Medicine [address] [phone] Ashley Nixon PA [address] [place] [address] 08/25/2025 2:30 PM EST Office Visit [facility] [address] [place] [address] [place] [phone] Miguel Angel Ni MD [address] [place] [address] Dr [address] [place] [address] 11/04/2025 3:00 PM EDT Office Visit Gastroenterology - [address] [facility] [address] [place] [phone] Isabel Griffiths PA [address] [place] [address] documented as of this encounter Visit Diagnoses Not on filedocumented in this encounter Additional Health Concerns Assessment Noted Time PHQ-9 Depression Total Score: 0 04/01/20 25 9:29 AM EDT documented as of this encounter Care Teams Forest Fire Control Officer Relationship Specialty Start Date End Date Christina Mora MD [address] [place] [address] PCP - General Internal Medicine 06/03/24 documented as of this encounter
--- OUTSIDE RECORDS SUMMARY | 2025-06-24 14:51 | XMS_ITS | Clinical Summary ---
Author Organization [facility] Address [address] [place] [address] Phone Care Team Providers Care Knife Operator Name Role Phone Christina Mora MD Primary Care Prov ider Allergies No known active allergies Medications OMEGA-3 FATTY ACIDS ORAL Take 1,000 mg by mouth 2 (two) times a day. Active sulfamethoxazo le-trimethopri m (BACTRIM DS,SEPTRA DS) 800-160 mg per tablet Take 1 tablet by mouth 2 (two) times a day for 5 days. 10 each 5 06/29/20 25 Active metoclopramide (REGLAN) 5 mg tablet Take 1 tablet (5 mg total) by mouth 4 (four) times a day (before meals and nightly). 120 each 3 5 06/11/20 25 Discontinu ed(Therapy completed) metoprolol tartrate (LOPRESSOR) 25 mg tablet Take 0.5 tablets (12.5 mg total) by mouth 2 (two) times a day for 14 days, THEN 0.5 tablets (12.5 mg total) 1 (one) time each day for 14 days. Then stop. 5 06/11/20 25 Discontinu ed(Dose adjustment ) predniSONE (DELTASONE) 20 mg tablet Take 1 tablet (20 mg total) by mouth 1 (one) time each day. for 7 days 4 06/11/20 Discontinu ed(Therapy completed) fluticasone propionate (FLONASE) 50 mcg/actuation nasal spray Dwight 1 spray every day by intranasal route for 2 days. 3 06/11/20 Discontinu ed(Therapy completed) cyclobenzaprin e (FLEXERIL) 5 mg tablet TAKE 1 TABLET BY MOUTH 3 TIMES A DAY NEEDED FOR PAIN FOR 7 DAYS 4 06/11/20 Discontinu ed(Therapy completed) amoxicillin-cl avulanate (AUGMENTIN) 875-125 mg per tablet Take 1 tablet by mouth 2 (two) times a day. 20 tablet 5 06/11/20 Discontinu ed(Therapy completed) metoprolol tartrate (LOPRESSOR) 25 mg tablet Take 1 tablet (25 mg total) by mouth 1 (one) time each day. 06/11/20 Discontinu ed(Discont inued by another clinician) Active Problems Problem Noted Date Diagnosed Date [...] AJ (obstructive sleep apnea) 04/17/2017 Overview (04/29/2024): [facility] Home Polysomnogram: Date 04/10/2017; AHI 5, [...] Encounters Date Type Department Care Team Description 06/24/2025 10:15 AM EST Lab Draw Station - [address] Urinary frequency; Epigastric pain 06/24/2025 9:30 AM EST Office Visit Adult [address] [phone] Allan Beltran PA Urinary frequency (Primary Dx); Epigastric pain 06/24/2025 Results Follow-Up [address] [phone] Allan Beltran PA 06/23/2025 10:15 AM EST - 06/23/2025 11:59 PM EST Hospital Encounter Radiology Department - [address] [phone] Vertigo; Gait abnormality Discharge Disposition: Home or Self Care 06/23/2025 Telephone Adult [address] [phone] Christina Mora MD 06/11/2025 9:40 AM EST Lab Draw Station [address] Vertigo; Gait abnormality 06/11/2025 9:00 AM EST Office Visit [address] [phone] Ashley Nixon PA Seen in emergency department (Primary Dx); Vertigo; Gait abnormality; Encounter for screening involving social determinants of health (SDoH) 06/11/2025 Results Follow-Up Adult [address] [phone] Ashley Nixon PA 05/26/2025 Telephone Adult Medicine [address] [phone] Christina Mora MD 05/15/2025 3:30 PM EDT Consult Vascular Surgery - [place] [address] [place] [address] Luisito Paredes MD Diverticulitis (Primary Dx) 04/28/2025 2:55 PM EDT Office Visit [facility] [address] [facility] [address] [place] [address] Wander Mckay MD Palpitations (Primary Dx); PVC (premature ventricular contraction) 04/27/2025 Results Follow-Up Adult Medicine [address] [phone] Christina Mora MD 04/22/2025 2:51 PM EDT - 04/22/2025 11:59 PM EDT Hospital Encounter Radiology Department - [address] [phone] Encounter for screening mammogram for breast cancer Discharge Disposition: Home or Self Care 04/01/2025 9:30 AM EDT Office Visit Adult Medicine [address] [phone] Ashley Nixon PA Low blood pressure reading (Primary Dx); PVC (premature ventricular contraction); Palpitations from Last 3 Months Immunizations Immunization Administration Dates Next Due Hepatitis B (Vklnmlq-O-Doojf , Recombivax HB-Adult) 19yo and older 01/25/2007 Hepatitis B (Recombivax HB-Dialysis) 18yo and ol steven 08/30/2006,07/31/2006 Influenza trivalent, 0.5mL, preservative free (Fluarix; FluLaval; Fluzone) ages 6mo and older (Afluria) 3 years and older 06/11/2008 PPD Test 07/31/2006 [employer] [facility] SARS-CoV-2 COVID-19, mRNA, LNP-S, preservative free 07/06/2021 [...] apnea 04/17/2017 DX:Obstr uctive sleep apnea; COMMENT: [facility] Home Polysomnogram: Date 04/10/2017; AHI 5, [...] for your loved ones. For example, child nutrition manager or elderly care for an older adult? [...] Mass Index 32.95 06/24/2025 9:28 AM EST Plan of Treatment Upcoming Encounters Date Type Department Care Team (Late st Contact Info) Description 08/04/2025 7:30 AM EST Office Visit Adult Medicine [address] [phone] Ashley Nixon PA [address] [place], [place] 08/25/2025 2:30 PM EST [facility] [address] [place] [address] [place] [phone] Miguel Angel Ni MD [address] [place] [address] [place] [phone] 11/04/2025 3:00 PM EDT Office Visit Gastroenterology - [address] [facility] [address] [place] [phone] Isabel Griffiths PA [address] [facility] [address] [facility] [address] [place] [address] Health Maintenance Due Date Last Done Comments Pneumococcal Vaccine: 50+ Years (1 of 1 - PCV) 2022 Zoster Vaccines (1 of 2) 2022 Cervical Cancer Screening: HPV 09/07/2023 09/07/2020 Social Influencers of Health Screening 06/11/2026 06/11/2025, 08/16/2023 Breast Cancer Screening 04/22/2027 04/22/20 25, 04/09/2024, 04/09/2024, Additional history exists DTaP,Tdap,and Td Vaccines (3 - Td or Tdap) 2027 2017, 07/31/2006 Colorectal Cancer Screening: Colonoscopy 06/13/2028 06/13/2023, 06/13/2023 Cholesterol Screening (Lipid Panel) 04/01/2029 04/01/2024, 04/01/2024 RSV Immunization Adult Patients (1 - 1-dose 75+ series) 2047 Hepatitis B Vaccines Completed 01/25/2007, 08/30/2006, 07/31/2006 Influenza Vaccine Discontinued 06/11/2008 HIV Screening Completed 07/25/2013 Hepatitis C Screening Completed 07/25/2013, 013 COVID-19 Vaccine Discontinued 07/06/2021, 06/15/2021 Depression Screening Completed 04/01/2025, 03/25/20 24 HIB [...] 10:37 AM EST Urinary frequency Epigastric pain CBC WITH AUTO DIFFERENTIAL Routine 06/24/2025 10:17 AM EST Urinary frequency Epigastric pain LIPASE Routine 06/24/2025 10:17 AM EST Urinary frequency Epigastric pain AMYLASE Routine 06/24/2025 10:17 AM EST Urinary frequency Epigastric pain CBC AND DIFFERENTIAL Routine 06/24/2025 10:17 AM EST Urinary frequency Epigastric pain COMPREHENSIVE METABOLIC PANEL Routine 06/24/2025 10:17 AM EST Urinary frequency Epigastric pain MR BRAIN WO AND W CONTRAST Routine 06/23/2025 11:11 AM EST Vertigo Gait abnormality CBC WITH AUTO DIFFERENTIAL Routine 06/11/2025 9:44 AM EST Vertigo Gait abnormality CBC AND DIFFERENTIAL Routine 06/11/2025 9:44 AM EST Vertigo Gait abnormality FERRITIN Routine 06/11/2025 9:44 AM EST Vertigo Gait abnormality FOLATE Routine 06/11/2025 9:44 AM EST Vertigo Gait abnormality IRON AND TIBC Routine 06/11/2025 9:44 AM EST Vertigo Gait abnormality VITAMIN B12 Routine 06/11/2025 9:44 AM EST Vertigo Gait abnormality THYROID STIMULATING HORMONE WITH REFLEX TO FREE T4 AND FREE T3 Routine 06/11/2025 9:44 AM EST Vertigo Gait abnormality VITAMIN D 25 HYDROXY Routine 06/11/2025 9:44 AM EST Vertigo Gait abnormality COMPREHENSIVE METABOLIC PANEL Routine 06/11/2025 9:44 AM EST Vertigo Gait abnormality ECG 12-LEAD Routine 04/28/2025 3:16 PM EDT Palpitations MG MAMMO DIGITAL SCREENING W DONTRELL BILAT Routine 04/22/2025 3:04 PM EDT Encounter for screening mammogram for breast cancer ECG 12-LEAD Routine 04/01/2025 9:51 AM EDT Low blood pressure reading LIPID PANEL Routine 04/01/2024 HM DEPRESSION SCREENING Routine 03/25/2024 HM COLONOSCOPY Routine 06/13/2023 HM HPV Routine 09/07/2020 HEPATITIS C SCREENING Routine 07/25/2013 HIV SCREENING Routine 07/25/2013 from Last 3 Months or Most Recently Relevant to Health Maintenance Results * (ABNORMAL) POC Urine Non-Auto W/O Micro (06/24/2025 10:37 AM EST) Leukocytes UA POC Negative Negative Nitrite UA POC Positive(A) Negative Urobilinogen UA POC Negative Negative Comment:.2 Protein UA POC Positive(A) Negative Comment:30 PH UA POC 6.5 5.0 - 9.0 Blood UA POC Negative Negative, Trace Specific [place] UA POC 1.030 1.001 - 1.035 Ketones UA POC Negative Negative Comment:trace Bilirubin UA POC Positive(A) Negative Comment:small Glucose UA POC Normal Normal, Trace Urine Urine specimen obtained by clean catch procedure / Unknown 06/24/2025 10:37 AM EST Allan POWELL POINT OF CARE TEST ENTER /EDIT ORDERABLES Final Result * (ABNORMAL) CBC auto differential (06/24/2025 10:17 AM EST) Only the most recent of2 resultswithin the time period is included. WBC 6.6 4.8 - 10.8 K/mcL LAB HEMETOLOGY METHOD 06/24/2025 12:11 PM [facility] RBC 4.90(H) 3.80 - 4.80 M/mcL LAB HEMETOLOGY METHOD 06/24/2025 12:11 PM [facility] Hemoglobin 14.1 11.5 - 16.0 g/dL LAB HEMETOLOGY METHOD 06/24/2025 12:11 PM [facility] Hematocrit 43.8 35.0 - 47.0 % LAB HEMETOLOGY METHOD 06/24/2025 12:11 PM [facility] MCV 89.0 79.0 - 98.0 FL LAB HEMETOLOGY METHOD 06/24/2025 12:11 PM [facility] MCH 28.7 27.0 - 32.0 pcg LAB HEMETOLOGY METHOD 06/24/2025 12:11 PM [facility] MCHC 32.2 32.0 - 37.0 g/dL LAB HEMETOLOGY METHOD 06/24/2025 12:11 PM [facility] RDW 14.0 11.0 - 15.0 % LAB HEMETOLOGY METHOD 06/24/2025 12:11 PM [facility] Platelets 254 130 - 400 K/mcL LAB HEMETOLOGY METHOD 06/24/2025 12:11 PM [facility] MPV 11.5(H) 7.0 - 11.0 FL LAB HEMETOLOGY METHOD 06/24/2025 12:11 PM [facility] NRBC 0.0 <1.0 % LAB HEMETOLOGY METHOD 06/24/2025 12:11 PM [facility] NRBC Absolute 0.00 <0.10 K/mcL LAB HEMETOLOGY METHOD 06/24/2025 12:11 PM [facility] Neutrophils Relative 52.9 % LAB HEMETOLOGY METHOD 06/24/2025 12:11 PM [facility] Lymphocytes Relative 38.4 % LAB HEMETOLOGY METHOD 06/24/2025 12:11 PM [facility] Monocytes Relative 7.6 % LAB HEMETOLOGY METHOD 06/24/2025 12:11 PM [facility] Eosinophils Relative 0.6 % LAB HEMETOLOGY METHOD 06/24/2025 12:11 [facility] Basophils Relative 0.3 % LAB HEMETOLOGY METHOD 06/24/2025 12:11 [facility] Immature Granulocytes Relative 0.2 % LAB HEMETOLOGY METHOD 06/24/2025 12:11 PM [facility] Neutrophils Absolute 3.48 1.50 - 7.00 K/mcL LAB HEMETOLOGY METHOD 06/24/2025 12:11 PM [facility] Lymphocytes Absolute 2.52 1.00 - 5.00 K/mcL LAB HEMETOLOGY METHOD 06/24/2025 12:11 PM [facility] Monocytes Absolute 0.50 0.20 - 1.00 K/mcL LAB HEMETOLOGY METHOD 06/24/2025 12:11 PM [facility] Eosinophils Absolute 0.04 0.00 - 0.50 K/mcL LAB HEMETOLOGY METHOD 06/24/2025 12:11 PM [facility] Basophils Absolute 0.02 0.00 - 0.20 K/[facility] LAB HEMETOLOGY METHOD 06/24/2025 12:11 PM EST [facility] Immature Granulocytes Absolute 0.01 0.00 - 0.03 K/[facility] LAB HEMETOLOGY METHOD 06/24/2025 12:11 PM EST [facility] Blood Venous blood specimen / Unknown Venipuncture / Unknown 06/24/2025 10:17 AM EST 06/24/2025 10:17 AM EST Allan POWELL LAB BLOOD ORDERABLES Fin al Result Performing Organization Address City/[facility]/ZIP Co de Phone Number [facility] [address] [place] [address], [place] [phone] * Lipase (06/24/2025 10:17 AM EST) Lipase 28 12 - 53 unit/L 06/24/2025 12:56 PM EST [facility] Blood Venous blood specimen / Unknown Venipuncture / Unknown 06/24/2025 10:17 AM EST 06/24/2025 10:17 AM EST us Allan POWELL LAB BLOOD ORDERABLES Fin al Result Performing Organization Address City/[facility]/ZIP Co de Phone Number [facility] [address] [place] [address], [place] [phone] * Amylase (06/24/2025 10:17 AM EST) Amylase 44 25 - 115 unit/L 06/24/2025 12:56 PM EST [facility] Blood Venous blood specimen / Unknown Venipuncture / Unknown 06/24/2025 10:17 AM EST 06/24/2025 10:17 AM EST Allan POWELL LAB BLOOD ORDERABLES Fin al Result [facility] [address] [place] [address], * Comprehensive metabolic panel (06/24/2025 10:17 AM EST) Only the most recent of2 resultswithin the time period is included. Sodium 139 133 - 145 mmol/L 06/24/2025 1:59 PM [facility] Potassium 4.6 3.5 - 5.5 mmol/L 06/24/2025 1:59 PM [facility] Chloride 100 96 - 110 mmol/L 06/24/2025 1:59 PM [facility] CO2 30 21 - 32 mmol/L 06/24/2025 1:59 PM [facility] Anion Gap 9 3 - 11 06/24/2025 1:59 PM [facility] Glucose 95 70 - 100 mg/dL 06/24/2025 1:59 PM [facility] BUN 12 5 - 25 mg/dL 06/24/2025 1:59 PM [facility] Creatinine 0.75 0.50 - 1.10 mg/dL 06/24/2025 1:59 PM [facility] eGFR 96 >=60 mL/min/1. 73m2 06/24/2025 1:59 PM [facility] Comment:Calculation based on the Chronic Kidney Disease Epidemiology Collaboration (CKD-EPI) equation refit without adjustment for race. BUN/Creatinine Ratio 16.0 06/24/2025 1:59 PM [facility] Calcium 8.9 8.5 - 10.5 mg/dL 06/24/2025 1:59 PM [facility] AST (SGOT) 32 10 - 42 unit/L 06/24/2025 1:59 PM [facility] ALT (SGPT) 29 10 - 60 unit/L 06/24/2025 1:59 PM EST [facility] Alkaline Phosphatase 75 42 - 121 unit/L 06/24/2025 1:59 PM EST [facility] Total Protein 7.8 6.0 - 8.0 g/dL 06/24/2025 1:59 PM EST [facility] Albumin 4.1 3.2 - 5.0 g/dL 06/24/2025 1:59 PM [facility] Total Bilirubin 0.5 0.0 - 1.4 mg/dL 06/24/2025 1:59 PM [facility] Blood Venous blood specimen / Unknown Venipuncture / Unknown 06/24/2025 10:17 AM EST 06/24/2025 10:17 AM EST us Allan POWELL LAB BLOOD ORDERABLES Fin al Result [facility] [address] [place] [address], [place] [phone] * MR Brain wo and w Contrast [...] Signed Date: 06/24/2025 09:35 ET Workstation ID: [id number] Transcribed By: Self Edit Transcribed Date: 06/24/2025 [...] Signed Date: 06/24/2025 09:35 ET Workstation ID: [id number] Transcribed By: Self Edit Transcribed Date: 06/24/2025 09:18 ET Ashley POWELL [facility] [place] PROCEDURES Final Result * Thyroid stimulating hormone with reflex to free t4 and free t3 (06/11/2025 9:44 AM EST) TSH 1.11 0.40 - 4.00 mcIU/mL LAB CHEMISTRY METHOD 06/11/2025 5:32 PM EST [facility] Blood Venous blood specimen / Unknown Venipuncture / Unknown 06/11/2025 9:44 AM EST 06/11/2025 9:44 AM EST Ashley POWELL LAB BLOOD ORDERABLES Final Resu lt [facility] [address] [place] [address], [place] [phone] * Iron and TIBC (06/11/2025 9:44 AM EST) Iron 86 40 - 150 mcg/dL LAB CHEMISTRY METHOD 06/11/2025 4:20 PM EST [facility] TIBC 310 250 - 450 mcg/dL LAB CHEMISTRY METHOD 06/11/2025 4:20 PM [facility] Iron Saturation 28 15 - 50 % LAB CHEMISTRY METHOD 06/11/2025 4:20 PM EST [facility] Blood Venous blood specimen / Unknown Venipuncture / Unknown 06/11/2025 9:44 AM EST 06/11/2025 9:44 AM EST Ashley POWELL LAB BLOOD ORDERABLES Final Resu lt Performing Organization Address City/[facility]/ZIP Co de Phone Number [facility] [address] [place] [address], [place] [phone] * (ABNORMAL) Vitamin D 25 hydroxy (06/11/2025 9:44 AM EST) Vit D, 25-Hydroxy 21.5(L) 30.0 - 80.0 ng/mL LAB CHEMISTRY METHOD 06/11/2025 6:19 PM EST [facility] Blood Venous blood specimen / Unknown Venipuncture / Unknown 06/11/2025 9:44 AM EST 06/11/2025 9:44 AM EST Ashley POWELL LAB BLOOD ORDERABLES Final Resu lt Performing Organization Address City/[facility]/ZIP Co de Phone Number [facility] [address] [place] [address], [place] [phone] * (ABNORMAL) Folate (06/11/2025 9:44 AM EST) Folate >20.0(H) 2.8 - 17.0 ng/ml LAB CHEMISTRY METHOD 06/11/2025 4:20 PM EST [facility] Blood Venous blood specimen / Unknown Venipuncture / Unknown 06/11/2025 9:44 AM EST 06/11/2025 9:44 AM EST Ashley POWELL LAB BLOOD ORDERABLES Final Resu lt Performing Organization Address [facility]/ZIP Co de Phone Number [facility] [address] [place] [address], [place] [phone] * Ferritin (06/11/2025 9:44 AM EST) Pathologist [facility] Ferritin 44 8 - 252 ng/mL LAB CHEMISTRY METHOD 06/11/2025 4:20 PM EST [facility] Blood Venous blood specimen / Unknown Venipuncture / Unknown 06/11/2025 9:44 AM EST 06/11/2025 9:44 AM EST Ashley POWELL LAB BLOOD ORDERABLES Final Resu lt Performing Organization Address City/[facility]/ZIP Co de Phone Number [facility] [address] [place] [address], [place] [phone] * Vitamin B12 (06/11/2025 9:44 AM EST) Vitamin B-12 797 250 - 900 pcg/mL LAB CHEMISTRY METHOD 06/11/2025 4:20 PM EST [facility] Blood Venous blood specimen / Unknown Venipuncture / Unknown 06/11/2025 9:44 AM EST 06/11/2025 9:44 AM EST us Ashley POWELL LAB BLOOD ORDERABLES Final Resu lt [facility] [address] [place] [address], * ECG 12 lead (04/28/2025 3:16 PM EDT) Only the most recent of2 resultswithin the time period is included. Ventricular Rate ECG 60 BPM GEMUSE Atrial Rate 60 BPM GEMUSE P-R Interval 130 ms GEMUSE QRS Duration 92 ms GEMUSE Q-T Interval 420 ms GEMUSE QTc 420 ms GEMUSE P Wave [place] 48 degrees GEMUSE R [place] 75 degrees GEMUSE T [place] 56 degrees GEMUSE ECG Interpretation Normal sinus [...] is recommended in 1 year. MAMMO LOCATION: [facility], [address] [place] [address], [id number], . -------- FINAL REPORT -------- Dictated By: Brianna Null Dictated Date: 04/23/2025 18:41 ET Assigned Physician: Brianna Null Reviewed and Electronically Signed By: Brianna Null Signed Date: 04/23/2025 18:42 ET Workstation ID: [id number] Transcribed By: Self Edit Transcribed Date: 04/23/2025 [...] is recommended in 1 year. MAMMO LOCATION: [facility], [address] [place] [address], [id number], . -------- FINAL REPORT -------- Dictated By: Brianna Null Dictated Date: 04/23/2025 18:41 ET Assigned Physician: Brianna Null Reviewed and Electronically Signed By: Brianna Null Signed Date: 04/23/2025 18:42 ET Workstation ID: [id number] Transcribed By: Self Edit Transcribed Date: 04/23/2025 18:41 ET Christina Mora MD IMG BI PROCEDURES Final Result * (ABNORMAL) Lipid panel (04/01/2024) [facility] LDL/HDL Ratio 3 0 - 4 Triglycerides 64 0 - 150 mg/dL Cholesterol 218(A) 0 - 200 mg/dL HDL 69 >=40 mg/dL LDL Cholesterol 137(A) 0 - 100 mg/dL Blood Venous blood specimen / Unknown Result [facility] Provider LAB BLOOD ORDERABLES Cande l Result * Depression Screening (03/25/2024) [facility] Depression Screening Abstracted [facility] Provider HEALTH MAINTENANCE Final Result * Colonoscopy (06/13/2023) [facility] Colonoscopy No interpretation , abstracted Anatomical Region Laterality Modality Other Result [facility] Provider HEALTH MAINTENANCE Final Result * Cervical Cancer Screening: HPV (09/07/2020) [facility] Cervical Cancer Screening: HPV Negative, abstracted Result [facility] Provider HEALTH MAINTENANCE Final Result * HIV Screening (07/25/2013) [facility] HIV Screening Abstracted [facility] Provider HEALTH MAINTENANCE Final Result * Hepatitis C Screening (07/25/2013) [facility] Hepatitis C Screening Abstracted [facility] Provider HEALTH MAINTENANCE Final Result from Last 3 Months or Most Recently Relevant to Health Maintenance Insurance [facility] [employer] Care Teams Knife Operator Relationship Specialty Start Date End Date Christina Mora MD [address] [place] [address] PCP - General Internal Medicine 06/03/24
[2025-06-24 15:25] VITALS: BP 103/63; PULSE 68; RESP 16; TEMP 36.7; O2SAT 97
== END 2025-06-24 15:25 | disposition home or self-care (01) ==
PROVIDERS: Physician Assistant; Emergency Provider Emergency Medicine; PCP Internal Medicine
DX: R10.11 Right upper quadrant pain (principal); R10.A1 Flank pain, right side; M54.50 Low back pain, unspecified; M54.16 Radiculopathy, lumbar region; Z87.442 Personal history of urinary calculi
CPT/HCPCS: 36415; 74177; 80048; 80076; 81003; 81025; 83690; 83735; 84484; 85025; 93005; 96361; 96374; 96375; 99285; J1885; J2270; J7120; Q9967

== ENCOUNTER → 2025-06-24 12:46 | Outpatient (BNV) | payer OTHER, SELFPAY | PROVIDERS: Emergency Provider Emergency Medicine; PCP Internal Medicine; Visit Provider Radiology Diagnostic Radiology | DX: K57.30 Diverticulosis of large intestine without perforation or abscess without bleeding (principal); K76.0 Fatty (change of) liver, not elsewhere classified; J84.10 Pulmonary fibrosis, unspecified | CPT/HCPCS: 74177 ==

== ENCOUNTER → 2025-06-24 12:51 | Outpatient (BNV) | payer OTHER, SELFPAY | PROVIDERS: Emergency Provider Emergency Medicine; PCP Internal Medicine; Visit Provider Internal Medicine Cardiovascular Disease | DX: I49.9 Cardiac arrhythmia, unspecified (principal) | CPT/HCPCS: 93010 ==